=== PATIENT | female | born 1970 | race Caucasian/White ===

== ENCOUNTER 2017-10-13 17:55 | Emergency (ER) | payer OTHER, SELFPAY ==
--- NOTE | 2017-10-13 17:55 | DT_ITS ---
This patient was seen during an EMR downtime October 11, 2017 - October 18, 2017. This patient may have a combination of paper and electronic documentation or all paper documentation. All documentation is viewable within the e-chart portion of [facility] for each patient visit.
== END 2017-10-13 18:45 | disposition home or self-care (01) ==
PROVIDERS: Emergency Provider Emergency Medicine; Family Provider Internal Medicine; PCP Internal Medicine
DX: F41.1 Generalized anxiety disorder (principal); F31.9 Bipolar disorder, unspecified; E11.9 Type 2 diabetes mellitus without complications; E78.00 Pure hypercholesterolemia, unspecified; M79.7 Fibromyalgia; F17.210 Nicotine dependence, cigarettes, uncomplicated
CPT/HCPCS: 99283

== ENCOUNTER 2018-04-15 19:15 | Emergency (ER) | payer OTHER, SELFPAY ==
[2018-04-15 19:16] VITALS: BP 167/94; PULSE 87; RESP 16; TEMP 36.8; O2SAT 97; BMI 33.0
--- NOTE | 2018-04-15 19:33 | CT_ITS ---
STUDY: CT CERVICAL SPINE WITHOUT CONTRAST REASON FOR EXAM: Female, 47 years old. Trauma, neck pain RADIATION DOSAGE (If Supplied By Facility): CTDIvol = ( 25.29 ) mGy, DLP = ( 592.23 ) mGycm TECHNIQUE: High resolution transaxial imaging was performed without contrast material. Sagittal and coronal images were reconstructed. Individualized dose optimization techniques were used for this CT. COMPARISON: None FINDINGS: Normal craniovertebral junction. There are degenerative changes of the anterior atlantoaxial articulation. Normal odontoid process. There is straightening of the normal cervical lordosis. There is endplate spondylosis from C5 caudally to T3. C2-3: There are hypertrophic degenerative facet changes on the left. There is no foraminal narrowing or central canal stenosis. Disc spacing is preserved. C3-4: There are hypertrophic facet changes on the right. There is moderately severe right foraminal narrowing. Disc spacing is within normal limits. There is no central canal stenosis. C4-5: Disc spacing is within normal limits. There are bilateral hypertrophic degenerative facet changes. There is mild foraminal narrowing on the left. There is moderately severe central canal stenosis caused by posterior osteophyte complex. C5-6: The facets are within normal limits. Disc spacing is preserved. There is no central canal stenosis or foraminal narrowing. C6-7: There is mild disc space narrowing. The facets are within normal limits. There is no foraminal narrowing or central canal stenosis. C7-T1: There is moderately severe disc space narrowing. There are mild degenerative facet changes bilaterally. There is no central canal stenosis or foraminal narrowing. Normal visualized soft tissue structures. CT/Spine Cervical without Contras IMPRESSION: Multilevel degenerative changes, as described above. Electronically Signed: Nicolas Breaux MD at 20:30 EST , Service support ,
--- NOTE | 2018-04-15 19:33 | RAD_ITS ---
STUDY: X-RAY - THORACIC SPINE REASON FOR EXAM: Female, 47 years old. Trauma TECHNIQUE: 3 view(s) of the thoracic spine were obtained. COMPARISON: None. FINDINGS: Normal kyphosis of the thoracic spine. There is no substantial scoliosis. There is multilevel endplate spondylosis of the thoracic vertebrae. Normal disc space heights. The soft tissue structures are unremarkable. RAD/Thoracic Spine 3 Views IMPRESSION: Diffuse degenerative changes of the thoracic spine. There are large dense bridging osteophytes in the mid to lower thoracic region consistent with diffuse idiopathic skeletal hyperostosis. Electronically Signed: Nicolas Breaux MD at 20:50 EST , Service support ,
--- NOTE | 2018-04-15 19:40 | ED.DCSUM_ITS ---
- ER Visit Summary Date of Service: 04/15/18 Chief Complaint: Fall History of Present Illness: The patient is a 47 F presenting after fall. Patient states that at 1 AM this morning she was leaving work and and slipped on ice in the parking lot and fell. She did not hit her head or lose consciousness. She complains of diffuse back pain. She states she tried to work today but was unable due to continued back pain. She is currently in pain management for her back and takes ibuprofen and Flexeril. She is able to ambulate. Denies bowel or bladder incontinence. Denies other injuries. Physical Examination: Vitals are stable. Patient is afebrile. Alert no acute distress. HEENT exam is unremarkable. Neck is supple. Mild diffuse tenderness Lungs are clear and equal bilaterally. Heart is regular rate and rhythm. Abdomen is soft nontender nondistended. Back: left paraspinal lumbar muscle tenderness, no midline tenderness Extremities are unremarkable. Skin is warm and dry. No focal neurologic deficit. Normal strength and sensation Remainder of exam is unremarkable. Emergency Department Course and Treatment: Patient is given morphine, Zofran IM. Thoracic spine x-ray shows diffuse degenerative changes of the thoracic spine. There are large dense bridging osteophytes in the mid to lower thoracic region consistent with diffuse idiopathic skeletal hyperostosis. Lumbar spine x-ray shows degenerative changes of the spine. Findings are suggestive of diffuse idiopathic skeletal hyperostosis. CT C-spine shows multilevel degenerative changes. Patient is feeling improved on reevaluation. She is advised to follow-up with [facility]. Advised return to ED for worsening complaints. Disposition: Discharge home Impression: Status post mechanical fall, lumbar strain This note was generated with [employer] dictation software. It may contain incorrect words, spelling, and punctuation that were not noted in review of the chart prior to signing ED Disposition - Plan for ED Patient: Disposition: Home or Assisted Living Chief Complaint: Back Instructions: ED Sprain Strain Lumbar Referrals: [facility] [GROUP OF PHYSICIANS] - Savi Clements MD [Primary Care Provider] - Marcos Mckoy [NON-STAFF] -
[2018-04-15] MEDS: Ondansetron 4 MG/2 ML Vial IM (19:48)
[2018-04-15] MEDS: morphine 8 MG/ML Syringe IM (19:48)
--- NOTE | 2018-04-15 20:14 | RAD_ITS ---
STUDY: X-RAY - LUMBAR SPINE REASON FOR EXAM: Female, 47 years old. Trauma TECHNIQUE: 3 view(s) of the lumbar spine were obtained. COMPARISON: None FINDINGS: Normal lumbar lordosis. There is no substantial scoliosis. There is a normal alignment of the vertebrae. There are large dense bridging osteophytes of the lower thoracic/upper lumbar vertebrae. There is multi-level degenerative disc disease with multi-level disc space narrowing. There is no demonstrated fracture. Bilateral tubal ligation clips are seen. RAD/Lumbar Spine 2 or 3 Views IMPRESSION: Degenerative changes of the spine, as detailed above. Findings are suggestive of diffuse idiopathic skeletal hyperostosis. There is no evidence of fracture or spondylolisthesis. Electronically Signed: Nicolas Breaux MD at 20:48 EST , Service support ,
--- NOTE | 2018-04-15 22:09 | ED.RN ---
NO OLD EKGS IN MUSE
--- NOTE | 2018-04-15 22:18 | DCINST.ED_ITS ---
ED Disposition - Plan for ED Patient: Disposition: Home or Assisted Living Chief Complaint: Back Instructions: ED Sprain Strain Lumbar Referrals: Savi Clements MD [Primary Care Provider] - Marcos Mckoy [NON-STAFF] - [facility] [GROUP OF PHYSICIANS] -
[2018-04-15 22:29] VITALS: RESP 18
== END 2018-04-15 22:29 | disposition home or self-care (01) ==
PROVIDERS: Emergency Provider Emergency Medicine; Family Provider Internal Medicine; PCP Internal Medicine
DX: S39.012A Strain of muscle, fascia and tendon of lower back, initial encounter (principal); W00.0XXA Fall on same level due to ice and snow, initial encounter; Y93.9 Activity, unspecified; Y92.481 Parking lot as the place of occurrence of the external cause; J45.909 Unspecified asthma, uncomplicated; E11.9 Type 2 diabetes mellitus without complications; Z72.0 Tobacco use; Z79.899 Other long term (current) drug therapy; Z79.4 Long term (current) use of insulin
CPT/HCPCS: 72072; 72100; 72125; 96372; 99282; J2405

== ENCOUNTER 2018-05-22 20:16 | Emergency (ER) | payer MEDICAID, SELFPAY ==
[2018-04-20 13:36] VITALS: BMI 33.0
[2018-05-22 20:17] VITALS: BP 153/80; PULSE 123; RESP 16; TEMP 36.7; O2SAT 98; BMI 35.9
[2018-05-22 20:43] VITALS: PULSE 123; RESP 18; TEMP 36.6; O2SAT 98
[2018-05-22] MEDS: morphine 10 MG/ML Syringe 8 MG IM (21:00)
[2018-05-22] MEDS: Ondansetron 4 MG/2 ML Vial IM (21:00)
--- NOTE | 2018-05-22 21:07 | ED.DEP ---
ED Disposition - Plan for ED Patient: Chief Complaint: Abscess Instructions: ED Cyst Pilonidal Infected IandD Prescriptions: Clindamycin [Cleocin] 300 mg PO 4X/DAY #80 capsule Referrals: Savi Clements MD [Primary Care Provider] - Linda Whelan MD [STAFF PHYSICIAN] -
--- NOTE | 2018-05-22 21:12 | ED.VISSUMM ---
- ER Visit Summary Date of Service: 05/22/18 Chief Complaint: Buttock abscess History of Present Illness: The patient is a 47 F presenting with abscess on her buttock. She noticed this yesterday. States it continues to worsen. No history of similar symptoms in the past. She has history of diabetes, hypercholesterolemia, fibromyalgia, bipolar disorder. She has not noticed any drainage at home. She denies fever. Denies other complaints. Physical Examination: Vitals are stable. Patient is afebrile. Alert no acute distress. HEENT exam is unremarkable. Neck is supple. Lungs are clear and equal bilaterally. Heart is regular rate and rhythm. Abdomen is soft nontender nondistended. 2 cm abscess at gluteal cleft with fluctuance Extremities are unremarkable. Skin is warm and dry. Remainder of exam is unremarkable. Emergency Department Course and Treatment: Patient was given morphine, Zofran IM. I&D was performed. Anesthetized with lidocaine. Incised with 11 blade. Moderate amount of pus was drained. Probed to break up loculations. Irrigated with saline. Patient tolerated this well. She is given clindamycin and prescription for clindamycin. Advised return to ED for worsening complaints. Advised to follow with Dr. Whelan business continuity director for no doc surgery. Disposition: Discharge home Impression: Infected pilonidal cyst, I&D This note was generated with [email or web address] dictation software. It may contain incorrect words, spelling, and punctuation that were not noted in review of the chart prior to signing ED Disposition - Plan for ED Patient: Chief Complaint: Abscess Instructions: ED Cyst Pilonidal Infected IandD Prescriptions: Clindamycin [Cleocin] 300 mg PO 4X/DAY #80 capsule Referrals: Savi Clements MD [Primary Care Provider] - Linda Whelan MD [STAFF PHYSICIAN] -
--- NOTE | 2018-05-22 21:15 | ED.DCSUM_ITS ---
- ER Visit Summary Date of Service: 05/22/18 Chief Complaint: Buttock abscess History of Present Illness: The patient is a 47 F presenting with abscess on her buttock. She noticed this yesterday. States it continues to worsen. No history of similar symptoms in the past. She has history of diabetes, hype rcholesterolemia, fibromyalgia, bipolar disorder. She has not noticed any drainage at home. She denies fever. Denies other complaints. Physical Examination: Vitals are stable. Patient is afebrile. Alert no acute distress. HEENT exam is unremarkable. Neck is supple. Lungs are clear and equal bilaterally. Heart is regular rate and rhythm. Abdomen is soft nontender nondistended. 2 cm abscess at gluteal cleft with fluctuance Extremities are unremarkable. Skin is warm and dry. Remainder of exam is unremarkable. Emergency Department Course and Treatment: Patient was given morphine, Zofran IM. I&D was performed. Anesthetized with lidocaine. Incised with 11 blade. Moderate amount of pus was drained. Probed to break up loculations. Irrigated with saline. Patient tolerated this well. She is given clindamycin and prescription for clindamycin. Advised return to ED for worsening complaints. Advised to follow with Dr. Whelan cast iron drain pipe layer for no doc surgery. Disposition: Discharge home Impression: Infected pilonidal cyst, I&D This note was generated with [employer] dictation software. It may contain incorrect words, spelling, and punctuation that were not noted in review of the chart prior to signing ED Disposition - Plan for ED Patient: Chief Complaint: Abscess Instructions: ED Cyst Pilonidal Infected IandD Prescriptions: Clindamycin [Cleocin] 300 mg PO 4X/DAY #80 capsule Referrals: Savi Clements MD [Primary Care Provider] - Linda Whelan MD [STAFF PHYSICIAN] -
[2018-05-22] MEDS: Clindamycin HCl 150 MG Capsule 300 MG PO (21:20)
[2018-05-22 21:29] VITALS: BP 123/71; PULSE 89; RESP 16; O2SAT 99
== END 2018-05-22 21:34 | disposition home or self-care (01) ==
LOC: ED 21:32
PROVIDERS: Emergency Provider Emergency Medicine; Family Provider Internal Medicine; PCP Internal Medicine
DX: L05.01 Pilonidal cyst with abscess (principal); E11.9 Type 2 diabetes mellitus without complications; E78.00 Pure hypercholesterolemia, unspecified; M79.7 Fibromyalgia; F31.9 Bipolar disorder, unspecified; Z79.4 Long term (current) use of insulin; Z79.899 Other long term (current) drug therapy; Z72.0 Tobacco use
CPT/HCPCS: 10080; 96372; 99282; J2405

== ENCOUNTER 2018-08-14 21:41 | Emergency (ER) | payer MEDICAID, SELFPAY ==
[2018-05-25 12:51] VITALS: BMI 35.9
[2018-08-14 21:41] VITALS: BP 162/92; PULSE 92; RESP 18; TEMP 37.3; O2SAT 97; BMI 35.6
[2018-08-14 21:57] VITALS: BP 75/59; PULSE 128; RESP 28; O2SAT 96
--- NOTE | 2018-08-14 22:06 | RAD_ITS ---
STUDY: X-RAY CHEST REASON FOR EXAM: Female, 47 years old. Chest pain TECHNIQUE: Single frontal view of the chest. COMPARISON: None. FINDINGS: The lungs are clear and expanded. There is no demonstrated pleural abnormality. Normal size heart. Normal mediastinum and ines. Normal visualized pulmonary arteries. Normal visualized aortic arch and descending thoracic aorta. Normal visualized thoracic spine. Normal visualized ribs, clavicles, and shoulders. There is no demonstrated abnormality of the visualized soft tissue structures of the upper abdomen. RAD/Chest 1 View (Portable) IMPRESSION: Normal x-ray examination of the chest. Electronically Signed: Chip Dowell MD at 22:31 EDT Tel , Service support ,
--- NOTE | 2018-08-14 22:15 | ED.RN ---
DR. CONWAY AT BEDSIDE WITH PT. PT COMPLAINS OF SOB. PT PLACE ON NONREBREATHER MASK AT 15L/ SOB, GASPING. PT MOTTLED AROUND NECK. VERBAL ORDERS FOR RSI. PT HR IN 30. ATROPINE GIVEN 2217. PT CONTINUES TO YNES DOWN IN HRB
--- NOTE | 2018-08-14 23:21 | EKG12_ITS ---
Test Reason : CP Blood Pressure : / mmHG Vent. Rate : 087 BPM Atrial Rate : 087 BPM P-R Int : 158 ms QRS Dur : 078 ms QT Int : 338 ms P-R-T Axes : 058 010 056 degrees QTc Int : 406 ms Normal sinus rhythm Low voltage QRS Septal infarct , age undetermined , cannot be excluded Nonspecific T-Wave Abnormality Abnormal ECG Confirmed by ODALIS DALEY, ELISABETH ([id number]), field map editor NAYLA BURTON ([id number]) on 08/17/2018 1:11:04 PM Referred By: KASANDRA/CHEKO Confirmed By:ELISABETH JACOBO MD
[2018-08-14 23:46] VITALS: O2SAT 96
[2018-08-14] MEDS: Aspirin 81 MG TAB.CHEW 324 MG PO (23:48)
[2018-08-14] MEDS: morphine 8 MG/ML Syringe 6 MG IV (23:49)
[2018-08-14] MEDS: Ketorolac 30 MG/ML Syringe IV (23:49)
[2018-08-14] MEDS: Ondansetron 4 MG/2 ML Vial IV (23:49)
[2018-08-14 23:55] VITALS: BP 144/85; PULSE 82; RESP 16; O2SAT 96
[2018-08-14 23:56] LABS: Absolute Lymphocyte Count 3.05 X10^3/ul (0.83-4.51); Absolute Neutrophil Count 6.5 X10^3/uL (2.0-7.7); Basophil# 0.02 X10^3/uL; Basophil% 0.2 % (0-1); Eosinophil# 0.68 X10^3/uL; Eosinophils% 6.1 % (0-5); Hematocrit 39.8 % (37-47); Hemoglobin 13.8 g/dl (12.0-15.0); Lymphocyte # 3.05 X10^3/ul (4.0); Lymphocyte % 27.4 % (19-41); Mean Corp Hgb Conc 34.7 g/gl (32-36); Mean Corpuscular Hgb 29.4 pg (27.0-32.0); Mean Corpuscular Volume 84.9 fL (81-99); Mean Platelet Vol. 10.5 fl (6.2-12.0); Monocyte% 8.1 % (0-10); Neutrophil # 6.45 X10^3/uL (2.7-7.7); Neutrophil % 57.9 % (47-70); Platelet Count 237 K/mm3 (150-450); RBC Distribution Width CV 12.8 % (11.6-14.6); RBC Distribution Width SD 38.8 fl (35.1-43.9); Red Blood Count 4.69 M/mm3 (4.2-5.4); White Blood Count 11.1 K/mm3 (4.4-11.0)
[2018-08-15] VITALS: BP 135/89; PULSE 80; RESP 13; O2SAT 96
[2018-08-15] LABS: POSITIVE COUNT NO; POSITIVE DIFFERENTIAL NO; POSITIVE MORPHOLOGY NO
[2018-08-15 00:08] LABS: D-Dimer Quantitative (DVT/PE) 0.28 FEU/ug/m (0.27-0.49)
[2018-08-15 00:17] LABS: Anion Gap 6 (5-15); BUN 13 mg/dL (7-18); BUN/Creat Ratio 17.2 RATIO (10-20); Calcium,Total 9.1 mg/dL (8.5-10.1); Chloride 102 mmol/L (98-107); Creatinine, Serum 0.76 mg/dL (0.55-1.02); EST Glomerular Filtration Rate 87 mL/min (>60); Est Glom Filt Rate - Afr Amer 106 mL/min (>60); Estimated Creatinine Clearance 89.95 ml/min; Glucose 204 mg/dL (74-106); Potassium 3.8 mmol/L (3.5-5.1); Sodium Level 135 mmol/L (136-145)
[2018-08-15 01:14] VITALS: BP 131/72; PULSE 71; RESP 14; O2SAT 96
--- NOTE | 2018-08-15 01:40 | ED.VISSUMM ---
- ER Visit Summary Date of Service: 08/15/18 Chief Complaint: Left chest pain History of Present Illness: The patient is a 47 F mild left chest pain since . Is been constant. It is stabbing. Worse with movement. She had pleurisy before with similar not exactly the same. She denies any shortness of breath. No hemoptysis. No leg pain or swelling. No prior history of DVT or PE. No recent travel, surgery or immobilization. Patient does have a history of insulin-dependent diabetes and high cholesterol. His chronic neck pain and recently had neck injections earlier last week. Denies any fall or trauma. No fever or cough. Physical Examination: Well-appearing middle-age female. Initial blood pressure think that is erroneous when I am in the room is 144/85. Pulse ox 96% on room air no signs of hypoxia. HEENT exam normal. Neck nontender. Lungs there to auscultation bilaterally. Heart regular rhythm rate in the 80s. Abdomen is soft and nontender normal bowel sounds no peritoneal signs. She has reproducible left chest wall pain. No ecchymosis or bruising. No subcu air crepitance. This is the same pain she is having. Patient is moving all 4 extremities. Neurovascular intact. Back exam she also has reproducible muscular skeletal pain along the left scapula consistent with soft tissue tenderness. There is no ecchymosis or bruising. Neurologically she is awake and alert with no focal motor deficits. Equal symmetrical radial pulses. Test Results: CBC normal. Chemistries normal. Troponin d-dimer normal. Chest x-ray portable one view no acute abnormality read both of myself and the radiologist. EKG sinus rhythm rate of 87 with no acute signs of RI or ischemia. Emergency Department Course and Treatment: Clinically this and exam funez is consistent with musculoskeletal pain. She was treated with morphine, Toradol and Zofran. On repeat exam at she is doing well. Will be discharged home. Treatment Plan: Pain meds as needed. Motrin for pain. Ice to the chest wall and back. Heat. Disposition: Discharge Impression: Acute musculoskeletal chest and back pain This note was generated with [employer] dictation software. It may contain incorrect words, spelling, and punctuation that were not noted in review of the chart prior to signing ED Disposition - Plan for ED Patient: Referrals: Savi Clements MD [Primary Care Provider] -
--- NOTE | 2018-08-15 01:43 | ED.DCSUM_ITS ---
- ER Visit Summary Date of Service: 08/15/18 Chief Complaint: Left chest pain History of Present Illness: The patient is a 47 F mild left chest pain since . Is been constant. It is stabbing. Worse with movement. She had pleurisy before with similar not exactly the same. She denies any shortness of breath. No hemoptysis. No leg pain or swelling. No prior history of DVT or PE. No recent travel, surgery or immobilization. Patient does have a history of insulin-dependent diabetes and high cholesterol. His chronic neck pain and recently had neck injections earlier last week. Denies any fall or trauma. No fever or cough. Physical Examination: Well-appearing middle-age female. Initial blood pressure think that is erroneous when I am in the room is 144/85. Pulse ox 96% on room air no signs of hypoxia. HEENT exam normal. Neck nontender. Lungs there to auscultation bilaterally. Heart regular rhythm rate in the 80s. Abdomen is soft and nontender normal bowel sounds no peritoneal signs. She has reproducible left chest wall pain. No ecchymosis or bruising. No subcu air crepitance. This is the same pain she is having. Patient is moving all 4 extremities. Neurovascular intact. Back exam she also has reproducible muscular skeletal pain along the left scapula consistent with soft tissue tenderness. There is no ecchymosis or bruising. Neurologically she is awake and alert with no focal motor deficits. Equal symmetrical radial pulses. Test Results: CBC normal. Chemistries normal. Troponin d-dimer normal. Chest x-ray portable one view no acute abnormality read both of myself and the radiologist. EKG sinus rhythm rate of 87 with no acute signs of SC or ischemia. Emergency Department Course and Treatment: Clinically this and exam funez is consistent with musculoskeletal pain. She was treated with morphine, Toradol and Zofran. On repeat exam at she is doing well. Will be discharged home. Treatment Plan: Pain meds as needed. Motrin for pain. Ice to the chest wall and back. Heat. Disposition: Discharge Impression: Acute musculoskeletal chest and back pain This note was generated with [employer] dictation software. It may contain incorrect words, spelling, and punctuation that were not noted in review of the chart prior to signing ED Disposition - Plan for ED Patient: Referrals: Savi Clements MD [Primary Care Provider] -
--- NOTE | 2018-08-15 01:43 | ED.DEP ---
ED Disposition - Plan for ED Patient: Disposition: Home or Assisted Living Instructions: ED Strain Chest Wall Referrals: Savi Clements MD [Primary Care Provider] - 1 Week if not improving Additional Instructions: History chest wall. Motrin for pain. Follow-up with your pain management doctor.
[2018-08-15 01:53] VITALS: BP 131/72; PULSE 76; RESP 15; O2SAT 15
== END 2018-08-15 01:54 | disposition home or self-care (01) ==
PROVIDERS: Emergency Provider Emergency Medicine; Family Provider Internal Medicine; PCP Internal Medicine
DX: R07.89 Other chest pain (principal); M54.5 Low back pain; M54.2 Cervicalgia; G89.29 Other chronic pain; E11.9 Type 2 diabetes mellitus without complications; E78.00 Pure hypercholesterolemia, unspecified; Z79.4 Long term (current) use of insulin; Z79.84 Long term (current) use of oral hypoglycemic drugs; Z79.899 Other long term (current) drug therapy; Z72.0 Tobacco use
CPT/HCPCS: 71045; 80048; 84484; 85025; 85379; 93005; 96374; 96375; 99285; A4216; J2405

== ENCOUNTER 2018-09-28 18:20 | Emergency (ER) | payer MEDICAID, SELFPAY ==
[2018-09-28 18:21] VITALS: BP 165/90; PULSE 90; RESP 16; TEMP 37; O2SAT 97; BMI 33.2
[2018-09-28] MEDS: DiphenhydrAMINE 50 MG/ML Syringe 25 MG IV (20:17)
[2018-09-28] MEDS: 0.9% Normal Saline 1,000 ML 999 ML IV (20:17)
[2018-09-28] MEDS: Metoclopramide 10 MG/2 ML Vial 5 MG IV (20:18)
--- NOTE | 2018-09-28 20:51 | ED.VISSUMM ---
- ER Visit Summary Date of Service: 09/28/18 Chief Complaint: Headache History of Present Illness: The patient is a 47 F presenting with headache. This has been intermittent for the past couple days. She states it gradually worsened today. She has tried ibuprofen at home. No recent trauma. She has a history of previous headaches. She has light sensitivity. Denies nausea or vomiting. Denies fever. Denies other complaints. Physical Examination: Vitals are stable. Patient is afebrile. Alert no acute distress. HEENT exam is unremarkable. Neck is supple. No meningismus Lungs are clear and equal bilaterally. Heart is regular rate and rhythm. Extremities are unremarkable. Skin is warm and dry. No focal neurologic deficit. Remainder of exam is unremarkable. Emergency Department Course and Treatment: Patient was given Reglan, Benadryl IV with some improvement. She was then given Toradol with improvement of her headache. She is advised to follow-up with her primary care physician. Advised to return to ED if worsening complaints. Disposition: Discharge home Impression: Headache This note was generated with [employer] dictation software. It may contain incorrect words, spelling, and punctuation that were not noted in review of the chart prior to signing ED Disposition - Plan for ED Patient: Referrals: Savi Clements MD [Primary Care Provider] -
--- NOTE | 2018-09-28 21:39 | ED.RN ---
DR BROWN NOTIFIED PT REQUESTING MORE PAIN MEDICATION
[2018-09-28] MEDS: Ketorolac 30 MG/ML Syringe IV (21:44)
--- NOTE | 2018-09-28 21:45 | ED.RN ---
PT C/O NO IMPROVEMENT WITH HEADACHE. PT CURRENTLY WATCHING A MOVIE ON HER PHONE
--- NOTE | 2018-09-28 22:23 | ED.DEP ---
ED Disposition - Plan for ED Patient: Instructions: ED Cephalgia Unspecified Referrals: Savi Clements MD [Primary Care Provider] -
[2018-09-28 22:37] VITALS: BP 132/89; PULSE 90; RESP 14; O2SAT 98
== END 2018-09-28 22:38 | disposition home or self-care (01) ==
LOC: ED 19:28
PROVIDERS: Emergency Provider Emergency Medicine; Family Provider Internal Medicine; PCP Internal Medicine
DX: R51 Headache (principal); J45.909 Unspecified asthma, uncomplicated; E11.9 Type 2 diabetes mellitus without complications; F31.9 Bipolar disorder, unspecified; F41.9 Anxiety disorder, unspecified; Z79.4 Long term (current) use of insulin; Z79.84 Long term (current) use of oral hypoglycemic drugs; Z79.899 Other long term (current) drug therapy; Z72.0 Tobacco use
CPT/HCPCS: 96361; 96374; 96375; 99284; J7030; A4216

== ENCOUNTER 2019-01-08 11:10 | Emergency (ER) | payer MEDICAID, SELFPAY ==
[2019-01-08 11:11] VITALS: BP 120/71; PULSE 83; RESP 15; TEMP 36.2; O2SAT 98; BMI 34.7
[2019-01-08 11:18] VITALS: BP 113/77
--- NOTE | 2019-01-08 11:31 | EKG12_ITS ---
Test Reason : FATIGUE Blood Pressure : / mmHG Vent. Rate : 063 BPM Atrial Rate : 063 BPM P-R Int : 186 ms QRS Dur : 086 ms QT Int : 410 ms P-R-T Axes : 039 009 014 degrees QTc Int : 419 ms Normal sinus rhythm Low voltage QRS Borderline ECG Confirmed by ODALIS DALEY, ELISABETH ([id number]), desk editor EVELYN HALL ([id number]) on 01/10/2019 11:31:52 AM Referred By: SHABANA Confirmed By:ELISABETH JACOBO MD
--- NOTE | 2019-01-08 11:32 | ED.DCSUM_ITS ---
- ER Visit Summary Date of Service: 01/08/19 Chief Complaint: Exhausted History of Present Illness: The patient is a 48 F history of type II [id number] diabetes. He states the last 2 weeks she just felt exhausted. Says she drinks a lot of water. Up to 40 bottles of water a week. Says she still feels dehydrated in spite of that. She was seen in the urgent care over a week ago. Started on Keflex for a mild skin infection. Saw her nurse practitioner on Wednesday pressure at that time was 102/70. She states she is been checked multiple times for thyroid issues and they have always returned normal. She denies any vomiting or diarrhea. Any fever. No dysuria. No chest pain or shortness of breath. Physical Examination: No acute appearing no acute distress. Initial blood pressure is 113/77. While in the room repeat blood pressure was 122/75. HEENT exam unremarkable. Neck nontender. No adenopathy. Lungs clear to auscultation bilaterally. Heart regular rhythm no murmur. Abdomen is soft and nontender. Normal bowel sounds no peritoneal signs. Extremities moves all 4. Neurovascular intact. Calves are nontender without edema or cords. Neurologically she is awake alert with no focal motor deficits. Skin is unremarkable. Back is nontender. Test Results: CBC shows white count 5. Hemoglobin 13. Unremarkable. Chemistries unremarkable gap of 8. BUN is slightly elevated 24 creatinine 1.1 consistent with very mild dehydration. EKG shows sinus rhythm rate of 63 with no acute signs of either an [place] or any ischemia. Emergency Department Course and Treatment: Patient treated with a liter of normal saline. Screening labs and EKG will be obtained. Repeat exam at 1400 patient is doing well. Exam is unremarkable. She was treated with a liter of normal saline. Treatment Plan: Follow-up with primary care physician. Plenty of fluids and rest. Disposition: Discharge Impression: Acute fatigue Mild Dehydration History of diabetes This note was generated with [employer] dictation software. It may contain incorrect words, spelling, and punctuation that were not noted in review of the chart prior to signing ED Disposition - Plan for ED Patient: Referrals: Savi Clements MD [Primary Care Provider] -
[2019-01-08 11:33] VITALS: BP 122/78
[2019-01-08] MEDS: 0.9% Normal Saline 1,000 ML 999 ML IV (11:46)
[2019-01-08 12:05] LABS: Absolute Lymphocyte Count 2.36 X10^3/uL (0.83-4.51); Absolute Neutrophil Count 2.3 X10^3/uL (2.0-7.7); Basophil# 0.02 X10^3/uL; Basophil% 0.4 % (0-1); Eosinophil# 0.51 X10^3/uL; Hematocrit 41.5 % (37-47); Hemoglobin 13.2 g/dL (12.0-15.0); Lymphocyte # 2.36 X10^3/ul (4.0); Lymphocyte % 41.8 % (19-41); Mean Corp Hgb Conc 31.8 g/dL (32-36); Mean Corpuscular Hgb 28.1 pg (27.0-32.0); Mean Corpuscular Volume 88.3 fL (81-99); Mean Platelet Vol. 10.9 fl (6.2-12.0); Monocyte# 0.47 X10^3/uL; Monocyte% 8.3 % (0-10); NRBC Flagged by Analyzer 0 % (0-5); Neutrophil # 2.25 X10^3/uL (2.7-7.7); Platelet Count 203 K/mm3 (150-450); RBC Distribution Width SD 42.1 fl (35.1-43.9); White Blood Count 5.6 K/mm3 (4.4-11.0)
[2019-01-08 12:07] LABS: Anion Gap 8 (5-15); BUN 24 mg/dL (7-18); BUN/Creat Ratio 21.6 RATIO (10-20); Calcium,Total 8.5 mg/dL (8.5-10.1); Chloride 105 mmol/L (98-107); Creatinine, Serum 1.11 mg/dL (0.55-1.02); EST Glomerular Filtration Rate 56 mL/min (>60); Est Glom Filt Rate - Afr Amer 68 mL/min (>60); Estimated Creatinine Clearance 60.93 ml/min; Glucose 101 mg/dL (74-106); Potassium 4.2 mmol/L (3.5-5.1); Sodium Level 139 mmol/L (136-145)
[2019-01-08 12:35] VITALS: BP 106/76; PULSE 64
[2019-01-08 14:00] VITALS: BP 112/71
--- NOTE | 2019-01-08 14:02 | ED.DEP ---
ED Disposition - Plan for ED Patient: Disposition: Home or Assisted Living Instructions: WEAKNESS, Unk Cause Referrals: Savi Clements MD [Primary Care Provider] - As soon as possible Additional Instructions: Plenty of fluids and rest. Today you had mild dehydration. Otherwise your labs look good. Follow-up with your primary care physician
[2019-01-08 14:09] VITALS: BP 112/74; PULSE 64; RESP 16; O2SAT 97
== END 2019-01-08 14:10 | disposition home or self-care (01) ==
PROVIDERS: Emergency Provider Emergency Medicine; Family Provider Internal Medicine; PCP Internal Medicine
DX: R53.83 Other fatigue (principal); E86.0 Dehydration; E11.9 Type 2 diabetes mellitus without complications; K59.00 Constipation, unspecified; Z79.84 Long term (current) use of oral hypoglycemic drugs; Z79.899 Other long term (current) drug therapy; Z72.0 Tobacco use
CPT/HCPCS: 80048; 85025; 93005; 96360; 96361; 99284

== ENCOUNTER 2019-05-20 19:35 | Emergency (ER) | payer MEDICAID, SELFPAY ==
[2019-05-20 19:36] VITALS: BP 137/82; PULSE 82; RESP 15; TEMP 36.2; O2SAT 98; BMI 34.0
--- NOTE | 2019-05-20 19:51 | ED.DCSUM_ITS ---
- ER Visit Summary Date of Service: 05/20/19 Chief Complaint: Sore throat History of Present Illness: The patient is a 48 F who presents with sore throat. This is been ongoing since yesterday. She states it feels like her throat is swollen. It hurts to swallow. She states that she had a sinus infection and bronchitis a couple weeks ago. She was treated with prednisone, Mucinex but no antibiotics. She denies any fevers. She has had a tonsillectomy in the past. Physical Examination: Vital signs reviewed. HEENT exam reveals TMs that are clear. She has a mild posterior oropharyngeal erythema. There is no uvular swelling. Tonsils are surgically absent. There is no tongue swelling. Neck is supple without lymphadenopathy. Heart is regular rate and rhythm. Lungs are clear auscultation. Abdomen soft and nontender. Extremities with no edema. Neurologic exam normal. Test Results: Rapid strep is positive. Emergency Department Course and Treatment: Patient was given Decadron to help with her pain. I did do a rapid strep and it is positive. She elected to do intramuscular Bicillin. Patient will be sent home with supportive care as well. Treatment Plan: [] Disposition: Discharge Impression: Strep pharyngitis This note was generated with [employer] dictation software. It may contain incorrect words, spelling, and punctuation that were not noted in review of the chart prior to signing ED Disposition - Plan for ED Patient: Disposition: Home or Assisted Living Instructions: PHARYNGITIS, Strep (Presumed) Referrals: Savi Clements MD [Primary Care Provider] -
[2019-05-20] MEDS: dexAMETHasone 4 MG Tablet 8 MG PO (20:01)
[2019-05-20] MEDS: Penicillin G Benzathine 1.2 MU/2 ML Syringe IM (20:35)
[2019-05-20 20:57] VITALS: BP 132/81; PULSE 80; RESP 17; O2SAT 97
--- NOTE | 2019-05-20 20:58 | ED.RN ---
shot time was observed by this nurse for 15 minutes, no reaction was noted by this nurse.
== END 2019-05-20 20:59 | disposition home or self-care (01) ==
PROVIDERS: Emergency Provider Emergency Medicine; Family Provider Internal Medicine; PCP Internal Medicine
DX: J02.0 Streptococcal pharyngitis (principal); Z72.0 Tobacco use
CPT/HCPCS: 87880; 96372; 99282

== ENCOUNTER 2019-06-03 20:31 | Emergency (ER) | payer MEDICAID, SELFPAY ==
[2019-06-03 20:33] VITALS: BP 157/83; PULSE 86; RESP 18; TEMP 36.8; O2SAT 99; BMI 35.4
--- NOTE | 2019-06-03 21:05 | ED.VIS.GEN ---
History of Present Illness Chief Complaint: Sore Throat Informant: Patient Onset: Month(s) Maximum Severity: Mild Narrative: Patient presents complaining of chronic postnasal drainage and cough and some sore throat. She is had these symptoms chronically throughout her whole life the current exacerbation began in March she is was under the care of ENT she had scopes of her airway that showed this process it was recommended she have sinus surgery but she declined she has been seen by multiple outpatient providers for this since then most recently 1 week ago her outpatient provider started her on azithromycin and prednisone taper she was told to follow-up with ENT she has not done that. She indicates she presents the emergency room asking to be given a refill of the prednisone as that helps her symptoms she is able to swallow she is able to eat sugars no stridor no drooling she indicates she is constantly having postnasal drainage and coughing that causes a sore throat sensation her diabetes is well controlled blood sugars about 1 50-1 80 Past Medical History - Allergies and Home Meds Allergies/Adverse Reactions: Allergies Sulfa (Sulfonamide Antibiotics) Allergy (Verified 06/03/19 20:33) Anaphylaxis vancomycin Allergy (Verified 06/03/19 20:33) Hives metformin Adverse Reaction (Verified 06/03/19 20:33) Diarrhea stainless steal Allergy (Mild, Uncoded 06/03/19 20:33) rash Primary Care Physician: Savi Clements MD [Primary Care Provider] - Past Medical History: - - Rhinosinusitis diabetes Surgical History: tonsillectomy Smoking Status: Current every day smoker Review of Systems General: Denies: Chills, Fever, Sweats Eyes: Denies: Visual changes - bilaterally, Diplopia ENT: Reports: Rhinorrhea, Sore throat, - - Nasal drainage postnasal drip cough Cardiovascular: Denies: Chest pain, Palpitations Respiratory: Denies: Dyspnea, Cough, Dyspnea on exertion Gastrointestinal: Denies: Abdominal pain, Nausea, Vomiting, Diarrhea, Melena, Hematochezia Genitourinary: Denies: Dysuria, Hematuria, Frequency Musculoskeletal: Denies: Back pain, Extremity Pain Skin: Denies: Rash, Wounds Neurological: Denies: Headache, Weakness, Numbness Physical Exam Vital Signs/Narrative: Vital Signs Temp Pulse Resp BP Pulse Ox 06/03/19 20:33 98.2 F 86 18 157/83 H 99 General: Well nourished, Well developed, No Acute Distress Head: Normocephalic, Atraumatic Eyes: Perrl, EOMI ENT: Moist mucous membranes, Nasal congestion, - - He appears to have some nasal congestion she is complaining of postnasal drip I do not see anything active her airways intact she is speaking in full sentences she will just suddenly start to clear her throat and cough up thick mucus, her neck is supple I question whether she has some thyroid enlargement she declines that the rest of her exam is entirely unremarkable. Negative for: No rhinorrhea Neck: Supple, Nontender Cardiovascular: Regular rate, Regular rhythm, No murmurs Respiratory: No distress, CTA bilaterally, Chest nontender Abdomen: Soft, Nontender, Nondistended, Normal bowel sounds Back: Nontender, Normal Inspection Extremities: Nontender, No edema Skin: Normal color, No rash Neurological: Alert, Oriented x3, Cranial nerves II-XII grossly intact, Normal Strength, Normal Sensation Psychological: Normal affect, Normal Mood Diagnostic/Tx/Re-eval - Medical Decision Making Is had the symptoms since March and prior to that, I explained her all the above the differential we discussed testing imaging etc. she declined all that saying all that she wanted was prednisone is as helped in the past and she indicated she was on antibiotics most recently azithromycin I explained to her the need to follow-up with her ENT specialist as instructed by her outpatient providers, as the differential is rather extensive and could represent a condition that was quite serious or life-threatening, at emergency department could not manage his chronic condition and that chronic prednisone therapy itself had complications but given her insistence that prednisone helps persistent symptoms she will be given prednisone 20 tablets x 3 days and should follow-up with her outpatient providers and ENT Wednesday or Wednesday she is very comfortable with this plan and wants nothing else done Stable home Final impression acute and chronic nasal drainage and cough history of chronic sinusitis ED Disposition - Plan for ED Patient: Diagnosis: URI Instructions: Chronic Sinusitis Prescriptions: Prednisone [Deltasone] 20 mg PO DAILY #3 tab Prescription Printed Referrals: Savi Clements MD [Primary Care Provider] -
--- NOTE | 2019-06-03 21:20 | ED.RN ---
PT RUDE, ANGRY WITH DISCHARGE INSTRUCTIONS, STATES I THOUGHT HE WAS GOING TO GIVE ME SOMETHING ELSE, DECLINES FURTHER INTERVENTION, INTERRUPTS THIS RN AND STATES IT'S FINE, YOU WON'T LISTEN, I'M JUST GOING HOME.
== END 2019-06-03 21:22 | disposition home or self-care (01) ==
LOC: ED 21:17
PROVIDERS: Emergency Provider Emergency Medicine; PCP Internal Medicine
DX: J32.9 Chronic sinusitis, unspecified (principal); E11.9 Type 2 diabetes mellitus without complications; F17.200 Nicotine dependence, unspecified, uncomplicated; Z79.84 Long term (current) use of oral hypoglycemic drugs
CPT/HCPCS: 99282

== ENCOUNTER 2019-06-06 06:18 | Emergency (ER) | payer MEDICAID, SELFPAY ==
[2019-06-06 06:20] VITALS: BP 139/118; PULSE 84; RESP 16; TEMP 36.6; O2SAT 98; BMI 34.4
[2019-06-06 06:26] VITALS: BP 101/70
--- NOTE | 2019-06-06 06:35 | ED.VIS.GEN ---
History of Present Illness Chief Complaint: Back Informant: Patient Onset: Days - 2 days Context: Gradual Onset Current Severity: Mild Maximum Severity: Moderate Worsened by: movement Narrative: Patient presents with lower back pain for the past 2 days. She states she been very constipated and had been straining to try to have a bowel movement. She developed pain to her left lower back with pain and numbness radiating down her left leg. Pain is worse with movement. There is no direct injury to her back. She has had prior back injections but states she is never had pain quite like this before. No fever or chills. - Past Medical History (1) Bipolar disorder Status: Chronic (2) Hypertension Status: Chronic (3) High cholesterol Status: Chronic (4) Anxiety Status: Chronic (5) Asthma Status: Chronic (6) Depressive disorder Status: Chronic (7) Type II diabetes mellitus, uncontrolled Status: Chronic Past Medical History - Allergies and Home Meds Allergies/Adverse Reactions: Allergies Sulfa (Sulfonamide Antibiotics) Allergy (Verified 06/06/19 06:19) Anaphylaxis vancomycin Allergy (Verified 06/06/19 06:19) Hives metformin Adverse Reaction (Verified 06/06/19 06:19) Diarrhea stainless steal Allergy (Mild, Uncoded 06/06/19 06:19) rash Primary Care Physician: Savi Clements MD [Primary Care Provider] - Prior records reviewed: Yes Surgical History: tonsillectomy Smoking Status: Current every day smoker Review of Systems General: Denies: Chills, Fever Eyes: Denies: Visual changes - bilaterally ENT: Denies: Bilateral ear pain Cardiovascular: Denies: Chest pain Respiratory: Denies: Dyspnea, Cough Gastrointestinal: Denies: Abdominal pain, Nausea, Vomiting, Diarrhea Musculoskeletal: Reports: Back pain, Extremity Pain Neurological: Reports: Parasthesia Endocrine: Denies: Polyuria, Polydipsia Allergy: Denies: Uticaria Physical Exam Vital Signs/Narrative: Vital Signs Temp Pulse Resp BP Pulse Ox 06/06/19 06:26 101/70 06/06/19 06:20 98 F 84 16 139/118 H 98 Inital Vital Signs reviewed: Yes General: Well nourished, Well developed Head: Normocephalic ENT: Moist mucous membranes Neck: Supple Cardiovascular: Regular rate Respiratory: No distress, CTA bilaterally Abdomen: Soft, Nontender Back: - - Reproducible tenderness, worse in the left low lumbar paraspinal muscles and over the sciatic notch. Skin: Normal color Neurological: Alert, Oriented x3, Normal Strength, Normal Sensation Psychological: Normal affect Diagnostic/Tx/Re-eval - Medical Decision Making Patient was given oxycodone and prednisone here. On repeat evaluation she is feeling improvement. She is already on Zanaflex at home. She be given a short course of Percocet and prednisone for home. She is to follow-up with her primary care physician. ED Disposition - Plan for ED Patient: Disposition: Home or Assisted Living Diagnosis: Sciatica Instructions: BACK PAIN w/ SCIATICA Prescriptions: Prednisone [Deltasone] 60 mg PO DAILY #15 tab Transmission Status: Pending to [facility] Oxycodone HCl/Acetaminophen [Percocet 5/325] 1 tablet PO Q6H PRN PRN 3 Days #12 tablet PRN Reason: Pain Transmission Status: Received by [facility] Referrals: Savi Clements MD [Primary Care Provider] - 1 Week if not improving
[2019-06-06] MEDS: oxyCODONE 5 MG Tablet 10 MG PO (06:41)
[2019-06-06] MEDS: predniSONE 20 MG Tablet 40 MG PO (06:41)
== END 2019-06-06 07:29 | disposition home or self-care (01) ==
PROVIDERS: Emergency Provider Emergency Medicine; PCP Internal Medicine
DX: M54.42 Lumbago with sciatica, left side (principal); F17.200 Nicotine dependence, unspecified, uncomplicated; I10 Essential (primary) hypertension; E78.00 Pure hypercholesterolemia, unspecified; F31.9 Bipolar disorder, unspecified; F41.9 Anxiety disorder, unspecified; E11.9 Type 2 diabetes mellitus without complications; Z79.84 Long term (current) use of oral hypoglycemic drugs
CPT/HCPCS: 99283

== ENCOUNTER → 2019-06-08 08:06 | Outpatient (CLI) | payer MEDICAID, SELFPAY ==
[2019-06-03 20:33] VITALS: BMI 35.4
[2019-06-06 06:20] VITALS: BMI 34.4
--- NOTE | 2019-06-08 08:26 | RAD_ITS ---
STUDY: X-RAY - ESOPHAGUS (BARIUM SWALLOW) WITH FLUOROSCOPY REASON FOR EXAM: Female, 48 years old. THROAT FEELS LIKE IT IS SWELLING SHUT X 2 WEEKS. HX OF ACID REFLEX. DOES GET WORSE AT NIGHT. TECHNIQUE: 17 view(s) of the esophagus were obtained following swallowing of barium. FLUOROSCOPY TIME (if supplied): (0:20) minutes/seconds COMPARISON: None. FINDINGS: There is no demonstrated esophageal foreign body. There is no demonstrated stricture or mucosal abnormality. Normal gastroesophageal junction, without a demonstrated hiatal hernia. The patient ingested a 12 mm tablet of barium without Normal visualized aortic arch and descending thoracic aorta. Normal visualized pulmonary parenchyma. Normal visualized osseous structures of the thorax. RAD/Esophagus Only IMPRESSION: Normal plain film x-ray examination (barium swallow) of the esophagus. Electronically Signed: Prakash Morse, at 9:16 EST , Service support ,
== END ==
PROVIDERS: PCP Internal Medicine; Referring Provider Otolaryngology; Visit Provider Otolaryngology
DX: R13.10 Dysphagia, unspecified (principal)
CPT/HCPCS: 74220

== ENCOUNTER 2019-06-09 18:21 | Observation (INO) | payer MEDICAID, SELFPAY ==
[2019-06-09 18:22] VITALS: BP 150/90; PULSE 90; RESP 18; TEMP 36.8; O2SAT 97; BMI 33.5
[2019-06-09] MEDS: Ondansetron 4 MG/2 ML Vial IV (18:55)
[2019-06-09] MEDS: HYDROmorphone 1 MG/ML Syringe IV ×2 (18:55→21:16)
[2019-06-09 19:17] LABS: Absolute Lymphocyte Count 0.92 X10^3/uL (0.83-4.51); Absolute Neutrophil Count 9.3 X10^3/uL (2.0-7.7); Hematocrit 42.3 % (37-47); Hemoglobin 13.5 g/dL (12.0-15.0); Lymphocyte # 0.92 X10^3/ul (4.0); Lymphocyte % 8.7 % (19-41); Mean Corp Hgb Conc 31.9 g/dL (32-36); Mean Corpuscular Hgb 27.6 pg (27.0-32.0); Mean Corpuscular Volume 86.5 fL (81-99); Mean Platelet Vol. 10.8 fl (6.2-12.0); Monocyte# 0.28 X10^3/uL; Monocyte% 2.7 % (0-10); NRBC Flagged by Analyzer 0 % (0-5); Neutrophil # 9.28 X10^3/uL (2.7-7.7); Neutrophil % 87.9 % (47-70); Platelet Count 273 K/mm3 (150-450); RBC Distribution Width CV 13.6 % (11.6-14.6); RBC Distribution Width SD 42.6 fl (35.1-43.9); Red Blood Count 4.89 M/mm3 (4.2-5.4); White Blood Count 10.6 K/mm3 (4.4-11.0)
[2019-06-09 19:36] LABS: Anion Gap 7 (5-15); BUN 29 mg/dL (7-18); BUN/Creat Ratio 24.6 RATIO (10-20); Calcium,Total 8.7 mg/dL (8.5-10.1); Chloride 109 mmol/L (98-107); Creatinine, Serum 1.18 mg/dL (0.55-1.02); EST Glomerular Filtration Rate 52 mL/min (>60); Est Glom Filt Rate - Afr Amer 63 mL/min (>60); Estimated Creatinine Clearance 57.31 ml/min; Glucose 266 mg/dL (74-106); Potassium 4.6 mmol/L (3.5-5.1); Sodium Level 139 mmol/L (136-145)
--- NOTE | 2019-06-09 20:20 | ED.VISSUMM ---
- ER Visit Summary Date of Service: 06/09/19 Chief Complaint: Back and leg pain] History of Present Illness: The patient is a 48 F [presents the emergency department complaint of pain in her back x6 days. Patient states that there was no injury initially. She was seen in the emergency department 3 days ago and started on prednisone and oxycodone. She subsequently followed up with her primary care physician 2 days ago and had x-rays of her back that just showed some degenerative changes. Today she states that her left leg kind of gave out and she fell and she has had worse pain since that time that is in her buttock and radiating down her left leg. Patient denies any change in bowel bladder function. She denies weakness to the extremity. She does have numbness and tingling to the lateral aspect of her foot. He does have history of asthma, type 2 diabetes, and high cholesterol. Patient has history of anxiety and bipolar disorder. Patient is being seen by pain management for chronic low back and neck pain however she states this pain is very different than what she normally experiences.] Her pain management doctor ordered an outpatient MRI for her. Physical Examination: [HEENT-PERRLA, EOMI. Cranial nerves II through XII grossly intact. TMs clear. Mucous membranes moist. No adenopathy. Cardiovascular-regular rate and rhythm without murmur or ectopy Lungs-clear to auscultation, chest wall stable without crepitus or subcu emphysema Abdomen-normoactive bowel sounds, soft, nontender, no rebound or rigidity, no peritoneal signs. Back exam-patient has tenderness to the left lumbar paraspinal musculature. Patient has tenderness into the left buttock that seems to reproduce her pain. She has pain with straight leg raising at about 30 degrees while lying supine. Deep tendon reflexes are plus 3 out of 4 bilaterally at the patella and Achilles. Patient has normal 5 extension bilaterally. Patient has slightly decreased sensation to light touch to the left leg compared to the right leg. No saddle anesthesia. Extremities-intact ?4, normal range of motion, normal pulses, atraumatic Test Results: [CBC with differential was unremarkable. Chemistries unremarkable.] Emergency Department Course and Treatment: [Patient medicated with Dilaudid 1 mg IV. Patient continued complaint of pain and was given a second dose of Dilaudid 1 mg IV.] Treatment Plan: [Admit] Disposition: [Admit] Impression: [Intractable back pain/sciatica] This note was generated with [employer] dictation software. It may contain incorrect words, spelling, and punctuation that were not noted in review of the chart prior to signing ED Disposition - Plan for ED Patient: Referrals: Savi Clements MD [Primary Care Provider] -
--- NOTE | 2019-06-09 20:47 | PCM.HP.STD ---
Problem List (1) Intractable low back pain Status: Acute (2) Chronic back pain Status: Chronic (3) Hyperlipidemia Status: Chronic (4) Fibromyalgia Status: Chronic (5) Bipolar disorder Status: Chronic (6) Type II diabetes mellitus, uncontrolled Status: Chronic (7) Depressive disorder Status: Chronic (8) Asthma Status: Chronic (9) Anxiety Status: Chronic History of Present Illness Date of Admission: 06/09/19 Chief Complaint: Back pain. The patient is a 48 year old F patient with past medical history as mentioned above presented to the emergency room because of back pain. Her symptoms started 6 days ago with back pain, in the left buttock region, burning and sometimes sharp shooting pain, 10 out of 10 in severity, radiates down to the left lower extremity and to the lateral aspect of the left leg, aggravated by any type of movement, not relieved with rest and associated with numbness and tingling on the lateral aspect of the left leg. She denied fall or mechanical trauma. Patient came to the emergency department 3 days ago and she was discharged on prednisone and oxycodone for pain. Her symptoms did not improve. Yesterday, she took her dog to the dog [employer] and while she is walking, her pain got worse and her left leg gave out and she fell. She denied significant trauma. She denied urine or stool incontinence. She denied numbness or tingling in the perianal area. She does have chronic back pain for which she has been seeing pain management doctor but she mentioned that this pain is different from her chronic back pain. In the emergency department, her blood pressure was quite elevated, other vital signs are stable. Her routine blood work was remarkable for BUN of 29, creatinine is 1.81, otherwise normal. She is being admitted for intractable low back pain/radiculopathy/probable left sciatica for treatment and evaluation. Past Medical History Past Medical History (Chronic Problems): Chronic Problems (Last Updated 06/09/19 @ 22:44 by Yaritza Cox MD) Anxiety (Chronic) Asthma (Chronic) Depressive disorder (Chronic) Type II diabetes mellitus, uncontrolled (Chronic) Bipolar disorder (Chronic) Fibromyalgia (Chronic) Hyperlipidemia (Chronic) Chronic back pain (Chronic) Medical History: Medical History (Last Updated 06/09/19 @ 22:44 by Yaritza Cox MD) Arthritis M19.90 Asthma J45.909 Bipolar disorder F31.9 Diabetes E11.9 Hemorrhoids K64.9 history of uterine ablation Chronic neck and back pain M54.2, M54.9, G89.29 Allergies Sulfa (Sulfonamide Antibiotics) Allergy (Verified 06/09/19 18:25) Anaphylaxis vancomycin Allergy (Verified 06/09/19 18:25) Hives metformin Adverse Reaction (Verified 06/09/19 18:25) Diarrhea stainless steal Allergy (Mild, Uncoded 06/09/19 18:25) rash Home Medications: Ambulatory Orders Medication Instructions Recorded Paroxetine [Paxil] 20 mg PO DAILY 03/20/13 Atorvastatin Calcium [Lipitor] 40 mg PO QHS 03/21/13 metFORMIN (XR) [Glucophage Xr] 1,000 mg PO BID 03/21/13 Canagliflozin [Invokana] 300 mg PO DAILY 12/03/15 Lamotrigine [Lamictal] 150 mg PO DAILY 12/03/15 Quetiapine Fumarate 50 mg PO QHS 05/22/18 Tizanidine HCl [Zanaflex] 2 mg PO BID 09/28/18 Omeprazole 40 mg PO DAILY 01/08/19 Topiramate 50 - 75 mg PO QHS 05/20/19 Cholecalciferol (Vitamin D3) 2,000 unit PO DAILY 06/09/19 [Vitamin D3] Ketorolac [Toradol] 10 mg PO Q6H 06/09/19 Prednisone [Deltasone] 60 mg PO DAILY 06/09/19 Pregabalin 100 mg PO TID 06/09/19 Surgical History: Surgical History (Last Reviewed 05/25/18 @ 12:50 by Jeannie Sifuentes) History of carpal tunnel surgery Z98.890 History of elbow surgery Z98.890 History of tonsillectomy and adenoidectomy Z98.890 Surgical History: tonsillectomy, - - Tubal ligation. Psychiatric History: Anxiety, Bipolar, Depression [employer] History: No pertinent [employer] history Lives: Spouse/ Significant Other Smoking Status: Current every day smoker Tobacco Use: Cigarettes Alcohol: None Drugs: None - *Family History Maternal Family History: Family History (Last Reviewed 06/09/19 @ 20:50 by Yaritza Cox MD) Other Arthritis Depression Diabetes Fibromyalgia Heart disease Hypertension Paternal Family History: Family History (Last Reviewed 06/09/19 @ 20:50 by Yaritza Cox MD) Other Arthritis Depression Diabetes Fibromyalgia Heart disease Hypertension Review of Systems Constitutional: Reports: Anorexia. Denies: Chills, Fever, Weakness Eyes: Denies: Blurred vision, Double vision, Drainage, Redness HEENT: Denies: Difficulty Hearing, Ear Pain, Eye Pain, Nasal Congestion, Sore Throat Cardiovascular: Denies: Chest Pain, Chest Pressure, Chest Tightness, Heaviness, Light Headedness, Palpitations, Syncope Respiratory: Denies: Cough, Pleuritic Pain, Shortness of Breath, Sputum production, Wheezing Gastrointestinal: Reports: Constipation. Denies: Abdominal Pain, Diarrhea, Nausea, Vomiting Genitourinary: Denies: Dysuria, Frequency, Hematuria Musculoskeletal: Reports: Back Pain. Denies: Arm Pain, Foot Pain, Leg Pain Skin: Denies: Dryness, Rash Neurological: Reports: Numbness, Tingling. Denies: Balance problems, Double vision, Change in Speech, Slurred speech, Confusion, Focal weakness, Headaches Psychiatric: Reports: Anxiety, Depression Endocrine: Denies: Change in Body Habitus, Polydipsia, Polyuria VTE Information - Inpt Only VTE Present on Admission: No VTE Mechan Device Prophylaxis: None VTE Pharm Prophylaxis ordered?: No Patient Problems: Active and Suspected Problems (Last Updated 06/09/19 @ 22:44 by Yaritza Cox MD) Intractable low back pain (Acute) - Physical Exam Vitals/I&O's: Vital Signs Temp Pulse Resp BP Pulse Ox 98.2 F 90 18 150/90 H 97 06/09/19 18:22 06/09/19 18:22 06/09/19 18:22 06/09/19 18:22 06/09/19 18:22 Oxygen Delivery Method Room Air Weight: 214 lb Body Mass Index (BMI) 33.5 General: Alert, Oriented x3, Cooperative, - - She is in moderate pain. HEENT: Atraumatic, PERRLA, EOMI, Normocephalic Oral: Moist Mucosa, No Gingival or Mucosal Lesions/ Ulcerations Neck: Supple, No JVD, Trachea Midline, Thyroid Normal Size and Texture Lungs: Clear to auscultation, Normal air movement, No rhonchi, No wheeze, No rales Cardiovascular: Regular rate, Regular Rhythm, Normal S1, Normal S2, PMI Normal Abdomen: Bowel Sounds Present, Soft, Non Tender, Non-Distended, No Hepato-splenomegaly Extremities: No clubbing, No cyanosis, No edema Skin: No rashes, No breakdown Lymphatic: No Cervical, Supraclavicular, or Inguinal Adenopathy Neurological: Cranial nerves II-XII grossly intact, Motor Exam 5/5 strength throughout, - - Painful movement of the left lower extremity, no focal weakness. Psych/Mental Status: Normal Affect, Appropriate, Alert and oriented to time, place, person, mood and affect Laboratory Results 06/09/19 19:00: WBC 10.6, RBC 4.89, Hgb 13.5, Hct 42.3, MCV 86.5, MCH 27.6, MCHC 31.9 L, RDW Std Deviation 42.6, RDW Coeff of Charu 13.6, Plt Count 273, MPV 10.8, Immature Gran % (Auto) 0.700, Neut % (Auto) 87.9 H, Lymph % (Auto) 8.7 L, Hamblen % (Auto) 2.7, Eos % (Auto) 0.0, Baso % (Auto) 0.0, Absolute Neuts (auto) 9.3 H, Absolute Lymphs (auto) 0.92, Nucleated RBC % 0 06/09/19 19:00: Sodium 139, Potassium 4.6, Chloride 109 H, Carbon Dioxide 23.0, Anion Gap 7, BUN 29 H, Creatinine 1.18 H, Estim Creat Clear Calc 57.31, Est GFR (MDRD) Af Amer 63, Est GFR (MDRD) Non-Af 52 L, BUN/Creatinine Ratio 24.6 H, Glucose 266 H, Calcium 8.7 Assessment/Plan All Active Problems (Last Updated 06/09/19 @ 22:44 by Yaritza Cox MD) Intractable low back pain (Acute) This is a 48 years old female patient presented to the emergency room because of acute intractable low back pain/left buttock pain with radiation down to the left lower extremity and she is being admitted for treatment and evaluation. #1 acute intractable low back/left buttock pain/radiculopathy: Patient stated that this pain is different from her chronic back pain, started 6 days ago. Denied any mechanical fall or trauma. She has been seen by her PCP and her pain management doctor and plan for MRI as outpatient. At this time, patient is unable to ambulate, having significant intractable pain. Plan: Admit to [facility] floor for observation, IV fluids, IV Dilaudid for pain, OxyIR PRN for pain, Decadron twice daily, Flexeril PRN, IV Toradol scheduled, MRI lumbar spine, IV antiemetics as needed, PT OT evaluation and treatment. #2 mild dehydration: Due to poor oral intake. BUN is 29, creatinine is 1.18. Plan: Gentle IV fluids for hydration, input output chart, repeat BMP tomorrow morning. #3 type 2 diabetes mellitus: ADA diet, Accu-Cheks, insulin sliding scale, continue Invokana, hold metformin for now. #4 anxiety/depression: Stable, continue Paxil and quetiapine #5 fibromyalgia/chronic back pain: Patient mentioned that the pain that she is having now is different from her chronic back pain. Plan as above. #6 asthma: Clinically stable, pulse ox is maintained on room air. Plan for albuterol PRN. #7 bipolar disorder: Continue Lamictal and topiramate. #8 hyperlipidemia: Continue statins. #9 DVT prophylaxis: Low risk patient, no prophylaxis indicated. Ambulate. This note was generated with [employer] dictation software. It may contain incorrect words, spelling, and punctuation that were not noted in checking the note before signing. Code Visit OBSV E&M: 27568 Initial observation care L3
[2019-06-09 21:11] VITALS: BP 117/71; PULSE 63; RESP 18; O2SAT 94
[2019-06-09 21:38] VITALS: BMI 34.1
[2019-06-09 21:40] VITALS: BP 134/89; PULSE 63; RESP 18; TEMP 36.9; O2SAT 96
[2019-06-09 21:42] VITALS: O2SAT 96
[2019-06-09 21:49] VITALS: BMI 34.1
[2019-06-09 22:16] LABS: Bedside Glucose 125 mg/dL (70-110)
[2019-06-09] MEDS: Magnesium Hydroxide 30 ML UDC PO (22:45)
[2019-06-09] MEDS: cycloBENZAPRine HCl 10 MG Tablet PO (22:45)
[2019-06-09] MEDS: Pregabalin 50 MG Capsule 100 MG PO (22:45)
[2019-06-09] MEDS: 0.9% Normal Saline 1,000 ML 100 ML IV (22:45)
[2019-06-09] MEDS: 0.9% Saline Lock 10 ML Syringe IV (22:46)
[2019-06-09] MEDS: Topiramate 25 MG Tablet 75 MG PO (22:46)
[2019-06-09] MEDS: QUEtiapine 25 MG Tablet 50 MG PO (22:46)
[2019-06-09] MEDS: Atorvastatin Calcium 40 MG Tablet PO (22:47)
[2019-06-09] MEDS: Ketorolac 15 MG/ML Vial IV (22:47)
[2019-06-10] MEDS: HYDROmorphone 1 MG/ML Syringe IV ×4 (00:31→15:23)
[2019-06-10] MEDS: Acetaminophen 325 MG Tablet 650 MG PO ×2 (03:36→20:28)
[2019-06-10] MEDS: oxyCODONE 5 MG Tablet PO ×4 (03:36→22:31)
[2019-06-10 03:40] VITALS: BP 115/69; PULSE 63; RESP 18; TEMP 36.4; O2SAT 100
[2019-06-10] MEDS: Ketorolac 15 MG/ML Vial IV ×3 (05:22→22:12)
[2019-06-10] MEDS: Pregabalin 50 MG Capsule 100 MG PO ×3 (05:22→22:12)
[2019-06-10] MEDS: Insulin Lispro 100 UNIT/ML INSULN.PEN SC ×4 (06:37→22:13)
[2019-06-10 06:45] LABS: Bedside Glucose 175 mg/dL (70-110)
[2019-06-10 07:31] VITALS: O2SAT 96
[2019-06-10 07:57] LABS: Anion Gap 5 (5-15); BUN 24 mg/dL (7-18); BUN/Creat Ratio 26.1 RATIO (10-20); Calcium,Total 8.4 mg/dL (8.5-10.1); Chloride 107 mmol/L (98-107); Creatinine, Serum 0.92 mg/dL (0.55-1.02); EST Glomerular Filtration Rate 69 mL/min (>60); Est Glom Filt Rate - Afr Amer 84 mL/min (>60); Estimated Creatinine Clearance 73.51 ml/min; Glucose 171 mg/dL (74-106); Potassium 3.8 mmol/L (3.5-5.1); Sodium Level 138 mmol/L (136-145)
--- NOTE | 2019-06-10 08:00 | MRI_ITS ---
STUDY: MRI LUMBAR SPINE WITHOUT CONTRAST REASON FOR EXAM: Female, 48 years old. Back pain and left radiculopathy x one week. TECHNIQUE: Standardized fat and water weighted pulse sequences were obtained in the sagittal and axial planes. COMPARISON: None FINDINGS: T11-T12: (Sagittal only). The T11 endplate is barely included. Minimal anterior wedging of T12 superior endplate may be secondary to remote injury. Normal disc height, hydration and morphology. Normal central canal. The intervertebral neural foramina are largely cut off. T12-L1: (Sagittal only). Normal endplates. Normal disc height, hydration and morphology. Normal central canal and bilateral intervertebral neural foramina. Normal lumbar lordosis. There is no substantial scoliosis. Normal conus medullaris that terminates at the upper L1 vertebral body level. L1-2: Anterior marginal spurs. Normal endplates. Normal disc height, hydration and morphology. Normal bilateral facet joints. Normal central canal and bilateral lateral recesses. Normal bilateral intervertebral neural foramina. L2-3: Anterior marginal spurs. Normal endplates. Mild disc space narrowing. Small posterior annular bulging disc. Mild flattening central canal stenosis with an AP canal diameter 10 mm. Normal bilateral lateral recesses. Normal facet joints. Normal bilateral intervertebral neural foramina. L3-4: Normal endplates. Mild disc space height narrowing. Prominent posterior bulging disc. Moderate central canal stenosis with an AP canal diameter of 7.2 mm. Normal bilateral lateral recesses. Mild right degenerative facet arthropathy. Normal left facet joint. Normal bilateral intervertebral neural foramina. L4-5: Normal endplates. Moderate disc space height narrowing. Left-sided posterior caudal disc extrusion. Mild to moderate central canal stenosis measuring 7.4 mm. Normal bilateral lateral recesses. Normal facet joints. Normal bilateral intervertebral neural foramina. L5-S1: Normal endplates. Normal disc height, hydration and morphology. Normal bilateral facet joints. Normal central canal and bilateral lateral recesses. Normal bilateral intervertebral neural foramina. Normal visualized sacral ala. Normal visualized paraspinous soft tissue structures. MRI/Spine Lumbar (Routine) IMPRESSION: 1. Left L4-L5 posterior caudal disc extrusion with displacement of the left L5 nerve in sleeve, moderate disc space height narrowing and mild to moderate central canal stenosis. The AP canal diameter is 7.4 mm. 2. Mild to moderate central canal stenosis at L3-L4 disc level with an AP canal diameter of 7.2 mm and prominent posterior bulging disc. 3. Small L2-L3 posterior annular bulging disc and mild flattening central canal stenosis. The AP canal diameter is 10 mm. Electronically Signed: Jh Lemus MD at 16:42 EST , Service support ,
[2019-06-10] MEDS: dexAMETHasone 4 MG Tablet PO ×2 (08:18→16:38)
[2019-06-10] MEDS: Senna/Docusate Sodium 1 Tablet 2 TABLET PO (08:22)
[2019-06-10 08:55] VITALS: BP 98/54; PULSE 60; RESP 18; TEMP 36.7; O2SAT 98
[2019-06-10] MEDS: Pantoprazole Sodium 40 MG Tablet PO (09:36)
[2019-06-10] MEDS: lamoTRIgine 150 MG Tablet PO (09:36)
[2019-06-10] MEDS: Paroxetine 20 MG Tablet PO (09:38)
[2019-06-10] MEDS: Empagliflozin 25 MG Tablet PO (09:39)
[2019-06-10] MEDS: 0.9% Saline Lock 10 ML Syringe IV ×4 (11:02→22:13)
[2019-06-10 11:35] LABS: Bedside Glucose 179 mg/dL (70-110)
--- NOTE | 2019-06-10 14:58 | PN_ITS ---
<Mimi Masterson - Last Filed: 06/10/19 15:17> Patient Problems: Active and Suspected Problems (Last Updated 06/09/19 @ 22:44 by Yaritza Cox MD) Intractable low back pain (Acute) Subjective: Patient seen and examined. Reports continued lower back pain with pain radiating down right leg as well as legs giving out on her. Did state she ambulated and showered this morning. - Physical Exam Vitals/I&O's: Vital Signs Temp Pulse Resp BP Pulse Ox 98.1 F 60 18 98/54 L 98 06/10/19 08:55 06/10/19 08:55 06/10/19 08:55 06/10/19 08:55 06/10/19 08:55 Oxygen Delivery Method Room Air Weight: 217 lb 13.067 oz Body Mass Index (BMI) 34.1 Intake and Output for Last 24 Hours 06/08/19 06/09/19 06/10/19 23:59 23:59 23:59 Intake Total 3650 / 3650 Balance 3650 / 3650 General: Alert, Oriented x3, Cooperative HEENT: Atraumatic, PERRLA, EOMI, Normocephalic Neck: Supple, No JVD, Negative Carotid Bruits Lungs: Clear to auscultation, Normal air movement Cardiovascular: Regular rate, Regular Rhythm, Normal S1, Normal S2, No murmurs Abdomen: Bowel Sounds Present, Soft, Non Tender, Non-Distended Extremities: No clubbing, No cyanosis, No edema, Capillary Refill Less than 3 Seconds Skin: No rashes, No breakdown Musculoskeletal: No Tenderness to Palpation of Joints or Extremities Neurological: Cranial nerves II-XII grossly intact, Neuro grossly intact Psych/Mental Status: Normal Affect, Appropriate Laboratory Results 06/09/19 19:00: WBC 10.6, RBC 4.89, Hgb 13.5, Hct 42.3, MCV 86.5, MCH 27.6, MCHC 31.9 L, RDW Std Deviation 42.6, RDW Coeff of Charu 13.6, Plt Count 273, MPV 10.8, Immature Gran % (Auto) 0.700, Neut % (Auto) 87.9 H, Lymph % (Auto) 8.7 L, [place] % (Auto) 2.7, Eos % (Auto) 0.0, Baso % (Auto) 0.0, Absolute Neuts (auto) 9.3 H, Absolute Lymphs (auto) 0.92, Nucleated RBC % 0 06/09/19 19:00: Sodium 139, Potassium 4.6, Chloride 109 H, Carbon Dioxide 23.0, Anion Gap 7, BUN 29 H, Creatinine 1.18 H, Estim Creat Clear Calc 57.31, Est GFR (MDRD) Af Amer 63, Est GFR (MDRD) Non-Af 52 L, BUN/Creatinine Ratio 24.6 H, Glucose 266 H, Calcium 8.7 06/09/19 22:10: POC Glucose 125 H 06/10/19 06:35: Sodium 138, Potassium 3.8, Chloride 107, Carbon Dioxide 26.0, Anion Gap 5, BUN 24 H, Creatinine 0.92, Estim Creat Clear Calc 73.51, Est GFR (MDRD) Af Amer 84, Est GFR (MDRD) Non-Af 69, BUN/Creatinine Ratio 26.1 H, Glucose 171 H, Calcium 8.4 L 06/10/19 06:35: POC Glucose 175 H 06/10/19 11:01: POC Glucose 179 H Current Medications Acetaminophen (Tylenol) 650 mg PO Q6H PRN PRN PRN Reason: Pain Score 1-3/Temp > 100.7 F Last Admin: 06/10/19 03:36 Dose: 650 mg Documented by: Albuterol Sulfate (Ventolin Aerosols) 2.5 mg INHALATION Q4H PRN PRN PRN Reason: Shortness of breath, wheezing Atorvastatin Calcium (Lipitor) 40 mg PO QHS [facility] Last Admin: 06/09/19 22:47 Dose: 40 mg Documented by: Cyclobenzaprine HCl (Flexeril) 10 mg PO TID PRN PRN PRN Reason: Muscle spasm, pain Last Admin: 06/09/19 22:45 Dose: 10 mg Documented by: Dexamethasone (Decadron) 4 mg PO BIDCM [facility] Last Admin: 06/10/19 08:18 Dose: 4 mg Documented by: Empagliflozin (Jardiance) 25 mg PO DAILY [facility] Last Admin: 06/10/19 09:39 Dose: 25 mg Documented by: Glucagon () 1 mg IM .X1 PRN PRN Reason: Hypoglycemia Hydralazine HCl (Apresoline Iv) 10 mg IV Q8H PRN PRN PRN Reason: for SBP>160 Hydromorphone HCl (Dilaudid Inj) 1 mg IV Q4H PRN PRN PRN Reason: Pain Score 6-10/10 Last Admin: 06/10/19 11:02 Dose: 1 mg Documented by: Dextrose (Dextrose 10%-Water) 250 mls @ 999 mls/hr IV .Q16M PRN; Protocol PRN Reason: HYPOGLYCEMIA Insulin Human Lispro (Humalog Kwikpen (Bkc)) 0 unit SC [facility]; Protocol Last Admin: 06/10/19 11:05 Dose: 1 u Documented by: Ketorolac Tromethamine (Toradol) 15 mg IV Q8 [facility] Stop: 06/14/19 20:46 Last Admin: 06/10/19 13:57 Dose: 15 mg Documented by: Lamotrigine (Lamictal) 150 mg PO DAILY [facility] Last Admin: 06/10/19 09:36 Dose: 150 mg Documented by: Magnesium Hydroxide (Milk Of Magnesia) 30 ml PO DAILY [facility] Last Admin: 06/09/19 22:45 Dose: 30 ml Documented by: Ondansetron HCl (Zofran) 4 mg IV Q8H PRN PRN PRN Reason: NAUSEA/VOMITING Oxycodone HCl (Oxyir) 5 mg PO Q4H PRN PRN PRN Reason: Pain Score 4-5/10 Last Admin: 06/10/19 08:22 Dose: 5 mg Documented by: Pantoprazole Sodium (Protonix) 40 mg PO DAILY [facility] Last Admin: 06/10/19 09:36 Dose: 40 mg Documented by: Paroxetine HCl (Paxil) 20 mg PO DAILY [facility] Last Admin: 06/10/19 09:38 Dose: 20 mg Documented by: Pregabalin (Lyrica) 100 mg PO TID [facility] Last Admin: 06/10/19 13:57 Dose: 100 mg Documented by: Quetiapine Fumarate (Seroquel) 50 mg PO QHS [facility] Last Admin: 06/09/19 22:46 Dose: 50 mg Documented by: Senna/Docusate Sodium (Senokot-S, Elizabeth-Colace) 2 tablet PO BID PRN PRN PRN Reason: Constipation Last Admin: 06/10/19 08:22 Dose: 2 tablet Documented by: Sodium Chloride () 10 - 40 ml IV UD PRN PRN Reason: SALINE FLUSH Last Admin: 06/10/19 13:57 Dose: 10 ml Documented by: Topiramate (Topamax) 75 mg PO QHS [facility] Last Admin: 06/09/19 22:46 Dose: 75 mg Documented by: Zolpidem Tartrate (Ambien (Generic)) 5 mg PO QHS PRN PRN PRN Reason: INSOMNIA Medical Necessity - Tobacco Use Smoking Status: Current every day smoker Tobacco Use: Cigarettes Assessment/Plan All Active Problems (Last Updated 06/09/19 @ 22:44 by Yaritza Cox MD) Intractable low back pain (Acute) 1. Acute on chronic intractable low back pain/radiculopathy/fibromyalgia- follows with pain management as outpatient. MRI of lumbar spine pending. Continue PRN pain regimen. PT/OT. Continue Toradol, Decadron. 2. Type 2 diabetes mellitus-metformin on hold. Accu-Cheks with sliding scale insulin. 3. Anxiety/depression/bipolar disorder-continue Lamictal, Paxil, quetiapine regimen. 4. Hyperlipidemia-continue statin. 5. Chronic intermittent asthma-no exacerbation. DVT prophylaxis-low risk, not indicated This patient was seen by CALVIN Cuenca under the supervision of Dr. De León. <Deon De León - Last Filed: 06/10/19 16:53> - Physical Exam Vitals/I&O's: Vital Signs Temp Pulse Resp BP Pulse Ox 97.9 F 57 L 18 118/65 97 06/10/19 16:34 06/10/19 16:34 06/10/19 16:34 06/10/19 16:34 06/10/19 16:34 Oxygen Delivery Method Room Air Weight: 217 lb 13.067 oz Body Mass Index (BMI) 34.1 Intake and Output for Last 24 Hours 06/08/19 06/09/19 06/10/19 23:59 23:59 23:59 Intake Total 3649 / 3649 Balance 3649 Laboratory Results 06/09/19 19:00: WBC 10.6, RBC 4.89, Hgb 13.5, Hct 42.3, MCV 86.5, MCH 27.6, MCHC 31.9 L, RDW Std Deviation 42.6, RDW Coeff of Charu 13.6, Plt Count 273, MPV 10.8, Immature Gran % (Auto) 0.700, Neut % (Auto) 87.9 H, Lymph % (Auto) 8.7 L, [place] % (Auto) 2.7, Eos % (Auto) 0.0, Baso % (Auto) 0.0, Absolute Neuts (auto) 9.3 H, Absolute Lymphs (auto) 0.92, Nucleated RBC % 0 06/09/19 19:00: Sodium 139, Potassium 4.6, Chloride 109 H, Carbon Dioxide 23.0, Anion Gap 7, BUN 29 H, Creatinine 1.18 H, Estim Creat Clear Calc 57.31, Est GFR (MDRD) Af Amer 63, Est GFR (MDRD) Non-Af 52 L, BUN/Creatinine Ratio 24.6 H, Glucose 266 H, Calcium 8.7 06/09/19 22:10: POC Glucose 125 H 06/10/19 06:35: Sodium 138, Potassium 3.8, Chloride 107, Carbon Dioxide 26.0, Anion Gap 5, BUN 24 H, Creatinine 0.92, Estim Creat Clear Calc 73.51, Est GFR (MDRD) Af Amer 84, Est GFR (MDRD) Non-Af 69, BUN/Creatinine Ratio 26.1 H, Glucose 171 H, Calcium 8.4 L 06/10/19 06:35: POC Glucose 175 H 06/10/19 11:01: POC Glucose 179 H Current Medications Acetaminophen (Tylenol) 650 mg PO Q6H PRN PRN PRN Reason: Pain Score 1-3/Temp > 100.7 F Last Admin: 06/10/19 03:36 Dose: 650 mg Documented by: Albuterol Sulfate (Ventolin Aerosols) 2.5 mg INHALATION Q4H PRN PRN PRN Reason: Shortness of breath, wheezing Atorvastatin Calcium (Lipitor) 40 mg PO QHS [facility] Last Admin: 06/09/19 22:47 Dose: 40 mg Documented by: Cyclobenzaprine HCl (Flexeril) 10 mg PO TID PRN PRN PRN Reason: Muscle spasm, pain Last Admin: 06/09/19 22:45 Dose: 10 mg Documented by: [facility] Last Admin: 06/10/19 16:38 Dose: 4 mg Documented by: Empagliflozin (Jardiance) 25 mg PO DAILY [facility] Last Admin: 06/10/19 09:39 Dose: 25 mg Documented by: Glucagon () 1 mg IM .X1 PRN PRN Reason: Hypoglycemia Hydralazine HCl (Apresoline Iv) 10 mg IV Q8H PRN PRN PRN Reason: for SBP>160 Hydromorphone HCl (Dilaudid Inj) 1 mg IV Q4H PRN PRN PRN Reason: Pain Score 6-10/10 Last Admin: 06/10/19 15:23 Dose: 1 mg Documented by: Dextrose (Dextrose 10%-Water) 250 mls @ 999 mls/hr IV .Q16M PRN; Protocol PRN Reason: HYPOGLYCEMIA Insulin Human Lispro (Humalog Kwikpen (Bkc)) 0 unit SC A[facility]S [facility]; Protocol Last Admin: 06/10/19 16:38 Dose: 1 u Documented by: Ketorolac Tromethamine (Toradol) 15 mg IV Q8 [facility] Stop: 06/14/19 20:46 Last Admin: 06/10/19 13:57 Dose: 15 mg Documented by: Lamotrigine (Lamictal) 150 mg PO DAILY [facility] Last Admin: 06/10/19 09:36 Dose: 150 mg Documented by: Magnesium Hydroxide (Milk Of Magnesia) 30 ml PO DAILY [facility] Last Admin: 06/09/19 22:45 Dose: 30 ml Documented by: Ondansetron HCl (Zofran) 4 mg IV Q8H PRN PRN PRN Reason: NAUSEA/VOMITING Oxycodone HCl (Oxyir) 5 mg PO Q4H PRN PRN PRN Reason: Pain Score 4-5/10 Last Admin: 06/10/19 08:22 Dose: 5 mg Documented by: Pantoprazole Sodium (Protonix) 40 mg PO DAILY [facility] Last Admin: 06/10/19 09:36 Dose: 40 mg Documented by: Paroxetine HCl (Paxil) 20 mg PO DAILY [facility] Last Admin: 06/10/19 09:38 Dose: 20 mg Documented by: Pregabalin (Lyrica) 100 mg PO TID [facility] Last Admin: 06/10/19 13:57 Dose: 100 mg Documented by: Quetiapine Fumarate (Seroquel) 50 mg PO QHS [facility] Last Admin: 06/09/19 22:46 Dose: 50 mg Documented by: Senna/Docusate Sodium (Senokot-S, Elizabeth-Colace) 2 tablet PO BID PRN PRN PRN Reason: Constipation Last Admin: 06/10/19 08:22 Dose: 2 tablet Documented by: Sodium Chloride () 10 - 40 ml IV UD PRN PRN Reason: SALINE FLUSH Last Admin: 06/10/19 15:24 Dose: 10 ml Documented by: Topiramate (Topamax) 75 mg PO QHS [facility] Last Admin: 06/09/19 22:46 Dose: 75 mg Documented by: Zolpidem Tartrate (Ambien (Generic)) 5 mg PO QHS PRN PRN PRN Reason: INSOMNIA Code Visit Addendum: Dr. De León I personally examined the patient and reviewed the chart. I agree with the above. 48-year-old female presenting with right lower extremity pain and back pain. She says that the pain feels like a shooting down her right leg. She was scheduled to have an MRI as an outpatient however the pain was too severe so she presented to the hospital. She is having a heating pad currently as well as Decadron and Flexeril as well as Toradol. No narcotics will be given, MRI demonstrated left-sided disc protrusion and nothing on the right side. Plan will be for discharge tomorrow with NSAIDs and follow-up with her pain doctor. OBSV E&M: [id number] Subsequent observation care L2
[2019-06-10 16:34] VITALS: BP 118/65; PULSE 57; RESP 18; TEMP 36.6; O2SAT 97
[2019-06-10 17:00] LABS: Bedside Glucose 179 mg/dL (70-110)
[2019-06-10] MEDS: cycloBENZAPRine HCl 10 MG Tablet PO (20:28)
[2019-06-10 20:40] VITALS: BP 118/69; PULSE 63; RESP 18; TEMP 36.6; O2SAT 97
[2019-06-10] MEDS: Topiramate 25 MG Tablet 75 MG PO (22:12)
[2019-06-10] MEDS: QUEtiapine 25 MG Tablet 50 MG PO (22:12)
[2019-06-10] MEDS: Atorvastatin Calcium 40 MG Tablet PO (22:12)
[2019-06-10 22:25] LABS: Bedside Glucose 223 mg/dL (70-110)
[2019-06-11 02:30] VITALS: BP 120/77; PULSE 57; RESP 18; TEMP 36.8; O2SAT 94
[2019-06-11] MEDS: oxyCODONE 5 MG Tablet PO ×3 (02:32→12:45)
[2019-06-11] MEDS: cycloBENZAPRine HCl 10 MG Tablet PO (05:54)
[2019-06-11] MEDS: Pregabalin 50 MG Capsule 100 MG PO (05:54)
[2019-06-11] MEDS: Ketorolac 15 MG/ML Vial IV (05:54)
[2019-06-11] MEDS: Sodium Chloride 0.65% 1 SPRAY SPRAY.BTL NASAL (05:55)
[2019-06-11] MEDS: 0.9% Saline Lock 10 ML Syringe IV (05:55)
[2019-06-11] MEDS: Insulin Lispro 100 UNIT/ML INSULN.PEN SC ×2 (06:44→11:53)
[2019-06-11 06:51] LABS: Bedside Glucose 163 mg/dL (70-110)
[2019-06-11 07:38] VITALS: O2SAT 95
[2019-06-11] MEDS: dexAMETHasone 4 MG Tablet PO (07:38)
[2019-06-11 08:11] VITALS: BP 118/70; PULSE 60; RESP 18; TEMP 36.3; O2SAT 97
[2019-06-11] MEDS: Pantoprazole Sodium 40 MG Tablet PO (10:11)
[2019-06-11] MEDS: lamoTRIgine 150 MG Tablet PO (10:11)
[2019-06-11] MEDS: Paroxetine 20 MG Tablet PO (10:12)
[2019-06-11] MEDS: Empagliflozin 25 MG Tablet PO (10:12)
[2019-06-11] MEDS: Magnesium Hydroxide 30 ML UDC PO (10:14)
[2019-06-11 11:50] LABS: Bedside Glucose 298 mg/dL (70-110)
--- NOTE | 2019-06-11 12:32 | DCINST_ITS ---
You will use the following diet at home:: Calorie/Carbohydrate Controlled (specify 1200, 1400, etc) Discharge Activity: Return to Normal Activity Call your doctor if you observe: Shortness of breath, Dizziness, Fainting spells, Chest pain, Uncontrolled pain Allergies/Adverse Reactions: Allergies Sulfa (Sulfonamide Antibiotics) Allergy (Verified 06/09/19 18:25) Anaphylaxis vancomycin Allergy (Verified 06/09/19 18:25) Hives metformin Adverse Reaction (Verified 06/09/19 18:25) Diarrhea stainless steal Allergy (Mild, Uncoded 06/09/19 18:25) rash Medications to take at Discharge Paroxetine [Paxil] 20 mg PO DAILY 03/20/13 Atorvastatin Calcium [Lipitor] 40 mg PO QHS 03/21/13 metFORMIN (XR) [Glucophage Xr] 1,000 mg PO BID 03/21/13 Canagliflozin [Invokana] 300 mg PO DAILY 12/03/15 Lamotrigine [Lamictal] 150 mg PO DAILY 12/03/15 Quetiapine Fumarate 50 mg PO QHS 05/22/18 Tizanidine HCl [Zanaflex] 2 mg PO BID 09/28/18 Omeprazole 40 mg PO DAILY 01/08/19 Topiramate 50 - 75 mg PO QHS 05/20/19 Cholecalciferol (Vitamin D3) [Vitamin D3] 2,000 unit PO DAILY 06/09/19 Ketorolac [Toradol] 10 mg PO Q6H 06/09/19 Prednisone [Deltasone] 60 mg PO DAILY 06/09/19 Pregabalin 100 mg PO TID 06/09/19 Primary Care Physician: Savi Clements MD [Primary Care Provider] - Please follow up with your Primary Care Physician in: 1 Week Test Results: Test results from this visit will be discussed in further detail at your follow- up appointment, if applicable. Please Follow Up With: Pain management When: Call for appt Please Follow Up With: Spine surgeon When: Call for appt Proposed Discharge Date: 06/11/19
--- NOTE | 2019-06-11 12:33 | DS.PCM_ITS ---
<Mimi Masterson - Last Filed: 06/11/19 12:37> Discharge Date and Diagnosis Date of Admission: 06/09/19 Date of Discharge: 06/11/19 - Primary Discharge Diagnosis 1. Acute on chronic intractable low back pain/radiculopathy/fibromyalgia 2. Type 2 diabetes mellitus 3. Anxiety/depression/bipolar disorder 4. Hyperlipidemia 5. Chronic intermittent asthma - Secondary Discharge Diagnosis Chronic Problems (Last Updated 06/09/19 @ 22:44 by Yaritza Cox MD) Anxiety (Chronic) Asthma (Chronic) Depressive disorder (Chronic) Type II diabetes mellitus, uncontrolled (Chronic) Bipolar disorder (Chronic) Fibromyalgia (Chronic) Hyperlipidemia (Chronic) Chronic back pain (Chronic) Hospital Course and Treatment Imaging Results: Diagnostic Data Lumbar Spine MRI 06/10/19 08:00 IMPRESSION: 1. Left L4-L5 posterior caudal disc extrusion with displacement of the left L5 nerve in sleeve, moderate disc space height narrowing and mild to moderate central canal stenosis. The AP canal diameter is 7.4 mm. 2. Mild to moderate central canal stenosis at L3-L4 disc level with an AP canal diameter of 7.2 mm and prominent posterior bulging disc. 3. Small L2-L3 posterior annular bulging disc and mild flattening central canal stenosis. The AP canal diameter is 10 mm. Electronically Signed: Jh Lemus MD at 16:42 EST , Service support , Operations: None Procedures: None Summary of Care Provided: The patient is a 48 year old F admitted 06/09/2019 due to back pain. 1. Acute on chronic intractable low back pain/radiculopathy/fibromyalgia- follows with pain management as outpatient. MRI of lumbar spine demonstrated L4-L5 posterior disc extrusion with displacement of the left L5 nerve sleeve, moderate disc space height narrowing and mild to moderate central canal stenosis. Mild to moderate central canal stenosis at L3-L4 disc level, small L2-L3 posterior annular bulging disc and mild flattening central canal stenosis. Continue home PRN Toradol regimen. Continue follow-up with pain management. Patient established with [facility] spine surgery from prior cervical spine issues. Recommend calling for further follow-up regarding lumbar back pain and MRI findings. Follow-up with primary care physician in 1 week. Walker Rx given at discharge. 2. Type 2 diabetes mellitus-continue home metformin regimen 3. Anxiety/depression/bipolar disorder-continue Lamictal, Paxil, quetiapine regimen. 4. Hyperlipidemia-continue statin. 5. Chronic intermittent asthma-no exacerbation. General: Alert, Oriented x3, Cooperative HEENT: Atraumatic, PERRLA, EOMI, Normocephalic Neck: Supple, No JVD, Negative Carotid Bruits Lungs: Clear to auscultation, Normal air movement Cardiovascular: Regular rate, Regular Rhythm, Normal S1, Normal S2, No murmurs Abdomen: Bowel Sounds Present, Soft, Non Tender, Non-Distended Extremities: No clubbing, No cyanosis, No edema, Capillary Refill Less than 3 Seconds Skin: No rashes, No breakdown Musculoskeletal: No Tenderness to Palpation of Joints or Extremities Neurological: Cranial nerves II-XII grossly intact, Neuro grossly intact Psych/Mental Status: Normal Affect, Appropriate Patient seen and examined prior to discharge. Physical assessment as noted above. Patient is stable for discharge with follow up recommendations as noted above. This patient was seen by CALVIN Cuenca under the supervision of Dr. De León. - Physical Exam Vitals/I&O's: Vital Signs Temp Pulse Resp BP Pulse Ox 97.3 F L 60 18 118/70 97 06/11/19 08:11 06/11/19 08:11 06/11/19 08:11 06/11/19 08:11 06/11/19 08:11 Oxygen Delivery Method Room Air Weight: 217 lb 13.067 oz Body Mass Index (BMI) 34.1 Intake and Output for Last 24 Hours 06/09/19 06/10/19 06/11/19 23:59 23:59 23:59 Intake Total 4600 / 4600 1200 / 1200 Balance 4600 / 4600 1200 / 1200 Laboratory Results 06/10/19 16:37: POC Glucose 179 H 06/10/19 22:11: POC Glucose 223 H 06/11/19 06:42: POC Glucose 163 H 06/11/19 11:48: POC Glucose 298 H Current Medications Acetaminophen (Tylenol) 650 mg PO Q6H PRN PRN PRN Reason: Pain Score 1-3/Temp > 100.7 F Last Admin: 06/10/19 20:28 Dose: 650 mg Documented by: Albuterol Sulfate (Ventolin Aerosols) 2.5 mg INHALATION Q4H PRN PRN PRN Reason: Shortness of breath, wheezing Atorvastatin Calcium (Lipitor) 40 mg PO QHS [facility] Last Admin: 06/10/19 22:12 Dose: 40 mg Documented by: Cyclobenzaprine HCl (Flexeril) 10 mg PO TID PRN PRN PRN Reason: Muscle spasm, pain Last Admin: 06/11/19 05:54 Dose: 10 mg Documented by: Dexamethasone (Decadron) 4 mg PO BIDCM [facility] Last Admin: 06/11/19 07:38 Dose: 4 mg Documented by: Empagliflozin (Jardiance) 25 mg PO DAILY [facility] Last Admin: 06/11/19 10:12 Dose: 25 mg Documented by: Glucagon () 1 mg IM .X1 PRN PRN Reason: Hypoglycemia Hydralazine HCl (Apresoline Iv) 10 mg IV Q8H PRN PRN PRN Reason: for SBP>160 Dextrose (Dextrose 10%-Water) 250 mls @ 999 mls/hr IV .Q16M PRN; Protocol PRN Reason: HYPOGLYCEMIA Insulin Human Lispro (Humalog Kwikpen (Bkc)) 0 unit SC [facility]; Protocol Last Admin: 06/11/19 11:53 Dose: 4 u Documented by: Ketorolac Tromethamine (Toradol) 15 mg IV Q8 [facility] Stop: 06/14/19 20:46 Last Admin: 06/11/19 05:54 Dose: 15 mg Documented by: Lamotrigine (Lamictal) 150 mg PO DAILY [facility] Last Admin: 06/11/19 10:11 Dose: 150 mg Documented by: Magnesium Hydroxide (Milk Of Magnesia) 30 ml PO DAILY [facility] Last Admin: 06/11/19 10:14 Dose: 30 ml Documented by: Ondansetron HCl (Zofran) 4 mg IV Q8H PRN PRN PRN Reason: NAUSEA/VOMITING Oxycodone HCl (Oxyir) 5 mg PO Q4H PRN PRN PRN Reason: Pain Score 1-10/10 Last Admin: 06/11/19 06:43 Dose: 5 mg Documented by: Pantoprazole Sodium (Protonix) 40 mg PO DAILY [facility] Last Admin: 06/11/19 10:11 Dose: 40 mg Documented by: Paroxetine HCl (Paxil) 20 mg PO DAILY [facility] Last Admin: 06/11/19 10:12 Dose: 20 mg Documented by: Pregabalin (Lyrica) 100 mg PO TID [facility] Last Admin: 06/11/19 05:54 Dose: 100 mg Documented by: Quetiapine Fumarate (Seroquel) 50 mg PO QHS [facility] Last Admin: 06/10/19 22:12 Dose: 50 mg Documented by: Senna/Docusate Sodium (Senokot-S, Elizabeth-Colace) 2 tablet PO BID PRN PRN PRN Reason: Constipation Last Admin: 06/10/19 08:22 Dose: 2 tablet Documented by: Sodium Chloride () 10 - 40 ml IV UD PRN PRN Reason: SALINE FLUSH Last Admin: 06/11/19 05:55 Dose: 10 ml Documented by: Sodium Chloride ([place] Nasal [place]) 1 spray NASAL TID PRN PRN PRN Reason: NASAL DRYNESS Last Admin: 06/11/19 05:55 Dose: 1 sprays Documented by: Topiramate (Topamax) 75 mg PO QHS [facility] Last Admin: 06/10/19 22:12 Dose: 75 mg Documented by: Zolpidem Tartrate (Ambien (Generic)) 5 mg PO QHS PRN PRN PRN Reason: INSOMNIA Discharge Diet: 1800 Calorie Control Diet, Carb Control Diet Discharge Activity: Return to Normal Activity Call your doctor if you observe: Shortness of breath, Dizziness, Fainting spells, Chest pain, Uncontrolled pain Home Medications: Medications to take at Discharge Paroxetine [Paxil] 20 mg PO DAILY 03/20/13 Atorvastatin Calcium [Lipitor] 40 mg PO QHS 03/21/13 metFORMIN (XR) [Glucophage Xr] 1,000 mg PO BID 03/21/13 Canagliflozin [Invokana] 300 mg PO DAILY 12/03/15 Lamotrigine [Lamictal] 150 mg PO DAILY 12/03/15 Quetiapine Fumarate 50 mg PO QHS 05/22/18 Tizanidine HCl [Zanaflex] 2 mg PO BID 09/28/18 Omeprazole 40 mg PO DAILY 01/08/19 Topiramate 50 - 75 mg PO QHS 05/20/19 Cholecalciferol (Vitamin D3) [Vitamin D3] 2,000 unit PO DAILY 01/31/20 Ketorolac [Toradol] 10 mg PO Q6H 06/09/19 Prednisone [Deltasone] 60 mg PO DAILY 06/09/19 Pregabalin 100 mg PO TID 06/09/19 Primary Care Physician: Savi Clements MD [Primary Care Provider] - Please follow up with your Primary Care Physician in: 1 Week Please Follow Up With: Pain management When: Call for appt Please Follow Up With: Spine surgeon When: Call for appt Disposition: Home Minutes spent on discharge:: 35 Patient Condition:: Stable Medical Necessity - Tobacco Use Smoking Status: Current every day smoker Tobacco Use: Cigarettes Meaningful Use Info Meaningful Use Diagnoses (Choose all that apply): None applicable <Deon De León F - Last Filed: 06/11/19 16:53> Discharge Date and Diagnosis - Secondary Discharge Diagnosis Chronic Problems (Last Updated 06/09/19 @ 22:44 by Yaritza Cox MD) Anxiety (Chronic) Asthma (Chronic) Depressive disorder (Chronic) Type II diabetes mellitus, uncontrolled (Chronic) Bipolar disorder (Chronic) Fibromyalgia (Chronic) Hyperlipidemia (Chronic) Chronic back pain (Chronic) Hospital Course and Treatment Summary of Care Provided: The patient is a 48 year old F [] - Physical Exam Vitals/I&O's: Vital Signs Temp Pulse Resp BP Pulse Ox 98.9 F 74 18 130/66 H 98 06/11/19 12:50 06/11/19 12:50 06/11/19 12:50 06/11/19 12:50 06/11/19 12:50 Oxygen Delivery Method Room Air Weight: 217 lb 13.067 oz Body Mass Index (BMI) 34.1 Intake and Output for Last 24 Hours 06/09/19 06/10/19 06/11/19 23:59 23:59 23:59 Intake Total 4600 / 4600 1200 / 1200 Balance 4600 / 4600 1200 / 1200 Laboratory Results 06/10/19 16:37: POC Glucose 179 H 06/10/19 22:11: POC Glucose 223 H 06/11/19 06:42: POC Glucose 163 H 06/11/19 11:48: POC Glucose 298 H Code Visit Addendum: Dr. De León I personally examined the patient and reviewed the chart. I agree with the above. 48-year-old female with left lower extremity radiation of pain, presented because she was having increased pain in her PCP had ordered an MRI however she said that the pain was too bad she needed to come in. She was initially started on Dilaudid which was discontinued and placed on just NSAIDs. She had no red flag symptoms, i.e. no bowel or bladder dysfunction as well as no paresthesias. She had an MRI which demonstrated L5 nerve compression on the left as well as mild to moderate central canal stenosis at L3 and L4. I discussed with her that her pain doctor will need to see her in follow-up for management of this, at the moment she will likely need physical therapy and NSAIDs follow-up with surgeon for evaluation whether not she is a surgical candidate is also appropriate. She says that she will follow-up with her primary care doctor as well as her pain doctor to get this taken care of. OBSV E&M: 81936 Observation care discharge
[2019-06-11] MEDS: Senna/Docusate Sodium 1 Tablet 2 TABLET PO (12:45)
[2019-06-11 12:50] VITALS: BP 130/66; PULSE 74; RESP 18; TEMP 37.2; O2SAT 98
== END 2019-06-10 13:00 | disposition home or self-care (01) ==
LOC: ED 18:48 → MS3 20:58
PROVIDERS: Admitting Provider Hospitalist; Emergency Provider Emergency Medicine; PCP Internal Medicine; Visit Provider Family Medicine
DX: G89.29 Other chronic pain (principal); M54.5 Low back pain; M79.7 Fibromyalgia; F31.9 Bipolar disorder, unspecified; F41.9 Anxiety disorder, unspecified; J45.20 Mild intermittent asthma, uncomplicated; E78.5 Hyperlipidemia, unspecified; E11.65 Type 2 diabetes mellitus with hyperglycemia; M19.90 Unspecified osteoarthritis, unspecified site; F17.210 Nicotine dependence, cigarettes, uncomplicated; Z79.84 Long term (current) use of oral hypoglycemic drugs; Z79.899 Other long term (current) drug therapy; Z79.52 Long term (current) use of systemic steroids
CPT/HCPCS: 36415; 72148; 80048; 82962; 85025; 96361; 96374; 96375; 96376; 97162; 97166; 97535; 99218; 99284; 99406; J7030; A4216; G0378; J2405

== ENCOUNTER 2019-06-20 16:57 | Emergency (ER) | payer MEDICAID, SELFPAY ==
[2019-06-20 16:59] VITALS: BP 131/71; PULSE 105; RESP 16; TEMP 36.6; O2SAT 99; BMI 33.6
[2019-06-20] MEDS: Orphenadrine 60 MG/2 ML Ampul IM (18:01)
[2019-06-20] MEDS: HYDROmorphone 1 MG/ML Syringe SC ×2 (18:01→18:46)
--- NOTE | 2019-06-20 18:12 | ED.VIS.BACK ---
History of Present Illness Chief Complaint: Back Narrative: Patient presenting for evaluation secondary to back pain. Patient has a history of a L5 bulging disc with radicular symptoms. She sees pain management at [facility]. Patient actually was admitted to the hospital around a week and a half ago secondary to intractable pain had an MRI that redemonstrated this and was discharged with follow-up with spine surgery and pain management. Patient reports that she was using her TENS unit today, and had a sudden onset of severe pain in her left buttock radiating down her left leg. She denies weakness. She states that she has numbness at baseline that is unchanged. She denies any bowel or bladder incontinence or fevers. Patient reports that she has a pilonidal cyst that she has been undergoing treatment with antibiotics for recently, has continued pain in that area. Pain is moderate to severe. Patient is on ibuprofen at home reports that she did getting relief from that. Review of systems otherwise negative. Past Medical History - Allergies and Home Meds Allergies/Adverse Reactions: Allergies Sulfa (Sulfonamide Antibiotics) Allergy (Verified 06/20/19 16:58) Anaphylaxis vancomycin Allergy (Verified 06/20/19 16:58) Hives metformin Adverse Reaction (Verified 06/20/19 16:58) Diarrhea stainless steal Allergy (Mild, Uncoded 06/20/19 16:58) rash Primary Care Physician: Savi Clements MD [Primary Care Provider] - Past Medical History: - - Chronic back pain Surgical History: tonsillectomy, - - Tubal ligation. Smoking Status: Current every day smoker Review of Systems All systems negative except as indicated General: Denies: Chills, Fever, Sweats Eyes: Denies: Visual changes - bilaterally, Diplopia ENT: Denies: Rhinorrhea, Sore throat Cardiovascular: Denies: Chest pain, Palpitations Respiratory: Denies: Dyspnea, Cough, Dyspnea on exertion Gastrointestinal: Denies: Abdominal pain, Nausea, Vomiting, Diarrhea, Melena, Hematochezia Genitourinary: Denies: Dysuria, Hematuria, Frequency Musculoskeletal: Reports: Back pain Skin: Denies: Rash, Wounds Neurological: Denies: Headache, Weakness, Numbness Physical Exam Vital Signs/Narrative: Vital Signs Temp Pulse Resp BP Pulse Ox 06/20/19 16:59 98 F 105 H 16 131/71 H 99 Inital Vital Signs reviewed: Yes General: Well nourished, Well developed, - - Doubly uncomfortable secondary to pain Head: Normocephalic, Atraumatic Eyes: Perrl, EOMI ENT: Moist mucous membranes, No rhinorrhea Neck: Supple, Nontender Cardiovascular: Regular rate, Regular rhythm, No murmurs Respiratory: No distress, CTA bilaterally, Chest nontender Abdomen: Soft, Nontender, Nondistended, Normal bowel sounds, No masses. Negative for: Pulsatile mass Back: Normal Inspection, - - Patient has tenderness to palpation of the left SI joint, no midline tenderness. Extremeties: Nontender, No edema, - - Pain with straight leg raise of the left leg. Skin: Normal color, No rash Neuro: Alert, Oriented, Normal Strength, Normal Sensation, Normal DTR, Normal Gait, - - 5 out of 5 strength at the hip knee ankle and foot bilaterally with normal sensation over all dermatomes normal patellar and Achilles reflexes. Psychological: Normal affect Diagnostic/Tx/Re-eval - Medical Decision Making Patient presented secondary to back pain. Patient has no red flag signs or symptoms, had an MRI just couple of weeks ago, and no indication for repeat imaging. Patient was given a dose of subcutaneous hydromorphone and Norflex. Repeat evaluation of the patient in 1829 showed improvement. Patient did receive an additional dose of pain medication in the emergency department. At this point I believe she is safe and appropriate for discharge with outpatient follow-up with pain management and spine surgery. Patient was discharged in improved condition. ED Disposition - Plan for ED Patient: Disposition: Home or Assisted Living Diagnosis: Lumbar radiculopathy, acute Instructions: BACK SPASM, No Trauma Referrals: Oleg Wong MD [STAFF PHYSICIAN] - Rashard De Paz DO [NON-STAFF] - Netta Hannah MD [STAFF PHYSICIAN] -
[2019-06-20 18:47] VITALS: BP 133/87; PULSE 78; RESP 18; O2SAT 96
[2019-06-20 19:21] VITALS: BP 135/86; PULSE 71; RESP 18; O2SAT 99
--- NOTE | 2019-06-20 19:22 | ED.RN ---
THIS NURSE REVIEWED D/C INSTRUCTIONS WITH PT. PT VERBALIZED UNDERSTANDING OF INSTRUCTIONS. PT DENIES FURTHER NEEDS OR QUESTIONS AT THIS TIME
== END 2019-06-20 19:22 | disposition home or self-care (01) ==
PROVIDERS: Emergency Provider Emergency Medicine; PCP Internal Medicine
DX: M54.16 Radiculopathy, lumbar region (principal); G89.29 Other chronic pain; F17.200 Nicotine dependence, unspecified, uncomplicated
CPT/HCPCS: 96372; 99282

== ENCOUNTER 2019-06-25 03:27 | Emergency (ER) | payer MEDICAID, SELFPAY ==
[2019-06-25 03:28] VITALS: BP 139/99; PULSE 88; RESP 20; TEMP 36.6; O2SAT 97; BMI 33.6
[2019-06-25 03:32] VITALS: BP 139/99; PULSE 88; RESP 20; TEMP 36.6; O2SAT 97
--- NOTE | 2019-06-25 03:49 | ED.VISSUMM ---
- ER Visit Summary Date of Service: 06/25/19 Chief Complaint: Back pain History of Present Illness: The patient is a 48 F who presents with back pain that became worse since yesterday morning. Patient describes the pain as cramping. Patient states pain is over the sacral area and radiates into her left inguinal area. Patient states nothing makes it better and everything makes it worse. Patient states she is scheduled for epidural injections in 2 days. Patient had a recent MRI which showed bulging disks. Patient states she has chronic pain radiating down her left leg and paresthesias. Patient denies any bowel or bladder changes. Patient denies any saddle anesthesia. Patient denies any dysuria or hematuria. Physical Examination: Vital signs are stable. Patient is afebrile. Patient is in no acute distress. Musculoskeletal exam reveals tenderness over the left lower lumbosacral area and sacroiliac joint. There is no edema or ecchymosis. There is no bony crepitance or step-off. Range of motion was limited in all motions of the lumbar spine secondary to pain. Strength is 5/5 bilateral in the lower extremities. There are no sensory deficits noted. Deep tendon reflexes are 2+/4 bilaterally. Test Results: CT scan of the abdomen and pelvis was obtained. There is no acute abnormality noted. Urinalysis was obtained and was essentially within normal limits. Emergency Department Course and Treatment: Patient was given an injection of Dilaudid IM here. Patient was still having persistent pain. Patient was given an injection of Toradol and the CT scan of the abdomen and pelvis was ordered along with the urinalysis. Patient was given a repeat dose of Dilaudid. Patient was feeling better on reevaluation. Patient was instructed to follow-up with her primary care physician and pain management physician in 2 days as scheduled. Patient was instructed to continue her pain medications as previously prescribed. Patient understood and was agreeable with the plan. All questions were answered. Disposition: Discharge home Impression: Acute on chronic low back pain This note was generated with [employer] dictation software. It may contain incorrect words, spelling, and punctuation that were not noted in review of the chart prior to signing ED Disposition - Plan for ED Patient: Disposition: Home or Assisted Living Diagnosis: Acute exacerbation of chronic low back pain Instructions: BACK PAIN (Acute or Chronic) Referrals: Savi Clements MD [Primary Care Provider] - Keep Sarina appointment
[2019-06-25] MEDS: HYDROmorphone 0.5 MG/0.5 ML SYRINGE IM (04:05)
--- NOTE | 2019-06-25 04:38 | CT_ITS ---
STUDY: CT ABDOMEN AND PELVIS WITHOUT CONTRAST REASON FOR EXAM: Female, 48 years old. COCCYX PAIN THROUGH GROIN. Diabetes-uncontrolled and HLD RADIATION DOSAGE (If Supplied By Facility): CTDIvol = ( 17.95 ) mGy, DLP = ( 968.59 ) mGycm TECHNIQUE: Transaxial 2.5 mm images were obtained from the dome of the diaphragm to the symphysis pubis without oral contrast, and without intravenous contrast. Sagittal and coronal images were reconstructed. This examination is limited for the evaluation of gastrointestinal, solid organs and vascular structures due to the lack of intravenous and oral contrast. Individualized dose optimization techniques were used for this CT. COMPARISON: None. FINDINGS: 2 mm calcified nodule in the right lower lobe. The visualized portions of the heart are within normal limits. There is decreased attenuation of the mild enlarged liver consistent with steatosis. The gallbladder is contracted. Normal spleen. Normal pancreas. There is a 1.5 x 1 cm small, circumscribed, smooth, low attenuation right adrenal mass, consistent with an adrenal adenoma. Normal left adrenal gland. Normal right kidney. There are at least 3 right renal arteries. Normal left kidney. There is no obstructive uropathy, obstructive renal or ureteral calculi. Normal visualized stomach. Normal small intestine. There are occasional scattered colonic diverticula consistent with diverticulosis. Moderate amount of free teaching material. The appendix is visualized and appears normal. Minimal atherosclerosis of the abdominal aorta. Normal inferior vena cava. Normal retroperitoneum. Normal urinary bladder. The uterus is age appropriate. Bilateral tubal ligation clips. Obesity. There are diffuse degenerative changes of the visualized spine, bilateral hip joints, sacroiliac joints,. CT/Abdomen/Pelvis without Cont IMPRESSION: There is no appendicitis, colitis, diverticulitis, ascites, hydronephrosis, abscess, collection, perforation or obstruction. Mild hepatomegaly, hepatic steatosis in obese patient. Occasional scattered diverticula, no inflammation, small right adrenal adenoma, minimal atherosclerosis, diffuse degenerative changes, calcified small granuloma right lower lobe felt to be nonacute findings. Gallbladder is contracted. Electronically Signed: Claudia Tong, MD at 5:49 EST , Service support ,
[2019-06-25] MEDS: Ketorolac 30 MG/ML Syringe IV (05:02)
[2019-06-25] MEDS: 0.9% Normal Saline 1,000 ML 250 ML IV (05:03)
[2019-06-25 06:08] LABS: Bacteria 0 SEEN /hpf (None Seen); Mucous, Urine 0 SEEN /hpf (<or=2+); Red Blood Cells-Urine 0 SEEN /hpf (0-5); White Blood Cells 0 SEEN /hpf (0-5)
[2019-06-25 06:09] LABS: Color, Urine Yellow (Yellow); Glucose, Dipstick 1000 mg/dl (Normal); Ketone-Dipstick Negative (Negative); Leukocyte Esterase-Dipstick Negative /ul (Negative); Nitrite-Dipstick Negative (Negative); Occult Blood-Urine Negative /ul (Negative); Protein-Dipstick Negative (Negative); Urine Bilirubin Dipstick Negative (Negative); Urine Clarity Sl. Cloudy (Clear); Urine Urobilinogen Normal (Normal)
[2019-06-25 06:33] VITALS: BP 141/88; PULSE 80; RESP 15; O2SAT 99
[2019-06-25] MEDS: HYDROmorphone 0.5 MG/0.5 ML SYRINGE IV (06:39)
[2019-06-25 06:44] LABS: Amorphous Sediment 2+; Squamous Epithelial Cells - UA 10-25 SEEN /hpf (5-10)
[2019-06-25 07:05] VITALS: BP 138/88; PULSE 67; RESP 18; O2SAT 98
== END 2019-06-25 07:09 | disposition home or self-care (01) ==
PROVIDERS: Emergency Provider Emergency Medicine; PCP Internal Medicine
DX: M54.5 Low back pain (principal); G89.29 Other chronic pain; E11.9 Type 2 diabetes mellitus without complications; M79.7 Fibromyalgia; F31.9 Bipolar disorder, unspecified; Z79.84 Long term (current) use of oral hypoglycemic drugs; Z72.0 Tobacco use
CPT/HCPCS: 74176; 81001; 96361; 96372; 96374; 96375; 99283; A4216

== ENCOUNTER → 2019-07-24 17:16 | Outpatient (CLI) | payer MEDICAID, SELFPAY ==
[2019-06-25 03:28] VITALS: BMI 33.6
--- NOTE | 2019-07-24 17:25 | MRI_ITS ---
STUDY: MRI CERVICAL SPINE WITHOUT CONTRAST REASON FOR EXAM: Female, 48 years old. MYELOPATHY -- neck and bilat arm pain, numbness TECHNIQUE: Standardized fat and water weighted pulse sequences were obtained in the sagittal and axial planes. COMPARISON: CT of the cervical spine June 10, 2019 FINDINGS: Normal foramen magnum and brainstem-cervical cord junction. Normal craniovertebral junction. Normal anterior atlantoaxial articulation. Normal odontoid process. Normal cervical lordosis. Normal vertebral bodies and posterior osseous elements. C2-3: Normal endplates. Normal disc height, signal and morphology. Normal central canal and intervertebral neural foramina. C3-4: Normal endplates. Normal disc height, signal and morphology. Normal central canal and intervertebral neural foramina. C4-5: Normal endplates. Normal disc height, signal and mild bulging of the disc with moderate size left paracentral disc protrusion narrowing the spinal canal and compressing the cord. Moderate left neuroforaminal stenosis and mild narrowing on the right C5-6: Normal endplates. Normal disc height, signal and mild bulging disc with broad-based left posterolateral disc protrusion. Mild narrowing of the central canal greater on the left with encroachment upon the cord. Moderate bilateral neuroforaminal stenosis C6-7: Normal endplates. Normal disc height, signal and bulging of the disc with moderate size right paracentral disc protrusion narrowing the spinal canal and mildly compressing the cord... Moderate left neuroforaminal stenosis C7-T1: Normal endplates. Normal disc height, signal and morphology. Normal central canal and intervertebral neural foramina. Normal cervical cord. Normal visualized soft tissue structures. MRI/Spine Cervical (Routine) IMPRESSION: No evidence for acute fracture or other significant bony pathology. Mild spondylosis and multilevel spinal stenosis with cord compression due to disc disease at C4-5 through C6-7. MRI would be useful for further assessment if clinically warranted Findings as above Pending Final Proof Editing
== END ==
PROVIDERS: PCP Internal Medicine
DX: R27.0 Ataxia, unspecified (principal); M50.00 Cervical disc disorder with myelopathy, unspecified cervical region
CPT/HCPCS: 72141

== ENCOUNTER 2020-01-25 19:54 | Emergency (ER) | payer MEDICAID, SELFPAY ==
[2020-01-25 19:55] VITALS: BP 150/80; PULSE 92; RESP 18; TEMP 36.6; O2SAT 97; BMI 35.9
--- NOTE | 2020-01-25 20:18 | ED.VIS.BACK ---
History of Present Illness Chief Complaint: Back Informant: Patient Onset: Yesterday Context: Sudden Onset Injury: - - Having a bowel movement Timing: Continuous Quality: Dull, Aching Location: Lumbar, Buttock, Left Leg Current Severity: Severe Maximum Severity: Severe Worsened by: improves with: Movement, Ambulation, Bending Relieved by: Nothing Narrative: MRI/Spine Lumbar (Routine) IMPRESSION: 1. Left L4-L5 posterior caudal disc extrusion with displacement of the left L5 nerve in sleeve, moderate disc space height narrowing and mild to moderate central canal stenosis. The AP canal diameter is 7.4 mm. 2. Mild to moderate central canal stenosis at L3-L4 disc level with an AP canal diameter of 7.2 mm and prominent posterior bulging disc. 3. Small L2-L3 posterior annular bulging disc and mild flattening central canal stenosis. The AP canal diameter is 10 mm. Electronically Signed: Jh Lemus MD at 16:42 EST , Service support , Patient is a 49-year-old woman who presents with acute left lower back pain radiating to her toes on the lateral side. This started abruptly when she was attempting to have a bowel movement yesterday. She is able to go up and down stairs without buckling of her knees or foot drop. She denies bowel bladder dysfunction. She does report constipation. She denies saddle paresthesia or anesthesia. MRI earlier this year reveals spinal stenosis and multiple disc with displacement of the left L5 nerve root. Patient denies fever, chills night sweats. She denies urologic symptoms. She denies weight gain or weight loss. She is seen by pain management. She is unable to be seen until next week. Prior similar symptoms: Yes Recent Illness/Hospitalization: Yes - 3 level cervical disc fusion approximately 3 months ago. - Past Medical History (1) Anxiety Status: Chronic (2) Asthma Status: Chronic (3) Bipolar disorder Status: Chronic (4) Chronic back pain Status: Chronic (5) Fibromyalgia Status: Chronic (6) Hyperlipidemia Status: Chronic (7) Type II diabetes mellitus, uncontrolled Status: Chronic Past Medical History - Allergies and Home Meds Allergies/Adverse Reactions: Allergies Sulfa (Sulfonamide Antibiotics) Allergy (Verified 01/25/20 19:55) Anaphylaxis vancomycin Allergy (Verified 01/25/20 19:55) Hives metformin Adverse Reaction (Verified 01/25/20 19:55) Diarrhea stainless steal Allergy (Mild, Uncoded 01/25/20 19:55) rash Primary Care Physician: Savi Clements MD [Primary Care Provider] - Prior records reviewed: Yes Surgical History: tonsillectomy, - - Tubal ligation. Smoking Status: Current every day smoker Review of Systems General: Denies: Chills, Fever, Malaise Eyes: Denies: Visual changes - bilaterally, Blurred Vision - bilaterally ENT: Denies: Rhinorrhea, Sore throat Cardiovascular: Denies: Chest pain, Palpitations Respiratory: Denies: Dyspnea, Cough, Sputum Gastrointestinal: Denies: Abdominal pain, Nausea, Vomiting, Diarrhea Genitourinary: Denies: Dysuria, Hematuria, Frequency Musculoskeletal: Reports: Back pain, Extremity Pain. Denies: Myalgias, Arthralgias, Neck pain, Swelling, -, - Skin: Denies: Rash, Wounds Neurological: Reports: Numbness - Left lower extremity. Denies: Headache, Weakness, Parasthesia, -, - Endocrine: Denies: Polyuria, Polydipsia Hematologic: Denies: Easy bruising, Easy bleeding Allergy: Denies: Uticaria Physical Exam Vital Signs/Narrative: Vital Signs Temp Pulse Resp BP Pulse Ox 01/25/20 19:55 97.8 F 92 18 150/80 H 97 Inital Vital Signs reviewed: Yes General: Well nourished, Well developed, Obese Head: Normocephalic, Atraumatic Eyes: Perrl, EOMI. Negative for: Pale conjunctiva, Scleral icterus Neck: - - Healing anterior scar noted due to multilevel cervical fusion. Negative for: Supple Cardiovascular: Regular rate, Regular rhythm Respiratory: No distress Abdomen: Soft, Nontender, Nondistended, Normal bowel sounds Back: Normal Inspection, Nontender, Positive SLR - Right - Complained of left lower back pain with right leg straight leg at 45 degrees. There is no radiation posteriorly., Positive SLR - Left - She reported pain with radiation at 15 degrees. There was a positive bowstring sign. Extremeties: Nontender, No edema, Strong Pulses, Symmetric Skin: Normal color, No rash Neuro: Alert, Oriented, Normal Strength, Normal Sensation, Normal DTR, Normal Reflexes - Patella and ankle reflex 2+ and symmetric., - - HL is intact bilaterally. Good strength with plantar and dorsiflexion of the foot.. Negative for: Normal Gait Reflexes: Negative for: Right Clonus, Right Babinski, Left Clonus, Left Babinski Psychological: Depressed Diagnostic/Tx/Re-eval - Medical Decision Making Since patient does have pathology on MRI and equivocal crossover test will treat with IV morphine. Since she has uncontrolled diabetes has had proteinuria in the past reluctant to treat with NSAIDs. Patient was reassessed at 2129. She states she still has pain and it is getting worse. She did report improvement. Was given additional dose of morphine. Patient was reassessed at 2015. She does report improvement. Since she is in pain management she understand that she will not receive a prescription to go home with. She was encouraged to contact her pain management physician in the morning. ED Disposition - Plan for ED Patient: Disposition: Home or Assisted Living Diagnosis: Back pain with left-sided sciatica Instructions: ED LUMBAR RADICULOPATHY, ED Back Pain Acute or Chronic Referrals: Savi Clements MD [Primary Care Provider] - Additional Instructions: Contact your pain management physician in the morning.
[2020-01-25] MEDS: Ondansetron 4 MG/2 ML Vial IV (20:39)
[2020-01-25] MEDS: morphine 8 MG/ML Syringe IV (20:39)
[2020-01-25] MEDS: morphine 8 MG/ML Syringe 6 MG IV (21:39)
[2020-01-25 22:24] VITALS: BP 136/60; PULSE 90; RESP 16; O2SAT 95
== END 2020-01-25 22:25 | disposition home or self-care (01) ==
PROVIDERS: Emergency Provider Emergency Medicine; PCP Internal Medicine
DX: M54.42 Lumbago with sciatica, left side (principal); M51.26 Other intervertebral disc displacement, lumbar region; M48.061 Spinal stenosis, lumbar region without neurogenic claudication; G89.29 Other chronic pain; E78.5 Hyperlipidemia, unspecified; E11.9 Type 2 diabetes mellitus without complications; J45.909 Unspecified asthma, uncomplicated; M79.7 Fibromyalgia; F31.9 Bipolar disorder, unspecified; F41.9 Anxiety disorder, unspecified; F17.200 Nicotine dependence, unspecified, uncomplicated; E66.9 Obesity, unspecified; Z68.35 Body mass index [BMI] 35.0-35.9, adult; Z79.84 Long term (current) use of oral hypoglycemic drugs; Z79.899 Other long term (current) drug therapy
CPT/HCPCS: 96374; 96375; 96376; 99283; A4216; J2405

== ENCOUNTER 2020-01-27 23:14 | Emergency (ER) | payer MEDICAID, SELFPAY ==
[2020-01-27 23:15] VITALS: BP 134/73; PULSE 81; RESP 15; TEMP 36.6; O2SAT 97; BMI 35.9
--- NOTE | 2020-01-27 23:29 | ED.DCSUM_ITS ---
History of Present Illness Chief Complaint: Back Informant: Patient Narrative: Patient presents the emergency department with continued left low back pain with radiation to the leg. Patient states that she has a history of chronic back pain is in pain management through [facility]. She states that several days ago she was seen in the emergency room after she was having a bowel movement and had increase of pain on the left side. She states that after being seen in the emergency department she called pain management but that they do not prescribe narcotics for her. She had some Patterson left over from prior neck surgery so she took that without relief. She has been taking Norflex ibuprofen and Lyrica. She states that this morning her leg gave out on her way to the bathroom and she fell but did not cause further injury. No bowel or bladder dysfunction. No sensory changes. No red flag symptoms. No chronic steroid use. She is a diabetic. No fevers or malignancy is noted. She does receive back injections from pain management. No rashes fevers or swelling of the back noted. - Past Medical History (1) Anxiety Status: Chronic (2) Asthma Status: Chronic (3) Bipolar disorder Status: Chronic (4) Chronic back pain Status: Chronic (5) Depressive disorder Status: Chronic (6) Fibromyalgia Status: Chronic (7) Hyperlipidemia Status: Chronic (8) Type II diabetes mellitus, uncontrolled Status: Chronic Past Medical History - Allergies and Home Meds Allergies/Adverse Reactions: Allergies Sulfa (Sulfonamide Antibiotics) Allergy (Verified 01/27/20 23:14) Anaphylaxis vancomycin Allergy (Verified 01/27/20 23:14) Hives metformin Adverse Reaction (Verified 01/27/20 23:14) Diarrhea stainless steal Allergy (Mild, Uncoded 01/27/20 23:14) rash Primary Care Physician: Savi Clements MD [Primary Care Provider] - Surgical History: tonsillectomy, - - Tubal ligation. Smoking Status: Current every day smoker Review of Systems General: Denies: Chills, Fever, Sweats Eyes: Denies: Visual changes - bilaterally, Diplopia ENT: Denies: Rhinorrhea, Sore throat Cardiovascular: Denies: Chest pain, Palpitations Respiratory: Denies: Dyspnea, Cough, Dyspnea on exertion Gastrointestinal: Denies: Abdominal pain, Nausea, Vomiting, Diarrhea, Melena, Hematochezia Genitourinary: Denies: Dysuria, Hematuria, Frequency Musculoskeletal: Reports: Back pain. Denies: Extremity Pain Skin: Denies: Rash, Wounds Neurological: Reports: Parasthesia - Pain radiating to left leg posteriorly. Denies: Headache, Weakness, Numbness Physical Exam Vital Signs/Narrative: Vital Signs Temp Pulse Resp BP Pulse Ox 01/27/20 23:15 97.9 F 81 15 134/73 H 97 Inital Vital Signs reviewed: Yes General: Well nourished, Well developed, Obese, No Acute Distress Head: Normocephalic, Atraumatic Eyes: Perrl, EOMI ENT: Moist mucous membranes, No rhinorrhea Neck: Supple, Nontender Cardiovascular: Regular rate, Regular rhythm, No murmurs Respiratory: No distress, CTA bilaterally, Chest nontender Abdomen: Soft, Nontender, Nondistended, Normal bowel sounds Back: - - Patient complains of pain to palpation over the lumbar left paraspinal musculature down into the sciatic notch. Patient reports positive straight leg test. Extremities: Nontender, No edema Skin: Normal color, No rash Neurological: Alert, Oriented x3, Cranial nerves II-XII grossly intact, Normal Strength, Normal Sensation, Normal DTR - Patellar and Achilles. Negative for: Normal Gait - Antalgic gait utilizes cane Psychological: Normal affect, Normal Mood Diagnostic/Tx/Re-eval - Medical Decision Making I do not see any red flag items. There is no evidence of infection. Patient received a dose of Toradol, Dilaudid, and Valium. I have the patient hold her Norflex and I will write for Valium. I will write for a short course of Percocet. Follow-up with pain management and primary care. ED Disposition - Plan for ED Patient: Disposition: Home or Assisted Living Diagnosis: Acute exacerbation of chronic low back pain, Sciatica of left side Instructions: Understanding Sciatica Prescriptions: Oxycodone HCl/Acetaminophen [Percocet 5-325 mg Tablet] 1 ea PO Q6H PRN 3 Days #12 tab PRN Reason: pain Prescription Printed Diazepam [Valium] 5 mg PO Q8 PRN #15 tab PRN Reason: Muscle Spasm Prescription Printed Referrals: Savi Clements MD [Primary Care Provider] - 3-5 Days if not improving Additional Instructions: Do not take Norflex with the Valium.
[2020-01-27] MEDS: HYDROmorphone 1 MG/ML Syringe IM (23:36)
[2020-01-27] MEDS: Ketorolac 60 MG/2 ML Vial IM (23:36)
[2020-01-27] MEDS: diazePAM 5 MG Tablet PO (23:36)
[2020-01-28 00:01] VITALS: RESP 15
== END 2020-01-28 00:01 | disposition home or self-care (01) ==
PROVIDERS: Emergency Provider Emergency Medicine; PCP Internal Medicine
DX: M54.42 Lumbago with sciatica, left side (principal); G89.29 Other chronic pain; E11.9 Type 2 diabetes mellitus without complications; E78.5 Hyperlipidemia, unspecified; M79.7 Fibromyalgia; F31.9 Bipolar disorder, unspecified; F41.9 Anxiety disorder, unspecified; F17.200 Nicotine dependence, unspecified, uncomplicated; E66.9 Obesity, unspecified; Z68.35 Body mass index [BMI] 35.0-35.9, adult; Z79.84 Long term (current) use of oral hypoglycemic drugs; Z79.899 Other long term (current) drug therapy
CPT/HCPCS: 96372; 99282

== ENCOUNTER 2020-01-31 22:20 | Emergency (ER) | payer MEDICAID, SELFPAY ==
[2020-01-31 22:21] VITALS: BP 155/90; PULSE 101; RESP 20; TEMP 36.7; O2SAT 99; BMI 35.9
--- NOTE | 2020-01-31 23:01 | ED.DCSUM_ITS ---
History of Present Illness Chief Complaint: Back Informant: Patient Narrative: 49-year-old female presenting with back pain. She states this is been a chronic problem since June. She had an MRI in June which showed spinal stenosis. Patient states that she followed up with a spinal surgeon who said that she had to have her neck operated on first. She had her cervical spine surgery, but was told she had to be tobacco free for 60 days before they could do her lower back. She states she is currently waiting for the surgery to be scheduled. She also has a pain management physician who has a scheduled epidural on Wednesday. She states she is on Norflex, Lyrica, ibuprofen which is n ot helping her. She states she has been constipated, but has no loss of bladder control. She has no loss of sensation in her perineum. - Past Medical History (1) Anxiety Status: Chronic (2) Asthma Status: Chronic (3) Bipolar disorder Status: Chronic (4) Chronic back pain Status: Chronic (5) Depressive disorder Status: Chronic (6) Fibromyalgia Status: Chronic (7) Hyperlipidemia Status: Chronic Past Medical History - Allergies and Home Meds Allergies/Adverse Reactions: Allergies Sulfa (Sulfonamide Antibiotics) Allergy (Verified 01/31/20 22:20) Anaphylaxis vancomycin Allergy (Verified 01/31/20 22:20) Hives metformin Adverse Reaction (Verified 01/31/20 22:20) Diarrhea stainless steal Allergy (Mild, Uncoded 01/31/20 22:20) rash Primary Care Physician: Savi Clmeents MD [Primary Care Provider] - Prior records reviewed: Yes Past Medical History: - - Reviewed and problem list Surgical History: noncontributory, tonsillectomy, - - Tubal ligation. Lives: Spouse/ Significant Other Smoking Status: Current every day smoker Alcohol: None Drugs: None Review of Systems General: Denies: Chills, Fever, Sweats Eyes: Denies: Visual changes - bilaterally, Diplopia ENT: Denies: Rhinorrhea, Sore throat Cardiovascular: Denies: Chest pain, Palpitations Respiratory: Denies: Dyspnea, Cough, Dyspnea on exertion Gastrointestinal: Denies: Abdominal pain, Nausea, Vomiting, Diarrhea, Melena, Hematochezia Genitourinary: Denies: Dysuria, Hematuria, Frequency Musculoskeletal: Reports: Back pain Skin: Denies: Rash, Wounds Neurological: Denies: Headache, Weakness, Numbness Physical Exam Vital Signs/Narrative: Vital Signs Temp Pulse Resp BP Pulse Ox 01/31/20 22:21 98.1 F 101 H 20 H 155/90 H 99 Inital Vital Signs reviewed: Yes General: Obese, No Acute Distress Head: Normocephalic, Atraumatic ENT: Moist mucous membranes, No rhinorrhea Cardiovascular: Regular rate, Regular rhythm Respiratory: No distress, CTA bilaterally Abdomen: Soft, Nontender, Nondistended Rectal: - - Rectal tone is intact. Back: - - Tenderness to palpation lumbar paraspinal musculature with the left being more tender than the right. There is some tenderness in the left gluteal region. Extremities: Nontender, No edema Skin: Normal color, No rash Neurological: Alert, Oriented x3, - - Sensation in the perineal region is intact. Diagnostic/Tx/Re-eval - Medical Decision Making 49-year-old female presenting with back pain which is acute on chronic. Patient does have tenderness of the bilateral paraspinal musculature as well as left gluteal tenderness. She is on medication from pain management therefore cannot provide a prescription for narcotic pain medication. She was given a dose of Dilaudid IM here. She will be given a Percocet before she goes home. She is to follow-up with her pain management doctor for further care. She has no symptoms of cauda equina syndrome and she has strong rectal tone as well as perineal sensation intact. Patient is stable for discharge and she is given return precautions. Impression: 1. Acute exacerbation of chronic back pain ED Disposition - Plan for ED Patient: Disposition: Home or Assisted Living Instructions: ED Back Pain Acute or Chronic Referrals: Savi Clements MD [Primary Care Provider] -
[2020-01-31] MEDS: HYDROmorphone 0.5 MG/0.5 ML SYRINGE IM (23:09)
[2020-01-31] MEDS: predniSONE 20 MG Tablet 60 MG PO (23:10)
[2020-02-01] MEDS: oxyCODONE 5 MG Tablet PO (00:05)
[2020-02-01 00:10] VITALS: BP 142/80; PULSE 92; RESP 16; O2SAT 96
== END 2020-02-01 00:11 | disposition home or self-care (01) ==
PROVIDERS: Emergency Provider Emergency Medicine; PCP Internal Medicine
DX: M54.5 Low back pain (principal); G89.29 Other chronic pain; E78.5 Hyperlipidemia, unspecified; J45.909 Unspecified asthma, uncomplicated; M79.7 Fibromyalgia; F31.9 Bipolar disorder, unspecified; F41.9 Anxiety disorder, unspecified; F17.200 Nicotine dependence, unspecified, uncomplicated
CPT/HCPCS: 99284

== ENCOUNTER 2020-02-01 19:14 | Observation (INO) | payer MEDICAID, SELFPAY ==
[2020-01-31 22:21] VITALS: BMI 35.9
[2020-02-01 19:15] VITALS: BP 149/100; PULSE 121; RESP 16; TEMP 36.5; O2SAT 96; BMI 35.9
[2020-02-01] MEDS: HYDROmorphone 1 MG/ML Syringe IM ×2 (19:48→21:46)
--- NOTE | 2020-02-01 20:01 | ED.DCSUM_ITS ---
History of Present Illness Chief Complaint: Back Informant: Patient Narrative: Patient is a 49-year-old female who presents to [facility] department for left-sided back/leg pain. This is acute on chronic exacerbation for her. She is in pain management. She was seen in the emergency department yesterday for the same complaint. She is supposed to get an injection by her pain management doctor tomorrow but states that she cannot last till that long without more pain medication. She denies any recent falls. Last time she had imaging was in June when she had an MRI which showed ruptured disks. She does have spinal stenosis. She was supposed to have surgery but this was postponed due to the coronavirus pandemic. She did have surgery on her neck 3 months ago and they are waiting for that to heal before they do the lumbar surgery. Denies any urinary incontinence/retention. She does have constipation which is making her back pain worse. She is on MiraLAX and Colace for this. She denies any saddle anesthesia. She does have radiation of the pain down her left leg. Walking d oes make it worse. The majority the of the pain is over the left buttock. She denies any fevers or chills. No abdominal pain. No chest pain or shortness of breath. Past Medical History - Allergies and Home Meds Allergies/Adverse Reactions: Allergies Sulfa (Sulfonamide Antibiotics) Allergy (Verified 02/01/20 19:18) Anaphylaxis vancomycin Allergy (Verified 02/01/20 19:18) Hives metformin Adverse Reaction (Verified 02/01/20 19:18) Diarrhea stainless steal Allergy (Mild, Uncoded 02/01/20 19:18) rash Primary Care Physician: Savi Clements MD [Primary Care Provider] - 2 Days Prior records reviewed: Yes Surgical History: noncontributory, tonsillectomy, - - Tubal ligation. Smoking Status: Current every day smoker - Family History Maternal Family History: Family History (Last Reviewed 06/09/19 @ 20:[address] Yaritza Cox MD) Other Arthritis Depression Diabetes Fibromyalgia Heart disease Hypertension Review of Systems All systems negative except as indicated General: Denies: Chills, Fever, Sweats Eyes: Denies: Visual changes - bilaterally, Diplopia ENT: Denies: Rhinorrhea, Sore throat Cardiovascular: Denies: Chest pain, Palpitations Respiratory: Denies: Dyspnea, Cough, Dyspnea on exertion Gastrointestinal: Reports: Constipation. Denies: Abdominal pain, Nausea, Vomiting, Diarrhea Genitourinary: Denies: Dysuria, Hematuria, Frequency Musculoskeletal: Reports: Back pain, Extremity Pain Skin: Denies: Rash, Wounds Neurological: Denies: Headache, Weakness, Numbness Physical Exam Vital Signs/Narrative: Vital Signs Temp Pulse Resp BP Pulse Ox 02/01/20 19:15 97.7 F L 121 H 16 149/100 H 96 Inital Vital Signs reviewed: Yes General: Well nourished, Well developed, Acute Distress - Laying on her right side, crying, holding her left buttock Head: Normocephalic, Atraumatic Eyes: Perrl, EOMI ENT: Moist mucous membranes, No rhinorrhea Neck: Supple, Nontender Cardiovascular: Regular rate, Regular rhythm, No murmurs Respiratory: No distress, CTA bilaterally, Chest nontender Abdomen: Soft, Nontender, Nondistended, Normal bowel sounds Back: Normal Inspection, - - Significant tenderness around the left piriformis. She is neurovascularly intact. 5 out of 5 muscle strength in all extremities.. Negative for: Spinal tenderness Extremities: Nontender, No edema Skin: Normal color, No rash Neurological: Alert, Oriented x3, Cranial nerves II-XII grossly intact, Normal Strength, Normal Sensation Psychological: Normal affect, Normal Mood Diagnostic/Tx/Re-eval - Medical Decision Making Patient presents to the emerge department for acute on chronic low back pain. Requesting pain medications until she sees her doctor tomorrow for a spine injection. Patient's x-ray did not show any new acute findings. There was significant degenerative changes. Patient got 2 doses of hydromorphone and 1 dose of Valium. Was planning on discharging the patient to follow-up with her pain management doctor tomorrow. Patient got out to her car but states she was in such severe pain that she could not get to the vehicle. At that time a decision was made to bring into the hospital for further evaluation and management. Patient understands that she will miss her appointment tomorrow which would be more definitive treatment. She otherwise has been stable throughout ED stay. ED Disposition - Plan for ED Patient: Disposition: Home or Assisted Living Diagnosis: Intractable low back pain
--- NOTE | 2020-02-01 20:10 | RAD_ITS ---
STUDY: X-RAY - LUMBAR SPINE REASON FOR EXAM: Female, 49 years old. LEFT SIDED SCIATIC PAIN X1 WEEK. HX RUPTURED DISC. TECHNIQUE: 5 view(s) of the lumbar spine were obtained. COMPARISON: MRI lumbar spine 06/10/2019 and radiograph lumbar spine 04/15/2018 FINDINGS: Normal lumbar lordosis. There is no substantial scoliosis. There is a normal alignment of the vertebrae. There is multilevel endplate spondylosis of the lumbar vertebrae. There is multi-level degenerative disc disease with multi-level disc space narrowing. Oblique projections are negative for pars defects. The soft tissue structures are unremarkable. RAD/L/S Spine Min 4 Views IMPRESSION: Spondylosis and multilevel degenerative disc disease. Electronically Signed: Ho Rose MD at 21:21 EDT , Service support ,
[2020-02-01] MEDS: diazePAM 5 MG Tablet 2.5 MG PO (21:46)
[2020-02-01 21:50] VITALS: BP 146/105; PULSE 105; RESP 16; O2SAT 97
[2020-02-01 22:21] VITALS: BP 148/102; PULSE 101; RESP 16; O2SAT 97
--- NOTE | 2020-02-01 23:31 | PCM.HP.STD ---
History of Present Illness Date of Admission: 02/01/20 Chief Complaint: Back pain The patient is a 49 year old F with PMH as below who presents with left-sided back pain. This is chronic and she is scheduled to have surgery in April for it. Her surgery for was delayed because she initially had to have her cervical spine fixed. She is due to get a pain shot at her pain doctor tomorrow at 130, however she said that she is not able to even walk and was about to get into the car to go home today and can even get in the car. Unfortunately her pain management doctor is part of the [facility] and does not have privileges here. She says that her pain medication she takes at home is only 800 of ibuprofen 3 times daily. She does not have any red flag symptoms including constipation or urinary incontinence or fecal incontinence she states that 1 of these pain injections on average last a little over 3 months. Past Medical History Past Medical History (Chronic Problems): Chronic Problems (Last Updated 06/09/19 @ 22:[address] Yaritza Cox MD) Anxiety (Chronic) Asthma (Chronic) Depressive disorder (Chronic) Type II diabetes mellitus, uncontrolled (Chronic) Bipolar disorder (Chronic) Fibromyalgia (Chronic) Hyperlipidemia (Chronic) Chronic back pain (Chronic) Medical History: Medical History (Last Updated 06/09/19 @ 22:[address] Yaritza Cox MD) Arthritis M19.90 Asthma J45.909 Bipolar disorder F31.9 Diabetes E11.9 Hemorrhoids K64.9 history of uterine ablation Chronic neck and back pain M54.2, M54.9, G89.29 Allergies Sulfa (Sulfonamide Antibiotics) Allergy (Verified 02/01/20 19:18) Anaphylaxis vancomycin Allergy (Verified 02/01/20 19:18) Hives metformin Adverse Reaction (Verified 02/01/20 19:18) Diarrhea stainless steal Allergy (Mild, Uncoded 02/01/20 19:18) rash Home Medications: Ambulatory Orders Medication Instructions Recorded Paroxetine [Paxil] 20 mg PO DAILY 03/20/13 Atorvastatin Calcium [Lipitor] 40 mg PO QHS 03/21/13 metFORMIN (XR) [Glucophage Xr] 1,000 mg PO BID 03/21/13 Lamotrigine [Lamictal] 150 mg PO DAILY 12/03/15 Quetiapine Fumarate 200 mg PO QHS 05/22/18 Omeprazole 40 mg PO DAILY 01/08/19 Topiramate 25 - 75 mg PO QHS 05/20/19 Pregabalin 100 mg PO TID 06/09/19 Empagliflozin [Jardiance] 25 mg PO DAILY 01/25/20 Docusate Sodium [Col-Rite] 100 mg PO BID 02/01/20 Polyethylene Glycol 3350 [Miralax] 17 gm PO DAILY 02/01/20 Surgical History: Surgical History (Last Reviewed 05/25/18 @ 12:50 by Jeannie Sifuentes) History of carpal tunnel surgery Z98.890 History of elbow surgery Z98.890 History of tonsillectomy and adenoidectomy Z98.890 Surgical History: noncontributory, tonsillectomy, - - Tubal ligation. 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 Yaritza Cox MD) Other Arthritis Depression Diabetes Fibromyalgia Heart disease Hypertension Review of Systems Constitutional: Denies: Chills, Fever, Weight Change HEENT: Denies: Head Aches, Sinus Congestion, Sinus Drainage Cardiovascular: Denies: Chest Pain, Palpitations Respiratory: Denies: Cough, Shortness of breath at rest, Sputum production Gastrointestinal: Denies: Abdominal Pain, Nausea, Vomiting Genitourinary: Denies: Dysuria Musculoskeletal: Reports: Back Pain. Denies: Joint Pain, Joint Tenderness Skin: Denies: Rash, Wounds Neurological: Denies: Numbness, Tingling, Focal weakness Psychiatric: Denies: Anxiety, Depression, Homicidal Ideations, Suicidal Ideations Hematologic/ Lymphatic: Denies: Easy Bruising, Easy Bleeding VTE Information - Inpt Only VTE Present on Admission: No - Physical Exam Vitals/I&O's: Vital Signs Temp Pulse Resp BP Pulse Ox 97.7 F L 101 H 16 148/102 H 97 02/01/20 19:15 02/01/20 22:21 02/01/20 22:21 02/01/20 22:21 02/01/20 22:21 Oxygen Delivery Method Room Air Weight: 229 lb Body Mass Index (BMI) 35.9 General: Alert, Oriented x3, Cooperative, - - In pain HEENT: Atraumatic, PERRLA, EOMI, Normocephalic Oral: Moist Mucosa Neck: Supple, No JVD Lungs: Clear to auscultation, Normal air movement, No rhonchi, No wheeze, No rales Cardiovascular: Regular Rhythm, Normal S1, Normal S2, No murmurs, Tachycardic Abdomen: Soft, Non Tender, Non-Distended, No Hepato-splenomegaly Extremities: No edema, Capillary Refill Less than 3 Seconds Musculoskeletal: - - Left-sided back pain paraspinal and in her left glutes. Straight leg raise is positive Neurological: Neuro grossly intact, Sensory exam intact to light touch and pain Psych/Mental Status: Normal Affect, Appropriate Assessment/Plan All Active Problems (Last Updated 06/09/19 @ 22:[address] Yaritza Cox MD) Intractable low back pain (Acute) Low back pain (Acute) 1. Chronic low back pain on the left/bipolar disorder -Bar x-ray shows spondylosis and degenerative disc disease -We will resume her Advil and add morphine as needed -Plan will be for an early discharge tomorrow so she can make her pain management appointment for an injection -Continue with Lamictal, Paxil, Lyrica, Topamax, Seroquel 2. DM 2 -She says that her blood sugars are stable at home -Continue with Jardiance and metformin 3. Hyperlipidemia -Stable -Continue with Lipitor 4. GERD -Stable -Continue with PPI DVT: Ambulation OBSV E&M: 40485 Initial observation care L2
[2020-02-02 00:27] VITALS: BMI 35.9
[2020-02-02 00:30] VITALS: BP 155/101; PULSE 98; RESP 20; TEMP 36.8; O2SAT 98
[2020-02-02] MEDS: MELATONIN 3 MG TABLET PO (00:41)
[2020-02-02] MEDS: Morphine 4 MG/ML Syringe IV ×2 (00:41→03:48)
[2020-02-02] MEDS: Ibuprofen 400 MG Tablet PO ×2 (00:41→05:12)
[2020-02-02] MEDS: Ondansetron 4 MG/2 ML Vial IV (00:41)
[2020-02-02] MEDS: 0.9% Saline Lock 10 ML Syringe IV ×2 (00:42→03:48)
[2020-02-02 00:48] VITALS: BMI 35.9
[2020-02-02 01:11] LABS: Bedside Glucose 232 mg/dL (70-110)
[2020-02-02] MEDS: Pregabalin 50 MG Capsule 100 MG PO (05:13)
[2020-02-02 05:55] VITALS: BP 127/91; PULSE 83; RESP 16; TEMP 36.5; O2SAT 97
--- NOTE | 2020-02-02 07:21 | DCINST_ITS ---
- Discharge Diagnoses Current Active Problems: Current Active and Chronic Problems (Last Updated 06/09/19 @ 22:[address] Yaritza Cox MD) 1. Acute Intractable low back pain on chronic 2. Diabetes mellitus type II 3. Bipolar disorder/Anxiety and Depression 4. Asthma 5. GERD 6. HLD 7. Obesity You will use the following diet at home:: Calorie/Carbohydrate Controlled (specify 1200, 1400, etc) Your food should be the consistency of: Regular Your liquids should be the consistency of: Regular/Thin Discharge Activity: - - Advise immediate transition to [facility] for your planned epidural injection. Following, please continue activity parameters per their discretion. Call your doctor if you observe: Fever of 101 or Higher, Inability to urinate, Inability to have a bowel movement, Shortness of breath, Dizziness, Fainting spells, Chest pain, Uncontrolled pain Instructions: Relieving Back Pain, How Your Back Works Allergies/Adverse Reactions: Allergies Sulfa (Sulfonamide Antibiotics) Allergy (Verified 02/01/20 19:18) Anaphylaxis vancomycin Allergy (Verified 02/01/20 19:18) Hives metformin Adverse Reaction (Verified 02/01/20 19:18) Diarrhea stainless steal Allergy (Mild, Uncoded 02/01/20 19:18) rash Medications to take at Discharge Paroxetine [Paxil] 20 mg PO DAILY 03/20/13 Atorvastatin Calcium [Lipitor] 40 mg PO QHS 03/21/13 metFORMIN (XR) [Glucophage Xr] 1,000 mg PO BID 03/21/13 Lamotrigine [Lamictal] 150 mg PO DAILY 12/03/15 Quetiapine Fumarate 200 mg PO QHS 05/22/18 Omeprazole 40 mg PO DAILY 01/08/19 Topiramate 25 - 75 mg PO QHS 05/20/19 Pregabalin 100 mg PO TID 06/09/19 Empagliflozin [Jardiance] 25 mg PO DAILY 01/25/20 Docusate Sodium [Col-Rite] 100 mg PO BID 02/01/20 Polyethylene Glycol 3350 [Miralax] 17 gm PO DAILY 02/01/20 Primary Care Physician: Savi Clements MD [Primary Care Provider] - Please follow up with your Primary Care Physician in: Follow-up within 3-5 days. Test Results: Test results from this visit will be discussed in further detail at your follow- up appointment, if applicable. Please Follow Up With: [facility] Pain Management When: Continue with planned epidural injection 02/02/20 Proposed Discharge Date: 02/02/20
--- NOTE | 2020-02-02 07:26 | DS.PCM_ITS ---
Discharge Date and Diagnosis Date of Admission: 02/01/20 Date of Discharge: 02/02/20 - Primary Discharge Diagnosis Acute Problems: Active Problems (Last Updated 06/09/19 @ 22:[address] Yaritza Cox MD) 1. Acute Intractable low back pain on chronic 2. Diabetes mellitus type II 3. Bipolar disorder/Anxiety and Depression 4. Asthma 5. GERD 6. HLD 7. Obesity - Secondary Discharge Diagnosis Chronic Problems: Chronic Problems (Last Updated 06/09/19 @ 22:[address] Yaritza Cox MD) Anxiety (Chronic) Asthma (Chronic) Depressive disorder (Chronic) Type II diabetes mellitus, uncontrolled (Chronic) Bipolar disorder (Chronic) Fibromyalgia (Chronic) Hyperlipidemia (Chronic) Chronic back pain (Chronic) Hospital Course and Treatment Operations: None Procedures: None Summary of Care Provided: The patient is a 49 y/o F w/ PMHx: Chronic back pain, Diabetes mellitus type II, HTN, HLD, Obesity, Asthma, Bipolar/Anxiety and Depression who presents to the [facility] [place] ED on 02/01/20 with history of ongoing intractable lumbar back pain ongoing back pain with history of scheduled Jimmie surgery however it was delayed secondary to need for cervical spine intervention prior with ongoing evaluation per pain management at [facility] with epidural planned on 02/02/2020 however following ED evaluation the evening prior she was barely able to even walk and collapsed by her car prompting need for hospitalization for pain control prior to transition for epidural. Patient with no significant constipation, urinary incontinence or fecal incontinence. Patient was admitted to medical surgical floor, plain films demonstrated spondylosis and degenerative disc disease, anti-inflammatories as well as PRN oral and IV narcotics initiated, continue Lyrica regimen. Deferred steroid secondary to planned injection. Patient discharged early 02/02/2020 for planned epidural injection per [facility] physician. - Physical Exam Vitals/I&O's: Vital Signs Temp Pulse Resp BP Pulse Ox 97.7 F L 83 16 127/91 H 97 02/02/20 05:55 02/02/20 05:55 02/02/20 05:55 02/02/20 05:55 02/02/20 05:55 Oxygen Delivery Method Room Air Weight: 229 lb 4.492 oz Body Mass Index (BMI) 35.9 Intake and Output for Last 24 Hours 01/31/20 02/01/20 02/02/20 23:59 23:59 23:59 Intake Total 200 / 200 Balance 200 / 200 Laboratory Results 02/02/20 00:59: POC Glucose 232 H Current Medications Atorvastatin Calcium (Lipitor) 40 mg PO QHS [facility] Docusate Sodium (Colace) 100 mg PO BID [facility] Empagliflozin (Jardiance) 25 mg PO DAILY [facility] Fentanyl (Duragesic Patch) 25 mcg TRANSDERM. Q3D [facility] Ibuprofen (Motrin) 400 mg PO Q4H PRN PRN PRN Reason: Pain Score 1-10/Temp > 100.7 F Last Admin: 02/02/20 05:12 Dose: 400 mg Documented by: Lamotrigine (Lamictal) 150 mg PO DAILY [facility] Melatonin (Melatonin) 3 mg PO QHS PRN PRN PRN Reason: INSOMNIA Last Admin: 02/02/20 00:41 Dose: 3 mg Documented by: Metformin [facility] ([facility]) [facility] Morphine Sulfate () 4 mg IV Q3H PRN PRN PRN Reason: Pain Score 6-10/10 Last Admin: 02/02/20 03:48 Dose: 4 mg Documented by: Ondansetron HCl (Zofran) 4 mg IV Q8H PRN PRN PRN Reason: NAUSEA/VOMITING Last Admin: 02/02/20 00:41 Dose: 4 mg Documented by: Pantoprazole Sodium (Protonix) 40 mg PO DAILY [facility] Paroxetine HCl (Paxil) 20 mg PO DAILY [facility] Polyethylene Glycol (Miralax) 17 gm PO DAILY [facility] Pregabalin (Lyrica) 150 mg PO TID [facility] Quetiapine Fumarate (Seroquel) 200 mg PO QHS [facility] Sodium Chloride () 10 - 40 ml IV UD PRN PRN Reason: SALINE FLUSH Last Admin: 02/02/20 03:48 Dose: 10 ml Documented by: Discharge Activity: - - Advise immediate transition to [facility] for your planned epidural injection. Following, please continue activity parameters per their discretion. Call your doctor if you observe: Fever of 101 or Higher, Inability to urinate, Inability to have a bowel movement, Shortness of breath, Dizziness, Fainting spells, Chest pain, Uncontrolled pain Home Medications: Medications to take at Discharge Paroxetine [Paxil] 20 mg PO DAILY 03/20/13 Atorvastatin Calcium [Lipitor] 40 mg PO QHS 03/21/13 metFORMIN (XR) [Glucophage Xr] 1,000 mg PO BID 03/21/13 Lamotrigine [Lamictal] 150 mg PO DAILY 12/03/15 Quetiapine Fumarate 200 mg PO QHS 05/22/18 Omeprazole 40 mg PO DAILY 01/08/19 Topiramate 25 - 75 mg PO QHS 05/20/19 Pregabalin 100 mg PO TID 06/09/19 Empagliflozin [Jardiance] 25 mg PO DAILY 01/25/20 Docusate Sodium [Col-Rite] 100 mg PO BID 02/01/20 Polyethylene Glycol 3350 [Miralax] 17 gm PO DAILY 02/01/20 Primary Care Physician: Savi Clements MD [Primary Care Provider] - Please follow up with your Primary Care Physician in: Follow-up within 3-5 days. Please Follow Up With: [facility] Pain Management When: Continue with planned epidural injection 02/02/20 Patient Instructions: How Your Back Works, Relieving Back Pain Disposition: Home Minutes spent on discharge:: 25 Patient Condition:: Stable Medical Necessity - Tobacco Use Smoking Status: Former smoker Tobacco Use: Cigarettes Meaningful Use Info Meaningful Use Diagnoses (Choose all that apply): None applicable OBSV E&M: 56076 Observation care discharge
[2020-02-02] MEDS: metFORMIN (XR) 500 MG Tablet 1000 MG PO (07:53)
[2020-02-02] MEDS: Pregabalin 50 MG Capsule PO (07:53)
[2020-02-02] MEDS: tiZANidine HCl 2 MG Tablet PO (07:53)
[2020-02-02] MEDS: oxyCODONE 5 MG Tablet 10 MG PO (07:53)
[2020-02-02 08:01] LABS: Bedside Glucose 193 mg/dL (70-110)
[2020-02-02 08:09] VITALS: BP 143/91; PULSE 84; RESP 18; TEMP 36.3; O2SAT 98
== END 2020-02-02 08:24 | disposition home or self-care (01) ==
LOC: ED 21:53 → MS3 02-02 00:21
PROVIDERS: Admitting Provider Family Medicine; Emergency Provider Emergency Medicine; PCP Internal Medicine; Visit Provider Family Medicine
DX: G89.29 Other chronic pain (principal); M47.816 Spondylosis without myelopathy or radiculopathy, lumbar region; E11.9 Type 2 diabetes mellitus without complications; F41.9 Anxiety disorder, unspecified; F31.9 Bipolar disorder, unspecified; K21.9 Gastro-esophageal reflux disease without esophagitis; J45.909 Unspecified asthma, uncomplicated; E78.5 Hyperlipidemia, unspecified; E66.9 Obesity, unspecified; K59.00 Constipation, unspecified; M54.32 Sciatica, left side; F17.210 Nicotine dependence, cigarettes, uncomplicated; M79.7 Fibromyalgia; Z79.899 Other long term (current) drug therapy; Z79.84 Long term (current) use of oral hypoglycemic drugs; M19.90 Unspecified osteoarthritis, unspecified site
CPT/HCPCS: 72110; 82962; 96372; 96374; 96375; 96376; 99218; 99282; A4216; G0378; J2405

== ENCOUNTER 2020-03-06 21:00 | Emergency (ER) | payer MEDICAID, SELFPAY ==
[2020-03-06 21:01] VITALS: BP 151/100; PULSE 94; RESP 17; TEMP 36.1; O2SAT 100; BMI 36.3
--- NOTE | 2020-03-06 21:25 | ED.VIS.GEN ---
History of Present Illness Chief Complaint: GI Bleed Informant: Patient Onset: Yesterday Context: Sudden Onset Narrative: Patient is a 49-year-old female with history of IBS, chronic back pain, chronic constipation and fibromyalgia presenting with an episode of bright red blood per rectum last night. Patient states she had a very hard and large bowel movement and after that had significant pain of her rectum and blood in the toilet. She states she had bleeding throughout the night but her bleeding resolved this morning. She continued have pain in her rectum which is what brought her to the emergency room. She states the pain radiates to her abdomen. It is worse with direct palpation. She has not had a bowel movement since. She states her last colonoscopy was about 10 years ago for her IBS. She states it was grossly normal. Patient is not on any anticoagulation. She denies any history of any bleeding issues. She has any other complaints at this time. She does have a history of hemorrhoids. Past Medical History - Allergies and Home Meds Allergies/Adverse Reactions: Allergies clindamycin Allergy (Verified 03/06/20 21:04) Hives Sulfa (Sulfonamide Antibiotics) Allergy (Verified 02/01/20 19:18) Anaphylaxis vancomycin Allergy (Verified 02/01/20 19:18) Hives metformin Adverse Reaction (Verified 02/01/20 19:18) Diarrhea stainless steal Allergy (Mild, Uncoded 02/01/20 19:18) rash Primary Care Physician: Savi Clements MD [STAFF PHYSICIAN] - Past Medical History: - - Fibromyalgia, chronic pain, IBS, chronic constipation Surgical History: noncontributory, tonsillectomy, - - Tubal ligation. Smoking Status: Current every day smoker Review of Systems General: Denies: Chills, Fever, Sweats Eyes: Denies: Visual changes - bilaterally, Diplopia ENT: Denies: Rhinorrhea, Sore throat Cardiovascular: Denies: Chest pain, Palpitations Respiratory: Denies: Dyspnea, Cough, Dyspnea on exertion Gastrointestinal: Reports: Constipation, - - rectal pain, BRBPR. Denies: Abdominal pain, Nausea, Vomiting, Diarrhea, Melena, Hematochezia Genitourinary: Denies: Dysuria, Hematuria, Frequency Musculoskeletal: Reports: Back pain - chronic, unchanged . Denies: Extremity Pain Skin: Denies: Rash, Wounds Neurological: Denies: Headache, Weakness, Numbness Physical Exam Vital Signs/Narrative: Vital Signs Temp Pulse Resp BP Pulse Ox 03/06/20 21:01 97 F L 94 17 151/100 H 100 Inital Vital Signs reviewed: Yes General: Well nourished, Well developed, No Acute Distress Head: Normocephalic, Atraumatic Eyes: Perrl, EOMI ENT: Moist mucous membranes, No rhinorrhea Neck: Supple, Nontender Cardiovascular: Regular rate, Regular rhythm, No murmurs Respiratory: No distress, CTA bilaterally, Chest nontender Abdomen: Soft, Nontender, Nondistended, Normal bowel sounds Rectal: Guaiac negative, Tenderness, - - No fissure or hemorrhoid noted but patient has significant tenderness with even light palpation of the rectum. Did not tolerate internal rectal exam well. Back: Nontender, Normal Inspection Extremities: Nontender, No edema Skin: Normal color, No rash Neurological: Alert, Oriented x3, Cranial nerves II-XII grossly intact, Normal Strength, Normal Sensation Psychological: Normal affect, Normal Mood Diagnostic/Tx/Re-eval - Medical Decision Making Patient is evaluated for rectal pain and bright red blood per rectum after having a very large bowel movement. Patient states the pale movement was very painful. Her history is quite consistent with an anal fissure. On exam I do not visualize a fissure but she is quite tender. There is no active bleeding noted. No hemorrhoids are noted. She is fecal occult negative for blood. patient is also concerned because she is hypertensive and her BP usually runs low. Patient denies any associated lightheadedness, chest pain or SOB. She is treated symptomatically with rectal lidocaine with significant improvement of her symptoms. She is instructed to take stool softeners at home and prescribed 5% lidocaine for symptomatic control. While patient is the ER her blood pressure goes down significantly, but she is asymptomatic. I question if SBP of 88 was falsely low. Repeat is now SBP of 105. Orthostatic vital signs are obtained which are normal. Patient is asymptomatic. She is resting comfortably and watching TV on her phone. I do not think she is showing signs of acute blood loss with her vital signs and I think she still stable for outpatient follow-up. Patient is given signs symptoms require return the emergency room. She verbalizes agreement understand this plan. She is discharged home in stable condition. ED Disposition - Plan for ED Patient: Disposition: Home or Assisted Living Diagnosis: Rectal pain, Anal fissure Instructions: ED Hematochezia Stable Prescriptions: Lidocaine [Topicaine] 10 gm TP Q4H PRN PRN 2 Days #113 gel..gram. PRN Reason: Rectal Discomfort Prescription Printed Referrals: Savi Clements MD [STAFF PHYSICIAN] - Additional Instructions: Follow up with your primary care doctor for possible referral to GI for your chronic constipation or if you have further bleeding. Use stool softeners and MiraLAX regularly for the next few days to help you have soft stools and help with discomfort associated with your bowel movements. Return to the ER if you have worsening pain or bleeding.
[2020-03-06 22:03] VITALS: BP 88/54; PULSE 74; RESP 15; O2SAT 96
[2020-03-06] MEDS: Lidocaine Jelly 2% 20 ML Syringe (URO-JET) 20 APPLIC TOPICAL (22:08)
[2020-03-06 22:36] VITALS: BP 104/67; BP 104/79; BP 122/75; PULSE 77; PULSE 78; PULSE 82
== END 2020-03-06 23:24 | disposition home or self-care (01) ==
PROVIDERS: Emergency Provider Emergency Medicine; PCP Nurse Practitioner Family
DX: K60.2 Anal fissure, unspecified (principal); K58.9 Irritable bowel syndrome, unspecified; K59.09 Other constipation; M79.7 Fibromyalgia; F17.200 Nicotine dependence, unspecified, uncomplicated
CPT/HCPCS: 82274; 99281

== ENCOUNTER → 2020-04-29 22:17 | Outpatient (CLI) | payer MEDICAID, SELFPAY | PROVIDERS: PCP Nurse Practitioner Family; Referring Provider Nurse Practitioner Family; Visit Provider Nurse Practitioner Family | DX: G47.33 Obstructive sleep apnea (adult) (pediatric) (principal) | CPT/HCPCS: 95811 ==

== ENCOUNTER → 2020-05-23 09:00 | Outpatient (CLI) | payer MEDICAID, SELFPAY | PROVIDERS: PCP Nurse Practitioner Family; Visit Provider Nurse Practitioner Family | DX: R69 Illness, unspecified (principal) ==

== ENCOUNTER 2020-06-21 01:38 | Emergency (ER) | payer MEDICAID, SELFPAY ==
[2020-06-21 01:39] VITALS: BP 128/77; PULSE 73; RESP 18; TEMP 35.9; O2SAT 99; BMI 39.5
--- NOTE | 2020-06-21 01:50 | CT_ITS ---
STUDY: CT SOFT TISSUE NECK WITH CONTRAST REASON FOR EXAM: Female, 49 years old. PAIN, SWELLING, DYSPHONIA S/P EGD TODAY RADIATION DOSAGE (If Supplied By Facility): CTDIvol = ( 19.25 ) mGy, DLP = ( 615.61 ) mGycm TECHNIQUE: The patient was scanned in a multi-detector CT scanner. High resolution transaxial imaging was performed following intravenous administration of IV 75mL Isovue-370. Sagittal and coronal images were reconstructed. Individualized dose optimization techniques were used for this CT. COMPARISON: None. FINDINGS: Normal bilateral parotid glands. Normal bilateral cane pusher spaces. Normal bilateral parapharyngeal spaces. Normal bilateral carotid spaces. Normal bilateral sublingual and submandibular glands and spaces. Normal visualized nasopharynx. Normal retropharyngeal space. Normal perivertebral space. Normal visualized bilateral faucial tonsils. The visualized tongue, tongue base and oropharynx are normal. Borderline prominence of the lymph nodes in the submandibular region and along the anterior cervical chain clinical significance indeterminate and most likely represents nonspecific inflammatory response. There is no demonstrated solid or cystic mass lesion. There is no abnormal contrast enhancement. Normal epiglottis, bilateral vallecula and hypopharynx. The pre-epiglottic and paraglottic adipose spaces are normal. Normal visualized bilateral piriform sinuses, aryepiglottic folds, vocal cords, and arytenoid-cricoid articulations. Normal subglottic trachea. Normal bilateral lobes of the thyroid gland. Mild posterior atelectasis at the lung apices. Otherwise lung apices unremarkable. Normal visualized paranasal sinuses. Status post surgical changes from C4 to C7. Calcified atherosclerotic disease at the level of the bulb and proximal internal carotid arteries with no high-grade stenosis. CT/Soft Tissue Neck WITH Contrast IMPRESSION: No evidence of abscess or significant inflammatory process demonstrated. Borderline mild lymph node prominence in the mid upper neck region which may represent nonspecific inflammatory response. Patent airway. Electronically Signed: Sheyla Ruvalcaba MD at 3:11 EST , Service support ,
[2020-06-21] MEDS: Ondansetron 4 MG/2 ML Vial IV (02:04)
--- NOTE | 2020-06-21 02:04 | ED.DCSUM_ITS ---
History of Present Illness Chief Complaint: Edema Detail of Chief Complaint: Neck pain and swelling after EGD Onset: Today Context: Sudden Onset Timing: Continuous Quality: Pain anterior right and left neck near the angle and body of the mandible Location: Anterior neck as previously described Current Severity: Mild Maximum Severity: Severe Worsened by: Palpation, chewing and swallowing Relieved by: Nothing Associated Symptoms: Reported swelling Narrative: Patient is a 49-year-old woman history of type 2 diabetes on Metformin and history of hypertension. She denies renal involvement to her knowledge. She had an EGD performed by bariatric surgeon at [facility] on June 20. She states she was on her side and was given medicine to be put to sleep. She presents now because of pain that she localizes near the angle and body of the mandible on the right left side. She reports swallowing difficulty and hoarseness to her voice. She reports pain with chewing and palpation. She also reports swelling. The EGD was for preoperative assessment prior to bariatric surgery, placement of sleeve. Patient denies fever or chills. Patient denies chest pain. Patient denies shortness of breath. Patient denies nausea or vomiting. Prior similar symptoms: No Recent Illness/Hospitalization: No - Past Medical History (1) Anxiety Status: Chronic (2) Asthma Status: Chronic (3) Bipolar disorder Status: Chronic (4) Fibromyalgia Status: Chronic (5) Hyperlipidemia Status: Chronic (6) Type II diabetes mellitus, uncontrolled Status: Chronic Past Medical History - Allergies and Home Meds Allergies/Adverse Reactions: Allergies clindamycin Allergy (Verified 06/21/20 01:42) Hives Sulfa (Sulfonamide Antibiotics) Allergy (Verified 06/21/20 01:42) Anaphylaxis vancomycin Allergy (Verified 06/21/20 01:42) Hives metformin Adverse Reaction (Verified 06/21/20 01:42) Diarrhea stainless steal Allergy (Mild, Uncoded 02/01/20 19:18) rash Primary Care Physician: Tyra Yang NP, [employer] SUPERVISOR-C [Primary Care Provider] - Prior records reviewed: Yes Surgical History: noncontributory, tonsillectomy, - - Tubal ligation. Lives: With Family - Patient is Smoking Status: Current every day smoker Alcohol: None Drugs: None Review of Systems General: Denies: Chills, Fever, Malaise, Subjective Eyes: Denies: Visual changes - bilaterally, Blurred Vision - bilaterally ENT: Reports: Sore throat, - - Neck pain as previously documented. Denies: Bilateral ear pain, Rhinorrhea Cardiovascular: Denies: Chest pain, Palpitations Respiratory: Denies: Dyspnea, Cough, Sputum, Dyspnea on exertion Gastrointestinal: Denies: Nausea, Vomiting Musculoskeletal: Reports: Neck pain - Anteriorly as previously documented. Denies: Myalgias, Arthralgias, Back pain, Swelling, Extremity Pain Skin: Denies: Rash, Wounds Endocrine: Denies: Polyuria, Polydipsia Physical Exam Vital Signs/Narrative: Vital Signs Temp Pulse Resp BP Pulse Ox 06/21/20 01:39 96.6 F L 73 18 128/77 H 99 Inital Vital Signs reviewed: Yes General: Well nourished, Well developed, Obese, - - Patient appears slightly uncomfortable.. Negative for: No Acute Distress Head: Normocephalic, Atraumatic. Negative for: Trauma, Tenderness Eyes: Perrl, EOMI. Negative for: Pale conjunctiva, Scleral icterus ENT: No rhinorrhea, - - Trachea is midline. There is no inspiratory stridor. There is pain no patient over the right and left sternocleidomastoid muscles. There is pain palpation near the angle of the mandible on the right and left. There is no crepitus or subcutaneous air.. Negative for: Moist mucous membranes Neck: Supple, No lymphadenopathy, No JVD. Negative for: Nontender Cardiovascular: Regular rate, Regular rhythm, No murmurs, Normal S1, Normal S2 Respiratory: No distress, CTA bilaterally, Chest nontender Extremities: Nontender, No edema Skin: Normal color, No rash, No Trauma. Negative for: Cyanosis, Diaphoresis, Jaundice Neurological: Alert, Oriented x3, Cranial nerves II-XII grossly intact, Normal Strength, Normal Sensation Psychological: Depressed Diagnostic/Tx/Re-eval Impressions Soft Tissue Neck CT 06/21/20 01:50 IMPRESSION: No evidence of abscess or significant inflammatory process demonstrated. Borderline mild lymph node prominence in the mid upper neck region which may represent nonspecific inflammatory response. Patent airway. Electronically Signed: Sheyla Ruvalcaba MD at 3:11 EST , Service support , 06/21/20 01:50 CT Neck [Soft Tissue Neck WITH Contrast] [CT] Stat Laboratory Results 06/21/20 06/21/20 02:00 02:00 WBC 6.4 RBC 4.75 Hgb 13.4 Hct 42.3 MCV 89.1 MCH 28.2 MCHC 31.7 L RDW Std Deviation 42.4 RDW Coeff of Charu 12.7 Plt Count 216 MPV 10.8 Immature Gran % (Auto) 0.300 Neut % (Auto) 46.8 L Lymph % (Auto) 37.5 [place] % (Auto) 7.0 Eos % (Auto) 7.9 H Baso % (Auto) 0.5 Absolute Neuts (auto) 3.0 Absolute Lymphs (auto) 2.41 Nucleated RBC % 0 Sodium 139 Potassium 4.0 Chloride 110 H Carbon Dioxide 25.0 Anion Gap 4 L BUN 12 Creatinine 0.83 Estim Creat Clear Calc 77.60 Est GFR (MDRD) Af Amer 94 Est GFR (MDRD) Non-Af 78 BUN/Creatinine Ratio 14.5 Glucose 139 H Calcium 8.1 L The body the CT was read impression was transposed anterior document. Blood work is remarkable for elevated glucose of 139. Patient CT findings are suggestive of cervical adenitis. Will treat with macrolide, azithromycin. - Medical Decision Making With report of pain, swelling change in voice after endoscopy will obtain CT of the neck to assess for inflammatory process, traumatic injury. Basic metabolic panel was obtained to assess renal function prior to injection with IV contrast. CBC to evaluate white count and differential. She was medicated with parenteral opiate analgesia. ED Disposition - Plan for ED Patient: Disposition: Home or Assisted Living Diagnosis: Acute cervical adenitis Instructions: ED ADENITIS Cervical Abx Tx Prescriptions: Oxycodone HCl/Acetaminophen [Percocet 5/325] 1 tab PO Q6H PRN PRN 3 Days #12 tab PRN Reason: Pain Prescription Printed Azithromycin [Zithromax Z-Jac] 250 mg PO UD #1 box Prescription Printed Referrals: Tyra Yang [employer] Y[employer] SUPERVISOR, [employer] SUPERVISOR-[employer] [Primary Care Provider] - Additional Instructions: Follow-up with Dr. Shantanu Calhoun as scheduled
[2020-06-21] MEDS: Morphine 4 MG/ML Syringe IV ×2 (02:06→03:44)
[2020-06-21 02:13] LABS: Absolute Lymphocyte Count 2.41 X10^3/uL (0.83-4.51); Basophil# 0.03 X10^3/uL; Basophil% 0.5 % (0-1); Eosinophil# 0.51 X10^3/uL; Eosinophils% 7.9 % (0-5); Hematocrit 42.3 % (37-47); Hemoglobin 13.4 g/dL (12.0-15.0); Lymphocyte # 2.41 X10^3/ul (4.0); Lymphocyte % 37.5 % (19-41); Mean Corp Hgb Conc 31.7 g/dL (32-36); Mean Corpuscular Hgb 28.2 pg (27.0-32.0); Mean Corpuscular Volume 89.1 fL (81-99); Mean Platelet Vol. 10.8 fl (6.2-12.0); Monocyte# 0.45 X10^3/uL; NRBC Flagged by Analyzer 0 % (0-5); Neutrophil # 3.01 X10^3/uL (2.7-7.7); Neutrophil % 46.8 % (47-70); Platelet Count 216 K/mm3 (150-450); RBC Distribution Width CV 12.7 % (11.6-14.6); RBC Distribution Width SD 42.4 fl (35.1-43.9); Red Blood Count 4.75 M/mm3 (4.2-5.4); White Blood Count 6.4 K/mm3 (4.4-11.0)
[2020-06-21 02:31] LABS: Anion Gap 4 (5-15); BUN 12 mg/dL (7-18); BUN/Creat Ratio 14.5 RATIO (10-20); Calcium,Total 8.1 mg/dL (8.5-10.1); Chloride 110 mmol/L (98-107); Creatinine, Serum 0.83 mg/dL (0.55-1.02); EST Glomerular Filtration Rate 78 mL/min (>60); Est Glom Filt Rate - Afr Amer 94 mL/min (>60); Glucose 139 mg/dL (74-106); Sodium Level 139 mmol/L (136-145)
[2020-06-21] MEDS: Azithromycin 250 MG Tablet 500 MG PO (03:29)
[2020-06-21 03:45] VITALS: BP 98/58; PULSE 65; RESP 16; O2SAT 94
== END 2020-06-21 03:45 | disposition home or self-care (01) ==
PROVIDERS: Emergency Provider Emergency Medicine; PCP Nurse Practitioner Family
DX: L04.0 Acute lymphadenitis of face, head and neck (principal); I10 Essential (primary) hypertension; E11.65 Type 2 diabetes mellitus with hyperglycemia; E78.5 Hyperlipidemia, unspecified; M79.7 Fibromyalgia; F31.9 Bipolar disorder, unspecified; F41.9 Anxiety disorder, unspecified; F17.200 Nicotine dependence, unspecified, uncomplicated; Z79.84 Long term (current) use of oral hypoglycemic drugs; Z79.899 Other long term (current) drug therapy
CPT/HCPCS: 70491; 80048; 85025; 96361; 96374; 96375; 96376; 99284; J7040; Q9967; J2405

== ENCOUNTER → 2020-07-08 08:33 | Outpatient (CLI) | payer MEDICAID, SELFPAY ==
[2020-06-21 01:39] VITALS: BMI 39.5
--- NOTE | 2020-07-08 10:39 | NEURO ---
NCS and/or EMG Patient Report Ordering Doctor: Chip Wylie DATE OF SERVICE: 07/08/20 Indication: Bilateral hand pain and numbness (right greater than left). Arm weakness. Jerking movements of her extremities. History of bilateral carpal tunnel, left ulnar neuropathy and cervical polyradiculopathy- all surgerically addressed in the past. Findings: Nerve conduction studies were performed in the right and left upper extremities. The right median motor study recording the abductor pollicis brevis showed a normal amplitude, normal distal latency and normal conduction velocity. The right ulnar motor study recording the abductor digiti minimi showed a normal amplitude, normal distal latency and normal conduction velocity. No conduction block or focal slowing was present across the elbow. Right median-ulnar lumbrical / interosseous motor latencies showed a normal median latency compared to the ulnar. The right median sensory response recording digit two showed a normal amplitude, latency and conduction velocity. The right ulnar sensory response recording digit five showed a normal amplitude, latency and conduction velocity. The right radial sensory response recording over the extensor snuff box showed a normal amplitude, latency and conduction velocity. The left median motor study recording the abductor pollicis brevis showed a normal amplitude, normal distal latency and normal conduction velocity. The left ulnar motor study recording the abductor digiti minimi showed a normal amplitude, normal distal latency and normal conduction velocity. No conduction block or focal slowing was present across the elbow. Left median-ulnar lumbrical / interosseous motor latencies showed a normal median latency compared to the ulnar. The left median sensory response recording digit two showed a normal amplitude, latency and conduction velocity. The left ulnar sensory response recording digit five showed a normal amplitude, latency and conduction velocity. The left radial sensory response recording over the extensor snuff box showed a normal amplitude, latency and conduction velocity. Needle EMG of the right upper extremity and cervical paraspinal muscles was performed. No denervation was seen in any muscle. All motor unit morphology, activation and recruitment patterns were normal. Needle EMG of the left upper extremity was omitted given the low pretest probability (similar symptoms as the right upper extremity). Impression: This is a normal study. There is no electrophysiologic evidence of entrapment neuropathy in either upper extremity. In addition, there is no electrophysiologic evidence of cervical radiculopathy in the right upper extremity. Siddharth Spencer D.O.
== END ==
PROVIDERS: PCP Nurse Practitioner Family; Referring Provider Psychiatry & Neurology Sleep Medicine; Visit Provider Psychiatry & Neurology Sleep Medicine
DX: G62.9 Polyneuropathy, unspecified (principal); M48.02 Spinal stenosis, cervical region; Z98.890 Other specified postprocedural states
CPT/HCPCS: 95886; 95913

== ENCOUNTER 2020-08-18 19:46 | Emergency (ER) | payer MEDICAID, SELFPAY ==
[2020-08-18 19:47] VITALS: BP 155/79; PULSE 110; RESP 18; TEMP 38.1; O2SAT 95; BMI 36.0
--- NOTE | 2020-08-18 20:11 | EKG12_ITS ---
Test Reason : DYSRYTHMIA Blood Pressure : / mmHG Vent. Rate : 094 BPM Atrial Rate : 094 BPM P-R Int : 160 ms QRS Dur : 088 ms QT Int : 314 ms P-R-T Axes : 062 018 067 degrees QTc Int : 392 ms Normal sinus rhythm Low voltage QRS Borderline ECG Confirmed by RAS DALEY, EVELINE ([id number]), features editor EVELYN HALL ([id number]) on 08/19/2020 2:27:12 PM Referred By: ELSY Confirmed By:EVELINE MCGINNIS MD
--- NOTE | 2020-08-18 20:13 | ED.VIS.GEN ---
History of Present Illness Chief Complaint: Cough Narrative: This is a 49-year-old female who presents with fever headache and cough. Her symptoms all began this afternoon. She had a gradual onset headache that became severe. She also had a fever at home of greater than 102. She does have some congestion and rhinorrhea but initially just attributed this to seasonal allergies. She complains of nonproductive cough nausea without vomiting. No diarrhea. No abdominal pain. She does complain of myalgias and arthralgias which are also chronic but worse than baseline. Past Medical History - Allergies and Home Meds Allergies/Adverse Reactions: Allergies clindamycin Allergy (Verified 08/18/20 19:49) Hives Sulfa (Sulfonamide Antibiotics) Allergy (Verified 08/18/20 19:49) Anaphylaxis vancomycin Allergy (Verified 08/18/20 19:49) Hives metformin Adverse Reaction (Verified 08/18/20 19:49) Diarrhea stainless steal Allergy (Mild, Uncoded 08/18/20 19:49) rash Primary Care Physician: Tyra Yang [employer]IL[employer]IES SALES REPRESENTATIVE, [employer]IL[employer]IES SALES REPRESENTATIVE-C [Primary Care Provider] - Past Medical History: - - Diabetes, fibromyalgia, IBS, bipolar Surgical History: noncontributory, tonsillectomy, - - Tubal ligation. Smoking Status: Current every day smoker Review of Systems All systems negative except as indicated General: Reports: Fever Eyes: Denies: Visual changes - bilaterally ENT: Denies: Bilateral ear pain Cardiovascular: Denies: Chest pain Respiratory: Reports: Dyspnea, Cough. Denies: Sputum Gastrointestinal: Reports: Nausea. Denies: Vomiting, Diarrhea Musculoskeletal: Reports: Myalgias, Arthralgias, Neck pain Skin: Denies: Rash Neurological: Reports: Headache Hematologic: Denies: Easy bruising Allergy: Denies: Uticaria Physical Exam Vital Signs/Narrative: Vital Signs Temp Pulse Resp BP Pulse Ox 08/18/20 19:47 100.5 F H 110 H 18 155/79 H 95 Inital Vital Signs reviewed: Yes General: Well nourished Head: Normocephalic Eyes: EOMI Neck: Supple Cardiovascular: Regular rhythm, Tachycardia Respiratory: No distress, CTA bilaterally Abdomen: Soft, Nontender Extremities: Nontender Skin: Diaphoresis Neurological: Alert, - - No focal or lateralizing neurological cyst, normal strength, normal sensation Psychological: Normal affect Diagnostic/Tx/Re-eval Impressions Chest X-Ray 08/18/20 20:35 IMPRESSION: No acute pulmonary process Electronically Signed: Frank Franco MD at 20:56 EDT , Service support , 08/18/20 20:35 CXR [Chest 1 View (Portable)] [RAD] Stat 08/18/20 20:30 Mucosa - Nose SARS-CoV-2 Antigen (Rapid) - Final Laboratory Results 08/18/20 08/18/20 08/18/20 20:30 20:40 20:40 WBC 9.2 RBC 4.88 Hgb 13.7 Hct 43.4 MCV 88.9 MCH 28.1 MCHC 31.6 L RDW Std Deviation 42.5 RDW Coeff of Charu 13.1 Plt Count 243 MPV 11.3 Immature Gran % (Auto) 0.300 Neut % (Auto) 74.6 H Lymph % (Auto) 15.1 L [place] % (Auto) 6.3 Eos % (Auto) 3.4 Baso % (Auto) 0.3 Absolute Neuts (auto) 6.9 Absolute Lymphs (auto) 1.39 Nucleated RBC % 0 Sodium 136 Potassium 4.0 Chloride 105 Carbon Dioxide 23.0 Anion Gap 8 BUN 14 Creatinine 1.10 H Estim Creat Clear Calc 60.82 Est GFR (MDRD) Af Amer 68 Est GFR (MDRD) Non-Af 56 L BUN/Creatinine Ratio 12.7 Glucose 175 H Calcium 9.2 Urine Color Straw Urine Clarity Sl. Cloudy Urine pH 7.0 Ur Specific [place] 1.005 Urine Protein 15 H Urine Glucose (UA) 1000 H Urine Ketones Negative Urine Occult Blood Negative Urine Nitrite Negative Urine Bilirubin Negative Urine Urobilinogen Normal Ur Leukocyte Esterase 500 H Urine RBC 0 SEEN Urine WBC 25-50 SEEN Ur Squamous Epith Cells 5-10 SEEN Urine Bacteria RARE Urine Mucus 0 SEEN - Medical Decision Making Patient was treated with IV fluids, Toradol, Reglan. She feels much better on reevaluation. Repeat heart rate is normal. Patient does report improvement on reevaluation. Her labs are unremarkable but urinalysis is consistent with cystitis. She was given IV Rocephin here. We will discharge on Keflex. Patient was advised of specific signs and symptoms to monitor for. She understands to return for new or worsening symptoms. Patient is agreeable to this plan. Patient was discharged. ED Disposition - Plan for ED Patient: Disposition: Home or Assisted Living Diagnosis: UTI (urinary tract infection) Instructions: ED Bladder Infection, Female (Adult) Prescriptions: Cephalexin [Keflex] 500 mg PO Q12 #14 capsule Prescription Printed Referrals: Tyra Yang NP, PUBLIC [employer]IL[employer] SALES REPRESENTATIVE-C [Primary Care Provider] -
--- NOTE | 2020-08-18 20:35 | RAD_ITS ---
STUDY: X-RAY CHEST REASON FOR EXAM: Female, 49 years old. Cough TECHNIQUE: Single AP portable view of the chest. COMPARISON: None. FINDINGS: Surgical hardware in the lower C-spine and free of complication The lungs are clear and expanded. There is no demonstrated pleural abnormality. Normal size heart. Normal mediastinum and ines. Normal visualized pulmonary arteries. Normal visualized aortic arch and descending thoracic aorta. There are diffuse degenerative changes of the visualized thoracic spine. Normal visualized ribs, clavicles, and shoulders. There is no demonstrated abnormality of the visualized soft tissue structures of the upper abdomen. RAD/Chest 1 View (Portable) IMPRESSION: No acute pulmonary process Electronically Signed: Frank Franco MD at 20:56 EDT , Service support ,
[2020-08-18] MEDS: Metoclopramide 10 MG/2 ML Vial IV (20:37)
[2020-08-18] MEDS: Ketorolac 30 MG/ML Syringe IV (20:37)
[2020-08-18] MEDS: 0.9% Normal Saline 1,000 ML 1000 ML IV (20:37)
[2020-08-18 20:47] LABS: Mucous, Urine 0 SEEN /hpf (<or=2+)
[2020-08-18 20:48] LABS: Color, Urine Straw (Yellow); Glucose, Dipstick 1000 mg/dl (Normal); Ketone-Dipstick Negative (Negative); Leukocyte Esterase-Dipstick 500 /ul (Negative); Nitrite-Dipstick Negative (Negative); Occult Blood-Urine Negative /ul (Negative); Protein-Dipstick 15 mg/dl (Negative); Specific Gravity, Urine 1.005 (1.002-1.030); Urine Bilirubin Dipstick Negative (Negative); Urine Clarity Sl. Cloudy (Clear); Urine Urobilinogen Normal (Normal)
[2020-08-18 20:50] LABS: Absolute Lymphocyte Count 1.39 X10^3/uL (0.83-4.51); Absolute Neutrophil Count 6.9 X10^3/uL (2.0-7.7); Basophil# 0.03 X10^3/uL; Basophil% 0.3 % (0-1); Eosinophil# 0.31 X10^3/uL; Eosinophils% 3.4 % (0-5); Hematocrit 43.4 % (37-47); Hemoglobin 13.7 g/dL (12.0-15.0); Lymphocyte # 1.39 X10^3/ul (4.0); Lymphocyte % 15.1 % (19-41); Mean Corp Hgb Conc 31.6 g/dL (32-36); Mean Corpuscular Hgb 28.1 pg (27.0-32.0); Mean Corpuscular Volume 88.9 fL (81-99); Mean Platelet Vol. 11.3 fl (6.2-12.0); Monocyte# 0.58 X10^3/uL; Monocyte% 6.3 % (0-10); NRBC Flagged by Analyzer 0 % (0-5); Neutrophil # 6.87 X10^3/uL (2.7-7.7); Neutrophil % 74.6 % (47-70); Platelet Count 243 K/mm3 (150-450); RBC Distribution Width CV 13.1 % (11.6-14.6); RBC Distribution Width SD 42.5 fl (35.1-43.9); Red Blood Count 4.88 M/mm3 (4.2-5.4); White Blood Count 9.2 K/mm3 (4.4-11.0)
[2020-08-18 21:06] LABS: Anion Gap 8 (5-15); BUN 14 mg/dL (7-18); BUN/Creat Ratio 12.7 RATIO (10-20); Calcium,Total 9.2 mg/dL (8.5-10.1); Chloride 105 mmol/L (98-107); EST Glomerular Filtration Rate 56 mL/min (>60); Est Glom Filt Rate - Afr Amer 68 mL/min (>60); Estimated Creatinine Clearance 60.82 ml/min; Glucose 175 mg/dL (74-106); Sodium Level 136 mmol/L (136-145)
[2020-08-18 21:16] LABS: Bacteria RARE /hpf (None Seen); Red Blood Cells-Urine 0 SEEN /hpf (0-5); Squamous Epithelial Cells - UA 5-10 SEEN /hpf (5-10); White Blood Cells 25-50 SEEN /hpf (0-5)
[2020-08-18] MEDS: Ceftriaxone 1 GM/50 ML BAG IV (21:30)
[2020-08-18 21:58] VITALS: BP 109/59; PULSE 86; RESP 18; O2SAT 94
== END 2020-08-18 21:59 | disposition home or self-care (01) ==
PROVIDERS: Emergency Provider Emergency Medicine; PCP Nurse Practitioner Family
DX: N39.0 Urinary tract infection, site not specified (principal); R05 Cough; R09.81 Nasal congestion; J34.89 Other specified disorders of nose and nasal sinuses; R06.00 Dyspnea, unspecified; R51.9 Headache, unspecified; E11.9 Type 2 diabetes mellitus without complications; F31.9 Bipolar disorder, unspecified; K58.9 Irritable bowel syndrome, unspecified; M79.7 Fibromyalgia; Z79.84 Long term (current) use of oral hypoglycemic drugs; Z79.899 Other long term (current) drug therapy; F17.200 Nicotine dependence, unspecified, uncomplicated
CPT/HCPCS: 71045; 80048; 81001; 85025; 87426; 93005; 96361; 96365; 96375; 99284; J7030; A4216

== ENCOUNTER 2020-08-30 20:18 | Emergency (ER) | payer MEDICAID, SELFPAY ==
[2020-08-30 20:19] VITALS: BP 141/78; PULSE 97; RESP 16; TEMP 38.2; O2SAT 98; BMI 35.6
[2020-08-30] MEDS: Acetaminophen 500 MG Tablet 1000 MG PO (20:39)
[2020-08-30] MEDS: Ketorolac 60 MG/2 ML Vial IM (21:04)
[2020-08-30 21:39] LABS: Bacteria 0 SEEN /hpf (None Seen); Mucous, Urine 0 SEEN /hpf (<or=2+); Red Blood Cells-Urine 0 SEEN /hpf (0-5); Squamous Epithelial Cells - UA 0 SEEN /hpf (5-10); White Blood Cells 0 SEEN /hpf (0-5)
[2020-08-30 21:42] LABS: Color, Urine Yellow (Yellow); Glucose, Dipstick 1000 mg/dl (Normal); Ketone-Dipstick Negative (Negative); Leukocyte Esterase-Dipstick Negative /ul (Negative); Nitrite-Dipstick Negative (Negative); Occult Blood-Urine Negative /ul (Negative); Protein-Dipstick Negative (Negative); Specific Gravity, Urine 1.015 (1.002-1.030); Urine Bilirubin Dipstick Negative (Negative); Urine Clarity Clear (Clear); Urine Urobilinogen Normal (Normal)
--- NOTE | 2020-08-30 22:35 | ED.VIS.GEN ---
History of Present Illness Chief Complaint: Fever Informant: Patient Narrative: 49-year-old female presents post vaccine day 1 from her second motor and a shot. She states she is having increasing fibromyalgia symptoms increased urination and wonders if she still has a UTI. She states she was diagnosed with a severe urinary tract infection that did not require hospitalization a couple weeks ago. She states she was on Keflex for 14 days (Keflex was written for twice daily x7 doses) she states she has a fever today her back pain which is chronic and for which she is in pain management with is more severe. - Past Medical History (1) Anxiety Status: Chronic (2) Asthma Status: Chronic (3) Depressive disorder Status: Chronic (4) Type II diabetes mellitus, uncontrolled Status: Chronic (5) Bipolar disorder Status: Chronic (6) Fibromyalgia Status: Chronic (7) Hyperlipidemia Status: Chronic (8) Chronic back pain Status: Chronic Past Medical History - Allergies and Home Meds Allergies/Adverse Reactions: Allergies clindamycin Allergy (Verified 08/18/20 19:49) Hives Sulfa (Sulfonamide Antibiotics) Allergy (Verified 08/18/20 19:49) Anaphylaxis vancomycin Allergy (Verified 08/18/20 19:49) Hives metformin Adverse Reaction (Verified 08/18/20 19:49) Diarrhea stainless steal Allergy (Mild, Uncoded 08/18/20 19:49) rash Primary Care Physician: Tyra Yang NP, COMMUNITY SERVICE ORGANIZATION DIRECTOR-C [Primary Care Provider] - As Needed Surgical History: noncontributory, tonsillectomy, - - Tubal ligation. Smoking Status: Current every day smoker Drugs: None Review of Systems General: Reports: Chills, Fever, Malaise. Denies: Sweats Eyes: Denies: Visual changes - bilaterally, Diplopia ENT: Denies: Rhinorrhea, Sore throat Cardiovascular: Denies: Chest pain, Palpitations Respiratory: Denies: Dyspnea, Cough, Dyspnea on exertion Gastrointestinal: Denies: Abdominal pain, Nausea, Vomiting, Diarrhea, Melena, Hematochezia Genitourinary: Reports: Frequency. Denies: Dysuria, Hematuria Musculoskeletal: Reports: Myalgias, Back pain. Denies: Extremity Pain Skin: Denies: Rash, Wounds Neurological: Denies: Headache, Weakness, Numbness Physical Exam Vital Signs/Narrative: Vital Signs Temp Pulse Resp BP Pulse Ox 08/30/20 20:19 100.8 F H 97 16 141/78 H 98 Inital Vital Signs reviewed: Yes General: Well nourished, Well developed, Obese, No Acute Distress Head: Normocephalic, Atraumatic Eyes: Perrl, EOMI ENT: Moist mucous membranes, No rhinorrhea Cardiovascular: Regular rate, Regular rhythm, No murmurs Respiratory: No distress, CTA bilaterally, Chest nontender Abdomen: Soft, Nontender Skin: Normal color, No rash Neurological: Alert, Oriented x3, Cranial nerves II-XII grossly intact, Normal Strength, Normal Sensation Diagnostic/Tx/Re-eval Laboratory Last Values Urine Color Yellow (Yellow) 08/30/20 20:30 Urine Clarity Clear (Clear) 08/30/20 20:30 Urine pH 8.0 (5.0 - 8.0) 08/30/20 20:30 Ur Specific [place] 1.015 (1.002-1.030) 08/30/20 20:30 Urine Protein Negative mg/dl (Negative) 08/30/20 20:30 Urine Glucose (UA) 1000 mg/dl (Normal) H 08/30/20 20:30 Urine Ketones Negative mg/dl (Negative) 08/30/20 20:30 Urine Occult Blood Negative /ul (Negative) 08/30/20 20:30 Urine Nitrite Negative (Negative) 08/30/20 20:30 Urine Bilirubin Negative mg/dL (Negative) 08/30/20 20:30 Urine Urobilinogen Normal mg/dl (Normal) 08/30/20 20:30 Ur Leukocyte Esterase Negative /ul (Negative) 08/30/20 20:30 Urine RBC 0 SEEN /hpf (0-5) 08/30/20 20:30 Urine WBC 0 SEEN /hpf (0-5) 08/30/20 20:30 Ur Squamous Epith Cells 0 SEEN /hpf (5-10) 08/30/20 20:30 Urine Bacteria 0 SEEN /hpf (None Seen) 08/30/20 20:30 Urine Mucus 0 SEEN /hpf (<or=2+) 08/30/20 20:30 - Medical Decision Making Patient required to being wheeled down to the bathroom and back from triage. I discussed with her my opinion that her symptoms are most likely related to the immune response from her Covid vaccination superimposed upon her chronic pain. I offered Tylenol and we performed a urinalysis which was negative for infection. The patient wanted to speak with me stating that I did not believe that she was actually in pain. I informed her that for the majority of people they do not need narcotics after a second injection from the Covid 19 vaccine. I blatantly said that I would not be prescribing her narcotics. She states she does not understand why. I informed her that her own pain management doctors who know her quite well do not prescribe her pain medicine. After being informed that her urine was negative she was able to leave the emergency department on her own without any assistance and without her paperwork. ED Disposition - Plan for ED Patient: Disposition: Home or Assisted Living Diagnosis: Vaccine reaction, Urinary frequency, Chronic back pain, Fibromyalgia Instructions: ED Drug Reaction, Other Referrals: Tyra Yang NP, COMMUNITY SERVICE ORGANIZATION DIRECTOR-C [Primary Care Provider] - As Needed
== END 2020-08-30 22:44 | disposition home or self-care (01) ==
PROVIDERS: Emergency Provider Emergency Medicine; PCP Nurse Practitioner Family
DX: R50.83 Postvaccination fever (principal); T50.B95A Adverse effect of other viral vaccines, initial encounter; Y92.9 Unspecified place or not applicable; R35.0 Frequency of micturition; M54.9 Dorsalgia, unspecified; G89.29 Other chronic pain; M79.7 Fibromyalgia; E11.9 Type 2 diabetes mellitus without complications; E78.5 Hyperlipidemia, unspecified; F31.9 Bipolar disorder, unspecified; F41.9 Anxiety disorder, unspecified; E66.9 Obesity, unspecified; Z68.35 Body mass index [BMI] 35.0-35.9, adult; F17.200 Nicotine dependence, unspecified, uncomplicated; Z79.84 Long term (current) use of oral hypoglycemic drugs; Z79.899 Other long term (current) drug therapy
CPT/HCPCS: 81001; 96372; 99283

== ENCOUNTER 2021-03-22 13:21 | Emergency (ER) | payer MEDICAID, SELFPAY ==
[2021-03-22 13:22] VITALS: BP 150/102; PULSE 101; RESP 18; TEMP 36.3; O2SAT 96; BMI 34.4
--- NOTE | 2021-03-22 13:38 | CT_ITS ---
STUDY: CT ABDOMEN AND PELVIS WITH CONTRAST REASON FOR EXAM: Female, 50 years old. Diffuse abdominal pain RADIATION DOSAGE (If Supplied By Facility): CTDIvol = ( 20.25 ) mGy, DLP = ( 1357.16 ) mGycm TECHNIQUE: CT images were obtained from the dome of the diaphragm to the symphysis pubis without oral contrast. IV 100mL Isovue-370 was administered. Sagittal and coronal images were reconstructed. Individualized dose optimization techniques were used for this CT. COMPARISON: 25 June 2019 FINDINGS: The visualized lung bases are unremarkable. The visualized portions of the heart are within normal limits. Liver is enlarged and fatty infiltrated without focal lesions or biliary dilation. Normal gallbladder and extrahepatic biliary system. Normal spleen. Normal pancreas. There is a benign 1.5 cm right adrenal adenoma not requiring further diagnostic imaging. Left adrenal is normal. Normal right kidney. Normal left kidney. Normal visualized stomach. Normal small intestine. Normal colon. The appendix is visualized and appears normal. Normal abdominal aorta. Normal inferior vena cava. Normal retroperitoneum. Normal urinary bladder. There are tubal occlusion clips. Normal abdominal wall. Normal osseous structures. There is multilevel thoracic and lumbar spondylosis. There are multilevel disc herniations in the lumbar spine. There is probably thickening of ventral epidural space at L4 and L5 contribute into moderate to severe thecal sac stenosis. However, this is suboptimally evaluated on CT due to intrinsic limitations of technique at evaluating intraspinal abdomen. This appears worse since prior. CT/Abdomen/Pelvis W IV Cont ONLY IMPRESSION: 1. No acute abdominal disease. 2. Hepatic steatosis. 3. Questionable epidural abnormality in the lumbar spine, incompletely characterized. Possibility of epidural abscess is present. Recommend MR of the lumbar spine without and with IV contrast for definitive evaluation. Electronically Signed: Servando Borges MD at 15:45 EST Tel , Service support ,
--- NOTE | 2021-03-22 13:39 | EDS_ITS ---
HPI HPI - GI History of Present Illness Chief Complaint: Nausea/Vomiting Informant: patient Abdominal Pain/Flank Pain Onset: Days Context: Gradual Onset Timing: Continuous and Intermittent Quality: Aching Location: Diffuse Current Severity: Mild Maximum Severity: Mild Worsened by: Nothing Relieved by: Nothing Nausea/Vomiting/Emesis GI Symptom: Positive for Nausea and Vomiting Onset: Days Quality: Negative for Blood streaks and Coffee ground Severity: Mild Diarrhea/Melena/Hematochezia GI Symptom: Negative for Diarrhea, Melena and Hematochezia Associated Symptoms Associated Symptoms: Negative for Dysuria, Frequency and Hematuria Narrative Narrative: 50-year-old female past medical history of diabetes, asthma and bipolar. States she has had nausea and vomiting intermittently for 2 weeks. Is been off and on. Said since she has been to hold anything down when she tries to eat. She has had bowel movements. She denies any dysuria or cloudy urine. She denies any fever or drastic weight change. She denies any significant prior abdominal surgeries. She has had fever no chills. No back pain. She does not drink. She is never had pancreatitis. Prior similar symptoms: No Recent Illness/Hospitalization: No PFSH PFS Medical History Arthritis Asthma Bipolar disorder Chronic neck and back pain Diabetes Hemorrhoids history of uterine ablation Home Medications paroxetine HCl 40 mg PO DAILY 03/20/13 [History Last Taken 06/09/19] atorvastatin 40 mg PO QHS 03/21/13 [History Last Taken 06/08/19] metformin 1,000 mg PO BID 03/21/13 [History Last Taken 06/09/19] lamotrigine 300 mg PO DAILY 12/03/15 [History Last Taken 06/09/19] quetiapine 300 mg PO QHS 05/22/18 [History Last Taken 06/08/19] omeprazole 40 mg PO DAILY 01/08/19 [History Last Taken 06/09/19] topiramate 100 mg PO QHS 05/20/19 [History Last Taken 06/08/19] pregabalin 100 mg PO TID 06/09/19 [History Last Taken 06/09/19] empagliflozin 25 mg PO DAILY 01/25/20 [History Last Taken Unknown] docusate sodium 100 mg PO BID 02/01/20 [History Last Taken Unknown] polyethylene glycol 3350 17 gm PO DAILY 02/01/20 [History Last Taken Unknown] etodolac mg 03/22/21 [History Last Taken Unknown] ondansetron 4 mg PO Q6H PRN #10 tab 03/22/21 [Rx Last Taken Unknown] Allergy/AdvReac Type Severity Reaction Status Date / Time clindamycin Allergy Hives Verified 03/22/21 13:40 Sulfa (Sulfonamide Allergy Anaphylaxis Verified 03/22/21 13:40 Antibiotics) vancomycin Allergy Hives Verified 03/22/21 13:40 metformin AdvReac Diarrhea Verified 03/22/21 13:40 stainless steal Allergy Mild rash Uncoded 03/22/21 13:40 Family History Other Arthritis Depression Diabetes Fibromyalgia Heart disease Hypertension Surgical History History of carpal tunnel surgery History of elbow surgery History of tonsillectomy and adenoidectomy Social History Smoking Status: Current every day smoker tobacco type: cigarettes alcohol intake: current alcohol intake frequency: holidays/special occasions only ROS ROS ED ROS Narrative Nausea, vomiting and abdominal pain. Review of Systems ROS Unobtainable: Denies due to encephalopathy Constitutional Constitutional ED: Reports chills; Denies fever(s) ENT ENT ED: Denies ear pain Cardiovascular Cardiovascular: Denies chest pain or palpitations Respiratory/Chest Respiratory/Chest: Denies cough or dyspnea Gastrointestinal Gastrointestinal: Reports abdominal pain, nausea and vomiting; Denies constip ation, diarrhea or melena Genitourinary Genitourinary ED: Denies dysuria or hematuria Musculoskeletal Musculoskeletal: Denies myalgias Integumentary Denies rash Neurologic Neurologic: Denies headache(s) Psychiatric Psychiatric: Denies depression Endocrine Endocrinology: Denies polyuria Hematologic/Lymphatic Hematologic/Lymphatic: Denies easy bruising Allergic/Immunologic Allergic/Immunologic ED: Denies urticaria EXAM Physical Exam Narrative Exam Narrative: Middle-aged female no acute distress vital signs stable afebrile. She does not look septic or toxic. H EENT exam unremarkable. Mild dry mucous memories. Neck nontender no lymphadenopathy. Lungs clear to auscultation bilaterally. Heart regular rhythm rate about 95 no murmur. Abdomen soft. Diffusely tender. No peritoneal signs. No obvious signs of obstruction no hernia or mass. Positive bowel sounds. Moving all 4 extremities no edema. Back nontender. Neurologic exam unremarkable no focal motor deficits. Const Vital Signs: 03/22/21 13:22 03/22/21 14:54 Temperature 97.4 F L Temperature Source Temporal Pulse Rate 101 H 79 Respiratory Rate 18 Blood Pressure 150/102 H 113/63 Blood Pressure Mean 118 79 Pulse Ox 96 93 Oxygen Delivery Method Room Air Room Air Positive well nourished, well developed and obese; Negative for cachectic, contractures or unkempt General Appearance ED: well developed and NAD; Negative for unkempt, cachectic or contractures Nutritional Appearance: obese; Negative for cachectic HEENT Reports dry mucous membranes normocephalic and atraumatic; Negative for trauma or tenderness Mouth ED: Yes dry mucous membranes Mouth: dry mucous membranes Eyes PERRL and EOMs intact bilaterally General Eye ED: Negative for pale conjunctiva or scleral icterus Neck no lymphadenopathy, supple and no JVD General: Negative for tenderness Resp normal respiratory effort and clear to auscultation bilaterally Auscultation: Negative for rales, rhonchi or wheezes Cardio regular rate, regular rhythm, S1 normal heart sound, S2 normal heart sound and no murmurs GI non-distended and no masses; Negative for non-tender Inspection: Negative for abdominal distention Auscultation: normoactive bowel sounds; Negative for hyperactive bowel sounds or hypoactive bowel sounds Palpation: soft and tender; Negative for guarding, rigid or rebound tenderness present Back/Spine no CVA tenderness General Back: Negative for CVA tenderness Cervical Spine: Negative for cervical spine tenderness Extremity full ROM General Extremety ED: Negative for edema or tenderness General Extremity: Negative for edema Neuro moves all extremities Sensorium / Orientation: alert, oriented to person, oriented to place and oriented to time; Negative for confused or lethargic Motor Exam: strength 5/5 throughout Psych mental status grossly normal Appearance: Negative for unkempt Skin Lesions: no lesions Rashes: no rashes MDM MDM MDM Narrative Medical decision making narrative: Middle-aged female with nausea and vomiting intermittently for 2 weeks with diffuse abdominal pain. No significant prior abdominal surgeries. She is diffusely tender. She will be treated with IV fluids due to dehydration, Zofran for nausea morphine for pain CAT scan labs are pending. Her son was also recently Covid positive that will be checked also. Repeat exam patient is doing well at 2:50 PM. She and I went over her test results. We are still awaiting her CAT scan read by the radiologist and her urinalysis. Patient doing well at 4:18 PM abdomen benign. She will be discharged home. Lab Data Attestation: I reviewed the patient's lab results. Lab results narrative: CBC unremarkable white count of 7 hemoglobin 14. Electrolytes gap is 7 BUN of 14 creatinine 1.1 liver enzymes unremarkable glucose 237. Lipase normal at 80 negative. Urinalysis is normal. No signs of infection. Labs: Laboratory Results - last 24 hr 03/22/21 03/22/21 03/22/21 13:50 13:50 13:50 WBC 7.0 RBC 5.14 Hgb 14.6 Hct 44.1 MCV 85.8 MCH 28.4 MCHC 33.1 RDW Std Deviation 40.2 RDW Coeff of Charu 12.9 Plt Count 217 MPV 11.2 Immature Gran % (Auto) 0.300 Neut % (Auto) 59.0 Lymph % (Auto) 28.5 [place] % (Auto) 6.0 Eos % (Auto) 5.8 H Baso % (Auto) 0.4 Absolute Neuts (auto) 4.1 Absolute Lymphs (auto) 1.98 Nucleated RBC % 0 Sodium 136 Potassium 3.6 Chloride 104 Carbon Dioxide 25.0 Anion Gap 7 BUN 14 Creatinine 1.12 H Estim Creat Clear Calc 59.09 Est GFR (MDRD) Af Amer 66 Est GFR (MDRD) Non-Af 55 L BUN/Creatinine Ratio 12.5 Glucose 237 H Calcium 8.8 Total Bilirubin 0.70 AST 56 H ALT 69 H Alkaline Phosphatase 117 Total Protein 8.0 Albumin 3.8 Globulin 4.2 Albumin/Globulin Ratio 0.9 Lipase 80 Serum , Qual NEGATIVE Urine Color Urine Clarity Urine pH Ur Specific [place] Urine Protein Urine Glucose (UA) Urine Ketones Urine Occult Blood Urine Nitrite Urine Bilirubin Urine Urobilinogen Ur Leukocyte Esterase Urine RBC Urine WBC Ur Squamous Epith Cells Urine Bacteria Urine Mucus 03/22/21 14:50 WBC RBC Hgb Hct MCV MCH MCHC RDW Std Deviation RDW Coeff of [place]u Plt Count MPV Immature Gran % (Auto) Neut % (Auto) Lymph % (Auto) [place] % (Auto) Eos % (Auto) Baso % (Auto) Absolute Neuts (auto) Absolute Lymphs (auto) Nucleated RBC % Sodium Potassium Chloride Carbon Dioxide Anion Gap BUN Creatinine Estim Creat Clear Calc Est GFR (MDRD) Af Amer Est GFR (MDRD) Non-Af BUN/Creatinine Ratio Glucose Calcium Total Bilirubin AST ALT Alkaline Phosphatase Total Protein Albumin Globulin Albumin/Globulin Ratio Lipase Serum , Qual Urine Color Yellow Urine Clarity Clear Urine pH 6.0 Ur Specific [place] 1.010 Urine Protein Negative Urine Glucose (UA) Normal Urine Ketones Negative Urine Occult Blood Negative Urine Nitrite Negative Urine Bilirubin 3 H Urine Urobilinogen Normal Ur Leukocyte Esterase Negative Urine RBC 0 SEEN Urine WBC 0-5 SEEN Ur Squamous Epith Cells 0 SEEN Urine Bacteria 0 SEEN Urine Mucus 0 SEEN Radiography Diagnostic Testing: Clinical Impression(s) from Imaging Studies Abdomen/Pelvis CT 03/22/21 13:38 IMPRESSION: 1. No acute abdominal disease. 2. Hepatic steatosis. 3. Questionable epidural abnormality in the lumbar spine, incompletely characterized. Possibility of epidural abscess is present. Recommend MR of the lumbar spine without and with IV contrast for definitive evaluation. Electronically Signed: Servando Borges MD at 15:45 EST Tel , Service support , CAT scan of the radiologist showed no acute intra-abdominal pathology. There is a questionable epidural abnormality in the lumbar spine which does not correlate at all with her complaints today. I will discuss this with her patient she can follow-up with her primary care physician to see if they want to do any further imaging. Discharge Plan Triage Chief Complaint: Nausea/Vomiting ED Provider: Marcellus Andersen Dx/Rx/DC Orders Clinical Impression: Nausea & vomiting, Abdominal pain Instructions: Nausea Vomit Control, ED Abdominal Pain Unkn Cause Fem Prescriptions: New ondansetron 4 mg tablet,disintegrating 4 mg PO Q6H PRN (Reason: nausea and vomiting) Qty: 10 RF: 0 No Action paroxetine HCl 20 MG tablet 40 mg PO DAILY RF: 0 atorvastatin 40 MG tablet 40 mg PO QHS RF: 0 metformin 500 MG tablet 1,000 mg PO BID RF: 0 lamotrigine 150 MG tablet 300 mg PO DAILY RF: 0 quetiapine 50 MG tablet 300 mg PO QHS RF: 0 omeprazole 20 MG capsule,delayed release(DR/EC) 40 mg PO DAILY RF: 0 topiramate 25 MG tablet 100 mg PO QHS RF: 0 pregabalin 100 MG capsule 100 mg PO TID RF: 0 empagliflozin 25 MG tablet 25 mg PO DAILY RF: 0 polyethylene glycol 3350 17 GM packet 17 gm PO DAILY RF: 0 docusate sodium 100 MG capsule 100 mg PO BID RF: 0 etodolac 400 mg tablet RF: 0 Primary Care Provider: Tyra Yang NP Referrals: Tyra Yang NP, SALES EXECUTIVE-C [Primary Care Provider] - Activity Restrictions/Additional Instructions: Plenty of fluids and rest. Increase your diet slowly as tolerated. Zofran as needed for nausea. Follow-up with your doctor to make sure you are improving. There was a possible abnormality seen on your CAT scan that would involve your lumbar spine. This may need an MRI to rule out a potential epidural abscess. The CAT scan did not show any abnormalities in your abdomen. Zofran as needed for nausea. Return if feeling worse.
[2021-03-22] MEDS: 0.9% Normal Saline 1,000 ML 1000 ML IV (13:50)
[2021-03-22] MEDS: Ondansetron 4 MG/2 ML Vial IV ×2 (13:51→15:45)
[2021-03-22] MEDS: morphine 8 MG/ML Syringe IV ×2 (13:52→15:45)
[2021-03-22 14:00] LABS: Absolute Lymphocyte Count 1.98 X10^3/uL (0.83-4.51); Absolute Neutrophil Count 4.1 X10^3/uL (2.0-7.7); Basophil# 0.03 X10^3/uL; Basophil% 0.4 % (0-1); Eosinophils% 5.8 % (0-5); Hematocrit 44.1 % (37-47); Hemoglobin 14.6 g/dL (12.0-15.0); Lymphocyte # 1.98 X10^3/ul (0.83-4.51); Lymphocyte % 28.5 % (19-41); Mean Corp Hgb Conc 33.1 g/dL (32-36); Mean Corpuscular Hgb 28.4 pg (27.0-32.0); Mean Corpuscular Volume 85.8 fL (81-99); Mean Platelet Vol. 11.2 fl (6.2-12.0); Monocyte# 0.42 X10^3/uL; NRBC Flagged by Analyzer 0 % (0-5); Platelet Count 217 K/mm3 (150-450); RBC Distribution Width CV 12.9 % (11.6-14.6); RBC Distribution Width SD 40.2 fl (35.1-43.9); Red Blood Count 5.14 M/mm3 (4.2-5.4)
[2021-03-22 14:16] LABS: ALB/GLOB Ratio 0.9 RATIO (0.9-2.4); AST(SGOT) 56 U/L (15-37); Alanine Aminotransfer ALT/SGPT 69 U/L (13-56); Albumin, Serum 3.8 g/dL (3.2-5.0); Alkaline Phosphatase 117 U/L (45-117); Anion Gap 7 (5-15); BUN 14 mg/dL (7-18); BUN/Creat Ratio 12.5 RATIO (10-20); Calcium,Total 8.8 mg/dL (8.5-10.1); Chloride 104 mmol/L (98-107); Creatinine, Serum 1.12 mg/dL (0.55-1.02); EST Glomerular Filtration Rate 55 mL/min (>60); Est Glom Filt Rate - Afr Amer 66 mL/min (>60); Estimated Creatinine Clearance 59.09 ml/min; Globulin 4.2 g/dL (2.2-4.2); Glucose 237 mg/dL (74-106); Lipase 80 U/L (73-393); Potassium 3.6 mmol/L (3.5-5.1); Sodium Level 136 mmol/L (136-145)
[2021-03-22 14:18] LABS: Internal QC Validated? YES +Cl - CLEAR BKGD; Pregnancy, Serum, hCG Quali. NEGATIVE Negative
[2021-03-22 14:54] VITALS: BP 113/63; PULSE 79; O2SAT 93
[2021-03-22 14:58] LABS: Bacteria 0 SEEN /hpf (None Seen); Mucous, Urine 0 SEEN /hpf (<or=2+); Red Blood Cells-Urine 0 SEEN /hpf (0-5); Squamous Epithelial Cells - UA 0 SEEN /hpf (5-10)
[2021-03-22 15:02] LABS: Color, Urine Yellow (Yellow); Glucose, Dipstick Normal (Normal); Ketone-Dipstick Negative (Negative); Leukocyte Esterase-Dipstick Negative /ul (Negative); Nitrite-Dipstick Negative (Negative); Occult Blood-Urine Negative /ul (Negative); Protein-Dipstick Negative (Negative); Urine Clarity Clear (Clear); Urine Urobilinogen Normal (Normal)
[2021-03-22 15:05] LABS: Urine Bilirubin Dipstick 3 mg/dL (Negative)
[2021-03-22 15:10] LABS: White Blood Cells 0-5 SEEN /hpf (0-5)
[2021-03-22 16:37] VITALS: BP 98/64; PULSE 71; RESP 14; O2SAT 93
== END 2021-03-22 16:38 | disposition home or self-care (01) ==
LOC: ED 13:42
PROVIDERS: Emergency Provider Emergency Medicine; PCP Nurse Practitioner Family
DX: R11.2 Nausea with vomiting, unspecified (principal); R10.9 Unspecified abdominal pain; E86.0 Dehydration; E11.9 Type 2 diabetes mellitus without complications; M19.90 Unspecified osteoarthritis, unspecified site; F31.9 Bipolar disorder, unspecified; F17.210 Nicotine dependence, cigarettes, uncomplicated; Z20.822 Contact with and (suspected) exposure to COVID-19; Z79.84 Long term (current) use of oral hypoglycemic drugs; Z79.899 Other long term (current) drug therapy
CPT/HCPCS: 74177; 80053; 81001; 83690; 84703; 85025; 87426; 96361; 96374; 96375; 96376; 99283; J7030; A4216; J2405

== ENCOUNTER 2021-04-18 23:22 | Emergency (ER) | payer MEDICAID, SELFPAY ==
[2021-04-18 23:22] VITALS: BP 125/72; PULSE 84; RESP 16; TEMP 36.9; O2SAT 94; BMI 37.3
[2021-04-18 23:26] VITALS: O2SAT 95
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
[2021-04-18] MEDS: diazePAM 5 MG Tablet PO (23:52)
[2021-04-18] MEDS: Ketorolac 30 MG/ML Syringe IM (23:53)
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
== END 2021-04-19 01:42 | disposition home or self-care (01) ==
PROVIDERS: Emergency Provider Emergency Medicine; PCP Nurse Practitioner Family
DX: S16.1XXA Strain of muscle, fascia and tendon at neck level, initial encounter (principal); S39.012A Strain of muscle, fascia and tendon of lower back, initial encounter; V89.0XXA Person injured in unspecified motor-vehicle accident, nontraffic, initial encounter; Y93.89 Activity, other specified; Y92.9 Unspecified place or not applicable; Y99.9 Unspecified external cause status; E11.9 Type 2 diabetes mellitus without complications; M19.90 Unspecified osteoarthritis, unspecified site; F31.9 Bipolar disorder, unspecified; F17.210 Nicotine dependence, cigarettes, uncomplicated; Z79.84 Long term (current) use of oral hypoglycemic drugs; Z79.4 Long term (current) use of insulin; Z79.899 Other long term (current) drug therapy
CPT/HCPCS: 72125; 96372; 99282

== ENCOUNTER 2021-08-14 18:59 | Emergency (ER) | payer MEDICAID, SELFPAY ==
[2021-08-14 18:59] VITALS: BP 170/95; PULSE 87; RESP 15; TEMP 35.9; O2SAT 97; BMI 35.4
--- NOTE | 2021-08-14 19:11 | EDS_ITS ---
HPI History of Present Illness Chief Complaint: Upper Extremity Injury Detail of Chief Complaint: Left thumb pain Informant: patient Narrative Narrative: Patient presents to the emergency department complaint of left thumb pain that she states started 2 weeks ago. She denies any trauma. Patient states that she went to urgent care and had x-rays but did not show any fractures. Patient subsequently had meloxicam called in by her primary care physician which is not helping the pain. Patient has an appointment with her orthopedic surgeon to be seen in a week and a half. Patient is right-hand dominant. [facility] Medical History Arthritis Asthma Bipolar disorder Chronic neck and back pain Diabetes Hemorrhoids history of uterine ablation Home Medications paroxetine HCl 40 mg PO DAILY 03/20/13 [History Last Taken 06/09/19] atorvastatin 40 mg PO QHS 03/21/13 [History Last Taken 06/08/19] metformin 1,000 mg PO BID 03/21/13 [History Last Taken 06/09/19] lamotrigine 300 mg PO DAILY 12/03/15 [History Last Taken 06/09/19] quetiapine 300 mg PO QHS 05/22/18 [History Last Taken 06/08/19] omeprazole 40 mg PO DAILY 01/08/19 [History Last Taken 06/09/19] pregabalin 100 mg PO TID 06/09/19 [History Last Taken 06/09/19] empagliflozin 25 mg PO DAILY 01/25/20 [History Last Taken Unknown] docusate sodium 100 mg PO BID 02/01/20 [History Last Taken Unknown] etodolac 400 mg PO BID 03/22/21 [History Last Taken Unknown] ondansetron 4 mg PO Q6H PRN #10 tab 03/22/21 [Rx Last Taken Unknown] alprazolam 0.5 mg PO DAILY PRN 04/18/21 [History Last Taken Unknown] insulin glargine [Lantus Solostar U-100 Insulin] 10 unit SUBCUT QHS PRN 04/18/21 [History Last Taken Unknown] nabumetone 500 mg PO BID PRN 04/18/21 [History Last Taken Unknown] hydrocodone-acetaminophen 1 tab PO Q4H PRN PRN 2 Days #10 tablet 08/14/21 [Rx Last Taken Unknown] Allergy/AdvReac Type Severity Reaction Status Date / Time clindamycin Allergy Hives Verified 08/14/21 19:01 Sulfa (Sulfonamide Allergy Anaphylaxis Verified 08/14/21 19:01 Antibiotics) vancomycin Allergy Hives Verified 08/14/21 19:01 metformin AdvReac Diarrhea Verified 08/14/21 19:01 stainless steal Allergy Mild rash Uncoded 08/14/21 19:01 Family History Other Arthritis Depression Diabetes Fibromyalgia Heart disease Hypertension Surgical History History of carpal tunnel surgery History of elbow surgery History of tonsillectomy and adenoidectomy Hx of neck surgery Social History Smoking Status: Current every day smoker tobacco type: cigarettes alcohol intake: current alcohol intake frequency: holidays/special occasions only ROS ROS ED Constitutional Constitutional ED: Reports systems reviewed and no addt'l complaints, except as documented; Denies body ache(s), change in weight or chills Eyes Eyes: Denies acute decrease in peripheral vision, change in vision, double vision or loss of vision ENT ENT ED: Reports none; Denies ear pain, lip swelling, loss taste/smell, neck pain, otalgia or sore throat Cardiovascular Cardiovascular: Reports none; Denies abdominal pain, chest pain with activity, leg edema, lightheadedness, palpitations, rapid heart rate or syncope Respiratory/Chest Respiratory/Chest: Reports none; Denies change in mental status, dry cough, dyspnea, hemoptysis, shortness of breath at rest or shortness of breath with exertion Gastrointestinal Gastrointestinal: Reports none; Denies abdominal pain, change in stool character, diarrhea, hematemesis, hematochezia, melena, rectal bleeding or vomiting Genitourinary Genitourinary ED: Reports none; Denies abdominal discomfort, anuria, dysuria, genital pain or polyuria Musculoskeletal Musculoskeletal: Reports none and other Details: Left thumb pain ; Denies arthralgias, back pain, difficulty walking, extremity pain, muscle weakness or myalgias Integumentary Reports none; Denies abscess or rash Neurologic Neurologic: Reports none; Denies abnormal gait, confusion, focal weakness, frequent falls, headache(s), loss of vision, numbness, paresthesias, radicular pain, vertigo or weakness Psychiatric Psychiatric: Reports systems reviewed and no addt'l complaints, except as documented and none; Denies behavioral changes, confusion, difficulty concentrating, hallucinations, suicidal ideation, tactile hallucinations or visual hallucinations Endocrine Endocrinology: Denies none, cold intolerance, excessive sweating, fatigue or heat intolerance Hematologic/Lymphatic Hematologic/Lymphatic: Reports none; Denies anemia, easy bleeding or easy bruising Allergic/Immunologic Allergic/Immunologic ED: Denies as per HPI, none, lip swelling, mouth swelling, throat swelling, tongue swelling or hives EXAM Physical Exam Const Vital Signs: 08/14/21 18:59 Temperature 96.7 F L Temperature Source Temporal Pulse Rate 87 Respiratory Rate 15 Blood Pressure 170/95 H Blood Pressure Mean 120 Pulse Ox 97 Oxygen Delivery Method Room Air Positive well nourished and well developed General Appearance ED: well developed and NAD HEENT Reports TM's clear and moist mucous membranes normocephalic and atraumatic; Negative for trauma or tenderness Tympanic Membrane ED: Yes TM's clear Eyes PERRL and EOMs intact bilaterally General Eye ED: Negative for pale conjunctiva or scleral icterus Neck no lymphadenopathy, supple and no JVD General: Negative for tenderness Chest Wall inspection of chest normal and palpation of chest normal Chest: Negative for tenderness Resp normal respiratory effort and clear to auscultation bilaterally Effort and Inspection: Negative for respiratory distress or pain with movement Auscultation: Negative for rhonchi, wheezes or diminished lung sounds Cardio regular rate, regular rhythm, S1 normal heart sound, S2 normal heart sound and no murmurs Peripheral Pulses: pulses 2+ throughout GI normal to inspection, nondistended, normoactive bowel sounds, soft to palpation, non-tender, non-distended and no masses Back/Spine no CVA tenderness and no thoracic nor lumbar tenderness Extremity normal to inspection Extremity Narrative: Evaluation of the left thumb does reveal a positive Sandra test. Patient has no evidence of deformity. There is no soft tissue swelling or ecchymosis or bruising. There is no cellulitic changes. Neurovascularly intact. General Extremety ED: Negative for edema General Extremity: Negative for edema Neuro oriented x3, CN's II-XII intact bilaterally, no sensory deficits noted and gait normal Sensorium / Orientation: awake, alert, oriented to person, oriented to place and oriented to time Motor Exam: strength 5/5 throughout and strength abnormal Psych mental status grossly normal Skin no rashes or lesions noted and no wounds MDM MDM MDM Narrative Medical decision making narrative: Patient presents with left thumb pain that is atraumatic. She denies repetitive motions. She is already had x-rays I therefore do not feel further imaging is indicated. Patient was offered a thumb spica splint which she states she has at home but it rubs and she feels uncomfortable when she wears it. Patient does not want me to give her a thumb spica splint here. She is advised to follow-up with her orthopedic surgeon and I will write her a prescription for [address] for severe pain. I recommended she continue with her meloxicam. I suspect likely a de Quervain's tenosynovitis. Discharge Plan Triage Chief Complaint: Upper Extremity Injury ED Provider: Jenna Valera Dx/Rx/DC Orders Clinical Impression: De Quervain's disease (tenosynovitis) Instructions: De Quervain Tenosynovitis Prescriptions: New hydrocodone-acetaminophen [hydrocodone-acetaminophen] 1 TABLET tablet 1 tab PO Q4H PRN PRN (Reason: Pain) 2 Days Qty: 10 RF: 0 No Action paroxetine HCl 20 MG tablet 40 mg PO DAILY RF: 0 atorvastatin 40 MG tablet 40 mg PO QHS RF: 0 metformin 500 MG tablet 1,000 mg PO BID RF: 0 lamotrigine 150 MG tablet 300 mg PO DAILY RF: 0 quetiapine 50 MG tablet 300 mg PO QHS RF: 0 omeprazole 20 MG capsule,delayed release(DR/EC) 40 mg PO DAILY RF: 0 pregabalin 100 MG capsule 100 mg PO TID RF: 0 empagliflozin 25 MG tablet 25 mg PO DAILY RF: 0 docusate sodium 100 MG capsule 100 mg PO BID RF: 0 etodolac 400 mg tablet 400 mg PO BID RF: 0 ondansetron 4 mg tablet,disintegrating 4 mg PO Q6H PRN (Reason: nausea and vomiting) Qty: 10 RF: 0 alprazolam 0.5 mg tablet 0.5 mg PO DAILY PRN (Reason: Anxiety) RF: 0 nabumetone 500 mg tablet 500 mg PO BID PRN (Reason: Muscle Pain) RF: 0 Lantus Solostar U-100 Insulin 100 unit/mL (3 mL) insulin pen 10 unit SUBCUT QHS PRN (Reason: blood sugar) RF: 0 Primary Care Provider: Tyra Yang NP Referrals: Tyra Yang NP, [employer]ATOR[facility] [Primary Care Provider] - Activity Restrictions/Additional Instructions: Follow-up with your orthopedics surgeon as scheduled Disposition Disposition: Home, Self Care
[2021-08-14] MEDS: HYDROcodone Bitartrate/Apap 5/325 Tablet PO (19:22)
[2021-08-14 19:25] VITALS: BP 164/80; PULSE 85; RESP 16; O2SAT 97
== END 2021-08-14 19:27 | disposition home or self-care (01) ==
PROVIDERS: Emergency Provider Emergency Medicine; PCP Nurse Practitioner Family; Visit Provider Emergency Medicine
DX: E34.51 Complete androgen insensitivity syndrome (principal); F31.9 Bipolar disorder, unspecified; E11.9 Type 2 diabetes mellitus without complications; Z79.4 Long term (current) use of insulin; M19.90 Unspecified osteoarthritis, unspecified site; F17.210 Nicotine dependence, cigarettes, uncomplicated; Z79.84 Long term (current) use of oral hypoglycemic drugs; Z79.899 Other long term (current) drug therapy
CPT/HCPCS: 99283

== ENCOUNTER 2021-11-06 17:17 | Emergency (ER) | payer MEDICAID, SELFPAY ==
--- NOTE | 2021-11-06 15:25 | EKG12_ITS ---
Test Reason : CP Blood Pressure : / mmHG Vent. Rate : 080 BPM Atrial Rate : 080 BPM P-R Int : 164 ms QRS Dur : 078 ms QT Int : 356 ms P-R-T Axes : 047 017 033 degrees QTc Int : 410 ms Normal sinus rhythm Low voltage QRS Borderline ECG Confirmed by ODALIS DALEY, ELISABETH ([id number]), editor & co founder NAYLA BURTON ([id number]) on 11/11/2021 10:17:14 AM Referred By: ANTONIO Confirmed By:ELISABETH JACOBO MD
[2021-11-06 17:18] VITALS: BP 145/99; PULSE 83; RESP 14; TEMP 36.6; O2SAT 95; BMI 15.9
--- NOTE | 2021-11-06 17:42 | EKG12_ITS ---
Test Reason : REPEAT Blood Pressure : / mmHG Vent. Rate : 082 BPM Atrial Rate : 082 BPM P-R Int : 164 ms QRS Dur : 076 ms QT Int : 354 ms P-R-T Axes : 033 001 033 degrees QTc Int : 413 ms Normal sinus rhythm Low voltage QRS Borderline ECG Confirmed by ODALIS DALEY, ELISABETH ([id number]), supervising editor trailer NAYLA BURTON ([id number]) on 11/11/2021 10:17:27 AM Referred By: ANTONIO Confirmed By:ELISABETH JACOBO MD
--- NOTE | 2021-11-06 17:47 | ED.VIS.CHEST ---
HPI History of Present Illness Chief Complaint: Chest Pain Narrative Narrative: 50-year-old female presenting with chest pain which has been intermittent for couple of days. She states it feels somewhat sharp on the right and achy on the left. She states that the episodes last for about an hour up until today when it lasted for about 4 hours. She is currently pain-free. She states in the last episode it was radiating to the right side of her jaw. She denies fever, chills, cough. No history of DVT/PE and no known risk factors. Patient states she does not have any known cardiac disease. Her last stress test was in 2002 she believes. She does have diabetes, hypertension, hyperlipidemia. She has no associated symptoms with her chest pain such as shortness of breath, diaphoresis. She has chronic nausea which is unchanged. [facility] Medical History Arthritis Asthma Bipolar disorder Chronic neck and back pain Diabetes Hemorrhoids history of uterine ablation Home Medications paroxetine HCl 20 mg tablet 40 mg PO DAILY DEPRESSION 03/20/13 [History Last Taken 06/09/19] atorvastatin 40 mg tablet 40 mg PO QHS CHOLESTEROL 03/21/13 [History Last Taken 06/08/19] metformin 500 mg tablet,extended release 24 hr 1,000 mg PO BID DM 03/21/13 [History Last Taken 06/09/19] lamotrigine 150 mg tablet 300 mg PO DAILY DEPRESSION 12/03/15 [History Last Taken 06/09/19] quetiapine 50 mg tablet 300 mg PO QHS DEPRESSION 05/22/18 [History Last Taken 06/08/19] omeprazole 20 mg capsule,delayed release 40 mg PO DAILY GERD 01/08/19 [History Last Taken 06/09/19] pregabalin 100 mg capsule 100 mg PO TID PAIN 06/09/19 [History Last Taken 06/09/19] empagliflozin 25 mg tablet 25 mg PO DAILY 01/25/20 [History Last Taken Unknown] docusate sodium 100 mg capsule 100 mg PO BID 02/01/20 [History Last Taken Unknown] etodolac 400 mg tablet 400 mg PO BID 03/22/21 [History Last Taken Unknown] ondansetron 4 mg disintegrating tablet 4 mg PO Q6H PRN nausea and vomiting #10 tabs 03/22/21 [Rx Last Taken Unknown] alprazolam 0.5 mg tablet 0.5 mg PO DAILY PRN Anxiety 04/18/21 [History Last Taken Unknown] insulin glargine 100 unit/mL (3 mL) subcutaneous pen (Lantus Solostar U-100 Insulin) 10 unit subcut QHS PRN blood sugar 04/18/21 [History Last Taken Unknown] nabumetone 500 mg tablet 500 mg PO BID PRN Muscle Pain 04/18/21 [History Last Taken Unknown] hydrocodone-acetaminophen 5-325mg 5mg-325mg 1 tab PO Q4H PRN PRN Pain 2 days #10 TABLETS 08/14/21 [Rx Last Taken Unknown] Allergy/AdvReac Type Severity Reaction Status Date / Time clindamycin Allergy Hives Verified 11/06/21 17:21 Sulfa (Sulfonamide Allergy Anaphylaxis Verified 11/06/21 17:21 Antibiotics) vancomycin Allergy Hives Verified 11/06/21 17:21 metformin AdvReac Diarrhea Verified 11/06/21 17:21 stainless steal Allergy Mild rash Uncoded 11/06/21 17:21 Family History Other Arthritis Depression Diabetes Fibromyalgia Heart disease Hypertension Surgical History History of carpal tunnel surgery History of elbow surgery History of tonsillectomy and adenoidectomy Hx of neck surgery Social History Smoking Status: Former smoker alcohol intake: current alcohol intake frequency: holidays/special occasions only ROS ROS ED Constitutional Constitutional ED: Denies chills or fever(s) Eyes Eyes: Denies blurry vision or change in vision ENT ENT ED: Denies rhinorrhea or sore throat Cardiovascular Cardiovascular: Reports as per HPI Respiratory/Chest Respiratory/Chest: Denies cough or dyspnea Gastrointestinal Gastrointestinal: Reports nausea; Denies abdominal pain or constipation Genitourinary Genitourinary ED: Denies dysuria or hematuria Musculoskeletal Musculoskeletal: Denies arthralgias or back pain Integumentary Denies abscess Neurologic Neurologic: Denies headache(s) or paresthesias EXAM Physical Exam Const Vital Signs: 11/06/21 17:18 11/06/21 17:20 11/06/21 17:55 Temperature 98 F Temperature Source Temporal Pulse Rate 83 Respiratory Rate 14 Respiratory Effort Normal Non-Labored Blood Pressure 145/99 H Blood Pressure Mean 114 Pulse Ox 95 Oxygen Delivery Method Room Air Room Air 11/06/21 18:20 11/06/21 19:08 11/06/21 20:30 Temperature Temperature Source Pulse Rate 92 88 85 Respiratory Rate 18 18 15 Respiratory Effort Blood Pressure 126/88 H 133/83 H 127/94 H Blood Pressure Mean 100 99 Pulse Ox 92 97 93 Oxygen Delivery Method Room Air Room Air General Appearance ED: NAD; Negative for pallor HEENT Reports moist mucous membranes normocephalic Eyes PERRL and EOMs intact bilaterally Chest Wall inspection of chest normal Resp normal respiratory effort and clear to auscultation bilaterally Cardio regular rate and regular rhythm Peripheral Pulses: pulses 2+ throughout GI normal to inspection, nondistended, normoactive bowel sounds Extremity normal to inspection Neuro oriented x3, CN's II-XII intact bilaterally and no sensory deficits noted Sensorium / Orientation: awake and alert Psych mental status grossly normal Skin no rashes or lesions noted General Skin Exam: Negative for jaundice or pallor Heart Score History: Slightly/Non-Suspicious ECG: Normal Age: >45 - <65 years Risk Factors: >/= 3 Risk Factors or History of CAD Troponin: </= Normal Limit Score: 3 MDM MDM MDM Narrative Medical decision making narrative: Patient presenting with chest pain. I obtained an EKG on arrival and on my interpretation shows normal sinus rhythm with ventricular rate of 80 bpm without sign of ischemic change. Patient PERC negative. CBC and BMP unremarkable. She had 2 high-sensitivity troponins that are both less than 3. EKG is sinus rhythm with ventricular rate of 80 bpm without sign of ischemic change or dysrhythmia. Chest x-ray on my interpretation shows no acute cardiopulmonary process and the radiologist does agree. Heart score is 3 patient work-up ultimately negative. I feel she is safe for outpatient follow-up. Impression: 1. Chest pain Lab Data Attestation: I reviewed the patient's lab results. Labs: Laboratory Results - last 24 hr 11/06/21 11/06/21 11/06/21 17:21 17:21 19:54 WBC 8.1 RBC 4.99 Hgb 14.1 Hct 42.3 MCV 84.8 MCH 28.3 MCHC 33.3 RDW Std Deviation 39.2 RDW Coeff of Charu 12.8 Plt Count 234 MPV 11.0 Immature Gran % (Auto) 0.500 Neut % (Auto) 48.0 Lymph % (Auto) 38.0 [place] % (Auto) 6.0 Eos % (Auto) 7.1 H Baso % (Auto) 0.4 Absolute Neuts (auto) 3.9 Absolute Lymphs (auto) 3.09 Nucleated RBC % 0 Sodium 136 Potassium 4.0 Chloride 102 Carbon Dioxide 29.0 Anion Gap 5 BUN 11 Creatinine 0.88 Estim Creat Clear Calc 56.32 Est GFR (MDRD) Af Amer 87 Est GFR (MDRD) Non-Af 72 BUN/Creatinine Ratio 12.4 Glucose 115 H Calcium 9.1 Troponin I High Sens < 3 L < 3 L Radiography Diagnostic Testing: Clinical Impression(s) from Imaging Studies Chest X-Ray 11/06/21 17:54 IMPRESSION: Degenerative changes, as described above. No demonstrated acute cardiopulmonary process. Electronically Signed: Kev Ramos MD at 18:31 EDT Reading Location ID and State: [address] [place] [address] , Service support , Discharge Plan Triage Chief Complaint: Chest Pain ED Provider: Aram Huynh Dx/Rx/DC Orders Instructions: ED Chest Pain, Noncardiac Prescriptions: No Action paroxetine HCl 20 MG tablet 40 mg PO DAILY atorvastatin 40 MG tablet 40 mg PO QHS metformin 500 MG tablet 1,000 mg PO BID lamotrigine 150 MG tablet 300 mg PO DAILY quetiapine 50 MG tablet 300 mg PO QHS Label Comments: TAKE 1-2 TABLET AT BEDTIME NEEDED omeprazole 20 MG capsule,delayed release(DR/EC) 40 mg PO DAILY Label Comments: take 2 capsules by mouth every morning pregabalin 100 MG capsule 100 mg PO TID empagliflozin 25 MG tablet 25 mg PO DAILY docusate sodium 100 MG capsule 100 mg PO BID etodolac 400 mg tablet 400 mg PO BID Label Comments: take 1 tablet by mouth twice a day ondansetron 4 mg tablet,disintegrating 4 mg PO Q6H PRN (Reason: nausea and vomiting) Qty: 10 0RF alprazolam 0.5 mg tablet 0.5 mg PO DAILY PRN (Reason: Anxiety) Label Comments: take 1 tablet by mouth once daily if needed for anxiety nabumetone 500 mg tablet 500 mg PO BID PRN (Reason: Muscle Pain) Label Comments: take 1 tablet by mouth twice a day NEEDED FOR PAIN Lantus Solostar U-100 Insulin 100 unit/mL (3 mL) insulin pen 10 unit SUBCUT QHS PRN (Reason: blood sugar) Label Comments: inject 10 units at bedtime (FOR BLOOD SUGAR GREATER THAN 150) Rx Instructions: if BS >150 at bedtime hydrocodone-acetaminophen [hydrocodone-acetaminophen] 1 TABLET tablet 1 tab PO Q4H PRN PRN (Reason: Pain) 2 Days Qty: 10 0RF Primary Care Provider: Tyra Yang NP Referrals: Tyra Yang NP, [employer]ICE CORRESPONDENT-C [Primary Care Provider] - Disposition Disposition: Home, Self Care Discharge Date/Time: 11/06/21 20:31
[2021-11-06 17:51] LABS: Absolute Lymphocyte Count 3.09 X10^3/uL (0.83-4.51); Absolute Neutrophil Count 3.9 X10^3/uL (2.0-7.7); Basophil# 0.03 X10^3/uL; Basophil% 0.4 % (0-1); Eosinophil# 0.58 X10^3/uL; Eosinophils% 7.1 % (0-5); Hematocrit 42.3 % (37-47); Hemoglobin 14.1 g/dL (12.0-15.0); Lymphocyte # 3.09 X10^3/ul (0.83-4.51); Mean Corp Hgb Conc 33.3 g/dL (32-36); Mean Corpuscular Hgb 28.3 pg (27.0-32.0); Mean Corpuscular Volume 84.8 fL (81-99); Monocyte# 0.49 X10^3/uL; NRBC Flagged by Analyzer 0 % (0-5); Platelet Count 234 K/mm3 (150-450); RBC Distribution Width CV 12.8 % (11.6-14.6); RBC Distribution Width SD 39.2 fl (35.1-43.9); Red Blood Count 4.99 M/mm3 (4.2-5.4); White Blood Count 8.1 K/mm3 (4.4-11.0)
--- NOTE | 2021-11-06 17:54 | RAD_ITS ---
STUDY: X-RAY CHEST REASON FOR EXAM: Female, 50 years old. Chest pain TECHNIQUE: Single AP portable view of the chest. COMPARISON: None. FINDINGS: There are monitoring devices. The lungs are clear and expanded. There is no demonstrated pleural abnormality. Normal size heart. Normal mediastinum and ines. Normal visualized pulmonary arteries. Normal visualized aortic arch and descending thoracic aorta. There are diffuse degenerative changes of the visualized thoracic spine. There is postoperative change of the cervical spine. Normal visualized ribs, clavicles, and shoulders. There is no demonstrated abnormality of the visualized soft tissue structures of the upper abdomen. RAD/Chest 1 View (Portable) IMPRESSION: Degenerative changes, as described above. No demonstrated acute cardiopulmonary process. Electronically Signed: Kev Ramos MD at 18:31 EDT ,
[2021-11-06 18:08] LABS: Anion Gap 5 (5-15); BUN 11 mg/dL (7-18); BUN/Creat Ratio 12.4 RATIO (10-20); Calcium,Total 9.1 mg/dL (8.5-10.1); Chloride 102 mmol/L (98-107); Creatinine, Serum 0.88 mg/dL (0.55-1.02); EST Glomerular Filtration Rate 72 mL/min (>60); Est Glom Filt Rate - Afr Amer 87 mL/min (>60); Estimated Creatinine Clearance 56.32 ml/min; Glucose 115 mg/dL (74-106); Sodium Level 136 mmol/L (136-145); Troponin-I HS (w/2H Reflex) < 3 pg/mL (3.0-54.0)
[2021-11-06 18:20] VITALS: BP 126/88; PULSE 92; RESP 18; O2SAT 92
[2021-11-06] MEDS: Morphine 4 MG/ML Syringe IV (18:47)
[2021-11-06] MEDS: Ondansetron 4 MG/2 ML Vial IV (18:47)
[2021-11-06 19:08] VITALS: BP 133/83; PULSE 88; RESP 18; O2SAT 97
[2021-11-06 19:48] LABS: Reflex Troponin-HS? (from REC) Y
[2021-11-06 20:17] LABS: Troponin-I HS < 3 pg/mL (3.0-54.0)
[2021-11-06 20:30] VITALS: BP 127/94; PULSE 85; RESP 15; O2SAT 93
== END 2021-11-06 20:31 | disposition home or self-care (01) ==
PROVIDERS: Emergency Provider Student in an Organized Health Care Education/Training Program; PCP Nurse Practitioner Family; Visit Provider Student in an Organized Health Care Education/Training Program
DX: R07.9 Chest pain, unspecified (principal); F31.9 Bipolar disorder, unspecified; E11.9 Type 2 diabetes mellitus without complications; Z79.4 Long term (current) use of insulin; I10 Essential (primary) hypertension; E78.5 Hyperlipidemia, unspecified; M19.90 Unspecified osteoarthritis, unspecified site; Z79.84 Long term (current) use of oral hypoglycemic drugs; Z79.899 Other long term (current) drug therapy; Z87.891 Personal history of nicotine dependence
CPT/HCPCS: 71045; 80048; 84484; 85025; 93005; 96374; 96375; 99284; A4216; J2405

== ENCOUNTER 2021-11-11 19:30 | Emergency (ER) | payer MEDICAID, SELFPAY ==
[2021-11-11 19:31] VITALS: BP 87/61; PULSE 109; RESP 20; TEMP 36.4; O2SAT 96; BMI 34.7
[2021-11-11 19:42] VITALS: BP 85/60
[2021-11-11 20:17] VITALS: BP 93/65
--- NOTE | 2021-11-11 20:38 | EKG12_ITS ---
Test Reason : DYSRHYTHMIA Blood Pressure : / mmHG Vent. Rate : 106 BPM Atrial Rate : 106 BPM P-R Int : 154 ms QRS Dur : 084 ms QT Int : 344 ms P-R-T Axes : 055 013 060 degrees QTc Int : 456 ms Sinus tachycardia Low voltage QRS Poor R wave progression Confirmed by ODALIS DALEY, ELISABETH ([id number]), business editor NAYLA BURTON ([id number]) on 11/13/2021 9:07:57 AM Referred By: RAYNA Confirmed By:ELISABETH JACOBO MD
--- NOTE | 2021-11-11 20:38 | CT_ITS ---
STUDY: CT BRAIN WITHOUT CONTRAST REASON FOR EXAM: Female, 50 years old. blacked out while shopping, n/v, hx tremors New onset seizure TECHNIQUE: Transaxial CT imaging of the brain was performed without administration of intravenous contrast material. Individualized dose optimization techniques were used for this CT. COMPARISON: None FINDINGS: Normal calvarium. Normal soft tissues. Normal size ventricles and extra-axial spaces for the patient''s age. Normal white matter tracts of the cerebral hemispheres. Normal basal ganglia and thalami. Normal brainstem. Normal cerebellum. There is no intracranial hemorrhage. There are no findings of an acute ischemic infarction. Normal visualized paranasal sinuses. ASPECTS 10 CT/Brain/Head without Contrast IMPRESSION: There are no acute intracranial findings. Electronically Signed: Allen Staley MD at 21:11 EDT ,
[2021-11-11 20:50] LABS: Absolute Lymphocyte Count 1.89 X10^3/uL (0.83-4.51); Absolute Neutrophil Count 7.9 X10^3/uL (2.0-7.7); Basophil# 0.04 X10^3/uL; Basophil% 0.4 % (0-1); Eosinophil# 0.35 X10^3/uL; Eosinophils% 3.2 % (0-5); Hematocrit 44.1 % (37-47); Hemoglobin 14.6 g/dL (12.0-15.0); Lymphocyte # 1.89 X10^3/ul (0.83-4.51); Lymphocyte % 17.3 % (19-41); Mean Corp Hgb Conc 33.1 g/dL (32-36); Mean Corpuscular Hgb 28.3 pg (27.0-32.0); Mean Corpuscular Volume 85.6 fL (81-99); Mean Platelet Vol. 11.3 fl (6.2-12.0); Monocyte# 0.68 X10^3/uL; Monocyte% 6.2 % (0-10); NRBC Flagged by Analyzer 0 % (0-5); Neutrophil % 72.5 % (47-70); Platelet Count 278 K/mm3 (150-450); RBC Distribution Width CV 12.7 % (11.6-14.6); RBC Distribution Width SD 39.2 fl (35.1-43.9); Red Blood Count 5.15 M/mm3 (4.2-5.4); White Blood Count 10.9 K/mm3 (4.4-11.0)
[2021-11-11 21:03] VITALS: BP 112/73; PULSE 99; RESP 16; O2SAT 97
[2021-11-11 21:07] LABS: AST(SGOT) 27 U/L (15-37); Alanine Aminotransfer ALT/SGPT 58 U/L (13-56); Alkaline Phosphatase 94 U/L (45-117); Anion Gap 12 (5-15); BUN 17 mg/dL (7-18); BUN/Creat Ratio 8.9 RATIO (10-20); Calcium,Total 9.6 mg/dL (8.5-10.1); Chloride 100 mmol/L (98-107); EST Glomerular Filtration Rate 30 mL/min (>60); Est Glom Filt Rate - Afr Amer 36 mL/min (>60); Estimated Creatinine Clearance 34.83 ml/min; Globulin 3.9 g/dL (2.2-4.2); Glucose 223 mg/dL (74-106); Potassium 3.7 mmol/L (3.5-5.1); Protein, Total 7.9 g/dL (6.4-8.2); Sodium Level 137 mmol/L (136-145)
[2021-11-11 21:46] LABS: Alcohol, Blood (Medical)-Serum < 3.0 mg/dL
[2021-11-11 22:00] VITALS: BP 115/93; PULSE 94
--- NOTE | 2021-11-11 22:22 | EX.ED.DYSGE1 ---
HPI History of Present Illness Chief Complaint: Syncope Detail of Chief Complaint: Read HPI narrative Informant: patient and spouse/S.O. Onset/Context/Timing Onset: Today and Hours Context: Sudden Onset Timing: Intermittent Quality: Per HPI narrative Location: At grocery store and [facility] [place] Current Severity: Gone Maximum Severity: Severe Worsened by: Unknown Relieved by: Not applicable Associated Symptoms Associated Symptoms: Confusion for 10 to 15 minutes after second episode Narrative Narrative: Patient is a 50-year-old woman with history of tremor of unknown etiology. She does have history of diabetes. She is on insulin. She was placed on muscle relaxant for tremor. This was started 2 months ago by her psychiatrist. Patient states he was at a store. She uses a motorized cart. The cart battery was discharged and she has stuck in the middle of the store. She walked up to customer service. She remembers she was running towards the door and ran into the door. She fell to the ground. Patient recalls doing this. She was asked if she needed assistance. She got a new motorized vehicle and completed her shopping. On the way home [employer] vehicle with no longer working and stalled. While someone was helping her she apparently fell. states he found her sitting up. She does not recall how she fell. She did complain of headache. She apparently bit her tongue. And he states it took 10 to 15 minutes for her to be able to communicate intelligently. There is no incontinence of urine or stool. There is no family history of seizure disorder. There is no history of febrile seizures as a child. She is on medication that can lower seizure threshold Prior similar symptoms: No Recent Illness/Hospitalization: No [facility] Medical History Arthritis Asthma Bipolar disorder Chronic neck and back pain Diabetes Hemorrhoids history of uterine ablation Home Medications paroxetine HCl 20 mg tablet 40 mg PO DAILY DEPRESSION 03/20/13 [History Last Taken 06/09/19] atorvastatin 40 mg tablet 40 mg PO QHS CHOLESTEROL 03/21/13 [History Last Taken 06/08/19] metformin 500 mg tablet,extended release 24 hr 1,000 mg PO BID DM 03/21/13 [History Last Taken 06/09/19] lamotrigine 150 mg tablet 300 mg PO DAILY DEPRESSION 12/03/15 [History Last Taken 06/09/19] quetiapine 50 mg tablet 300 mg PO QHS DEPRESSION 05/22/18 [History Last Taken 06/08/19] omeprazole 20 mg capsule,delayed release 40 mg PO DAILY GERD 01/08/19 [History Last Taken 06/09/19] pregabalin 100 mg capsule 100 mg PO TID PAIN 06/09/19 [History Last Taken 06/09/19] empagliflozin 25 mg tablet 25 mg PO DAILY 01/25/20 [History Last Taken Unknown] docusate sodium 100 mg capsule 100 mg PO BID 02/01/20 [History Last Taken Unknown] etodolac 400 mg tablet 400 mg PO BID 03/22/21 [History Last Taken Unknown] ondansetron 4 mg disintegrating tablet 4 mg PO Q6H PRN nausea and vomiting #10 tabs 03/22/21 [Rx Last Taken Unknown] alprazolam 0.5 mg tablet 0.5 mg PO DAILY PRN Anxiety 04/18/21 [History Last Taken Unknown] insulin glargine 100 unit/mL (3 mL) subcutaneous pen (Lantus Solostar U-100 Insulin) 10 unit subcut QHS PRN blood sugar 04/18/21 [History Last Taken Unknown] nabumetone 500 mg tablet 500 mg PO BID PRN Muscle Pain 04/18/21 [History Last Taken Unknown] hydrocodone-acetaminophen 5-325mg 5mg-325mg 1 tab PO Q4H PRN PRN Pain 2 days #10 TABLETS 08/14/21 [Rx Last Taken Unknown] Allergy/AdvReac Type Severity Reaction Status Date / Time clindamycin Allergy Hives Verified 11/11/21 19:40 Sulfa (Sulfonamide Allergy Anaphylaxis Verified 11/11/21 19:40 Antibiotics) vancomycin Allergy Hives Verified 11/11/21 19:40 metformin AdvReac Diarrhea Verified 11/11/21 19:40 stainless steal Allergy Mild rash Uncoded 11/11/21 19:40 Family History Other Arthritis Depression Diabetes Fibromyalgia Heart disease Hypertension Surgical History History of carpal tunnel surgery History of elbow surgery History of tonsillectomy and adenoidectomy Hx of neck surgery Social History Smoking Status: Former smoker alcohol intake: current alcohol intake frequency: holidays/special occasions only ROS ROS ED Constitutional Constitutional ED: Denies chills, fever(s), subjective, sweats or weight loss Eyes Eyes: Denies blurry vision, change in vision or diplopia ENT ENT ED: Denies ear pain, rhinorrhea or sore throat Cardiovascular Cardiovascular: Denies chest pain, orthopnea, palpitations, paroxysmal nocturnal dyspnea or racing heartbeat Respiratory/Chest Respiratory/Chest: Denies cough, dyspnea, dyspnea on exertion, orthopnea or paroxysmal nocturnal dyspnea Gastrointestinal Gastrointestinal: Denies abdominal pain, diarrhea, melena, nausea or vomiting Genitourinary Genitourinary ED: Denies dysuria, hematuria or urinary frequency Musculoskeletal Musculoskeletal: Denies arthralgias, back pain, myalgias or neck pain Integumentary Denies abscess or rash Neurologic Neurologic: Reports headache(s) and other Details: Tremor of unknown etiology ; Denies paresthesias or weakness Psychiatric Psychiatric: Reports anxiety and depression; Denies suicidal ideation Endocrine Endocrinology: Denies cold intolerance, heat intolerance or polydipsia Hematologic/Lymphatic Hematologic/Lymphatic: Denies anemia, easy bleeding or easy bruising EXAM Physical Exam Const Vital Signs: 11/11/21 19:31 11/11/21 19:40 11/11/21 19:42 Temperature 97.6 F L Temperature Source Temporal Pulse Rate 109 H Respiratory Rate 20 H Respiratory Effort Normal Non-Labored Blood Pressure 87/61 L 85/60 L Blood Pressure Mean 69 68 Pulse Ox 96 Oxygen Delivery Method Room Air 11/11/21 20:17 11/11/21 21:03 11/11/21 22:00 Temperature Temperature Source Pulse Rate 99 94 Respiratory Rate 16 Respiratory Effort Blood Pressure 93/65 112/73 115/93 H Blood Pressure Mean 74 86 100 Pulse Ox 97 Oxygen Delivery Method Room Air Positive well nourished, well developed and obese; Negative for unkempt General Appearance ED: well developed and NAD; Negative for unkempt, cyanotic, diaphoretic or pallor Nutritional Appearance: obese HEENT Reports moist mucous membranes HEENT Narrative: Head is atraumatic normocephalic. Ears normal. No hemotympanum. No CSF otorrhea or rhinorrhea. No septal deviation hematoma. No dental trauma. No evidence of facial trauma. Eyes PERRL and EOMs intact bilaterally Neck no lymphadenopathy, supple and no JVD Chest Wall inspection of chest normal and palpation of chest normal Resp normal respiratory effort and clear to auscultation bilaterally Cardio regular rate, regular rhythm, S1 normal heart sound, S2 normal heart sound and no murmurs GI normal to inspection, nondistended, normoactive bowel sounds, non-tender, non-distended and hepatosplenomegaly Palpation: soft Back/Spine no CVA tenderness Cervical Spine: Negative for cervical spine tenderness Thoracic Spine / Upper Back: Negative for thoracic spinal tenderness Lumbar Spine / Lower Back: Negative for lumbar spinal tenderness Extremity normal to inspection General Extremety ED: Negative for edema or tenderness General Extremity: Negative for edema Neuro oriented x3, CN's II-XII intact bilaterally and no sensory deficits noted Neuro Narrative: There is no clonus Babinski. DTRs are 1-2+ symmetric upper and lower extremity Sensorium / Orientation: alert; Negative for orientation impaired Motor Exam: strength 5/5 throughout Psych mental status grossly normal Appearance: Negative for unkempt Skin no rashes or lesions noted, no wounds and skin turgor normal General Skin Exam: elasticity normal; Negative for jaundice or pallor MDM MDM MDM Narrative Medical decision making narrative: Uncertain what caused patient to put into a glass door. Concern with her being postictal found on the ground with headache that she had a seizure. CT was obtained and appropriate blood work. Talk screen was obtained to rule out toxicologic causes. It was obtained to rule out infectious or metabolic cause. Lab Data Attestation: I reviewed the patient's lab results. Labs: Laboratory Results - last 24 hr 11/11/21 11/11/21 11/11/21 20:40 20:40 20:40 WBC 10.9 RBC 5.15 Hgb 14.6 Hct 44.1 MCV 85.6 MCH 28.3 MCHC 33.1 RDW Std Deviation 39.2 RDW Coeff of Charu 12.7 Plt Count 278 MPV 11.3 Immature Gran % (Auto) 0.400 Neut % (Auto) 72.5 H Lymph % (Auto) 17.3 L Door % (Auto) 6.2 Eos % (Auto) 3.2 Baso % (Auto) 0.4 Absolute Neuts (auto) 7.9 H Absolute Lymphs (auto) 1.89 Nucleated RBC % 0 Sodium 137 Potassium 3.7 Chloride 100 Carbon Dioxide 25.0 Anion Gap 12 BUN 17 Creatinine 1.90 H Estim Creat Clear Calc 34.83 Est GFR (MDRD) Af Amer 36 L Est GFR (MDRD) Non-Af 30 L BUN/Creatinine Ratio 8.9 L Glucose 223 H Calcium 9.6 Total Bilirubin 0.80 AST 27 ALT 58 H Alkaline Phosphatase 94 Total Protein 7.9 Albumin 4.0 Globulin 3.9 Albumin/Globulin Ratio 1.0 Ur Drug Screen Comment Ethyl Alcohol < 3.0 11/11/21 21:20 WBC RBC Hgb Hct MCV MCH MCHC RDW Std Deviation RDW Coeff of Charu Plt Count MPV Immature Gran % (Auto) Neut % (Auto) Lymph % (Auto) Door % (Auto) Eos % (Auto) Baso % (Auto) Absolute Neuts (auto) Absolute Lymphs (auto) Nucleated RBC % Sodium Potassium Chloride Carbon Dioxide Anion Gap BUN Creatinine Estim Creat Clear Calc Est GFR (MDRD) Af Amer Est GFR (MDRD) Non-Af BUN/Creatinine Ratio Glucose Calcium Total Bilirubin AST ALT Alkaline Phosphatase Total Protein Albumin Globulin Albumin/Globulin Ratio Ur Drug Screen Comment Ethyl Alcohol Radiography Diagnostic Testing: Clinical Impression(s) from Imaging Studies Brain CT 11/11/21 20:38 IMPRESSION: There are no acute intracranial findings. Electronically Signed: Allen Staley MD at 21:11 EDT Reading Location ID and State: [facility] / [place] , Service support , Discharge Plan Triage Chief Complaint: Syncope ED Provider: Carlitos Cummings Dx/Rx/DC Orders Clinical Impression: New onset seizure Instructions: ED Seizure New Onset Unknown ... Prescriptions: No Action paroxetine HCl 20 MG tablet 40 mg PO DAILY atorvastatin 40 MG tablet 40 mg PO QHS metformin 500 MG tablet 1,000 mg PO BID lamotrigine 150 MG tablet 300 mg PO DAILY quetiapine 50 MG tablet 300 mg PO QHS Label Comments: TAKE 1-2 TABLET AT BEDTIME NEEDED omeprazole 20 MG capsule,delayed release(DR/EC) 40 mg PO DAILY Label Comments: take 2 capsules by mouth every morning pregabalin 100 MG capsule 100 mg PO TID empagliflozin 25 MG tablet 25 mg PO DAILY docusate sodium 100 MG capsule 100 mg PO BID etodolac 400 mg tablet 400 mg PO BID Label Comments: take 1 tablet by mouth twice a day ondansetron 4 mg tablet,disintegrating 4 mg PO Q6H PRN (Reason: nausea and vomiting) Qty: 10 0RF alprazolam 0.5 mg tablet 0.5 mg PO DAILY PRN (Reason: Anxiety) Label Comments: take 1 tablet by mouth once daily if needed for anxiety nabumetone 500 mg tablet 500 mg PO BID PRN (Reason: Muscle Pain) Label Comments: take 1 tablet by mouth twice a day NEEDED FOR PAIN Lantus Solostar U-100 Insulin 100 unit/mL (3 mL) insulin pen 10 unit SUBCUT QHS PRN (Reason: blood sugar) Label Comments: inject 10 units at bedtime (FOR BLOOD SUGAR GREATER THAN 150) Rx Instructions: if BS >150 at bedtime hydrocodone-acetaminophen [hydrocodone-acetaminophen] 1 TABLET tablet 1 tab PO Q4H PRN PRN (Reason: Pain) 2 Days Qty: 10 0RF Primary Care Provider: Tyra Yang NP Referrals: Tyra Yang [employer], [employer]CHANDISER-C [Primary Care Provider] - As soon as possible Activity Restrictions/Additional Instructions: 1. Contact Wanda Yang tomorrow for referral to neurologist for outpatient work-up of new onset seizure 2. No driving, swimming, bathing, riding bicycle or use of motorized equipment until cleared by neurologist. Disposition Disposition: Home, Self Care
[2021-11-11 23:29] VITALS: BP 110/72
[2021-11-11 23:54] LABS: Amphetamine Urine VISTA NEGATIVE (<1000 ng/mL); Barbiturate Urine VISTA NEGATIVE (< 200 ng/mL); Benzodiazepine Urine VISTA NEGATIVE (< 200 ng/mL); Cocaine Urine VISTA NEGATIVE (< 300 ng/mL); Ecstacy Urine VISTA NEGATIVE (< 500 ng/mL); Methadone Urine VISTA NEGATIVE (< 300 ng/mL); PCP Urine VISTA NEGATIVE (< 25 ng/mL); THC Urine VISTA NEGATIVE (< 50 ng/mL); Vista UDS pH Range 4
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
== END 2021-11-11 23:30 | disposition home or self-care (01) ==
PROVIDERS: Emergency Provider Emergency Medicine; PCP Nurse Practitioner Family; Visit Provider Emergency Medicine
DX: R56.9 Unspecified convulsions (principal); F31.9 Bipolar disorder, unspecified; E11.9 Type 2 diabetes mellitus without complications; Z79.4 Long term (current) use of insulin; M19.90 Unspecified osteoarthritis, unspecified site; E66.9 Obesity, unspecified; Z68.34 Body mass index [BMI] 34.0-34.9, adult; Z79.84 Long term (current) use of oral hypoglycemic drugs; Z79.899 Other long term (current) drug therapy; Z87.891 Personal history of nicotine dependence
CPT/HCPCS: 70450; 80053; 80307; 82077; 85025; 93005; 99285; A4216

== ENCOUNTER 2021-12-21 14:11 | Emergency (ER) | payer MEDICAID, SELFPAY ==
[2021-12-21 14:13] VITALS: BP 165/97; PULSE 126; RESP 14; TEMP 36.9; O2SAT 97; BMI 35.4
[2021-12-21 15:48] VITALS: RESP 14
--- NOTE | 2021-12-21 15:49 | EDS_ITS ---
HPI History of Present Illness Chief Complaint: Abd Pain Detail of Chief Complaint: Nausea and vomiting Informant: patient Onset/Context/Timing Onset: Days (5 days) Narrative Narrative: Patient presents with recurrent abdominal pain with nausea and vomiting. She is been having recurrent symptoms like this for about a year. Testing has been unremarkable. She is scheduled to undergo what sounds like a small bowel follow-through later this month. Patient states she had another flare of her symptoms this past Wednesday, 4 days ago. She called her primary care office to try to get a refill of her Zofran. The provider was out. She went to urgent care yesterday and they refused to fill it for her stating it was a pre-existing condition. Patient states she took her last dose of Zofran this morning. No fever or chills. No diarrhea. She is still urinating normally. [facility] Medical History Arthritis Asthma Bipolar disorder Chronic neck and back pain Diabetes Hemorrhoids history of uterine ablation Home Medications paroxetine HCl 20 mg tablet 40 mg PO DAILY DEPRESSION 03/20/13 [History Last Taken 06/09/19] atorvastatin 40 mg tablet 40 mg PO QHS CHOLESTEROL 03/21/13 [History Last Taken 06/08/19] metformin 500 mg tablet,extended release 24 hr 1,000 mg PO BID DM 03/21/13 [History Last Taken 06/09/19] lamotrigine 150 mg tablet 300 mg PO DAILY DEPRESSION 12/03/15 [History Last Taken 06/09/19] quetiapine 50 mg tablet 300 mg PO QHS DEPRESSION 05/22/18 [History Last Taken 06/08/19] omeprazole 20 mg capsule,delayed release 40 mg PO DAILY GERD 01/08/19 [History Last Taken 06/09/19] pregabalin 100 mg capsule 100 mg PO TID PAIN 06/09/19 [History Last Taken 06/09/19] empagliflozin 25 mg tablet 25 mg PO DAILY 01/25/20 [History Last Taken Unknown] docusate sodium 100 mg capsule 100 mg PO BID 02/01/20 [History Last Taken Unknown] etodolac 400 mg tablet 400 mg PO BID 03/22/21 [History Last Taken Unknown] ondansetron 4 mg disintegrating tablet 4 mg PO Q6H PRN nausea and vomiting #10 tabs 03/22/21 [Rx Last Taken Unknown] alprazolam 0.5 mg tablet 0.5 mg PO DAILY PRN Anxiety 04/18/21 [History Last Taken Unknown] insulin glargine 100 unit/mL (3 mL) subcutaneous pen (Lantus Solostar U-100 Insulin) 10 unit subcut QHS PRN blood sugar 04/18/21 [History Last Taken Unknown] nabumetone 500 mg tablet 500 mg PO BID PRN Muscle Pain 04/18/21 [History Last Taken Unknown] hydrocodone-acetaminophen 5-325mg 5mg-325mg 1 tab PO Q4H PRN PRN Pain 2 days #10 TABLETS 08/14/21 [Rx Last Taken Unknown] ondansetron 4 mg disintegrating tablet 4 mg PO Q8H PRN nausea and vomiting #20 tabs 12/21/21 [Rx Last Taken Unknown] Allergy/AdvReac Type Severity Reaction Status Date / Time clindamycin Allergy Hives Verified 12/21/21 14:13 Sulfa (Sulfonamide Allergy Anaphylaxis Verified 12/21/21 14:13 Antibiotics) vancomycin Allergy Hives Verified 12/21/21 14:13 metformin AdvReac Diarrhea Verified 12/21/21 14:13 stainless steal Allergy Mild rash Uncoded 12/21/21 14:13 Family History Other Arthritis Depression Diabetes Fibromyalgia Heart disease Hypertension Surgical History History of carpal tunnel surgery History of elbow surgery History of tonsillectomy and adenoidectomy Hx of neck surgery Social History household members: spouse Smoking Status: Former smoker alcohol intake: current alcohol intake frequency: holidays/special occasions only ROS ROS ED Constitutional Constitutional ED: Denies chills or fever(s) Eyes Eyes: Denies change in vision or discharge from eye(s) ENT ENT ED: Denies discharge from eye(s), rhinorrhea or sore throat Cardiovascular Cardiovascular: Denies chest pain or palpitations Respiratory/Chest Respiratory/Chest: Denies cough or dyspnea Gastrointestinal Gastrointestinal: Reports abdominal pain, nausea and vomiting; Denies diarrhea Genitourinary Genitourinary ED: Denies difficulty urinating or dysuria Musculoskeletal Musculoskeletal: Denies back pain or extremity pain Integumentary Denies Abrasions or rash Neurologic Neurologic: Denies headache(s) or weakness Psychiatric Psychiatric: Denies anxiety or depression Endocrine Endocrinology: Denies polydipsia or polyuria Allergic/Immunologic Allergic/Immunologic ED: Denies lip swelling or urticaria EXAM Physical Exam Const Vital Signs: 12/21/21 14:13 12/21/21 15:48 Temperature 98.4 F Temperature Source Temporal Pulse Rate 126 H Respiratory Rate 14 14 Blood Pressure 165/97 H Blood Pressure Mean 119 Pulse Ox 97 Oxygen Delivery Method Room Air Room Air Positive well nourished and well developed General Appearance ED: well developed HEENT Reports normocephalic and head/scalp atraumatic Eyes PERRL and EOMs intact bilaterally Neck supple Chest Wall inspection of chest normal and palpation of chest normal Resp normal respiratory effort and clear to auscultation bilaterally Cardio regular rate and regular rhythm GI non-tender Auscultation: hypoactive bowel sounds Palpation: soft Extremity normal to inspection Neuro oriented x3 and no sensory deficits noted Sensorium / Orientation: alert Motor Exam: strength 5/5 throughout Psych mental status grossly normal Skin no rashes or lesions noted MDM MDM MDM Narrative Medical decision making narrative: Patient did agree to allow me to check her labs to ensure her electrolytes were okay, but then stated that she needed to leave within an hour as her fianc? needed the car. She agreed to let me draw her lab work and treat her with Zofran. I will check her labs and if anything is grossly abnormal and she needs to return I will call her. Prescription for Zofran will be sent to the pharmacy for her. In light of the fact that this has been a recurrent ongoing issue with extensive work-up already I feel comfortable with this plan. Lab Data Labs: Laboratory Results - last 24 hr 12/21/21 16:05 Urine Color Yellow Urine Clarity Clear Urine pH 5.0 Ur Specific [place] 1.025 Urine Protein 30 H Urine Glucose (UA) 50 H Urine Ketones Negative Urine Occult Blood 10 H Urine Nitrite Negative Urine Bilirubin 6 H Urine Urobilinogen 1 H Ur Leukocyte Esterase 25 H Urine RBC 0 SEEN Urine WBC 0-5 SEEN Ur Squamous Epith Cells 25-50 SEEN Urine Bacteria 0 SEEN Urine Mucus 2+ Treatment and Re-Evaluation Narrative: Addendum: I was notified by nursing staff that by the time they made into the room to get the patient's labs she had already eloped from the emergency room. She did not receive Zofran here and did not have labs drawn. Prescription has been sent to the pharmacy for her. Discharge Plan Triage Chief Complaint: Abd Pain ED Provider: Clara Melvin Dx/Rx/DC Orders Clinical Impression: Vomiting, Abdominal pain Instructions: ED Vomiting (Adult) Prescriptions: New ondansetron 4 mg tablet,disintegrating 4 mg PO Q8H PRN (Reason: nausea and vomiting) Qty: 20 0RF No Action paroxetine HCl 20 MG tablet 40 mg PO DAILY atorvastatin 40 MG tablet 40 mg PO QHS metformin 500 MG tablet 1,000 mg PO BID lamotrigine 150 MG tablet 300 mg PO DAILY quetiapine 50 MG tablet 300 mg PO QHS Label Comments: TAKE 1-2 TABLET AT BEDTIME NEEDED omeprazole 20 MG capsule,delayed release(DR/EC) 40 mg PO DAILY Label Comments: take 2 capsules by mouth every morning pregabalin 100 MG capsule 100 mg PO TID empagliflozin 25 MG tablet 25 mg PO DAILY docusate sodium 100 MG capsule 100 mg PO BID etodolac 400 mg tablet 400 mg PO BID Label Comments: take 1 tablet by mouth twice a day ondansetron 4 mg tablet,disintegrating 4 mg PO Q6H PRN (Reason: nausea and vomiting) Qty: 10 0RF alprazolam 0.5 mg tablet 0.5 mg PO DAILY PRN (Reason: Anxiety) Label Comments: take 1 tablet by mouth once daily if needed for anxiety nabumetone 500 mg tablet 500 mg PO BID PRN (Reason: Muscle Pain) Label Comments: take 1 tablet by mouth twice a day NEEDED FOR PAIN Lantus Solostar U-100 Insulin 100 unit/mL (3 mL) insulin pen 10 unit SUBCUT QHS PRN (Reason: blood sugar) Label Comments: inject 10 units at bedtime (FOR BLOOD SUGAR GREATER THAN 150) Rx Instructions: if BS >150 at bedtime hydrocodone-acetaminophen [hydrocodone-acetaminophen] 1 TABLET tablet 1 tab PO Q4H PRN PRN (Reason: Pain) 2 Days Qty: 10 0RF Primary Care Provider: Tyra Yang NP Referrals: Trey,Tyra [employer]ANT SUPERVISOR, S[employer] SUPERVISOR-C [Primary Care Provider] - 5-7 Days Disposition Disposition: Home, Self Care Discharge Date/Time: 12/21/21 16:26
[2021-12-21 16:24] LABS: Bacteria 0 SEEN /hpf (None Seen); Red Blood Cells-Urine 0 SEEN /hpf (0-5)
[2021-12-21 16:30] LABS: Color, Urine Yellow (Yellow); Glucose, Dipstick 50 mg/dl (Normal); Ketone-Dipstick Negative (Negative); Leukocyte Esterase-Dipstick 25 /ul (Negative); Nitrite-Dipstick Negative (Negative); Occult Blood-Urine 10 /ul (Negative); Protein-Dipstick 30 mg/dl (Negative); Specific Gravity, Urine 1.025 (1.002-1.030); Urine Clarity Clear (Clear); Urine Urobilinogen 1 mg/dl (Normal)
[2021-12-21 16:35] LABS: Mucous, Urine 2+ /hpf (<or=2+); Squamous Epithelial Cells - UA 25-50 SEEN /hpf (5-10); Urine Bilirubin Dipstick 6 mg/dL (Negative); White Blood Cells 0-5 SEEN /hpf (0-5)
== END 2021-12-21 16:26 | disposition left against medical advice (07) ==
PROVIDERS: Emergency Provider Emergency Medicine; PCP Nurse Practitioner Family; Visit Provider Emergency Medicine
DX: R11.2 Nausea with vomiting, unspecified (principal); E11.9 Type 2 diabetes mellitus without complications; Z79.4 Long term (current) use of insulin; R10.9 Unspecified abdominal pain; Z53.29 Procedure and treatment not carried out because of patient's decision for other reasons; Z79.84 Long term (current) use of oral hypoglycemic drugs; Z87.891 Personal history of nicotine dependence
CPT/HCPCS: 81001; 99282

== ENCOUNTER 2021-12-24 01:05 | Emergency (ER) | payer MEDICAID, SELFPAY ==
--- NOTE | 2021-12-24 01:07 | CT_ITS ---
STUDY: CT BRAIN WITHOUT CONTRAST REASON FOR EXAM: Female, 51 years old. Stroke alert TECHNIQUE: Transaxial CT imaging of the brain was performed without administration of intravenous contrast material. Individualized dose optimization techniques were used for this CT. COMPARISON: No relevant priors. FINDINGS: Normal soft tissue structures. Normal calvarium. Normal size ventricles and extra-axial spaces for the patient''s age. Normal white matter tracts of the cerebral hemispheres. Normal basal ganglia and thalami. Normal brainstem. Normal cerebellum. There is no intracranial hemorrhage. There are no findings of an acute ischemic infarction. Normal visualized paranasal sinuses. CT/STROKE Brain/Head without Cont IMPRESSION: Normal unenhanced CT scan of the brain. N.B. : The above Results were Read Back by Ric Sheriff MD to Dr. Dylan MD, and understanding confirmed on 12/24/2021 01:51:12 (ET). Electronically Signed: Ric Sheriff MD at 1:47 EDT ,
--- NOTE | 2021-12-24 01:07 | RAD_ITS ---
STUDY: X-RAY CHEST REASON FOR EXAM: Female, 51 years old. STROKE TECHNIQUE: Single AP portable view of the chest. COMPARISON: None. FINDINGS: The lungs are clear and expanded. There is no demonstrated pleural abnormality. Normal size heart. Normal mediastinum and ines. Normal visualized pulmonary arteries. Normal visualized aortic arch and descending thoracic aorta. Normal visualized thoracic spine. Normal visualized ribs, clavicles, and shoulders. There is no demonstrated abnormality of the visualized soft tissue structures of the upper abdomen. RAD/Chest 1 View (Portable) IMPRESSION: Normal x-ray examination of the chest. Electronically Signed: Ric Sheriff MD at 1:46 EDT ,
--- NOTE | 2021-12-24 01:07 | EKG12_ITS ---
Test Reason : DYSRHYTHMIA Blood Pressure : / mmHG Vent. Rate : 093 BPM Atrial Rate : 093 BPM P-R Int : 168 ms QRS Dur : 084 ms QT Int : 360 ms P-R-T Axes : 043 009 040 degrees QTc Int : 447 ms Normal sinus rhythm Low voltage QRS Borderline ECG Confirmed by RAS DALEY, EVELINE ([id number]), editorial cartoonist NAYLA BURTON ([id number]) on 12/25/2021 10:09:37 AM Referred By: Confirmed By:EVELINE MCGINNIS MD
--- NOTE | 2021-12-24 01:14 | EX.ED.DYSGE1 ---
HPI History of Present Illness Chief Complaint: Neuro S/Sx Informant: patient and EMS Narrative Narrative: 51 old female presenting to the emergency department chief complaint of slurred speech. Reportedly per the patient, she has been experiencing intermittent blurred vision slurred speech for the past several months. She is scheduled to have an MRI later today. She states she has also been falling. Last night around 1800 hrs. she states her symptoms returned and she has fallen 4 times. She states that her friend in [place] convinced her to come to the hospital. EMS notes no arm leg or face symptoms. She states that she is very dehydrated because she has been vomiting for a year and no one can figure out why that is happening. Patient has a of diabetes, fibromyalgia, bipolar disorder, anxiety and asthma. Unfortunately the patient took a Xanax before calling the ambulance and is now very tired which could complicate the neurologic exam [facility] Medical History Arthritis Asthma Bipolar disorder Chronic neck and back pain Diabetes Hemorrhoids history of uterine ablation Home Medications paroxetine HCl 20 mg tablet 40 mg PO DAILY DEPRESSION 03/20/13 [History Last Taken 06/09/19] atorvastatin 40 mg tablet 40 mg PO QHS CHOLESTEROL 03/21/13 [History Last Taken 06/08/19] metformin 500 mg tablet,extended release 24 hr 1,000 mg PO BID DM 03/21/13 [History Last Taken 06/09/19] lamotrigine 150 mg tablet 300 mg PO DAILY DEPRESSION 12/03/15 [History Last Taken 06/09/19] quetiapine 50 mg tablet 300 mg PO QHS DEPRESSION 05/22/18 [History Last Taken 06/08/19] omeprazole 20 mg capsule,delayed release 40 mg PO DAILY GERD 01/08/19 [History Last Taken 06/09/19] pregabalin 100 mg capsule 100 mg PO TID PAIN 06/09/19 [History Last Taken 06/09/19] empagliflozin 25 mg tablet 25 mg PO DAILY 01/25/20 [History Last Taken Unknown] docusate sodium 100 mg capsule 100 mg PO BID 02/01/20 [History Last Taken Unknown] etodolac 400 mg tablet 400 mg PO BID 03/22/21 [History Last Taken Unknown] ondansetron 4 mg disintegrating tablet 4 mg PO Q6H PRN nausea and vomiting #10 tabs 03/22/21 [Rx Last Taken Unknown] alprazolam 0.5 mg tablet 0.5 mg PO DAILY PRN Anxiety 04/18/21 [History Last Taken Unknown] insulin glargine 100 unit/mL (3 mL) subcutaneous pen (Lantus Solostar U-100 Insulin) 10 unit subcut QHS PRN blood sugar 04/18/21 [History Last Taken Unknown] nabumetone 500 mg tablet 500 mg PO BID PRN Muscle Pain 04/18/21 [History Last Taken Unknown] hydrocodone-acetaminophen 5-325mg 5mg-325mg 1 tab PO Q4H PRN PRN Pain 2 days #10 TABLETS 08/14/21 [Rx Last Taken Unknown] ondansetron 4 mg disintegrating tablet 4 mg PO Q8H PRN nausea and vomiting #20 tabs 12/21/21 [Rx Last Taken Unknown] Allergy/AdvReac Type Severity Reaction Status Date / Time clindamycin Allergy Hives Verified 12/24/21 01:06 Sulfa (Sulfonamide Allergy Anaphylaxis Verified 12/24/21 01:06 Antibiotics) vancomycin Allergy Hives Verified 12/24/21 01:06 metformin AdvReac Diarrhea Verified 12/24/21 01:06 stainless steal Allergy Mild rash Uncoded 12/24/21 01:06 Family History Other Arthritis Depression Diabetes Fibromyalgia Heart disease Hypertension Surgical History History of carpal tunnel surgery History of elbow surgery History of tonsillectomy and adenoidectomy Hx of neck surgery Social History household members: spouse Smoking Status: Current every day smoker tobacco type: cigarettes alcohol intake: current alcohol intake frequency: holidays/special occasions only ROS ROS ED Constitutional Constitutional ED: Denies chills or weight loss Eyes Eyes: Reports blurry vision; Denies change in vision or diplopia ENT ENT ED: Denies ear pain, rhinorrhea or sore throat Cardiovascular Cardiovascular: Denies chest pain, orthopnea, palpitations or racing heartbeat Respiratory/Chest Respiratory/Chest: Denies cough, dyspnea or orthopnea Gastrointestinal Gastrointestinal: Reports nausea and vomiting; Denies abdominal pain or diarrhea Genitourinary Genitourinary ED: Denies dysuria, hematuria or urinary frequency Musculoskeletal Musculoskeletal: Denies arthralgias or myalgias Integumentary Denies abscess or rash Neurologic Neurologic: Reports other Details: Frequent falls ; Denies headache(s) or weakness Psychiatric Psychiatric: Denies anxiety, depression, suicidal ideation or suicidal thoughts Endocrine Endocrinology: Denies polydipsia, polyphagia or polyuria Allergic/Immunologic Allergic/Immunologic ED: Denies mouth swelling, tongue swelling or urticaria EXAM Physical Exam Narrative Exam Narrative: Listening to the patient speak hot die picker on slurred speech is much as it is more issues with word finding/saying the wrong word. Const Vital Signs: 12/24/21 01:18 12/24/21 02:03 Temperature 97.6 F L Temperature Source Temporal Pulse Rate 105 H Respiratory Rate 15 Blood Pressure 87/69 L 101/77 Blood Pressure Mean 75 85 Pulse Ox 95 Oxygen Delivery Method Room Air Positive well nourished, well developed and obese General Appearance ED: well developed Nutritional Appearance: obese HEENT Reports normocephalic, head/scalp atraumatic and moist mucous membranes Eyes PERRL and EOMs intact bilaterally Neck no lymphadenopathy, supple and no JVD Resp normal respiratory effort and clear to auscultation bilaterally Cardio regular rate, regular rhythm and no murmurs GI normal to inspection, nondistended, normoactive bowel sounds and non-tender Palpation: soft Back/Spine no CVA tenderness and normal ROM Extremity normal to inspection General Extremety ED: Negative for edema General Extremity: Negative for edema Neuro oriented x3 and CN's II-XII intact bilaterally Sensorium / Orientation: alert Motor Exam: strength 5/5 throughout Psych mental status grossly normal Mood & Affect: Negative for depressed or tearful Skin no rashes or lesions noted and no wounds MDM MDM MDM Narrative Medical decision making narrative: My interpretation of the chest x-ray is no acute process. CBC CMP with a glucose of 256. Coags normal. CT of the brain was obtained and was read by radiology reviewed by myself is normal. I went back to speak with the patient who has been sleeping since the CAT scan. She noted to be hypoxic and I asked her about sleep apnea she tells me that she supposed to be on CPAP but cannot find a facemask that will fit her. She is not having slurred speech. I do not feel that the patient had a stroke tonight. Symptoms have been intermittent for months. She is able to ambulate here in the emergency department. At this point I think the patient can be discharged home. She has the MRI in the morning. She needs to follow-up with her doctors. Am not sure that taking Xanax while she is having the symptoms is in the best interest of the patient. Lab Data Attestation: I reviewed the patient's lab results. Labs: Laboratory Results - last 24 hr 12/24/21 12/24/21 12/24/21 01:20 01:20 01:20 WBC 8.2 RBC 4.61 Hgb 13.3 Hct 39.5 MCV 85.7 MCH 28.9 MCHC 33.7 RDW Std Deviation 40.4 RDW Coeff of Charu 12.9 Plt Count 208 MPV 11.1 Immature Gran % (Auto) 0.200 Neut % (Auto) 55.4 Lymph % (Auto) 31.1 [place] % (Auto) 6.2 Eos % (Auto) 6.9 H Baso % (Auto) 0.2 Absolute Neuts (auto) 4.6 Absolute Lymphs (auto) 2.56 Nucleated RBC % 0 PT 12.8 INR 1.0 APTT 26.9 Sodium 135 L Potassium 3.6 Chloride 97 L Carbon Dioxide 27.0 Anion Gap 11 BUN 18 Creatinine 1.34 H Estim Creat Clear Calc 48.84 Est GFR (MDRD) Af Amer 54 L Est GFR (MDRD) Non-Af 45 L BUN/Creatinine Ratio 13.4 Glucose 256 H Calcium 9.2 Total Bilirubin 0.70 AST 23 ALT 53 Alkaline Phosphatase 85 Total Protein 7.1 Albumin 3.7 Globulin 3.4 Albumin/Globulin Ratio 1.1 EKG Initial EKG: Comments: Normal sinus rhythm with a ventricular rate of 93 bpm Discharge Plan Triage Chief Complaint: Neuro S/Sx ED Provider: Bladimir Richardson Dx/Rx/DC Orders Clinical Impression: Type II diabetes mellitus, uncontrolled, Anxiety, Blurred vision, Expressive aphasia Instructions: Aphasia: Improving Communication, ED Blurred Vision Prescriptions: No Action paroxetine HCl 20 MG tablet 40 mg PO DAILY atorvastatin 40 MG tablet 40 mg PO QHS metformin 500 MG tablet 1,000 mg PO BID lamotrigine 150 MG tablet 300 mg PO DAILY quetiapine 50 MG tablet 300 mg PO QHS Label Comments: TAKE 1-2 TABLET AT BEDTIME NEEDED omeprazole 20 MG capsule,delayed release(DR/EC) 40 mg PO DAILY Label Comments: take 2 capsules by mouth every morning pregabalin 100 MG capsule 100 mg PO TID empagliflozin 25 MG tablet 25 mg PO DAILY docusate sodium 100 MG capsule 100 mg PO BID etodolac 400 mg tablet 400 mg PO BID Label Comments: take 1 tablet by mouth twice a day ondansetron 4 mg tablet,disintegrating 4 mg PO Q6H PRN (Reason: nausea and vomiting) Qty: 10 0RF alprazolam 0.5 mg tablet 0.5 mg PO DAILY PRN (Reason: Anxiety) Label Comments: take 1 tablet by mouth once daily if needed for anxiety nabumetone 500 mg tablet 500 mg PO BID PRN (Reason: Muscle Pain) Label Comments: take 1 tablet by mouth twice a day NEEDED FOR PAIN Lantus Solostar U-100 Insulin 100 unit/mL (3 mL) insulin pen 10 unit SUBCUT QHS PRN (Reason: blood sugar) Label Comments: inject 10 units at bedtime (FOR BLOOD SUGAR GREATER THAN 150) Rx Instructions: if BS >150 at bedtime hydrocodone-acetaminophen [hydrocodone-acetaminophen] 1 TABLET tablet 1 tab PO Q4H PRN PRN (Reason: Pain) 2 Days Qty: 10 0RF ondansetron 4 mg tablet,disintegrating 4 mg PO Q8H PRN (Reason: nausea and vomiting) Qty: 20 0RF Primary Care Provider: Tyra Yang NP Referrals: Tyra Yang NP, [facility] [Primary Care Provider] - As soon as possible Disposition Disposition: Home, Self Care NIHSS NIHSS 1a. Level of Consciousness: Alert; keenly responsive 1b. LOC Questions: Answers BOTH questions correctly. 1c. LOC Commands: Performs both tasks correctly. 2. Best Gaze: Normal 3. Visual: No visual loss 4. Facial Palsy: Normal symmetrical movements 5a. Left Arm: No drift; arm holds 90 (or 45) degrees for full 10 seconds 5b. Right Arm: No drift; arm holds 90 (or 45) degrees for full 10 seconds 6a. Left Leg: No drift; leg holds 30-degree position for full 5 seconds 6b. Right Leg: No drift; leg holds 30-degree position for full 5 seconds 7. Limb Ataxia: Absent 8. Sensory: Normal; no sensory loss 9. Best Language: No aphasia; normal 10. Dysarthria: Normal 11. Extinction and Inattention: No abnormality Total: 0
[2021-12-24 01:18] VITALS: BP 87/69; PULSE 105; RESP 15; TEMP 36.4; O2SAT 95; BMI 34.0
[2021-12-24 01:20] VITALS: BMI 34.0
[2021-12-24] MEDS: 0.9% Normal Saline 1,000 ML 1000 ML IV (01:22)
--- NOTE | 2021-12-24 01:23 | ED.RN ---
PER DR. FORD NO NEED TO CALL [facility] AT THIS TIME.
[2021-12-24 01:26] LABS: Absolute Lymphocyte Count 2.56 X10^3/uL (0.83-4.51); Absolute Neutrophil Count 4.6 X10^3/uL (2.0-7.7); Basophil# 0.02 X10^3/uL; Basophil% 0.2 % (0-1); Eosinophil# 0.57 X10^3/uL; Eosinophils% 6.9 % (0-5); Hematocrit 39.5 % (37-47); Hemoglobin 13.3 g/dL (12.0-15.0); Lymphocyte # 2.56 X10^3/ul (0.83-4.51); Lymphocyte % 31.1 % (19-41); Mean Corp Hgb Conc 33.7 g/dL (32-36); Mean Corpuscular Hgb 28.9 pg (27.0-32.0); Mean Corpuscular Volume 85.7 fL (81-99); Mean Platelet Vol. 11.1 fl (6.2-12.0); Monocyte# 0.51 X10^3/uL; Monocyte% 6.2 % (0-10); NRBC Flagged by Analyzer 0 % (0-5); Neutrophil # 4.56 X10^3/uL (2.7-7.7); Neutrophil % 55.4 % (47-70); Platelet Count 208 K/mm3 (150-450); RBC Distribution Width CV 12.9 % (11.6-14.6); RBC Distribution Width SD 40.4 fl (35.1-43.9); Red Blood Count 4.61 M/mm3 (4.2-5.4); White Blood Count 8.2 K/mm3 (4.4-11.0)
[2021-12-24 01:34] LABS: Prothrombin Time (Protime)PT. 12.8 SECONDS (11.7-14.9)
[2021-12-24 01:35] LABS: Partial Thromboplast Time 26.9 Seconds (24.1-36.2)
[2021-12-24 01:43] LABS: ALB/GLOB Ratio 1.1 RATIO (0.9-2.4); AST(SGOT) 23 U/L (15-37); Alanine Aminotransfer ALT/SGPT 53 U/L (13-56); Albumin, Serum 3.7 g/dL (3.2-5.0); Alkaline Phosphatase 85 U/L (45-117); Anion Gap 11 (5-15); BUN 18 mg/dL (7-18); BUN/Creat Ratio 13.4 RATIO (10-20); Calcium,Total 9.2 mg/dL (8.5-10.1); Chloride 97 mmol/L (98-107); Creatinine, Serum 1.34 mg/dL (0.55-1.02); EST Glomerular Filtration Rate 45 mL/min (>60); Est Glom Filt Rate - Afr Amer 54 mL/min (>60); Estimated Creatinine Clearance 48.84 ml/min; Globulin 3.4 g/dL (2.2-4.2); Glucose 256 mg/dL (74-106); Potassium 3.6 mmol/L (3.5-5.1); Protein, Total 7.1 g/dL (6.4-8.2); Sodium Level 135 mmol/L (136-145)
[2021-12-24 02:03] VITALS: BP 101/77
[2021-12-24 03:01] VITALS: BP 115/72
== END 2021-12-24 03:02 | disposition home or self-care (01) ==
PROVIDERS: Emergency Provider Emergency Medicine; PCP Nurse Practitioner Family; Visit Provider Emergency Medicine
DX: R47.01 Aphasia (principal); F31.9 Bipolar disorder, unspecified; E11.65 Type 2 diabetes mellitus with hyperglycemia; Z79.4 Long term (current) use of insulin; F41.9 Anxiety disorder, unspecified; M79.7 Fibromyalgia; E66.9 Obesity, unspecified; F17.210 Nicotine dependence, cigarettes, uncomplicated; Z68.34 Body mass index [BMI] 34.0-34.9, adult; Z79.84 Long term (current) use of oral hypoglycemic drugs; Z79.899 Other long term (current) drug therapy
CPT/HCPCS: 70450; 71045; 80053; 85025; 85610; 85730; 93005; 96360; 99285; J7030; A4216

== ENCOUNTER 2022-03-24 23:34 | Emergency (ER) | payer OTHER, MEDICAID, SELFPAY ==
[2022-03-24 23:35] VITALS: BP 78/55; PULSE 85; RESP 22; TEMP 36.3; O2SAT 92; BMI 35.6
[2022-03-24 23:40] VITALS: BMI 35.5
--- NOTE | 2022-03-24 23:52 | EKG12_ITS ---
Test Reason : DYSRHYTHMIA Blood Pressure : / mmHG Vent. Rate : 079 BPM Atrial Rate : 079 BPM P-R Int : 162 ms QRS Dur : 082 ms QT Int : 380 ms P-R-T Axes : 033 010 040 degrees QTc Int : 435 ms Normal sinus rhythm Low voltage QRS Borderline ECG Confirmed by EVELINE MCGINNIS MD ([id number]), editorial cartoonist RAULITO AUGUSTIN ([id number]) on 03/25/2022 2:43:05 PM Referred By: AJIT Confirmed By:EVELINE MCGINNIS MD
[2022-03-25 00:26] LABS: Bedside Glucose 254 mg/dL (74-106)
[2022-03-25] MEDS: 0.9% Normal Saline 1,000 ML 999 ML IV (00:26)
[2022-03-25 00:35] LABS: Absolute Neutrophil Count 3.7 X10^3/uL (2.0-7.7); Basophil# 0.02 X10^3/uL; Basophil% 0.3 % (0-1); Eosinophil# 0.32 X10^3/uL; Eosinophils% 5.1 % (0-5); Hematocrit 42.6 % (37-47); Hemoglobin 13.8 g/dL (12.0-15.0); Lymphocyte % 33.3 % (19-41); Mean Corp Hgb Conc 32.4 g/dL (32-36); Mean Corpuscular Hgb 28.3 pg (27.0-32.0); Mean Corpuscular Volume 87.5 fL (81-99); Mean Platelet Vol. 10.9 fl (6.2-12.0); Monocyte# 0.19 X10^3/uL; NRBC Flagged by Analyzer 0 % (0-5); Neutrophil # 3.65 X10^3/uL (2.7-7.7); Platelet Count 210 K/mm3 (150-450); RBC Distribution Width CV 12.9 % (11.6-14.6); RBC Distribution Width SD 41.2 fl (35.1-43.9); Red Blood Count 4.87 M/mm3 (4.2-5.4); White Blood Count 6.3 K/mm3 (4.4-11.0)
[2022-03-25 00:54] LABS: Alcohol, Blood (Medical)-Serum < 3.0 mg/dL
[2022-03-25 00:55] LABS: Anion Gap 8 (5-15); BUN 12 mg/dL (7-18); BUN/Creat Ratio 9.1 RATIO (10-20); Calcium,Total 9.2 mg/dL (8.5-10.1); Chloride 102 mmol/L (98-107); Creatinine, Serum 1.32 mg/dL (0.55-1.02); EST Glomerular Filtration Rate 45 mL/min (>60); Est Glom Filt Rate - Afr Amer 55 mL/min (>60); Estimated Creatinine Clearance 49.58 ml/min; Glucose 246 mg/dL (74-106); Magnesium 2.5 mg/dL (1.6-2.6); Potassium 3.6 mmol/L (3.5-5.1); Sodium Level 138 mmol/L (136-145)
[2022-03-25 01:11] LABS: Lactic Acid 2.4 mmol/L (0.4-1.9)
[2022-03-25 01:34] VITALS: BP 106/66; PULSE 78; RESP 18; O2SAT 95
[2022-03-25 01:47] LABS: Mucous, Urine 0 SEEN /hpf (<or=2+)
[2022-03-25 01:50] LABS: Internal QC Validated? YES +Cl - CLEAR BKGD; Pregnancy, Urine Negative Negative
[2022-03-25 01:55] LABS: Color, Urine Yellow (Yellow); Glucose, Dipstick 1000 mg/dl (Normal); Ketone-Dipstick 5 mg/dl (Negative); Leukocyte Esterase-Dipstick 100 /ul (Negative); Nitrite-Dipstick Negative (Negative); Occult Blood-Urine Negative /ul (Negative); Protein-Dipstick 15 mg/dl (Negative); Specific Gravity, Urine 1.015 (1.002-1.030); Urine Bilirubin Dipstick Negative (Negative); Urine Clarity Clear (Clear); Urine Urobilinogen 1 mg/dl (Normal)
[2022-03-25 01:59] LABS: Amphetamine Urine VISTA NEGATIVE (<1000 ng/mL); Barbiturate Urine VISTA NEGATIVE (< 200 ng/mL); Benzodiazepine Urine VISTA NEGATIVE (< 200 ng/mL); Cocaine Urine VISTA NEGATIVE (< 300 ng/mL); Ecstacy Urine VISTA NEGATIVE (< 500 ng/mL); Methadone Urine VISTA NEGATIVE (< 300 ng/mL); PCP Urine VISTA NEGATIVE (< 25 ng/mL); THC Urine VISTA NEGATIVE (< 50 ng/mL); Vista UDS pH Range 6
[2022-03-25 02:31] LABS: Bacteria 3+ /hpf (None Seen); Red Blood Cells-Urine 0-5 SEEN /hpf (0-5); Squamous Epithelial Cells - UA 10-25 SEEN /hpf (5-10); White Blood Cells 5-10 SEEN /hpf (0-5)
[2022-03-25 03:34] VITALS: BP 106/61; PULSE 83; RESP 18; O2SAT 98
[2022-03-25 03:45] VITALS: BP 104/60; PULSE 82; RESP 15; O2SAT 96
--- NOTE | 2022-03-25 03:52 | EDS_ITS ---
HPI History of Present Illness Chief Complaint: Neuro S/Sx Narrative Narrative: Patient is a 51-year-old female with past medical history bipolar disorder anxiety/depression type 2 diabetes and fibromyalgia. She was at home alone this evening when she called complaining of headache and he noticed she was slurring her speech. He states he arrived home and found her awake but tired and noticed that she was having slurred speech and difficulty ambulating. Secondary to this she called EMS. states that patient has had this happen before in the past with no obvious reason. Patient states that she has been taking her medications as directed and there has been no new medication added. She also denies any recent trauma or illicit drug use or alcohol ingestion. [facility] Medical History Arthritis Asthma Bipolar disorder Chronic neck and back pain Diabetes Hemorrhoids history of uterine ablation Home Medications paroxetine HCl 20 mg tablet 40 mg PO DAILY DEPRESSION 03/20/13 [History Last Taken 06/09/19] atorvastatin 40 mg tablet 40 mg PO QHS CHOLESTEROL 03/21/13 [History Last Taken 06/08/19] metformin 500 mg tablet,extended release 24 hr 1,000 mg PO BID DM 03/21/13 [History Last Taken 06/09/19] lamotrigine 150 mg tablet 300 mg PO DAILY DEPRESSION 12/03/15 [History Last Joshua en 06/09/19] quetiapine 50 mg tablet 300 mg PO QHS DEPRESSION 05/22/18 [History Last Taken 06/08/19] omeprazole 20 mg capsule,delayed release 40 mg PO DAILY GERD 01/08/19 [History Last Taken 06/09/19] pregabalin 100 mg capsule 100 mg PO TID PAIN 06/09/19 [History Last Taken 06/09/19] empagliflozin 25 mg tablet 25 mg PO DAILY 01/25/20 [History Last Taken Unknown] docusate sodium 100 mg capsule 100 mg PO BID 02/01/20 [History Last Taken Unknown] etodolac 400 mg tablet 400 mg PO BID 03/22/21 [History Last Taken Unknown] ondansetron 4 mg disintegrating tablet 4 mg PO Q6H PRN nausea and vomiting #10 tabs 03/22/21 [Rx Last Taken Unknown] alprazolam 0.5 mg tablet 0.5 mg PO DAILY PRN Anxiety 04/18/21 [History Last Taken Unknown] insulin glargine 100 unit/mL (3 mL) subcutaneous pen (Lantus Solostar U-100 Insulin) 10 unit subcut QHS PRN blood sugar 04/18/21 [History Last Taken Unknown] nabumetone 500 mg tablet 500 mg PO BID PRN Muscle Pain 04/18/21 [History Last Taken Unknown] hydrocodone-acetaminophen 5-325mg 5mg-325mg 1 tab PO Q4H PRN PRN Pain 2 days #10 TABLETS 08/14/21 [Rx Last Taken Unknown] ondansetron 4 mg disintegrating tablet 4 mg PO Q8H PRN nausea and vomiting #20 tabs 12/21/21 [Rx Last Taken Unknown] Allergy/AdvReac Type Severity Reaction Status Date / Time clindamycin Allergy Hives Verified 03/24/22 23:39 Sulfa (Sulfonamide Allergy Anaphylaxis Verified 03/24/22 23:39 Antibiotics) vancomycin Allergy Hives Verified 03/24/22 23:39 metformin AdvReac Diarrhea Verified 03/24/22 23:39 stainless steal Allergy Mild rash Uncoded 03/24/22 23:39 Family History Other Arthritis Depression Diabetes Fibromyalgia Heart disease Hypertension Surgical History History of carpal tunnel surgery History of elbow surgery History of tonsillectomy and adenoidectomy Hx of neck surgery Social History household members: spouse Smoking Status: Current every day smoker tobacco type: cigarettes alcohol intake: current alcohol intake frequency: holidays/special occasions only ROS ROS ED Constitutional Constitutional ED: Denies chills or fever(s) Eyes Eyes: Denies change in vision ENT ENT ED: Denies sore throat Cardiovascular Cardiovascular: Denies chest pain Respiratory/Chest Respiratory/Chest: Denies cough or dyspnea Gastrointestinal Gastrointestinal: Reports nausea; Denies abdominal pain, diarrhea or vomiting Genitourinary Genitourinary ED: Denies dysuria Musculoskeletal Musculoskeletal: Denies myalgias Integumentary Denies rash Neurologic Neurologic: Reports headache(s) and weakness Psychiatric Psychiatric: Reports anxiety and depression Hematologic/Lymphatic Hematologic/Lymphatic: Denies easy bleeding or easy bruising EXAM Physical Exam Const Vital Signs: 03/24/22 23:35 03/25/22 01:34 03/25/22 03:34 Temperature 97.4 F L Temperature Source Temporal Pulse Rate 85 78 83 Respiratory Rate 22 H 18 18 Blood Pressure 78/55 L 106/66 106/61 Blood Pressure Mean 62 79 76 Pulse Ox 92 95 98 Oxygen Delivery Method Room Air Nasal Cannula Nasal Cannula Oxygen Flow Rate (L/min) 2 2 03/25/22 03:45 Temperature Temperature Source Pulse Rate 82 Respiratory Rate 15 Blood Pressure 104/60 Blood Pressure Mean 74 Pulse Ox 96 Oxygen Delivery Method Nasal Cannula Oxygen Flow Rate (L/min) 2 Positive well nourished, well developed and obese General Appearance ED: well developed Nutritional Appearance: obese HEENT Reports dry mucous membranes HEENT Narrative: No airway edema or compromise Mouth ED: Yes dry mucous membranes Mouth: dry mucous membranes Eyes PERRL and EOMs intact bilaterally Neck supple Neck Narrative: No meningeal signs Resp normal respiratory effort and clear to auscultation bilaterally Cardio regular rate and regular rhythm Rate: other Other Details: Radial pulses are +2-4 bilaterally are equal and symmetric GI normal to inspection, nondistended, normoactive bowel sounds, non-tender and non-distended GI Narrative: No voluntary guarding or rigidity no pulsatile mass Auscultation: normoactive bowel sounds Palpation: soft Extremity normal to inspection Neuro oriented x3 and CN's II-XII intact bilaterally Neuro Narrative: Patient has GCS of 14. She will open her eyes to voice. Cranial nerves II through XII are grossly intact. No pronator drift no dysmetria or truncal ataxia. Patient has occasional slurred speech noted which seems to fluctuate between sentences. Sensorium / Orientation: alert Psych Psych Narrative: Patient has a flat affect Skin no rashes or lesions noted MDM MDM MDM Narrative Medical decision making narrative: Patient presented to the ER with GCS of 14. Blood pressure was low but she is afebrile. She reported a headache associated with her symptoms. reported neurologic symptoms such as weakness and slurred speech. In the ER the weakness seems to have resolved and the speech changes with the sentence as sometimes it is perfectly clear and other times she slurs a word here and there. This is not consistent with acute stroke and therefore I felt no need to activate a stroke alert. Because of the symptoms and hypotension I did elect to perform basic labs and a noncontrast head CT. Labs revealed no clinically significant findings and head CT revealed no acute changes either. On reevaluation the patient has had complete resolution of symptoms. She reports her headache has resolved as well. She was able to ambulate with a steady gait and stroke scale score remains 0. Therefore at this time with resolution of her symptoms and negative work-up as well as the fact that reports that this is occurred in the past with no obvious cause I do not feel the need for inpatient evaluation but more so recommend outpatient follow-up secondary to its recurrence. Patient and are agreeable to this and therefore we discharged at this time Please note patient's urine has +3 bacteria but there is gross contamination with epithelial cells and she has no dysuria so I feel no need for antibiotic Lab Data Attestation: I reviewed the patient's lab results. Labs: Laboratory Results - last 24 hr 03/24/22 03/25/22 03/25/22 23:59 00:29 00:29 WBC 6.3 RBC 4.87 Hgb 13.8 Hct 42.6 MCV 87.5 MCH 28.3 MCHC 32.4 RDW Std Deviation 41.2 RDW Coeff of Charu 12.9 Plt Count 210 MPV 10.9 Immature Gran % (Auto) 0.300 Neut % (Auto) 58.0 Lymph % (Auto) 33.3 [place] % (Auto) 3.0 Eos % (Auto) 5.1 H Baso % (Auto) 0.3 Absolute Neuts (auto) 3.7 Absolute Lymphs (auto) 2.10 Nucleated RBC % 0 Sodium 138 Potassium 3.6 Chloride 102 Carbon Dioxide 28.0 Anion Gap 8 BUN 12 Creatinine 1.32 H Estim Creat Clear Calc 49.58 Est GFR (MDRD) Af Amer 55 L Est GFR (MDRD) Non-Af 45 L BUN/Creatinine Ratio 9.1 L Glucose 246 H Lactic Acid Calcium 9.2 Magnesium 2.5 Urine Color Urine Clarity Urine pH Ur Specific [place] Urine Protein Urine Glucose (UA) Urine Ketones Urine Occult Blood Urine Nitrite Urine Bilirubin Urine Urobilinogen Ur Leukocyte Esterase Urine RBC Urine WBC Ur Squamous Epith Cells Urine Bacteria Urine Mucus Urine Test Urine Opiates Screen Urine Methadone Screen Ur Barbiturates Screen Ur Phencyclidine Scrn Ur Amphetamines Screen MDMA (Ecstasy) Screen U Benzodiazepines Scrn Urine Cocaine Screen U Cannabinoids Screen Ur Drug Screen Comment Ethyl Alcohol POC Glucose 254 H 03/25/22 03/25/22 03/25/22 00:29 00:29 01:40 WBC RBC Hgb Hct MCV MCH MCHC RDW Std Deviation RDW Coeff of Charu Plt Count MPV Immature Gran % (Auto) Neut % (Auto) Lymph % (Auto) [place] % (Auto) Eos % (Auto) Baso % (Auto) Absolute Neuts (auto) Absolute Lymphs (auto) Nucleated RBC % Sodium Potassium Chloride Carbon Dioxide Anion Gap BUN Creatinine Estim Creat Clear Calc Est GFR (MDRD) Af Amer Est GFR (MDRD) Non-Af BUN/Creatinine Ratio Glucose Lactic Acid 2.4 H* Calcium Magnesium Urine Color Urine Clarity Urine pH Ur Specific [place] Urine Protein Urine Glucose (UA) Urine Ketones Urine Occult Blood Urine Nitrite Urine Bilirubin Urine Urobilinogen Ur Leukocyte Esterase Urine RBC Urine WBC Ur Squamous Epith Cells Urine Bacteria Urine Mucus Urine Test Urine Opiates Screen NEGATIVE Urine Methadone Screen NEGATIVE Ur Barbiturates Screen NEGATIVE Ur Phencyclidine Scrn NEGATIVE Ur Amphetamines Screen NEGATIVE MDMA (Ecstasy) Screen NEGATIVE U Benzodiazepines Scrn NEGATIVE Urine Cocaine Screen NEGATIVE U Cannabinoids Screen NEGATIVE Ur Drug Screen Comment Ethyl Alcohol < 3.0 POC Glucose 03/25/22 01:40 WBC RBC Hgb Hct MCV MCH MCHC RDW Std Deviation RDW Coeff of Charu Plt Count MPV Immature Gran % (Auto) Neut % (Auto) Lymph % (Auto) [place] % (Auto) Eos % (Auto) Baso % (Auto) Absolute Neuts (auto) Absolute Lymphs (auto) Nucleated RBC % Sodium Potassium Chloride Carbon Dioxide Anion Gap BUN Creatinine Estim Creat Clear Calc Est GFR (MDRD) Af Amer Est GFR (MDRD) Non-Af BUN/Creatinine Ratio Glucose Lactic Acid Calcium Magnesium Urine Color Yellow Urine Clarity Clear Urine pH 6.0 Ur Specific [place] 1.015 Urine Protein 15 H Urine Glucose (UA) 1000 H Urine Ketones 5 H Urine Occult Blood Negative Urine Nitrite Negative Urine Bilirubin Negative Urine Urobilinogen 1 H Ur Leukocyte Esterase 100 H Urine RBC 0-5 SEEN Urine WBC 5-10 SEEN Ur Squamous Epith Cells 10-25 SEEN Urine Bacteria 3+ Urine Mucus 0 SEEN Urine Test Negative Urine Opiates Screen Urine Methadone Screen Ur Barbiturates Screen Ur Phencyclidine Scrn Ur Amphetamines Screen MDMA (Ecstasy) Screen U Benzodiazepines Scrn Urine Cocaine Screen U Cannabinoids Screen Ur Drug Screen Comment Ethyl Alcohol POC Glucose Radiography Diagnostic Testing: Clinical Impression(s) from Imaging Studies Brain CT 03/25/22 23:52 IMPRESSION: Normal unenhanced CT scan of the brain. Electronically Signed: Aleida Narayanan MD at 1:32 EST , Discharge Plan Triage Chief Complaint: Neuro S/Sx ED Provider: Brendan Partida Dx/Rx/DC Orders Clinical Impression: Atypical migraine, Bipolar disorder, Dehydration Instructions: Migraine Tension Headaches Prescriptions: No Action paroxetine HCl 20 MG tablet 40 mg PO DAILY atorvastatin 40 MG tablet 40 mg PO QHS metformin 500 MG tablet 1,000 mg PO BID lamotrigine 150 MG tablet 300 mg PO DAILY quetiapine 50 MG tablet 300 mg PO QHS Label Comments: TAKE 1-2 TABLET AT BEDTIME NEEDED omeprazole 20 MG capsule,delayed release(DR/EC) 40 mg PO DAILY Label Comments: take 2 capsules by mouth every morning pregabalin 100 MG capsule 100 mg PO TID empagliflozin 25 MG tablet 25 mg PO DAILY docusate sodium 100 MG capsule 100 mg PO BID etodolac 400 mg tablet 400 mg PO BID Label Comments: take 1 tablet by mouth twice a day ondansetron 4 mg tablet,disintegrating 4 mg PO Q6H PRN (Reason: nausea and vomiting) Qty: 10 0RF alprazolam 0.5 mg tablet 0.5 mg PO DAILY PRN (Reason: Anxiety) Label Comments: take 1 tablet by mouth once daily if needed for anxiety nabumetone 500 mg tablet 500 mg PO BID PRN (Reason: Muscle Pain) Label Comments: take 1 tablet by mouth twice a day NEEDED FOR PAIN Lant Solostar U-100 Insulin 100 unit/mL (3 mL) insulin pen 10 unit SUBCUT QHS PRN (Reason: blood sugar) Label Comments: inject 10 units at bedtime (FOR BLOOD SUGAR GREATER THAN 150) Rx Instructions: if BS >150 at bedtime hydrocodone-acetaminophen [hydrocodone-acetaminophen] 1 TABLET tablet 1 tab PO Q4H PRN PRN (Reason: Pain) 2 Days Qty: 10 0RF ondansetron 4 mg tablet,disintegrating 4 mg PO Q8H PRN (Reason: nausea and vomiting) Qty: 20 0RF Primary Care Provider: Tyra Yang NP Referrals: Tyra Yang NP, [facility] [Primary Care Provider] - Activity Restrictions/Additional Instructions: Please continue your home medications as directed by your doctor and follow-up with them for referral to neurology based on your recurrent symptoms. However today's work-up is negative and I feel that your symptoms are most likely related to an atypical migraine. Please return to the ER should you have any further concerns Disposition Disposition: Home, Self Care Discharge Date/Time: 03/25/22 04:11
[2022-03-25 04:33] LABS: Reflex Lactate? Y
--- NOTE | 2022-03-25 23:52 | CT_ITS ---
STUDY: CT BRAIN WITHOUT CONTRAST REASON FOR EXAM: Female, 51 years old. Headache RADIATION DOSAGE (If Supplied By Facility): CTDIvol = ( 44.99 ) mGy, DLP = ( 812.98 ) mGycm TECHNIQUE: Transaxial CT imaging of the brain was performed without administration of intravenous contrast material. Individualized dose optimization techniques were used for this CT. COMPARISON: December 24, 2021 CT head FINDINGS: Normal soft tissue structures. Normal calvarium. Normal size ventricles and extra-axial spaces for the patient''s age. Normal white matter tracts of the cerebral hemispheres. Normal basal ganglia and thalami. Normal brainstem. Normal cerebellum. There is no intracranial hemorrhage. There are no findings of an acute ischemic infarction. Normal visualized paranasal sinuses. CT/Brain/Head without Contrast IMPRESSION: Normal unenhanced CT scan of the brain. Electronically Signed: Aleida Narayanan MD at 1:32 EST ,
== END 2022-03-25 04:11 | disposition home or self-care (01) ==
PROVIDERS: Emergency Provider Emergency Medicine; PCP Nurse Practitioner Family; Visit Provider Emergency Medicine
DX: G43.909 Migraine, unspecified, not intractable, without status migrainosus (principal); F31.9 Bipolar disorder, unspecified; E11.9 Type 2 diabetes mellitus without complications; E86.0 Dehydration; R47.81 Slurred speech; F17.210 Nicotine dependence, cigarettes, uncomplicated; F41.9 Anxiety disorder, unspecified; E66.9 Obesity, unspecified; M79.7 Fibromyalgia
CPT/HCPCS: 70450; 80048; 80307; 81001; 81025; 82077; 82962; 83605; 83735; 85025; 93005; 96360; 96361; 99284; J7030

== ENCOUNTER 2022-08-15 20:32 | Emergency (ER) | payer BC, MEDICAID, SELFPAY ==
[2022-08-15 20:34] VITALS: BP 96/70; PULSE 114; RESP 18; TEMP 35.5; O2SAT 96; BMI 33.6
--- NOTE | 2022-08-15 20:57 | ED.RN ---
pt states she is no longer going to wait for room. has over the counter meds to try.
--- NOTE | 2022-08-15 22:32 | ED.RN ---
pt returned to waiting room to be seen at 2230.
--- NOTE | 2022-08-16 01:40 | EDS_ITS ---
HPI HPI - GI History of Present Illness Chief Complaint: Constipation Informant: patient Narrative Narrative: Patient has history of IBS-C. She has been constipated for about 1.5 weeks. She has had no bowel movement in that period of time. She feels full/discomfort in her lower abdomen. No nausea or vomiting or fevers or chills or bright red blood per rectum. She tried an enema at home but was not able to keep the liquid and so came here. She also has been on Dulcolax and Linzess. [facility] Medical History Arthritis Asthma Bipolar disorder Chronic neck and back pain Diabetes Hemorrhoids history of uterine ablation Home Medications paroxetine HCl 20 mg tablet 40 mg PO DAILY DEPRESSION 03/20/13 [History Last Taken 06/09/19] atorvastatin 40 mg tablet 40 mg PO QHS CHOLESTEROL 03/21/13 [History Last Taken 06/08/19] metformin 500 mg tablet,extended release 24 hr 1,000 mg PO BID DM 03/21/13 [History Last Taken 06/09/19] lamotrigine 150 mg tablet 300 mg PO DAILY DEPRESSION 12/03/15 [History Last Taken 06/09/19] quetiapine 50 mg tablet 300 mg PO QHS DEPRESSION 05/22/18 [History Last Taken 06/08/19] omeprazole 20 mg capsule,delayed release 40 mg PO DAILY GERD 01/08/19 [History Last Taken 06/09/19] pregabalin 100 mg capsule 100 mg PO TID PAIN 06/09/19 [History Last Taken 06/09/19] empagliflozin 25 mg tablet 25 mg PO DAILY 01/25/20 [History Last Taken Unknown] docusate sodium 100 mg capsule 100 mg PO BID 02/01/20 [History Last Taken Unk nown] etodolac 400 mg tablet 400 mg PO BID 03/22/21 [History Last Taken Unknown] ondansetron 4 mg disintegrating tablet 4 mg PO Q6H PRN nausea and vomiting #10 tabs 03/22/21 [Rx Last Taken Unknown] alprazolam 0.5 mg tablet 0.5 mg PO DAILY PRN Anxiety 04/18/21 [History Last Taken Unknown] insulin glargine 100 unit/mL (3 mL) subcutaneous pen (Lantus Solostar U-100 Insulin) 10 unit subcut QHS PRN blood sugar 04/18/21 [History Last Taken Unknown] nabumetone 500 mg tablet 500 mg PO BID PRN Muscle Pain 04/18/21 [History Last Taken Unknown] hydrocodone-acetaminophen 5-325mg 5mg-325mg 1 tab PO Q4H PRN PRN Pain 2 days #10 TABLETS 08/14/21 [Rx Last Taken Unknown] ondansetron 4 mg disintegrating tablet 4 mg PO Q8H PRN nausea and vomiting #20 tabs 12/21/21 [Rx Last Taken Unknown] Allergy/AdvReac Type Severity Reaction Status Date / Time clindamycin Allergy Hives Verified 08/15/22 20:34 Sulfa (Sulfonamide Allergy Anaphylaxis Verified 08/15/22 20:34 Antibiotics) vancomycin Allergy Hives Verified 08/15/22 20:34 metformin AdvReac Diarrhea Verified 08/15/22 20:34 stainless steal Allergy Mild rash Uncoded 08/15/22 20:34 Family History Other Arthritis Depression Diabetes Fibromyalgia Heart disease Hypertension Surgical History History of carpal tunnel surgery History of elbow surgery History of tonsillectomy and adenoidectomy Hx of neck surgery Social History household members: spouse Smoking Status: Former smoker alcohol intake: current alcohol intake frequency: holidays/special occasions only ROS ROS ED Constitutional Constitutional ED: Denies chills or fever(s) Eyes Eyes: Denies change in vision or diplopia ENT ENT ED: Denies rhinorrhea or sore throat Cardiovascular Cardiovascular: Denies chest pain or palpitations Respiratory/Chest Respiratory/Chest: Denies cough or dyspnea Gastrointestinal Gastrointestinal: Reports abdominal pain and constipation; Denies diarrhea, melena, nausea or vomiting Genitourinary Genitourinary ED: Denies dysuria or hematuria Musculoskeletal Musculoskeletal: Denies back pain or neck pain Integumentary Denies abscess or rash Neurologic Neurologic: Denies headache(s), paresthesias or weakness Psychiatric Psychiatric: Denies anxiety or suicidal thoughts EXAM Physical Exam Const Vital Signs: 08/15/22 20:34 Temperature 96 F L Temperature Source Temporal Pulse Rate 114 H Respiratory Rate 18 Blood Pressure 96/70 Blood Pressure Mean 78 Pulse Ox 96 Oxygen Delivery Method Room Air Positive well nourished and well developed General Appearance ED: well developed and NAD HEENT Reports moist mucous membranes normocephalic and atraumatic Eyes PERRL and EOMs intact bilaterally Neck full ROM and supple Resp normal respiratory effort and clear to auscultation bilaterally Cardio regular rate, regular rhythm and no murmurs GI non-distended GI Narrative: Mild tenderness in the left lower quadrant, no guarding or rebound otherwise benign abdomen. On rectal exam, there is no palpable hard stool in the rectal vault. There is no gross blood or melena. Nontender, no hemorrhoids palpable or seen. Auscultation: normoactive bowel sounds Palpation: soft Back/Spine no CVA tenderness General Back: other FROM Extremity normal to inspection General Extremety ED: Negative for edema, pulses abnormal or tenderness General Extremity: Negative for edema or pulses abnormal Neuro oriented x3, CN's II-XII intact bilaterally and no sensory deficits noted Sensorium / Orientation: awake and alert Motor Exam: strength 5/5 throughout Skin no rashes or lesions noted and no wounds MDM MDM MDM Narrative Medical decision making narrative: Patient was given soapsuds enema and had excellent results and felt much better. On reexamination her abdomen is nontender. Reassured, discharged with appropriate instructions. Discharge Plan Triage Chief Complaint: Constipation ED Provider: Kev Dean Dx/Rx/DC Orders Clinical Impression: Constipation Instructions: ED Fecal Impaction, Treated Prescriptions: No Action paroxetine HCl 20 MG tablet 40 mg PO DAILY atorvastatin 40 MG tablet 40 mg PO QHS metformin 500 MG tablet 1,000 mg PO BID lamotrigine 150 MG tablet 300 mg PO DAILY quetiapine 50 MG tablet 300 mg PO QHS Label Comments: TAKE 1-2 TABLET AT BEDTIME NEEDED omeprazole 20 MG capsule,delayed release(DR/EC) 40 mg PO DAILY Label Comments: take 2 capsules by mouth every morning pregabalin 100 MG capsule 100 mg PO TID empagliflozin 25 MG tablet 25 mg PO DAILY docusate sodium 100 MG capsule 100 mg PO BID etodolac 400 mg tablet 400 mg PO BID Label Comments: take 1 tablet by mouth twice a day ondansetron 4 mg tablet,disintegrating 4 mg PO Q6H PRN (Reason: nausea and vomiting) Qty: 10 0RF alprazolam 0.5 mg tablet 0.5 mg PO DAILY PRN (Reason: Anxiety) Label Comments: take 1 tablet by mouth once daily if needed for anxiety nabumetone 500 mg tablet 500 mg PO BID PRN (Reason: Muscle Pain) Label Comments: take 1 tablet by mouth twice a day NEEDED FOR PAIN Lantus Solostar U-100 Insulin 100 unit/mL (3 mL) insulin pen 10 unit SUBCUT QHS PRN (Reason: blood sugar) Label Comments: inject 10 units at bedtime (FOR BLOOD SUGAR GREATER THAN 150) Rx Instructions: if BS >150 at bedtime hydrocodone-acetaminophen [hydrocodone-acetaminophen] 1 TABLET tablet 1 tab PO Q4H PRN PRN (Reason: Pain) 2 Days Qty: 10 0RF ondansetron 4 mg tablet,disintegrating 4 mg PO Q8H PRN (Reason: nausea and vomiting) Qty: 20 0RF Primary Care Provider: Tyra Yang NP Referrals: Tyra Yang NP, [employer] [Primary Care Provider] - As Needed Activity Restrictions/Additional Instructions: Consider daily MiraLAX 1 capful dissolved in at least 8 ounces of any fluid instead of daily Dulcolax Disposition Disposition: Home, Self Care
== END 2022-08-16 01:48 | disposition home or self-care (01) ==
PROVIDERS: Emergency Provider Emergency Medicine; PCP Nurse Practitioner Family; Visit Provider Emergency Medicine
DX: K59.00 Constipation, unspecified (principal); Z87.891 Personal history of nicotine dependence
CPT/HCPCS: 99284

== ENCOUNTER 2022-10-23 11:01 | Outpatient (RCR) | payer BC, SELFPAY ==
--- NOTE | 2022-10-23 12:21 | HP.OTEVAL_ITS ---
Patient's Visit Information NALLELY PARK is a 51 year old F, referred to Occupational Therapy by Dr. Kev Lamb MD, with a diagnosis of radial nerve palsy right. Date of Evaluation: 10/23/22 Occupational Therapist: Lana Hinojosa, JUDY/Shahram, CHT - Subjective This 51 year old female was seen for OT eval with dx of radial nerve palsy. pt states she fell asleep while her was in a procedure and when she woke up about 60 min later she could not move her wrist or fingers. pt states this happened about 3 weeks ago or more. pt states during the day she uses a wrist cock up brace. - Quick DASH-Disab of Arm,Shoulder& Hand Quick DASH Score: [phone] - Goals Goal:: Pt will demo ind. Donning/doffing of custom orthosis by end of 1st session. Pt will demonstrate understanding of orthosis use and precautions by end of 1st session and demonstrate knowledge of returning to clinic if orthosis needs adj. to increase comfort by end of 1st session. - Rehabilitation General Assessment: pt arrives with right wrist drop. pt arrives in need of custom orthosis to support and protect radial nerve and structures while healing. therapist jennifer. custom orthosis ed. in use and skin care/precautions pt demo understanding- pt to return if orthosis needs adj. pt demo understanding and agree to POC. Rehabilitation Potential: Good - Anticipated Interventions Orthoses, Home Program - Visit Plan TEXT: Thank you for the opportunity to evaluate your patient. For Medicare and Medicare HMO plans, please review the plan of care and approve it. It will need to be FAXED BACK to us at [phone] for Medicare purposes. Please let me know if there are questions or concerns regarding this plan of ca re. Physician Signature: Date:
--- NOTE | 2022-12-31 10:44 | HP.OT.NRP ---
Patient Information Patient Information: NALLELY PARK was seen in my office for initial evaluation on 10/23/22. The following Plan of Care was established for this patient: Anticipated Interventions Anticipated Interventions: Orthoses and Home Program Last Seen Last Seen: This patient was last seen in our office 10/23/22. Pertinent comments regarding their Occupational therapy will appear below: pt was seen for eval only. no further apts were attended. Due to time lapse in services pt is d/c at this time. At this point I will be discontinuing this patient from occupational therapy. I would be happy to see this patient again in the future if found appropriate by the physician. Thank you! Lana Hinojosa, OTR/L, CHT
== END 2022-10-23 19:00 | disposition home or self-care (01) ==
LOC: OT 11:01
PROVIDERS: Referring Provider Orthopaedic Surgery; Visit Provider Orthopaedic Surgery
DX: G56.31 Lesion of radial nerve, right upper limb (principal)
CPT/HCPCS: 97165; 97760

== ENCOUNTER 2022-12-23 15:37 | Emergency (ER) | payer BC, MEDICAID, SELFPAY ==
[2022-12-23 15:39] VITALS: BP 152/131; PULSE 100; RESP 22; TEMP 36.3; O2SAT 93
--- NOTE | 2022-12-23 16:10 | RAD_ITS ---
STUDY: X-RAY - ABDOMEN/PELVIS REASON FOR EXAM: Female, 52 years old patient with constipation. TECHNIQUE: AP supine and upright views of the abdomen and pelvis. COMPARISON: CT abdomen and pelvis dated March 22, 2021. FINDINGS: Normal visualized lung bases. There is an unremarkable bowel gas pattern. There is no demonstrated free abdominal air. There is no obvious organomegaly, mass, dilated bowel or pathologic calcifications. There are surgical clips visible in the pelvis probably secondary to tubal ligation. There are diffuse degenerative changes of the visualized spine. RAD/Abd Inc Decub and/or Erect IMPRESSION: 1. Minimal solid stool is visible. 2. No obvious acute intra-abdominal disease. Electronically Signed: Kristie De Paz MD at 16:46 EDT ,
--- NOTE | 2022-12-23 19:06 | EDS_ITS ---
HPI HPI - GI History of Present Illness Chief Complaint: Constipation Informant: patient Narrative Narrative: Concern for constipation and feels discomfort in the rectum. No lower abdominal pain. No fevers. Last bowel movement 4 days ago. This is not atypical for her. She does not take opiates. She takes Colace and Linzess as needed she has been using that. She tried a fleets enema she tried rectal disimpaction. Denies nausea or vomiting. Tubal ligation in the past. Prior similar symptoms: Yes PFSH PFSH Medical History Arthritis Asthma Bipolar disorder Chronic neck and back pain Diabetes Hemorrhoids history of uterine ablation Home Medications paroxetine HCl 20 mg tablet 40 mg PO DAILY DEPRESSION 03/20/13 [History Last Taken 06/09/19] atorvastatin 40 mg tablet 40 mg PO QHS CHOLESTEROL 03/21/13 [History Last Taken 06/08/19] metformin 500 mg tablet,extended release 24 hr 1,000 mg PO BID DM 03/21/13 [History Last Taken 06/09/19] lamotrigine 150 mg tablet 300 mg PO DAILY DEPRESSION 12/03/15 [History Last Taken 06/09/19] quetiapine 50 mg tablet 300 mg PO QHS DEPRESSION 05/22/18 [History Last Taken 06/08/19] omeprazole 20 mg capsule,delayed release 40 mg PO DAILY GERD 01/08/19 [History Last Taken 06/09/19] pregabalin 100 mg capsule 100 mg PO TID PAIN 06/09/19 [History Last Taken 06/09/19] empagliflozin 25 mg tablet 25 mg PO DAILY 01/25/20 [History Last Taken Unknown] docusate sodium 100 mg capsule 100 mg PO BID 02/01/20 [History Last Taken Unknown] etodolac 400 mg tablet 400 mg PO BID 03/22/21 [History Last Taken Unknown] ondansetron 4 mg disintegrating tablet 4 mg PO Q6H PRN nausea and vomiting #10 tabs 03/22/21 [Rx Last Taken Unknown] alprazolam 0.5 mg tablet 0.5 mg PO DAILY PRN Anxiety 04/18/21 [History Last Taken Unknown] insulin glargine 100 unit/mL (3 mL) subcutaneous pen (Lantus Solostar U-100 In sulin) 10 unit subcut QHS PRN blood sugar 12/10/21 [History Last Taken Unknown] nabumetone 500 mg tablet 500 mg PO BID PRN Muscle Pain 04/18/21 [History Last Taken Unknown] hydrocodone-acetaminophen 5-325mg 5mg-325mg 1 tab PO Q4H PRN PRN Pain 2 days #10 TABLETS 08/14/21 [Rx Last Taken Unknown] ondansetron 4 mg disintegrating tablet 4 mg PO Q8H PRN nausea and vomiting #20 tabs 12/21/21 [Rx Last Taken Unknown] Allergy/AdvReac Type Severity Reaction Status Date / Time clindamycin Allergy Hives Verified 12/23/22 15:39 Sulfa (Sulfonamide Allergy Anaphylaxis Verified 12/23/22 15:39 Antibiotics) vancomycin Allergy Hives Verified 12/23/22 15:39 metformin AdvReac Diarrhea Verified 12/23/22 15:39 stainless steal Allergy Mild rash Uncoded 08/15/22 20:34 Family History Other Arthritis Depression Diabetes Fibromyalgia Heart disease Hypertension Surgical History History of carpal tunnel surgery History of elbow surgery History of tonsillectomy and adenoidectomy Hx of neck surgery Social History household members: spouse Smoking Status: Former smoker alcohol intake: current alcohol intake frequency: holidays/special occasions only ROS ROS ED Constitutional Constitutional ED: Denies chills, fever(s) or sweats Eyes Eyes: Denies change in vision ENT ENT ED: Denies dysphagia or sore throat Cardiovascular Cardiovascular: Denies chest pain, leg edema, palpitations or racing heartbeat Respiratory/Chest Respiratory/Chest: Denies cough, dyspnea or dyspnea on exertion Gastrointestinal Gastrointestinal: Reports constipation; Denies abdominal pain, diarrhea, nausea or vomiting Genitourinary Genitourinary ED: Denies dysuria, hematuria or urinary frequency Musculoskeletal Musculoskeletal: Denies back pain, extremity pain or neck pain Integumentary Denies rash or wounds Neurologic Neurologic: Denies headache(s), paresthesias or weakness EXAM Physical Exam Const Vital Signs: 12/23/22 15:39 12/23/22 22:37 12/23/22 23:06 Temperature 97.4 F L Temperature Source Temporal Pulse Rate 100 82 79 Respiratory Rate 22 H 18 18 Blood Pressure 152/131 H 145/87 H 145/75 H Blood Pressure Mean 138 106 Pulse Ox 93 95 Oxygen Delivery Method Room Air Room Air Positive well nourished and well developed General Appearance ED: well developed and NAD HEENT Reports moist mucous membranes normocephalic and atraumatic Eyes PERRL, EOMs intact bilaterally and conjunctivae normal General Eye ED: Yes normal appearance of both eyes Neck no lymphadenopathy and supple General: Negative for tenderness Chest Wall Chest: Negative for tenderness Resp normal respiratory effort and normal air movement Effort and Inspection: symmetric chest movement; Negative for respiratory distress Cardio regular rate, regular rhythm and no murmurs Peripheral Pulses: pulses 2+ throughout GI normal to inspection, nondistended, normoactive bowel sounds and non-tender GI Narrative: Patient declined attempt for rectal disimpaction Palpation: Negative for guarding or rebound tenderness present Back/Spine no CVA tenderness and no thoracic nor lumbar tenderness Extremity normal to inspection General Extremety ED: Negative for edema or tenderness General Extremity: Negative for edema Neuro oriented x3 and no sensory deficits noted Sensorium / Orientation: awake and alert Skin no rashes or lesions noted and no wounds MDM MDM MDM Narrative Medical decision making narrative: Interventions / MDM: Differential diagnosis: Constipation. Diagnosis considered but do not suspect: No abdominal pain for concerns for diverticulitis. My EKG interpretation: N/A Imaging independently reviewed and interpreted by myself: KUB: There is seems to have stools in the descending colon and sigmoid region. External documents reviewed: N/A Test considered but not ordered:N/A ED course: Patient seen after x-rays performed noting stools. After discussion discussed additional disimpaction however she declines. She is willing to try soapsuds enema. This is ordered. Patient treated soapsuds x2 she is able to have a large bowel improving rectal symptoms. Re-evaluation: stable, rectal pain improved with bowel movement. However reported chronic back pain due to her symptoms this is aggravated. She is requesting Toradol. This was ordered IM x1. Discharge with outpatient follow- up. Disposition discussed with patient/family/significant other: Patient and significant other Case discussed with consulting clinician: N/A This note was generated with LaunchTrackation software. It may contain incorrect words, spelling, and punctuation that were not noted in checking the note before signing. Radiography Diagnostic Testing: Clinical Impression(s) from Imaging Studies Abdomen X-Ray 12/23/22 16:10 IMPRESSION: 1. Minimal solid stool is visible. 2. No obvious acute intra-abdominal disease. Electronically Signed: Kristie De Paz MD at 16:46 EDT Reading Location ID and State: [facility] / [place] , Service support , Discharge Plan Triage Chief Complaint: Constipation ED Provider: Robert Lake Dx/Rx/DC Orders Clinical Impression: Back pain, Constipation Instructions: Relieving Back Pain, ED Constipation (Adult) Prescriptions: No Action paroxetine HCl 20 MG tablet 40 mg PO DAILY atorvastatin 40 MG tablet 40 mg PO QHS metformin 500 MG tablet 1,000 mg PO BID lamotrigine 150 MG tablet 300 mg PO DAILY quetiapine 50 MG tablet 300 mg PO QHS Patient Comments: TAKE 1-2 TABLET AT BEDTIME NEEDED omeprazole 20 MG capsule,delayed release(DR/EC) 40 mg PO DAILY Patient Comments: take 2 capsules by mouth every morning pregabalin 100 MG capsule 100 mg PO TID empagliflozin 25 MG tablet 25 mg PO DAILY docusate sodium 100 MG capsule 100 mg PO BID etodolac 400 mg tablet 400 mg PO BID Patient Comments: take 1 tablet by mouth twice a day ondansetron 4 mg tablet,disintegrating 4 mg PO Q6H PRN (Reason: nausea and vomiting) Qty: 10 0RF alprazolam 0.5 mg tablet 0.5 mg PO DAILY PRN (Reason: Anxiety) Patient Comments: take 1 tablet by mouth once daily if needed for anxiety nabumetone 500 mg tablet 500 mg PO BID PRN (Reason: Muscle Pain) Patient Comments: take 1 tablet by mouth twice a day NEEDED FOR PAIN Lantus Solostar U-100 Insulin 100 unit/mL (3 mL) insulin pen 10 unit SUBCUT QHS PRN (Reason: blood sugar) Patient Comments: inject 10 units at bedtime (FOR BLOOD SUGAR GREATER THAN 150) Rx Instructions: if BS >150 at bedtime hydrocodone-acetaminophen [hydrocodone-acetaminophen] 1 TABLET tablet 1 tab PO Q4H PRN PRN (Reason: Pain) 2 Days Qty: 10 0RF ondansetron 4 mg tablet,disintegrating 4 mg PO Q8H PRN (Reason: nausea and vomiting) Qty: 20 0RF Primary Care Provider: Tyra Yang NP Referrals: Tyra Yang NP, [employer] [Primary Care Provider] - 3-5 Days Disposition Disposition: Home, Self Care Discharge Date/Time: 12/23/22 23:07
[2022-12-23] MEDS: Lidocaine Jelly 2% 20 ML Syringe (URO-JET) 1 APPLIC TOPICAL (20:55)
[2022-12-23 22:37] VITALS: BP 145/87; PULSE 82; RESP 18; O2SAT 95
[2022-12-23] MEDS: Ketorolac 30 MG/ML Syringe IM (22:58)
[2022-12-23 23:06] VITALS: BP 145/75; PULSE 79; RESP 18
== END 2022-12-23 23:07 | disposition home or self-care (01) ==
PROVIDERS: Emergency Provider Emergency Medicine; PCP Nurse Practitioner Family; Visit Provider Emergency Medicine
DX: K59.00 Constipation, unspecified (principal); E11.9 Type 2 diabetes mellitus without complications; M54.9 Dorsalgia, unspecified; G89.29 Other chronic pain; Z87.891 Personal history of nicotine dependence
CPT/HCPCS: 74019; 96372; 99285

== ENCOUNTER 2023-03-04 19:14 | Emergency (ER) | payer BC, MEDICAID, SELFPAY ==
[2023-03-04 19:16] VITALS: BP 170/93; PULSE 106; RESP 15; TEMP 36.4; O2SAT 97; BMI 33.6
--- NOTE | 2023-03-04 19:40 | EDS_ITS ---
HPI HPI - Psych History of Present Illness Chief Complaint: Mental Health Narrative Narrative: 52-year-old female, past medical history of depression and anxiety, bipolar disorder, diabetes, presents with her because she states that she feels that she is about to have a nervous breakdown. She has had increasing depression over the last year, stating that it is in relation to the of her mother last year in February. Additionally, her father only has 30 days left and is in hospice. She states she also lost her and tomorrow is like a second mother to her. She states she has been mean to people over the last year, and she talked to her and she wants to be admitted to a psychiatric facility for increasing depression. She denies suicidal ideation but states she tried to commit suicide by overdosing on morphine and Xanax approximately 11 years ago. She denies any homicidal ideation, no hallucinations, both auditory and visual. She states she would like to be admitted, but she cannot check herself in to a psychiatric facility by herself. She states she has been admitted at [facility] twice, and once at [facility] as well. [facility] Medical History Arthritis Asthma Bipolar disorder Chronic neck and back pain Diabetes Hemorrhoids history of uterine ablation Home Medications atorvastatin 40 mg tablet 40 mg PO QHS CHOLESTEROL 03/21/13 [History Last Taken 06/08/19] metformin 500 mg tablet,extended release 24 hr 1,000 mg PO BID DM 03/21/13 [History Last Taken 06/09/19] omeprazole 20 mg capsule,delayed release 40 mg PO DAILY GERD 01/08/19 [History Last Taken 06/09/19] ondansetron 4 mg disintegrating tablet 4 mg PO Q6H PRN nausea and vomiting #10 tabs 03/22/21 [Rx Last Taken Unknown] alprazolam 0.5 mg tablet 0.5 mg PO DAILY PRN Anxiety 04/18/21 [History Last Taken Unknown] insulin glargine 100 unit/mL (3 mL) subcutaneous pen (Lantus Solostar U-100 Insulin) 18 unit subcut QHS PRN blood sugar 04/18/21 [History Last Taken Unknown] cetirizine 10 mg tablet 10 mg PO DAILY 03/04/23 [History Last Taken Unknown] cyclobenzaprine 10 mg tablet 10 mg PO Q12H PRN muscle pain 03/04/23 [History Last Taken Unknown] fluticasone propionate 50 mcg/actuation nasal spray,suspension 2 spray intranasal DAILY 03/04/23 [History Last Taken Unknown] furosemide 80 mg tablet 80 mg PO DAILY 03/04/23 [History Last Taken Unknown] ibuprofen 800 mg tablet 800 mg PO Q8H PRN pain 03/04/23 [History Last Taken Unknown] lamotrigine 200 mg tablet 400 mg PO DAILY 03/04/23 [History Last Taken Unknown] linaclotide 72 mcg capsule (Linzess) 72 mcg PO DAILY 03/04/23 [History Last Taken Unknown] liraglutide 0.6 mg/0.1 mL (18 mg/3 mL) subcutaneous pen injector (Victoza 3-Jac) 1.8 mg subcut QHS 03/04/23 [History Last Taken Unknown] paroxetine HCl 40 mg tablet 40 mg PO DAILY 03/04/23 [History Last Taken Unknown] pregabalin 300 mg capsule 300 mg PO Q12H 03/04/23 [History Last Taken Unknown] quetiapine 400 mg tablet 400 mg PO QHS 03/04/23 [History Last Taken Unknown] Allergy/AdvReac Type Severity Reaction Status Date / Time contact metal agent Allergy Intermediate Rash Verified 03/04/23 19:18 clindamycin Allergy Hives Verified 03/04/23 19:18 Sulfa (Sulfonamide Allergy Anaphylaxis Verified 03/04/23 19:18 Antibiotics) vancomycin Allergy Hives Verified 03/04/23 19:18 metformin AdvReac Diarrhea Verified 03/04/23 19:18 Family History Other Arthritis Depression Diabetes Fibromyalgia Heart disease Hypertension Surgical History History of carpal tunnel surgery History of elbow surgery History of tonsillectomy and adenoidectomy Hx of neck surgery Social History household members: spouse Smoking Status: Current every day smoker tobacco type: cigarettes alcohol intake: current alcohol intake frequency: holidays/special occasions only ROS ROS ED ROS Narrative Constitutional: No fever, no chills. HEENT: No sore throat. No neck pain. No loss of vision. No rhinorrhea. Cardiovascular: No chest pain. No palpitations. No pedal edema. Respiratory: No cough, no shortness of breath. Abdominal: No abdominal pain. No nausea. No vomiting. Genitourinary: No dysuria. No hematuria. Musculoskeletal: No myalgias. No arthralgias. Neurologic: No headaches. No dizziness. No lightheadedness. Skin: No rash. No change in color. Psychiatric: No depression. No anxiety. EXAM Physical Exam Narrative Exam Narrative: Afebrile. Vital signs noted. HEENT: Normocephalic. Atraumatic. PERRL, EOMI. Neck soft and supple. No point tenderness or step off. Cardiovascular: Regular rate and rhythm. No murmurs, rubs, or gallops appreciated. Respiratory: No tachypnea. Lungs clear to auscultation bilaterally. Gastrointestinal: Abdomen soft, nontender, with normoactive bowel sounds. No rebound or guarding. Neurological: Awake. Alert. Nonfocal, nonlateralizing. Skin: No rash. Normal color. No pallor. Musculoskeletal: No pedal edema. Full range of motion extremities. Psychiatric: Depressed affect. Tearful on examination. No active suicidal ideation, states that she would like to be with her mother 1 day and have him so would not perform suicide. No active hallucinations. No internal stimulation. Const Vital Signs: 03/04/23 19:16 03/04/23 20:16 Temperature 97.5 F L Temperature Source Temporal Pulse Rate 106 H Respiratory Rate 15 16 Blood Pressure 170/93 H Blood Pressure Mean 118 Pulse Ox 97 Oxygen Delivery Method Room Air MDM MDM MDM Narrative Medical decision making narrative: Medical screening labs will be obtained. I do feel that she would be able to sign in voluntarily somewhere to get her help with her major depression and is grieving. For her mother has been just a little over a year. In review of her previous ED visits, she has had previous visits for anxiety as well. In discussion with her , he states that he asked her out right if she wanted to come to the emergency department and to be admitted to a psychiatric facility and she said yes. I reviewed her laboratory work and she has a normal white count of 7.2, hemoglobin slightly low at 11.8 which I think is nonspecific, platelet count normal at 224, sodium is normal at 136 with potassium 3.8, chloride 101, creatinine slightly elevated at 1.94 with a BUN of 35. This is a chronic kidney injury for her. LFTs reviewed and AST low at 5. Although her glucose is elevated at 372, she has a normal anion gap of 6. I have no concern for diabetic ketoacidosis or honk. Alcohol level is negative. Urine for drugs of abuse is also negative. At this point in time, I do feel she is medically cleared for mental health evaluation by crisis. Case management is currently unavailable at this time. Disposition is currently pending. Patient will be signed out to the oncoming physician to make final disposition which I think should be admitted, even voluntarily. History & Record Review Discussion w/independent historian: Patient and Family Additional record(s) reviewed:: Prior ED visit Lab Data Attestation: I reviewed the patient's lab results. Labs: Laboratory Results - last 24 hr 03/04/23 03/04/23 19:55 20:00 WBC 7.2 RBC 4.23 Hgb 11.8 L Hct 36.2 L MCV 85.6 MCH 27.9 MCHC 32.6 RDW Std Deviation 40.6 RDW Coeff of Charu 13.2 Plt Count 224 MPV 11.0 Immature Gran % (Auto) 0.600 Neut % (Auto) 46.6 L Lymph % (Auto) 37.1 Cook % (Auto) 7.1 Eos % (Auto) 8.2 H Baso % (Auto) 0.4 Absolute Neuts (auto) 3.3 Absolute Lymphs (auto) 2.66 Nucleated RBC % 0 Sodium 136 Potassium 3.8 Chloride 101 Carbon Dioxide 29.0 Anion Gap 6 BUN 35 H Creatinine 1.94 H Estim Creat Clear Calc 33.36 Est GFR (MDRD) Af Amer 35 L Est GFR (MDRD) Non-Af 29 L BUN/Creatinine Ratio 18.0 Glucose 372 H Calcium 8.6 Total Bilirubin 0.20 AST 5 L ALT 17 Alkaline Phosphatase 120 H Total Protein 7.3 Albumin 3.7 Globulin 3.6 Albumin/Globulin Ratio 1.0 Urine Opiates Screen NEGATIVE Urine Methadone Screen NEGATIVE Ur Barbiturates Screen NEGATIVE Ur Phencyclidine Scrn NEGATIVE Ur Amphetamines Screen NEGATIVE MDMA (Ecstasy) Screen NEGATIVE U Benzodiazepines Scrn NEGATIVE Urine Cocaine Screen NEGATIVE U Cannabinoids Screen NEGATIVE Ur Drug Screen Comment Ethyl Alcohol < 3.0 Discharge Plan Triage Chief Complaint: Mental Health ED Provider: Jh Reyna Dx/Rx/DC Orders Clinical Impression: Complicated grieving, Anxiety, Depressive disorder Prescriptions: No Action atorvastatin 40 MG tablet 40 mg PO QHS metformin 500 MG tablet 1,000 mg PO BID omeprazole 20 MG capsule,delayed release(DR/EC) 40 mg PO DAILY Patient Comments: take 2 capsules by mouth every morning ondansetron 4 mg tablet,disintegrating 4 mg PO Q6H PRN (Reason: nausea and vomiting) Qty: 10 0RF alprazolam 0.5 mg tablet 0.5 mg PO DAILY PRN (Reason: Anxiety) Patient Comments: take 1 tablet by mouth once daily if needed for anxiety insulin glargine [Lantus Solostar U-100 Insulin] 100 unit/mL (3 mL) insulin pen 18 unit SUBCUT QHS PRN (Reason: blood sugar) Patient Comments: inject 10 units at bedtime (FOR BLOOD SUGAR GREATER THAN 150) Rx Instructions: if BS >150 at bedtime lamotrigine 200 mg tablet 400 mg PO DAILY Patient Comments: take 2 tablets by mouth every morning paroxetine HCl 40 mg tablet 40 mg PO DAILY Patient Comments: take 1 tablet by mouth once daily pregabalin 300 mg capsule 300 mg PO Q12H Patient Comments: take 1 capsule by mouth twice a day quetiapine 400 mg tablet 400 mg PO QHS Patient Comments: take 1 tablet by mouth at bedtime cyclobenzaprine 10 mg tablet 10 mg PO Q12H PRN (Reason: muscle pain) Patient Comments: take 1 tablet by mouth twice a day if needed ibuprofen 800 mg tablet 800 mg PO Q8H PRN (Reason: pain) Patient Comments: take 1 tablet by mouth every 8 hours NEEDED FOR PAIN with food furosemide 80 mg tablet 80 mg PO DAILY Patient Comments: take 1 tablet by mouth once daily fluticasone propionate 50 mcg/actuation spray,suspension 2 spray INTRANASAL DAILY Patient Comments: instill 2 sprays into each nostril once daily Rinse mouth after use Victoza 3-Jac 0.6 mg/0.1 mL (18 mg/3 mL) pen injector 1.8 mg SUBCUT QHS Linzess 72 mcg capsule 72 mcg PO DAILY Patient Comments: take 1 capsule by mouth once daily *ADMINISTER ON AN EMPTY STOMAC... (REFER TO PRESCRIPTION NOTES). cetirizine 10 mg tablet 10 mg PO DAILY Patient Comments: take 1 tablet by mouth once daily Primary Care Provider: Tyra Yang NP Referrals: Tyra Yang NP, SENIOR SUPPLIER QUALITY ENGINEER-C [Primary Care Provider] - Disposition Disposition: Psychiatric Hospital or Unit
[2023-03-04 20:15] LABS: Absolute Lymphocyte Count 2.66 X10^3/uL (0.83-4.51); Absolute Neutrophil Count 3.3 X10^3/uL (2.0-7.7); Basophil# 0.03 X10^3/uL; Basophil% 0.4 % (0-1); Eosinophil# 0.59 X10^3/uL; Eosinophils% 8.2 % (0-5); Hematocrit 36.2 % (37-47); Hemoglobin 11.8 g/dL (12.0-15.0); Lymphocyte # 2.66 X10^3/ul (0.83-4.51); Lymphocyte % 37.1 % (19-41); Mean Corp Hgb Conc 32.6 g/dL (32-36); Mean Corpuscular Hgb 27.9 pg (27.0-32.0); Mean Corpuscular Volume 85.6 fL (81-99); Monocyte# 0.51 X10^3/uL; Monocyte% 7.1 % (0-10); NRBC Flagged by Analyzer 0 % (0-5); Neutrophil # 3.34 X10^3/uL (2.7-7.7); Neutrophil % 46.6 % (47-70); Platelet Count 224 K/mm3 (150-450); RBC Distribution Width CV 13.2 % (11.6-14.6); RBC Distribution Width SD 40.6 fl (35.1-43.9); Red Blood Count 4.23 M/mm3 (4.2-5.4); White Blood Count 7.2 K/mm3 (4.4-11.0)
[2023-03-04 20:16] VITALS: RESP 16
[2023-03-04 20:26] LABS: Alcohol, Blood (Medical)-Serum < 3.0 mg/dL
[2023-03-04 20:30] LABS: Amphetamine Urine VISTA NEGATIVE (<1000 ng/mL); Barbiturate Urine VISTA NEGATIVE (< 200 ng/mL); Benzodiazepine Urine VISTA NEGATIVE (< 200 ng/mL); Cocaine Urine VISTA NEGATIVE (< 300 ng/mL); Ecstacy Urine VISTA NEGATIVE (< 500 ng/mL); Methadone Urine VISTA NEGATIVE (< 300 ng/mL); PCP Urine VISTA NEGATIVE (< 25 ng/mL); THC Urine VISTA NEGATIVE (< 50 ng/mL); Vista UDS pH Range 5
[2023-03-04 20:30] LABS: AST(SGOT) 5 U/L (15-37); Alanine Aminotransfer ALT/SGPT 17 U/L (13-56); Albumin, Serum 3.7 g/dL (3.2-5.0); Alkaline Phosphatase 120 U/L (45-117); Anion Gap 6 (5-15); BUN 35 mg/dL (7-18); Calcium,Total 8.6 mg/dL (8.5-10.1); Chloride 101 mmol/L (98-107); Creatinine, Serum 1.94 mg/dL (0.55-1.02); EST Glomerular Filtration Rate 29 mL/min (>60); Est Glom Filt Rate - Afr Amer 35 mL/min (>60); Estimated Creatinine Clearance 33.36 ml/min; Globulin 3.6 g/dL (2.2-4.2); Glucose 372 mg/dL (74-106); Potassium 3.8 mmol/L (3.5-5.1); Protein, Total 7.3 g/dL (6.4-8.2); Sodium Level 136 mmol/L (136-145)
--- NOTE | 2023-03-04 20:50 | NURSING ---
CALLED CRISIS AT 2049
[2023-03-04] MEDS: ALPRAZolam 0.5 MG Tablet PO (23:57)
[2023-03-05 00:16] VITALS: BP 131/87; PULSE 81; RESP 16; O2SAT 99
[2023-03-05 04:00] VITALS: BP 137/84; PULSE 85; RESP 16; O2SAT 99
== END 2023-03-05 06:13 | disposition home or self-care (01) ==
PROVIDERS: Emergency Provider Emergency Medicine; PCP Nurse Practitioner Family; Visit Provider Emergency Medicine
DX: F43.21 Adjustment disorder with depressed mood (principal); F31.9 Bipolar disorder, unspecified; E11.65 Type 2 diabetes mellitus with hyperglycemia; F41.9 Anxiety disorder, unspecified; F17.210 Nicotine dependence, cigarettes, uncomplicated; Z63.4 Disappearance and death of family member; Z63.79 Other stressful life events affecting family and household; Z91.51 Personal history of suicidal behavior; J45.909 Unspecified asthma, uncomplicated
CPT/HCPCS: 80053; 80307; 82077; 85025; 87811; 93005; 99284

== ENCOUNTER 2023-03-05 21:59 | Emergency (ER) | payer BC, MEDICAID, SELFPAY ==
[2023-03-05 22:03] VITALS: BP 142/80; PULSE 104; RESP 18; TEMP 36.4; O2SAT 99; BMI 33.6
--- NOTE | 2023-03-05 22:35 | EX.ED.VIS.PS ---
HPI HPI - Psych History of Present Illness Chief Complaint: Depression Informant: patient and spouse/S.O. Narrative Narrative: Patient depressed and seeking inpatient treatment. She was seen here last night and evaluated by crisis after being medically cleared, sounds like she waited a long time and they eventually had an accepting facility but at that time she wanted to go home and be with her . She states she talked with crisis on the phone again today, she was at a family function and she was doing better but then someone simply mentioned her mother and she broke down again and is depressed and crying and does not seem like she can come out of it and changed her mind and wants to stay inpatient now. She is not suicidal. She denies any alcohol or drugs today. [facility] Medical History Arthritis Asthma Bipolar disorder Chronic neck and back pain Diabetes Hemorrhoids history of uterine ablation Home Medications atorvastatin 40 mg tablet 40 mg PO QHS CHOLESTEROL 03/21/13 [History Last Taken 06/08/19] metformin 500 mg tablet,extended release 24 hr 1,000 mg PO BID DM 03/21/13 [History Last Taken 06/09/19] omeprazole 20 mg capsule,delayed release 40 mg PO DAILY GERD 01/08/19 [History Last Taken 06/09/19] ondansetron 4 mg disintegrating tablet 4 mg PO Q6H PRN nausea and vomiting #10 tabs 03/22/21 [Rx Last Taken Unknown] alprazolam 0.5 mg tablet 0.5 mg PO DAILY PRN Anxiety 04/18/21 [History Last Taken Unknown] insulin glargine 100 unit/mL (3 mL) subcutaneous pen (Lantus Solostar U-100 Insulin) 18 unit subcut QHS PRN blood sugar 04/18/21 [History Last Taken Unknown] cetirizine 10 mg tablet 10 mg PO DAILY 03/04/23 [History Last Taken Unknown] cyclobenzaprine 10 mg tablet 10 mg PO Q12H PRN muscle pain 03/04/23 [History Last Taken Unknown] fluticasone propionate 50 mcg/actuation nasal spray,suspension 2 spray intranasal DAILY 03/04/23 [History Last Taken Unknown] furosemide 80 mg tablet 80 mg PO DAILY 03/04/23 [History Last Taken Unknown] ibuprofen 800 mg tablet 800 mg PO Q8H PRN pain 03/04/23 [History Last Taken Unknown] lamotrigine 200 mg tablet 400 mg PO DAILY 03/04/23 [History Last Taken Unknown] linaclotide 72 mcg capsule (Linzess) 72 mcg PO DAILY 03/04/23 [History Last Taken Unknown] liraglutide 0.6 mg/0.1 mL (18 mg/3 mL) subcutaneous pen injector (Victoza 3-Jac) 1.8 mg subcut QHS 03/04/23 [History Last Taken Unknown] paroxetine HCl 40 mg tablet 40 mg PO DAILY 03/04/23 [History Last Taken Unknown] pregabalin 300 mg capsule 300 mg PO Q12H 03/04/23 [History Last Taken Unknown] quetiapine 400 mg tablet 400 mg PO QHS 03/04/23 [History Last Taken Unknown] Allergy/AdvReac Type Severity Reaction Status Date / Time contact metal agent Allergy Intermediate Rash Verified 03/05/23 22:03 clindamycin Allergy Hives Verified 03/05/23 22:03 Sulfa (Sulfonamide Allergy Anaphylaxis Verified 03/05/23 22:03 Antibiotics) vancomycin Allergy Hives Verified 03/05/23 22:03 fentanyl AdvReac Other Verified 03/05/23 22:03 metformin AdvReac Diarrhea Verified 03/05/23 22:03 Family History Other Arthritis Depression Diabetes Fibromyalgia Heart disease Hypertension Surgical History History of carpal tunnel surgery History of elbow surgery History of tonsillectomy and adenoidectomy Hx of neck surgery Social History household members: spouse Smoking Status: Current every day smoker tobacco type: cigarettes alcohol intake: current alcohol intake frequency: holidays/special occasions only ROS ROS ED Constitutional Constitutional ED: Denies chills or fever(s) Eyes Eyes: Denies change in vision or diplopia ENT ENT ED: Denies rhinorrhea or sore throat Cardiovascular Cardiovascular: Denies chest pain or palpitations Respiratory/Chest Respiratory/Chest: Denies cough or dyspnea Gastrointestinal Gastrointestinal: Denies abdominal pain, diarrhea, nausea or vomiting Genitourinary Genitourinary ED: Denies dysuria or hematuria Musculoskeletal Musculoskeletal: Denies back pain or neck pain Integumentary Denies abscess or rash Neurologic Neurologic: Denies headache(s), paresthesias or weakness Psychiatric Psychiatric: Reports anxiety and depression; Denies homicidal ideation, suicidal ideation or suicidal thoughts EXAM Physical Exam Const Vital Signs: 03/05/23 22:03 03/06/23 00:00 03/06/23 02:00 Temperature 97.5 F L Temperature Source Temporal Pulse Rate 104 H Respiratory Rate 18 16 15 Blood Pressure 142/80 H Blood Pressure Mean 100 Pulse Ox 99 Oxygen Delivery Method 03/06/23 03:57 03/06/23 05:00 Temperature Temperature Source Pulse Rate 81 80 Respiratory Rate 16 16 Blood Pressure 133/86 H Blood Pressure Mean 101 Pulse Ox 97 97 Oxygen Delivery Method Room Air Room Air Positive well nourished, well developed and obese General Appearance ED: well developed and NAD Nutritional Appearance: obese HEENT Reports moist mucous membranes normocephalic and atraumatic Eyes PERRL and EOMs intact bilaterally General Eye ED: Negative for scleral icterus Neck no lymphadenopathy and supple Resp normal respiratory effort and clear to auscultation bilaterally Cardio no murmurs Rate: regular rate Rhythm: regular rhythm GI non-tender and non-distended Auscultation: normoactive bowel sounds Palpation: soft Back/Spine no CVA tenderness and normal ROM Extremity normal to inspection General Extremety ED: Negative for edema General Extremity: Negative for edema Neuro oriented x3, CN's II-XII intact bilaterally, no sensory deficits noted and gait normal Sensorium / Orientation: alert Motor Exam: strength 5/5 throughout Psych mental status grossly normal, thought process normal, cooperative, speech normal, activity/motor behavior normal, denies homicidal ideation and denies suicidal ideation Mood & Affect: depressed and tearful Thought Content: No suicidality and No homicidality Skin Lesions: no lesions Rashes: no rashes MDM MDM MDM Narrative Medical decision making narrative: Patient had labs yesterday, around 24 hours ago I reviewed them, her BUN and creatinine are little higher than usual, her COVID is negative, and she does not appear intoxicated or under the influence of any substances right now clinically. She is medically cleared contacted crisis for placement. They are in agreement and are awaiting acceptance at [facility], who excepted her 24 hours prior. History & Record Review Additional record(s) reviewed:: Prior outpatient record and Prior ED visit Lab Data Labs: Laboratory Results - last 24 hr 03/05/23 22:47 Ethyl Alcohol < 3.0 Discharge Plan Triage Chief Complaint: Depression ED Provider: Kev Dean Dx/Rx/DC Orders Clinical Impression: Depressed bipolar disorder Prescriptions: No Action atorvastatin 40 MG tablet 40 mg PO QHS metformin 500 MG tablet 1,000 mg PO BID omeprazole 20 MG capsule,delayed release(DR/EC) 40 mg PO DAILY Patient Comments: take 2 capsules by mouth every morning ondansetron 4 mg tablet,disintegrating 4 mg PO Q6H PRN (Reason: nausea and vomiting) Qty: 10 0RF alprazolam 0.5 mg tablet 0.5 mg PO DAILY PRN (Reason: Anxiety) Patient Comments: take 1 tablet by mouth once daily if needed for anxiety insulin glargine [Lantus Solostar U-100 Insulin] 100 unit/mL (3 mL) insulin pen 18 unit SUBCUT QHS PRN (Reason: blood sugar) Patient Comments: inject 10 units at bedtime (FOR BLOOD SUGAR GREATER THAN 150) Rx Instructions: if BS >150 at bedtime lamotrigine 200 mg tablet 400 mg PO DAILY Patient Comments: take 2 tablets by mouth every morning paroxetine HCl 40 mg tablet 40 mg PO DAILY Patient Comments: take 1 tablet by mouth once daily pregabalin 300 mg capsule 300 mg PO Q12H Patient Comments: take 1 capsule by mouth twice a day quetiapine 400 mg tablet 400 mg PO QHS Patient Comments: take 1 tablet by mouth at bedtime cyclobenzaprine 10 mg tablet 10 mg PO Q12H PRN (Reason: muscle pain) Patient Comments: take 1 tablet by mouth twice a day if needed ibuprofen 800 mg tablet 800 mg PO Q8H PRN (Reason: pain) Patient Comments: take 1 tablet by mouth every 8 hours NEEDED FOR PAIN with food furosemide 80 mg tablet 80 mg PO DAILY Patient Comments: take 1 tablet by mouth once daily fluticasone propionate 50 mcg/actuation spray,suspension 2 spray INTRANASAL DAILY Patient Comments: instill 2 sprays into each nostril once daily Rinse mouth after use Victoza 3-Jac 0.6 mg/0.1 mL (18 mg/3 mL) pen injector 1.8 mg SUBCUT QHS Linzess 72 mcg capsule 72 mcg PO DAILY Patient Comments: take 1 capsule by mouth once daily *ADMINISTER ON AN EMPTY STOMAC... (REFER TO PRESCRIPTION NOTES). cetirizine 10 mg tablet 10 mg PO DAILY Patient Comments: take 1 tablet by mouth once daily Primary Care Provider: Tyra Yang NP Referrals: Tyra Yang NP, HOSPITAL ADMISSIONS OFFICER-C [Primary Care Provider] - Disposition Disposition: Psychiatric Hospital or Unit
[2023-03-05] MEDS: Acetaminophen 500 MG Tablet 1000 MG PO (22:41)
[2023-03-05 23:13] LABS: Alcohol, Blood (Medical)-Serum < 3.0 mg/dL
[2023-03-06] VITALS: RESP 16
[2023-03-06 02:00] VITALS: RESP 15
[2023-03-06 03:57] VITALS: PULSE 81; RESP 16; O2SAT 97
[2023-03-06 05:00] VITALS: BP 133/86; PULSE 80; RESP 16; O2SAT 97
[2023-03-06 07:15] LABS: Bedside Glucose 288 mg/dL (74-106)
[2023-03-06] MEDS: metFORMIN (XR) 500 MG Tablet 1000 MG PO (08:30)
[2023-03-06 09:46] VITALS: RESP 18
[2023-03-06] MEDS: Paroxetine 20 MG Tablet 40 MG PO (09:49)
[2023-03-06] MEDS: Pantoprazole Sodium 40 MG Tablet PO (09:50)
[2023-03-06] MEDS: Pregabalin 75 MG Capsule 300 MG PO (09:51)
[2023-03-06] MEDS: lamoTRIgine 100 MG Tablet 400 MG PO (09:51)
[2023-03-06] MEDS: Furosemide 80 MG Tablet PO (09:51)
[2023-03-06 11:05] VITALS: RESP 16
[2023-03-06] MEDS: ALPRAZolam 0.5 MG Tablet PO (12:18)
--- NOTE | 2023-03-09 13:53 | CM.ED ---
Social Work SW confirmed with crisis that pt was admitted to [facility] for voluntary placement. Pt has initially declined prior to placement and came back the next dy 03/06 and received placement. Tomasa Knox COMMUNITY MUSIC THERAPIST, BUSINESS MANAGEMENT INTERN
== END 2023-03-06 14:03 ==
PROVIDERS: Emergency Provider Emergency Medicine; PCP Nurse Practitioner Family; Visit Provider Emergency Medicine
DX: F31.9 Bipolar disorder, unspecified (principal); E11.9 Type 2 diabetes mellitus without complications; F17.210 Nicotine dependence, cigarettes, uncomplicated; R51.9 Headache, unspecified; F41.9 Anxiety disorder, unspecified; E66.9 Obesity, unspecified
CPT/HCPCS: 82077; 82962; 99284; A4216

== ENCOUNTER 2023-03-16 22:13 | Observation (INO) | payer BC, MEDICAID, SELFPAY ==
[2023-03-16 22:14] VITALS: BP 66/41; PULSE 86; RESP 13; TEMP 36.6; O2SAT 91; BMI 36.3
--- NOTE | 2023-03-16 22:28 | EKG12_ITS ---
Test Reason : HYPOTENSION Blood Pressure : / mmHG Vent. Rate : 079 BPM Atrial Rate : 079 BPM P-R Int : 172 ms QRS Dur : 086 ms QT Int : 400 ms P-R-T Axes : 040 019 038 degrees QTc Int : 458 ms Normal sinus rhythm Low voltage QRS Cannot rule out Anterior infarct , age undetermined Abnormal ECG Confirmed by EVANGELISTA DALEY, DAVIDSON ([id number]), film editor RAULITO AUGUSTIN ([id number]) on 03/22/2023 8:42:26 AM Referred By: LAURA Confirmed By:FREDRICK NAIDU MD
--- NOTE | 2023-03-16 22:29 | EDS_ITS ---
HPI History of Present Illness Chief Complaint: Hypotension Informant: patient and spouse/S.O. Narrative Narrative: Brought in by EMS from home spouse currently present. Reported this evening felt really lightheaded, spouse had to help her in the bathroom taken off her contacts. Found her slumped over and weak. She has memory loss of unknown etiology, states father just of Alzheimer's with tomorrow. She states she is more confused. She denies cough denies recent vomiting diarrhea denies any urinary symptoms. Denies being on any blood pressure medicines. States blood pressure typically runs low. She has diabetes blood glucose was 313. History of fibromyalgia bipolar and depression. Denies any cardiac history no heart failure. Per spouse has not episodes of confusion 2 times in the past EMS was contacted by time she came to the emergency department she is more alert. They had no clear etiology for those events. EMS with a low blood pressure. She denies fevers or myalgias. Denies alcohol or any illicit drug history. Prior similar symptoms: Yes PFSH PFSH Medical History Arthritis Asthma Bipolar disorder Chronic neck and back pain Diabetes Hemorrhoids history of uterine ablation Home Medications atorvastatin 40 mg tablet 40 mg PO QHS CHOLESTEROL 03/21/13 [History Last Taken 06/08/19] metformin 500 mg tablet,extended release 24 hr 1,000 mg PO BID DM 03/21/13 [History Last Taken 06/09/19] alprazolam 0.5 mg tablet 0.5 mg PO DAILY PRN Anxiety 04/18/21 [History Last Taken Unknown] insulin glargine 100 unit/mL (3 mL) subcutaneous pen (Lantus Solostar U-100 Insulin) 18 unit subcut QHS PRN blood sugar 04/18/21 [History Last Taken Unknown] cyclobenzaprine 10 mg tablet 10 mg PO BID PRN muscle pain 03/04/23 [History Last Taken Unknown] fluticasone propionate 50 mcg/actuation nasal spray,suspension 2 spray intranasal DAILY allergies 03/04/23 [History Last Taken 03/16/23] furosemide 80 mg tablet 80 mg PO DAILY see pcp 03/04/23 [History Last Taken Unknown] ibuprofen 800 mg tablet 800 mg PO Q8H PRN pain 03/04/23 [History Last Taken Unknown] lamotrigine 200 mg tablet 400 mg PO DAILY see pcp 03/04/23 [History Last Taken Unknown] linaclotide 72 mcg capsule (Linzess) 72 mcg PO DAILY see pcp 03/04/23 [History Last Taken Unknown] liraglutide 0.6 mg/0.1 mL (18 mg/3 mL) subcutaneous pen injector (Victoza 3-Jac) 1.8 mg subcut QHS see pcp 03/04/23 [History Last Taken Unknown] paroxetine HCl 40 mg tablet 40 mg PO DAILY see pcp 03/04/23 [History Last Taken Unknown] pregabalin 300 mg capsule 300 mg PO BID see pcp 03/04/23 [History Last Taken Unknown] quetiapine 400 mg tablet 400 mg PO QHS see pcp 03/04/23 [History Last Taken Unknown] benztropine 2 mg tablet 2 mg see pcp 03/17/23 [History Last Taken Unknown] bisacodyl 5 mg tablet,delayed release 5 mg PO DAILY PRN constipation 03/17/23 [History Last Taken Unknown] furosemide 40 mg tablet 20 mg PO see pcp 03/17/23 [History Last Taken Unknown] nicotine 21 mg/24 hr daily transdermal patch smoking cessation 03/17/23 [History Last Taken Unknown] quetiapine 100 mg tablet 100 mg PO DAILY see pcp 03/17/23 [History Last Taken Unknown] Allergy/AdvReac Type Severity Reaction Status Date / Time contact metal agent Allergy Intermediate Rash Verified 03/16/23 22:24 clindamycin Allergy Hives Verified 03/16/23 22:24 Sulfa (Sulfonamide Allergy Anaphylaxis Verified 03/16/23 22:24 Antibiotics) vancomycin Allergy Hives Verified 03/16/23 22:24 fentanyl AdvReac Other Verified 03/16/23 22:24 metformin AdvReac Diarrhea Verified 03/16/23 22:24 Family History Other Arthritis Depression Diabetes Fibromyalgia Heart disease Hypertension Surgical History History of carpal tunnel surgery History of elbow surgery History of tonsillectomy and adenoidectomy Hx of neck surgery Social History household members: spouse Smoking Status: Current every day smoker tobacco type: cigarettes alcohol intake: current alcohol intake frequency: holidays/special occasions only ROS ROS ED Constitutional Constitutional ED: Denies chills, fever(s) or sweats Eyes Eyes: Denies change in vision ENT ENT ED: Denies dysphagia or sore throat Cardiovascular Cardiovascular: Denies chest pain, leg edema, palpitations or racing heartbeat Respiratory/Chest Respiratory/Chest: Denies cough, dyspnea or dyspnea on exertion Gastrointestinal Gastrointestinal: Denies abdominal pain, diarrhea, nausea or vomiting Genitourinary Genitourinary ED: Denies dysuria, hematuria or urinary frequency Musculoskeletal Musculoskeletal: Denies back pain, extremity pain or neck pain Integumentary Denies rash or wounds Neurologic Neurologic: Reports weakness; Denies headache(s) or paresthesias EXAM Physical Exam Const Vital Signs: 03/16/23 22:14 03/16/23 22:20 03/16/23 22:40 Temperature 98 F Temperature Source Oral Pulse Rate 86 86 Respiratory Rate 13 16 Respiratory Effort Normal Respiratory Pattern Normal Blood Pressure 66/41 L 85/54 L Blood Pressure Mean 49 64 Pulse Ox 91 96 Oxygen Delivery Method Room Air Room Air 03/16/23 22:40 03/16/23 23:45 03/17/23 00:00 Temperature Temperature Source Pulse Rate 76 80 Respiratory Rate 12 14 Respiratory Effort Respiratory Pattern Blood Pressure 92/52 L 119/67 Blood Pressure Mean 65 84 Pulse Ox 96 93 96 Oxygen Delivery Method Room Air Room Air Room Air 03/17/23 01:06 03/17/23 01:07 03/17/23 01:08 Temperature 98.3 F Temperature Source Temporal Pulse Rate 80 80 80 Respiratory Rate 14 14 14 Respiratory Effort Respiratory Pattern Blood Pressure 119/67 119/67 119/67 Blood Pressure Mean 84 84 84 Pulse Ox 96 96 96 Oxygen Delivery Method Room Air Room Air Positive well nourished and well developed General Appearance ED: well developed and NAD HEENT HEENT Narrative: Mild dry mucosal membranes normocephalic and atraumatic Eyes PERRL, EOMs intact bilaterally and conjunctivae normal General Eye ED: Yes normal appearance of both eyes Neck no lymphadenopathy and supple General: Negative for tenderness Chest Wall Chest: Negative for tenderness Resp normal respiratory effort and normal air movement Effort and Inspection: symmetric chest movement; Negative for respiratory distress Cardio regular rate, regular rhythm and no murmurs Peripheral Pulses: pulses 2+ throughout GI normal to inspection, nondistended, normoactive bowel sounds and non-tender Palpation: Negative for guarding or rebound tenderness present Back/Spine no CVA tenderness and no thoracic nor lumbar tenderness Extremity normal to inspection General Extremety ED: Negative for edema or tenderness General Extremity: Negative for edema Neuro oriented x3, CN's II-XII intact bilaterally and no sensory deficits noted Sensorium / Orientation: awake and alert Skin no rashes or lesions noted and no wounds MDM MDM MDM Narrative Medical decision making narrative: Interventions / MDM: Differential diagnosis: Infectious process, electrolyte abnormalities, sepsis Diagnosis considered but do not suspect: N/A My EKG interpretation: Sinus rhythm, rate 79, no ST or T wave changes Imaging independently reviewed and interpreted by myself: 1 view chest x-ray: No acute process. CT brain: No acute process. Is also read by radiology. External documents reviewed: N/A Test considered but not ordered:N/A ED course: Blood pressure 66/41 on arrival. Afebrile. Patient alert and oriented x3. Sepsis work-up initiated will give 30 cc/kg bolus. Unclear etiology at this time. She is moving all extremities. 2340: Systolic 113 in the room with fluids. Patient sleeping. Spouse is reporting concerns of slurred speech. Was sent over for CT scan of the brain. Lab work all lactic acid 2 pound 8.1 hemoglobin 10 sick she has CKD creatinine 2.2. Sodium 133. Glucose 325 with a normal anion gap. urine is pending results at this time. Urine positive for infection with nitrites. Urine culture sent. Rocephin started due to her hypotension. Blood pressure most reevaluations improved with fluids. CT brain results also negative with her initial hypotension and UTI discussed with hospitalist Dr. Bowden for admission to PCU. Re-evaluation: stable Disposition discussed with patient/family/significant other: Patient and significant other Case discussed with consulting clinician: Hospitalist This note was generated with [employer] dictation software. It may contain incorrect words, spelling, and punctuation that were not noted in checking the note before signing. Lab Data Attestation: I reviewed the patient's lab results. Labs: Laboratory Results - last 24 hr 03/16/23 03/16/23 22:21 23:30 WBC 8.1 RBC 3.82 L Hgb 10.6 L Hct 33.5 L MCV 87.7 MCH 27.7 MCHC 31.6 L RDW Std Deviation 42.3 RDW Coeff of Charu 13.3 Plt Count 250 MPV 11.3 Immature Gran % (Auto) 0.600 Neut % (Auto) 44.3 L Lymph % (Auto) 41.6 H [place] % (Auto) 4.8 Eos % (Auto) 8.2 H Baso % (Auto) 0.5 Absolute Neuts (auto) 3.6 Absolute Lymphs (auto) 3.38 Nucleated RBC % 0 PT 13.2 INR 1.0 APTT 27.8 Sodium 133 L Potassium 3.5 Chloride 96 L Carbon Dioxide 31.0 Anion Gap 6 BUN 28 H Creatinine 2.21 H Estim Creat Clear Calc 29.29 Est GFR (MDRD) Af Amer 30 L Est GFR (MDRD) Non-Af 25 L BUN/Creatinine Ratio 12.7 Glucose 325 H Lactic Acid 2.0 Calcium 8.7 Total Bilirubin 0.30 AST 9 L ALT 13 Alkaline Phosphatase 107 Total Protein 6.7 Albumin 3.4 Globulin 3.3 Albumin/Globulin Ratio 1.0 Urine Color Yellow Urine Clarity Clear Urine pH 5.0 Ur Specific [place] 1.015 Urine Protein 15 H Urine Glucose (UA) Normal Urine Ketones Negative Urine Occult Blood Negative Urine Nitrite Positive H Urine Bilirubin Negative Urine Urobilinogen Normal Ur Leukocyte Esterase 500 H Urine RBC 0-5 SEEN Urine WBC 0-5 SEEN Ur Squamous Epith Cells 0-5 SEEN Urine Bacteria 2+ Hyaline Casts 0-5 SEEN Urine Mucus 0 SEEN Urine Opiates Screen NEGATIVE Urine Methadone Screen NEGATIVE Ur Barbiturates Screen NEGATIVE Ur Phencyclidine Scrn NEGATIVE Ur Amphetamines Screen NEGATIVE MDMA (Ecstasy) Screen NEGATIVE U Benzodiazepines Scrn NEGATIVE Urine Cocaine Screen NEGATIVE U Cannabinoids Screen NEGATIVE Ur Drug Screen Comment Radiography Diagnostic Testing: Clinical Impression(s) from Imaging Studies Chest X-Ray 03/16/23 22:50 IMPRESSION: No acute cardiopulmonary disease Electronically Signed: Arjun Kidd MD at 23:15 EST , Brain CT 03/16/23 23:43 IMPRESSION: 1. No acute intracranial abnormality. 2. Mild bilateral periventricular and subcortical white matter chronic small vessel disease Electronically Signed: Arjun Kidd MD at 0:27 EST , Critical Care Time Critical Care Time: Yes Critical care time (excluding procedures): 30-74 minutes, Discussing w/Patient &/or Family/Elevator Operator, Discussing w/Consultants, Arranging Admission or Trans cheli, Performing Direct Patient Care at Bedside and - (40 minutes) Discharge Plan Dx/Rx/DC Orders Clinical Impression: UTI (urinary tract infection), Anemia, Hyperglycemia, CKD (chronic kidney disease), Near syncope, Hypotension Disposition Disposition: Acute Care Hospital [facility] Discharge Date/Time: 03/17/23 02:50
[2023-03-16 22:40] VITALS: BP 85/54; PULSE 86; RESP 16; O2SAT 96
[2023-03-16 22:48] LABS: Absolute Lymphocyte Count 3.38 X10^3/uL (0.83-4.51); Absolute Neutrophil Count 3.6 X10^3/uL (2.0-7.7); Basophil# 0.04 X10^3/uL; Basophil% 0.5 % (0-1); Eosinophil# 0.67 X10^3/uL; Eosinophils% 8.2 % (0-5); Hematocrit 33.5 % (37-47); Hemoglobin 10.6 g/dL (12.0-15.0); Lymphocyte # 3.38 X10^3/ul (0.83-4.51); Lymphocyte % 41.6 % (19-41); Mean Corp Hgb Conc 31.6 g/dL (32-36); Mean Corpuscular Hgb 27.7 pg (27.0-32.0); Mean Corpuscular Volume 87.7 fL (81-99); Mean Platelet Vol. 11.3 fl (6.2-12.0); Monocyte# 0.39 X10^3/uL; Monocyte% 4.8 % (0-10); NRBC Flagged by Analyzer 0 % (0-5); Neutrophil % 44.3 % (47-70); Platelet Count 250 K/mm3 (150-450); RBC Distribution Width CV 13.3 % (11.6-14.6); RBC Distribution Width SD 42.3 fl (35.1-43.9); Red Blood Count 3.82 M/mm3 (4.2-5.4); White Blood Count 8.1 K/mm3 (4.4-11.0)
--- NOTE | 2023-03-16 22:50 | RAD_ITS ---
EXAM: XR Chest 1 View INDICATION: Female, 52 years old. Hypotension TECHNIQUE: Single AP view COMPARISON: None FINDINGS: DEVICES: None LUNGS: No confluent air space opacity. No concerning pulmonary nodule. No pleural effusion or pneumothorax. MEDIASTINUM: Mild cardiomegaly. Mediastinal silhouette is within normal limits.. No central pulmonary vascular congestion. . SKELETAL STRUCTURES: No acute skeletal abnormality. Mild multilevel degenerative changes in the spine. Anterior cervical spinal fusion instrumentation noted. UPPER ABDOMEN: Unremarkable RAD/Chest 1 View (Portable) IMPRESSION: No acute cardiopulmonary disease Electronically Signed: Arjun Kidd MD at 23:15 EST ,
[2023-03-16] MEDS: 0.9% Normal Saline (1000mL) 1,000 ML 999 ML IV (23:02)
[2023-03-16 23:05] LABS: Partial Thromboplast Time 27.8 Seconds (24.1-36.2); Prothrombin Time (Protime)PT. 13.2 SECONDS (11.7-14.9)
[2023-03-16 23:07] LABS: AST(SGOT) 9 U/L (15-37); Alanine Aminotransfer ALT/SGPT 13 U/L (13-56); Albumin, Serum 3.4 g/dL (3.2-5.0); Alkaline Phosphatase 107 U/L (45-117); Anion Gap 6 (5-15); BUN 28 mg/dL (7-18); BUN/Creat Ratio 12.7 RATIO (10-20); Calcium,Total 8.7 mg/dL (8.5-10.1); Chloride 96 mmol/L (98-107); Creatinine, Serum 2.21 mg/dL (0.55-1.02); EST Glomerular Filtration Rate 25 mL/min (>60); Est Glom Filt Rate - Afr Amer 30 mL/min (>60); Estimated Creatinine Clearance 29.29 ml/min; Globulin 3.3 g/dL (2.2-4.2); Glucose 325 mg/dL (74-106); Potassium 3.5 mmol/L (3.5-5.1); Protein, Total 6.7 g/dL (6.4-8.2); Sodium Level 133 mmol/L (136-145)
[2023-03-16 23:42] LABS: Mucous, Urine 0 SEEN /hpf (<or=2+)
[2023-03-16 23:43] LABS: Color, Urine Yellow (Yellow); Glucose, Dipstick Normal (Normal); Ketone-Dipstick Negative (Negative); Leukocyte Esterase-Dipstick 500 /ul (Negative); Nitrite-Dipstick Positive (Negative); Occult Blood-Urine Negative /ul (Negative); Protein-Dipstick 15 mg/dl (Negative); Specific Gravity, Urine 1.015 (1.002-1.030); Urine Bilirubin Dipstick Negative (Negative); Urine Clarity Clear (Clear); Urine Urobilinogen Normal (Normal)
--- NOTE | 2023-03-16 23:43 | CT_ITS ---
STUDY: CT BRAIN WITHOUT CONTRAST REASON FOR EXAM: Female, 52 years old. Fusion RADIATION DOSAGE (If Supplied By Facility): CTDIvol = ( 44.99 ) mGy, DLP = ( 846.73 ) mGycm TECHNIQUE: Transaxial CT imaging of the brain was performed without administration of intravenous contrast material. Individualized dose optimization techniques were used for this CT. COMPARISON: 03/25/2022. FINDINGS: Normal soft tissue structures. Normal calvarium. Normal size ventricles and extra-axial spaces for the patient''s age. There is mild bilateral periventricular and subcortical white matter hypoattenuation which is symmetric in distribution. Normal basal ganglia and thalami. Normal brainstem. Normal cerebellum. There is no intracranial hemorrhage. There are no findings of an acute ischemic infarction. Normal visualized paranasal sinuses. CT/Brain/Head without Contrast IMPRESSION: 1. No acute intracranial abnormality. 2. Mild bilateral periventricular and subcortical white matter chronic small vessel disease Electronically Signed: Arjun Kidd MD at 0:27 EST ,
[2023-03-16 23:45] VITALS: BP 92/52; PULSE 76; RESP 12; O2SAT 93
[2023-03-16 23:55] LABS: Bacteria 2+ /hpf (None Seen); Hyaline Cast 0-5 SEEN /lpf (0-5); Red Blood Cells-Urine 0-5 SEEN /hpf (0-5); Squamous Epithelial Cells - UA 0-5 SEEN /hpf (5-10); White Blood Cells 0-5 SEEN /hpf (0-5)
[2023-03-17] VITALS (13 sets, daily range): BP systolic 117–156; BP diastolic 67–83; PULSE 80–88; RESP 10–18; TEMP 35.6–36.8; O2SAT 88–98; BMI 34.4
[2023-03-17] MEDS: Ceftriaxone 1 GM/50 ML BAG IV ×2 (00:36→21:22)
[2023-03-17 00:47] LABS: Amphetamine Urine VISTA NEGATIVE (<1000 ng/mL); Barbiturate Urine VISTA NEGATIVE (< 200 ng/mL); Benzodiazepine Urine VISTA NEGATIVE (< 200 ng/mL); Cocaine Urine VISTA NEGATIVE (< 300 ng/mL); Ecstacy Urine VISTA NEGATIVE (< 500 ng/mL); Methadone Urine VISTA NEGATIVE (< 300 ng/mL); PCP Urine VISTA NEGATIVE (< 25 ng/mL); THC Urine VISTA NEGATIVE (< 50 ng/mL); Vista UDS pH Range 5
--- NOTE | 2023-03-17 01:22 | PCM.HP.STD ---
[facility] - General General Date of Admission: 03/17/23 Date of Service: 03/17/23 Chief Complaint: Dysuria, confusion and malaise. HPI Narrative NALLELY TATE, is a 52 F with a past medical history of essential hypertension, hyperlipidemia, diabetes mellitus type 2 of unknown control, chronic kidney disease; with baseline creatinine of approximately 2 mg/dL, history of tobacco abuse, mild intermittent asthma, bipolar disorder, fibromyalgia, osteoarthritis; with chronic neck and back pain, history of uterine ablation, and history of hemorrhoids who presents to [facility] ER complaining of dysuria, confusion and malaise. Ms. Tate reports her symptoms began a few hours prior to admission with a rapid onset of lightheadedness and near syncope with her finding her slumped over in the bathroom when she was taking out her contacts. She admits to increased life stress because of the recent of her beloved father due to complications from Alzheimer's disease with tomorrow. EMS was activated and noted that patient was confused with a blood pressure in the 66/41 mm Hg systolic range with a blood glucose of 313 mg/dL with marked improvement after 1 L of IV fluid in the ER with blood pressure increasing to 119/67 mm Hg. The patient's states her blood pressure normally runs low and the patient has become severely forgetful and irritable with suspicion for possible early dementia but he denies fevers, chills or myalgias. In the ER she was diagnosed with severe acute cystitis complicated by symptomatic hypotension with acute kidney injury in the setting of chronic kidney disease stage III with creatinine of 2.21 mg/dL present on admission likely related to dehydration causing metabolic encephalopathy and malaise and she was then admitted to the general medical floor for ongoing care for a stay that is expected to be greater than 48 hours. [facility] Medical History Arthritis Asthma Bipolar disorder Chronic neck and back pain Diabetes Hemorrhoids history of uterine ablation Home Medications atorvastatin 40 mg tablet 40 mg PO QHS CHOLESTEROL 03/21/13 [History Last Taken 06/08/19] metformin 500 mg tablet,extended release 24 hr 1,000 mg PO BID DM 03/21/13 [History Last Taken 06/09/19] alprazolam 0.5 mg tablet 0.5 mg PO TID PRN PRN Anxiety 04/18/21 [History Last Taken Unknown] insulin glargine 100 unit/mL (3 mL) subcutaneous pen (Lantus Solostar U-100 Insulin) 18 unit subcut QHS PRN blood sugar 04/18/21 [History Last Taken Unknown] cyclobenzaprine 10 mg tablet 10 mg PO BID PRN muscle pain 03/04/23 [History Last Taken Unknown] fluticasone propionate 50 mcg/actuation nasal spray,suspension 2 spray intranasal DAILY allergies 03/04/23 [History Last Taken 03/16/23] furosemide 80 mg tablet 80 mg PO DAILY see pcp 03/04/23 [History Last Taken Unknown] ibuprofen 800 mg tablet 800 mg PO Q8H PRN pain 03/04/23 [History Last Taken Unknown] lamotrigine 200 mg tablet 400 mg PO DAILY see pcp 03/04/23 [History Last Taken Unknown] linaclotide 72 mcg capsule (Linzess) 72 mcg PO DAILY see pcp 03/04/23 [History Last Taken Unknown] liraglutide 0.6 mg/0.1 mL (18 mg/3 mL) subcutaneous pen injector (Victoza 3-Jac) 1.8 mg subcut QHS see pcp 03/04/23 [History Last Taken Unknown] paroxetine HCl 40 mg tablet 40 mg PO DAILY see pcp 03/04/23 [History Last Taken Unknown] pregabalin 300 mg capsule 300 mg PO BID see pcp 03/04/23 [History Last Taken Unknown] quetiapine 400 mg tablet 400 mg PO QHS see pcp 03/04/23 [History Last Taken Unknown] benztropine 2 mg tablet 2 mg see pcp 03/17/23 [History Last Taken Unknown] bisacodyl 5 mg tablet,delayed release 5 mg PO DAILY PRN constipation 03/17/23 [History Last Taken Unknown] furosemide 40 mg tablet 20 mg PO see pcp 03/17/23 [History Last Taken Unknown] nicotine 21 mg/24 hr daily transdermal patch smoking cessation 03/17/23 [History Last Taken Unknown] quetiapine 100 mg tablet 100 mg PO DAILY see pcp 03/17/23 [History Last Taken Unknown] Allergy/AdvReac Type Severity Reaction Status Date / Time contact metal agent Allergy Intermediate Rash Verified 03/16/23 22:24 clindamycin Allergy Hives Verified 03/16/23 22:24 Sulfa (Sulfonamide Allergy Anaphylaxis Verified 03/16/23 22:24 Antibiotics) vancomycin Allergy Hives Verified 03/16/23 22:24 fentanyl AdvReac Other Verified 03/16/23 22:24 metformin AdvReac Diarrhea Verified 03/16/23 22:24 Family History Other Arthritis Depression Diabetes Fibromyalgia Heart disease Hypertension Surgical History History of carpal tunnel surgery History of elbow surgery History of tonsillectomy and adenoidectomy Hx of neck surgery Social History household members: spouse Smoking Status: Current every day smoker tobacco type: cigarettes alcohol intake: current alcohol intake frequency: holidays/special occasions only ROS ROS Narrative Review of systems: Constitutional: Denies fevers chills or sweats and patient is lethargic but arousable. Eyes: Denies visual changes ENT: Denies dysphagia or sore throat Cardiovascular: Denies chest pain lower extremity edema palpitations or heart racing Respiratory: Denies cough shortness of breath or dyspnea on exertion GI: Denies abdominal pain diarrhea nausea or vomiting Genitourinary: She admits to dysuria and urinary frequency but denies hematuria. Musculoskeletal: Patient denies back pain Skin: No rash or wounds Neurologic: Transient mild confusion the patient denies focal neurologic weakness headaches or paresthesias. Vital Signs Vital Signs Vital Signs: 03/16/23 22:14 03/16/23 22:20 03/16/23 22:40 Temperature 98 F Temperature Source Oral Pulse Rate 86 86 Respiratory Rate 13 16 Respiratory Effort Normal Respiratory Pattern Normal Blood Pressure 66/41 L 85/54 L Blood Pressure Mean 49 64 Pulse Ox 91 96 Oxygen Delivery Method Room Air Room Air 03/16/23 22:40 03/16/23 23:45 03/17/23 00:00 Temperature Temperature Source Pulse Rate 76 80 Respiratory Rate 12 14 Respiratory Effort Respiratory Pattern Blood Pressure 92/52 L 119/67 Blood Pressure Mean 65 84 Pulse Ox 96 93 96 Oxygen Delivery Method Room Air Room Air Room Air 03/17/23 01:06 03/17/23 01:07 03/17/23 01:08 Temperature 98.3 F Temperature Source Temporal Pulse Rate 80 80 80 Respiratory Rate 14 14 14 Respiratory Effort Respiratory Pattern Blood Pressure 119/67 119/67 119/67 Blood Pressure Mean 84 84 84 Pulse Ox 96 96 96 Oxygen Delivery Method Room Air Room Air Weight Weight: 231 lb 14.821 oz Body Mass Index (BMI) 36.3 Physical Exam Const no apparent distress Constitutional Narrative: Patient morbidly obese and lethargic but arousable. Orientation / Consciousness: lethargic HEENT normocephalic, head/scalp atraumatic and hearing grossly normal bilaterally HEENT Narrative: Oropharynx dry. Eyes PERRL, EOMs intact bilaterally and conjunctivae normal Neck no lymphadenopathy, supple and no JVD Resp normal respiratory effort, no retractions, no use of accessory muscles and clear to auscultation bilaterally Cardio regular rate and regular rhythm GI normal to inspection, nondistended, normoactive bowel sounds, soft to palpation, non-tender and non-distended Extremity normal to inspection Neuro moves all extremities and no focal motor deficits Neuro Narrative: Patient is lethargic but arousable. Results Medical Records Data Attestation: I reviewed the patient's medical records Lab / Micro Data Attestation: I reviewed the patient's lab results. 03/17/23 04:01 03/17/23 04:01 Labs: Laboratory Results - last 24 hr 03/16/23 22:21: WBC 8.1, RBC 3.82 L, Hgb 10.6 L, Hct 33.5 L, MCV 87.7, MCH 27.7, MCHC 31.6 L, RDW Std Deviation 42.3, RDW Coeff of Charu 13.3, Plt Count 250, MPV 11.3, Immature Gran % (Auto) 0.600, Neut % (Auto) 44.3 L, Lymph % (Auto) 41.6 H, [place] % (Auto) 4.8, Eos % (Auto) 8.2 H, Baso % (Auto) 0.5, Absolute Neuts (auto) 3.6, Absolute Lymphs (auto) 3.38, Nucleated RBC % 0, PT 13.2, INR 1.0, APTT 27.8, Sodium 133 L, Potassium 3.5, Chloride 96 L, Carbon Dioxide 31.0, Anion Gap 6, BUN 28 H, Creatinine 2.21 H, Estim Creat Clear Calc 29.29, Est GFR (MDRD) Af Amer 30 L, Est GFR (MDRD) Non-Af 25 L, BUN/Creatinine Ratio 12.7, Glucose 325 H, Lactic Acid 2.0, Calcium 8.7, Total Bilirubin 0.30, AST 9 L, ALT 13, Alkaline Phosphatase 107, Total Protein 6.7, Albumin 3.4, Globulin 3.3, Albumin/Globulin Ratio 1.0 03/16/23 23:30: Urine Color Yellow, Urine Clarity Clear, Urine pH 5.0, Ur Specific [place] 1.015, Urine Protein 15 H, Urine Glucose (UA) Normal, Urine Ketones Negative, Urine Occult Blood Negative, Urine Nitrite Positive H, Urine Bilirubin Negative, Urine Urobilinogen Normal, Ur Leukocyte Esterase 500 H, Urine RBC 0-5 SEEN, Urine WBC 0-5 SEEN, Ur Squamous Epith Cells 0-5 SEEN, Urine Bacteria 2+, Hyaline Casts 0-5 SEEN, Urine Mucus 0 SEEN, Urine Opiates Screen NEGATIVE, Urine Methadone Screen NEGATIVE, Ur Barbiturates Screen NEGATIVE, Ur Phencyclidine Scrn NEGATIVE, Ur Amphetamines Screen NEGATIVE, MDMA (Ecstasy) Screen NEGATIVE, U Benzodiazepines Scrn NEGATIVE, Urine Cocaine Screen NEGATIVE, U Cannabinoids Screen NEGATIVE, Ur Drug Screen Comment Radiology Impression Chest X-Ray 03/16/23 22:50 IMPRESSION: No acute cardiopulmonary disease Electronically Signed: Arjun Kidd MD at 23:15 EST , Brain CT 03/16/23 23:43 IMPRESSION: 1. No acute intracranial abnormality. 2. Mild bilateral periventricular and subcortical white matter chronic small vessel disease Electronically Signed: Arjun Kidd MD at 0:27 EST , Assessment & Plan Assessment/Plan (1) UTI (urinary tract infection): PLAN: Plan 1. Acute cystitis; without hematuria - Admit to general medical floor. Continue broad-spectrum antibiotics and await culture and sensitivity data. Give Tylenol as needed for fever or pain. Finally, the patient was not expected to have sepsis present on admission due to her normal white blood cell count and rapid improvement in her blood pressure with 1 L of IV fluid. 2. Acute kidney injury in the setting of stage III chronic kidney disease likely due to dehydration complicating #1 - Volume resuscitate and recheck BMP in the a.m. to ensure improvement. 3. Acute metabolic encephalopathy in the setting of a likely evolving chronic dementia arising from #1 and #2 - Continue supportive care and monitor for improvement. 4. Diabetes mellitus type 2 uncontrolled with hyperglycemia at 325 mg/dL present on admission compounding #1 - #3 - ADA diet 1800 marcio/day. Fingerstick blood sugars before every meal and at bedtime plus sliding scale insulin. Check hemoglobin A1c 5. Acutely increased life stress due to the recent of her beloved father adding to the pathology of #1 - #4 -continue supportive care. The patient's warns that she will become very irritable if she is told she cannot go to her father's the patient may require sedation. 6. Essential hypertension - Hold scheduled antihypertensives until volume status is corrected. 7. Bipolar disorder with fibromyalgia - Continue home medications as previous. 8. History of mild intermittent asthma - Stable with no evidence of flare at this time. Continue as needed nebulizers. 9. Osteoarthritis with chronic neck and back pain - Stable. 10. DVT prophylaxis - Lovenox 30 mg subcu daily given patient's diminished kidney function. Total time: Approximately 75 minutes Charges/Coding Visit Charges Inpatient E&M: 36955 Init Hosp L3
[2023-03-17 02:42] LABS: Reflex Lactate? Y
[2023-03-17 04:09] LABS: Absolute Lymphocyte Count 3.06 X10^3/uL (0.83-4.51); Absolute Neutrophil Count 2.7 X10^3/uL (2.0-7.7); Basophil# 0.02 X10^3/uL; Basophil% 0.3 % (0-1); Eosinophils% 8.8 % (0-5); Hematocrit 32.6 % (37-47); Hemoglobin 10.6 g/dL (12.0-15.0); Lymphocyte # 3.06 X10^3/ul (0.83-4.51); Lymphocyte % 44.9 % (19-41); Mean Corp Hgb Conc 32.5 g/dL (32-36); Mean Corpuscular Hgb 28.3 pg (27.0-32.0); Mean Corpuscular Volume 87.2 fL (81-99); Mean Platelet Vol. 10.9 fl (6.2-12.0); Monocyte# 0.39 X10^3/uL; Monocyte% 5.7 % (0-10); NRBC Flagged by Analyzer 0 % (0-5); Neutrophil # 2.69 X10^3/uL (2.7-7.7); Neutrophil % 39.6 % (47-70); Platelet Count 218 K/mm3 (150-450); RBC Distribution Width CV 13.3 % (11.6-14.6); RBC Distribution Width SD 42.2 fl (35.1-43.9); Red Blood Count 3.74 M/mm3 (4.2-5.4); White Blood Count 6.8 K/mm3 (4.4-11.0)
[2023-03-17 04:43] LABS: Lactic Acid 1.7 mmol/L (0.4-1.9)
[2023-03-17 04:49] LABS: ALB/GLOB Ratio 0.9 RATIO (0.9-2.4); AST(SGOT) 8 U/L (15-37); Alanine Aminotransfer ALT/SGPT 14 U/L (13-56); Albumin, Serum 2.9 g/dL (3.2-5.0); Alkaline Phosphatase 100 U/L (45-117); Anion Gap 6 (5-15); BUN 27 mg/dL (7-18); BUN/Creat Ratio 13.3 RATIO (10-20); Calcium,Total 7.8 mg/dL (8.5-10.1); Chloride 106 mmol/L (98-107); Creatinine, Serum 2.03 mg/dL (0.55-1.02); EST Glomerular Filtration Rate 27 mL/min (>60); Est Glom Filt Rate - Afr Amer 33 mL/min (>60); Estimated Creatinine Clearance 31.88 ml/min; Globulin 3.3 g/dL (2.2-4.2); Glucose 276 mg/dL (74-106); Potassium 3.7 mmol/L (3.5-5.1); Protein, Total 6.2 g/dL (6.4-8.2); Sodium Level 138 mmol/L (136-145); Thyroid Stim Hormone (TSH) 2.95 uIU/mL (0.358-3.74)
[2023-03-17] MEDS: 0.9% Normal Saline (1000mL) 1,000 ML 100 ML IV ×2 (04:59→15:13)
[2023-03-17 08:22] LABS: Hemoglobin A1c 9.5 % (3.8-5.6)
[2023-03-17] MEDS: Enoxaparin 30 MG/0.3 ML Syringe SC (10:50)
[2023-03-17] MEDS: Loratadine 10 MG Tablet PO (10:51)
[2023-03-17] MEDS: LINACLOTIDE 72 MCG CAPSULE PO (10:52)
[2023-03-17] MEDS: Paroxetine 20 MG Tablet 40 MG PO (10:53)
[2023-03-17] MEDS: lamoTRIgine 100 MG Tablet 200 MG PO ×2 (10:54→20:59)
[2023-03-17] MEDS: Pregabalin 75 MG Capsule 300 MG PO ×2 (10:59→20:58)
[2023-03-17] MEDS: Pantoprazole Sodium 40 MG Tablet PO (11:12)
[2023-03-17 11:49] LABS: Bedside Glucose 360 mg/dL (74-106)
--- NOTE | 2023-03-17 13:30 | CASEMGMT ---
RN?CM?CREAM BUYER?CM?to room to meet with patient for initial transition planning/care coordination?assessment.?RN?CM?introduced self and role at [facility].? Pt voices understanding and consents to?assessment?at this time.?Pt is A/O at this time and answers all questions appropriately.?? Care providers, pharmacy, and demographics verified/updated at this time. Pt resting in bed in no distress at this time.? @ bedside. Pt did become tearful during assessment, as her father just recently and his was today. Pt states she was able to face time w/someone so she could watch part of it, so that helped her to feel a part of it. PCP: CAMILA Yang Specialists:Dr Wylie-neuro, Dr Lamb-ortho surgeon, Dr Kim- cervical surgeon @ [facility], psychiatrist, counselor Preferred Pharmacy: [facility] Retail Insurance: [employer], [employer] Prescription Benefit:?Yes Living Will/HPOA:? Pt does not currently have LW/HCPOA and would like to complete. Will notify SW. Pt made aware, if SW unable to complete w/her while at [facility] that she can make appt as an OP w/SW for AD completion. LNOK: , Ry. 2 adult children Living Arrangements: Lives w/ in 2-story apartment. Main living quarters are on the 2nd floor w/railing on one side of the stairs. Pt states she does have some difficulty w/going up the stairs d/t legs hurting her and left knee is no good. She voices difficulty w/finances and states they are on the verge of getting evicted. She states they have difficulty w/having enough $ for food and other bills. She states she has looked into getting assistance, but states, As soon as they find out how much my makes, I get denied, but they don't take into consideration he has to pay $1,400/mo in child support. Pt states would like any resources from that may be available. She also states she is in the process of applying for disability. TURF FARMER Arianne CARBAJAL, notified of above and states will notify SW. Transportation: DME: States has the following DME:?shower chair, BP cuff, cane, rollator, CPAP (states she hasn't been able to wear it d/t mask isn't sealing. RN CM recommended [place] [facility] [place] nebulizer, glucometer. Pt states as far as I know it's working okay. I haven't used it for a couple of months. She states she has all supplies needed for it. She states would like grab bars for in the shower/bathroom. Made aware [employer] does not cover this item, but [employer] may. She states she has a CM through [employer]. ALBA CM advised her to contact her CM re: this item. She voices understanding. Pt states no need for further DME at this time.? HHC/SNF: No hx of either. Pt wishes to return home and states has no further concerns with going home at time of discharge.? CM?to follow for any further discharge planning/needs.? Pt voices no further concerns/needs at this time.? Advised pt to ask for?CM?if any further questions/concerns/needs arise.? Voices understanding. PLAN:??Home. CM to follow. Orlando STEELEN?RN?CM
--- NOTE | 2023-03-17 15:47 | PCM.HOSP.N ---
Hospitalist Note BP and overall clinical status improving today, urine culture with growth, awaiting speciation, continue to hold Klonopin. Patient tearful as her father's was today, supportive care provided. Continue Iris
[2023-03-17] MEDS: Insulin Lispro 100 UNIT/ML INSULN.PEN SC ×2 (16:39→21:07)
[2023-03-17 17:06] LABS: Bedside Glucose 323 mg/dL (74-106)
[2023-03-17] MEDS: QUEtiapine 100 MG Tablet 400 MG PO (20:59)
[2023-03-17] MEDS: Atorvastatin Calcium 40 MG Tablet PO (21:00)
[2023-03-17] MEDS: Insulin Glargine-YFGN 100 UNIT/ML Pen 18 UNIT SC (21:04)
[2023-03-17] MEDS: 0.9% Saline Lock 10 ML Syringe IV (21:25)
[2023-03-17 22:17] LABS: Bedside Glucose 428 mg/dL (74-106)
--- NOTE | 2023-03-18 00:25 | EKG12_ITS ---
Test Reason : CP Blood Pressure : / mmHG Vent. Rate : 071 BPM Atrial Rate : 071 BPM P-R Int : 180 ms QRS Dur : 084 ms QT Int : 382 ms P-R-T Axes : 053 018 029 degrees QTc Int : 415 ms Normal sinus rhythm Low voltage QRS Borderline ECG When compared with ECG of 16-MAR-2023 22:42, MANUAL COMPARISON REQUIRED, DATA IS UNCONFIRMED Confirmed by EVANGELISTA DALEY, DAVIDSON ([id number]), map editor NAYLA BURTON ([id number]) on 03/22/2023 10:59:06 AM Referred By: Confirmed By:FREDRICK NAIDU MD
--- NOTE | 2023-03-18 01:04 | RAD_ITS ---
EXAM: XR CHEST, 1 VIEW CLINICAL INDICATION: chest pain TECHNIQUE: Frontal view of the chest. COMPARISON: FINDINGS: LUNGS AND PLEURAL SPACES: Unremarkable. No consolidation or edema. No pneumothorax. No effusion. HEART: Unremarkable. Cardiac silhouette not enlarged. MEDIASTINUM: Central airways and mediastinal contour are unremarkable. BONES/JOINTS: Degenerative changes of the spine. Cervicothoracic fusion hardware, incompletely imaged. SOFT TISSUES: Unremarkable. RAD/Chest 1 View (Portable) IMPRESSION: No acute findings in the chest. Electronically Signed: Brendan Bah MD at 3:15 EST ,
[2023-03-18 02:01] LABS: Troponin-I HS 7 pg/mL (3.0-54.0)
[2023-03-18 03:36] LABS: Absolute Lymphocyte Count 2.82 X10^3/uL (0.83-4.51); Absolute Neutrophil Count 2.3 X10^3/uL (2.0-7.7); Basophil# 0.02 X10^3/uL; Basophil% 0.3 % (0-1); Eosinophil# 0.56 X10^3/uL; Eosinophils% 9.2 % (0-5); Hematocrit 31.7 % (37-47); Hemoglobin 10.2 g/dL (12.0-15.0); Lymphocyte # 2.82 X10^3/ul (0.83-4.51); Lymphocyte % 46.1 % (19-41); Mean Corp Hgb Conc 32.2 g/dL (32-36); Mean Corpuscular Volume 87.1 fL (81-99); Mean Platelet Vol. 11.4 fl (6.2-12.0); Monocyte# 0.44 X10^3/uL; Monocyte% 7.2 % (0-10); NRBC Flagged by Analyzer 0 % (0-5); Neutrophil # 2.26 X10^3/uL (2.7-7.7); Neutrophil % 36.9 % (47-70); Platelet Count 226 K/mm3 (150-450); RBC Distribution Width CV 12.8 % (11.6-14.6); RBC Distribution Width SD 40.7 fl (35.1-43.9); Red Blood Count 3.64 M/mm3 (4.2-5.4); White Blood Count 6.1 K/mm3 (4.4-11.0)
[2023-03-18 03:51] LABS: Anion Gap 6 (5-15); BUN 19 mg/dL (7-18); BUN/Creat Ratio 12.3 RATIO (10-20); Calcium,Total 8.2 mg/dL (8.5-10.1); Chloride 105 mmol/L (98-107); Creatinine, Serum 1.54 mg/dL (0.55-1.02); EST Glomerular Filtration Rate 38 mL/min (>60); Est Glom Filt Rate - Afr Amer 46 mL/min (>60); Estimated Creatinine Clearance 42.03 ml/min; Glucose 341 mg/dL (74-106); Potassium 3.9 mmol/L (3.5-5.1); Sodium Level 135 mmol/L (136-145)
[2023-03-18 03:56] LABS: Vitamin B12 328 pg/mL (211-911); Vitamin D,25 Hydroxy 38.2 ng/mL
[2023-03-18 05:43] VITALS: BMI 34.5
[2023-03-18] MEDS: Insulin Lispro 100 UNIT/ML INSULN.PEN SC ×2 (06:11→11:12)
[2023-03-18 06:14] VITALS: BP 141/91; PULSE 70; RESP 16; TEMP 36.4; O2SAT 92
[2023-03-18 07:04] LABS: Bedside Glucose 246 mg/dL (74-106)
[2023-03-18 08:17] VITALS: BP 133/79; PULSE 83; RESP 14; TEMP 36.6; O2SAT 94
[2023-03-18] MEDS: Enoxaparin 30 MG/0.3 ML Syringe SC (08:27)
[2023-03-18] MEDS: lamoTRIgine 100 MG Tablet 200 MG PO (08:28)
[2023-03-18] MEDS: Pantoprazole Sodium 40 MG Tablet PO (08:28)
[2023-03-18] MEDS: Loratadine 10 MG Tablet PO (08:28)
[2023-03-18] MEDS: Paroxetine 20 MG Tablet 40 MG PO (08:29)
[2023-03-18] MEDS: Pregabalin 75 MG Capsule 300 MG PO (08:36)
[2023-03-18 10:17] VITALS: BP 127/89; PULSE 91
[2023-03-18 11:35] LABS: Bedside Glucose 315 mg/dL (74-106)
--- NOTE | 2023-03-18 11:47 | PCM.DC.SUM ---
Providers Date of Admission: 03/17/23 Date of Discharge: 03/18/23 Primary Care Physician: CALVIN Johnson Reason For Visit: ACUTE CYSTITIS AND KIDNEY INJ WITH CKD Diagnosis Discharge Diagnosis (1) UTI (urinary tract infection): Status: Acute Code(s): N39.0 - Urinary tract infection, site not specified Plan #Klebsiella UTI #BRIAN on CKD stage III unclear subtype #Hypotension 2/2 dehydration and medication interactions #Bereavement #History of anxiety and mood disorder #Type 2 diabetes mellitus #Hypertension #History of mild intermittent asthma #History of OA Medications at Discharge Home Medications atorvastatin 40 mg tablet 40 mg PO QHS CHOLESTEROL 03/21/13 metformin 500 mg tablet,extended release 24 hr 1,000 mg PO BID DM 03/21/13 cyclobenzaprine 10 mg tablet 10 mg PO BID PRN muscle pain 03/04/23 fluticasone propionate 50 mcg/actuation nasal spray,suspension 2 spray intranasal DAILY allergies 03/04/23 lamotrigine 200 mg tablet 200 mg PO BID seizures 03/04/23 linaclotide 72 mcg capsule (Linzess) 72 mcg PO DAILY constipation 03/04/23 liraglutide 0.6 mg/0.1 mL (18 mg/3 mL) subcutaneous pen injector (Victoza 3-Jac) 1.8 mg subcut QHS diabetes 03/04/23 paroxetine HCl 40 mg tablet 40 mg PO DAILY mental health 03/04/23 pregabalin 300 mg capsule 300 mg PO BID pain 03/04/23 quetiapine 400 mg tablet 400 mg PO QHS mental health 03/04/23 bisacodyl 5 mg tablet,delayed release 5 mg PO DAILY PRN constipation 03/17/23 clonazepam 0.5 mg tablet 0.5 mg PO TID PRN anxiety 03/17/23 nicotine 21 mg/24 hr daily transdermal patch smoking cessation 03/17/23 quetiapine 100 mg tablet 100 mg PO DAILY see pcp 03/17/23 amoxicillin 875 mg-potassium clavulanate 125 mg tablet 1 tab PO BID 7 days #15 tabs 03/18/23 furosemide 80 mg tablet 40 mg (1/2 x 80 mg) PO DAILY see pcp 30 days #15 tabs 03/18/23 insulin glargine 100 unit/mL (3 mL) subcutaneous pen (Lantus Solostar U-100 Insulin) 22 unit (0.22 mL) subcut QHS PRN blood sugar #15 mL 03/18/23 Hospital Course Summary of Care Provided Minutes Spent on Discharge: 35 Hospital Course: NALLELY PARK, is a 52 F with a past medical history of essential hypertension, hyperlipidemia, diabetes mellitus type 2 of unknown control, chronic kidney disease; with baseline creatinine of approximately 2 mg/dL, history of tobacco abuse, mild intermittent asthma, bipolar disorder, fibromyalgia, osteoarthritis; with chronic neck and back pain, history of uterine ablation, and history of hemorrhoids who presents to [facility] ER complaining of dysuria, confusion and malaise. She has been under a lot of stress recently and was psychiatrically hospitalized last week and started on Klonopin and had daytime Seroquel added to her medication regimen. The day of admission she was at home and went to take her contacts out and then became very weak and slumped over the sink, did not pass out entirely or lose consciousness but has been found her and called EMS and she was found to be hypotensive with BP of 66/41 and confused. Symptoms improved markedly with fluids and holding daytime Seroquel and Klonopin. Additionally she was found to have a UTI that speciated to Klebsiella. Suspect patient's blood pressure was a combination of dehydration in addition to underlying infection as well as addition of Seroquel as well as Klonopin and that all of these contributed to her hypotension as it resolved with fluids and medication adjustment and antibiotics. Patient improved very quickly. She was discharged on antibiotics, has anaphylaxis to sulfa and was not given quinolones due to being on Seroquel and risk of QTc prolongation so she was discharged on Augmentin. Discussed her medications at length and patient verbalized understanding. Discharge instructions as followed: -Would recommend you take 40 mg of Lasix for the next 4 days and then increase to 60 mg thereafter however recommend checking your blood pressure every morning and logging this as well as your weight and if there are concerns for low blood pressure or that you are retaining fluid please contact your physician for further instructions -Would recommend taking Klonopin sparingly and can consider cutting 0.5 mg tablets in half -Recommend behavior Lantus dosing is changed to 22 units subcutaneous at bedtime if glucose greater than 150 -Please follow-up with your psychiatric provider on discharge -You will be discharged on Augmentin 875 mg twice daily, you will take first dose tonight followed by twice daily for 7 more days. Please take this with food -Please call your primary care provider's office upon discharge to schedule a hospital follow up within 1 week. -For any concerning signs or symptoms please call 911 or proceed to the nearest emergency department Physical Exam Narrative General: Alert, oriented, no apparent distress HEENT: Atraumatic, normocephalic Eyes: Anicteric, normal conjunctiva, extraocular movements grossly intact Neck: Supple Respiratory: Clear to auscultation bilaterally, normal respiratory effort Cardiovascular: Regular rate and rhythm GI: Soft, nontender, nondistended Extremities: No edema Musculoskeletal: Moving all extremities Neuro: No overt focal neurological deficits Skin: No rashes appreciated Psych: Cooperative Weight / BMI Weight Weight: 100 kg Body Mass Index (BMI) 34.5 ABG / Lab / Microbiology Data 03/18/23 01:26 03/18/23 01:26 Laboratory: Laboratory Results - last 24 hr 03/17/23 11:08: POC Glucose 360 H 03/17/23 16:35: POC Glucose 323 H 03/17/23 21:02: POC Glucose 428 H 03/18/23 01:26: WBC 6.1, RBC 3.64 L, Hgb 10.2 L, Hct 31.7 L, MCV 87.1, MCH 28.0, MCHC 32.2, RDW Std Deviation 40.7, RDW Coeff of Charu 12.8, Plt Count 226, MPV 11.4, Immature Gran % (Auto) 0.300, Neut % (Auto) 36.9 L, Lymph % (Auto) 46.1 H, [place] % (Auto) 7.2, Eos % (Auto) 9.2 H, Baso % (Auto) 0.3, Absolute Neuts (auto) 2.3, Absolute Lymphs (auto) 2.82, Nucleated RBC % 0, Sodium 135 L, Potassium 3.9, Chloride 105, Carbon Dioxide 24.0, Anion Gap 6, BUN 19 H, Creatinine 1.54 H, Estim Creat Clear Calc 42.03, Est GFR (MDRD) Af Amer 46 L, Est GFR (MDRD) Non-Af 38 L, BUN/Creatinine Ratio 12.3, Glucose 341 H, Calcium 8.2 L, Troponin I High Sens 7, Vitamin B12 328, Vitamin D 25-Hydroxy 38.2 03/18/23 06:09: POC Glucose 246 H 03/18/23 11:10: POC Glucose 315 H Microbiology: Microbiology 03/16/23 23:30 Urine, Clean Catch Urine Culture - Final Klebsiella oxytoca Radiography Diagnostic Testing: Radiology Impression Chest X-Ray 03/18/23 01:04 IMPRESSION: No acute findings in the chest. Electronically Signed: Brendan Bah MD at 3:15 EST , D/C Instructions Discharge Diet: - (DASH diet) Meaningful Use Info Meaningful Use Diagnoses (Choose all that apply): None applicable Discharge Plan Admission Admit Date/Time: 03/17/23 01:45 Primary Reason for Your Visit: Low blood pressure Attending Provider: Nicky Lamb Primary Care Provider: Tyra Yang NP Consulting Providers: Franco Ricardo Instructions Patient Instructions: Dealing With the Stress of ..., Anxiety Disorders Tx, ED Anxiety Reaction, ED Fall Prevention Additional Instructions / Restrictions: DISCHARGE INSTRUCTIONS PLEASE READ *Please take this with you to your next doctors appointment* -Would recommend you take 40 mg of Lasix for the next 4 days and then increase to 60 mg thereafter however recommend checking your blood pressure every morning and logging this as well as your weight and if there are concerns for low blood pressure or that you are retaining fluid please contact your physician for further instructions -Would recommend taking Klonopin sparingly and can consider cutting 0.5 mg tablets in half -Recommend behavior Lantus dosing is changed to 22 units subcutaneous at bedtime if glucose greater than 150 -Please follow-up with your psychiatric provider on discharge -You will be discharged on Augmentin 875 mg twice daily, you will take first dose tonight followed by twice daily for 7 more days. Please take this with food -Please call your primary care provider's office upon discharge to schedule a hospital follow up within 1 week. -For any concerning signs or symptoms please call 911 or proceed to the nearest emergency department Discharge Orders/Prescriptions Prescriptions: New amoxicillin-pot clavulanate 875-125 mg tablet 1 tab PO BID 7 Days Qty: 15 0RF Continued atorvastatin 40 MG tablet 40 mg PO QHS metformin 500 MG tablet 1,000 mg PO BID lamotrigine 200 mg tablet 200 mg PO BID Patient Comments: take 2 tablets by mouth every morning paroxetine HCl 40 mg tablet 40 mg PO DAILY Patient Comments: take 1 tablet by mouth once daily pregabalin 300 mg capsule 300 mg PO BID Patient Comments: take 1 capsule by mouth twice a day quetiapine 400 mg tablet 400 mg PO QHS Patient Comments: take 1 tablet by mouth at bedtime cyclobenzaprine 10 mg tablet 10 mg PO BID PRN (Reason: muscle pain) Patient Comments: take 1 tablet by mouth twice a day if needed fluticasone propionate 50 mcg/actuation spray,suspension 2 spray INTRANASAL DAILY Patient Comments: instill 2 sprays into each nostril once daily Rinse mouth after use Victoza 3-Jac 0.6 mg/0.1 mL (18 mg/3 mL) pen injector 1.8 mg SUBCUT QHS Linzess 72 mcg capsule 72 mcg PO DAILY Patient Comments: take 1 capsule by mouth once daily *ADMINISTER ON AN EMPTY STOMAC... (REFER TO PRESCRIPTION NOTES). bisacodyl 5 mg tablet,delayed release (DR/EC) 5 mg PO DAILY PRN Patient Comments: take 1 tablet by mouth once daily if needed for constipation nicotine 21 mg/24 hr patch 24 hour Patient Comments: apply 1 patch to CLEAN, DRY, AND INTACT SKIN REMOVE AND REPLACE once daily if needed clonazepam 0.5 mg tablet 0.5 mg PO TID PRN (Reason: anxiety ) Changed furosemide 80 mg tablet 40 mg PO DAILY 30 Days Qty: 15 0RF Patient Comments: take 1 tablet by mouth once daily Rx Instructions: Take 40 mg for the next 4 days followed by 60 mg insulin glargine [Lantus Solostar U-100 Insulin] 100 unit/mL (3 mL) insulin pen 22 unit SUBCUT QHS PRN (Reason: blood sugar) Qty: 15 0RF Rx Instructions: if BS >150 at bedtime Held quetiapine 100 mg tablet 100 mg PO DAILY Hold Instructions: Resume on 03/31/23. Would hold until discussing with your psychiatrist Patient Comments: take 1 tablet by mouth daily with DINNER Rx Instructions: at dinner Discontinued alprazolam 0.5 mg tablet 0.5 mg PO TID PRN PRN (Reason: Anxiety) Patient Comments: pt states the order was three times a day prn ibuprofen 800 mg tablet 800 mg PO Q8H PRN (Reason: pain) Patient Comments: take 1 tablet by mouth every 8 hours NEEDED FOR PAIN with food furosemide 40 mg tablet 20 mg PO Patient Comments: take 1/2 tablet by mouth once daily if needed for LEG SWELLING OR WEIGHT GAIN OVER 3 POUNDS benztropine 2 mg tablet 2 mg Referrals / Follow Up: Tyra Yang WHARFINGER CHIEF, WHARFINGER CHIEF-C [Primary Care Provider] - Within 1 Week Disposition Disposition (needs filled in before D/C Order can be placed): Home, Self Care Charges/Coding Visit Charges Inpatient E&M: 33803 Disch Hosp >30min
--- NOTE | 2023-03-18 13:20 | CASEMGMT ---
Social Work SW received referral from RNCM that pt would like to complete advance directives. SW met with pt and introduced self and role of SW. SW assisted pt in completing living will and health care POA naming her spouse Ry Tate. Copy placed on pt chart and original given to pt. NICOLAS Pastrana
--- NOTE | 2023-03-18 13:22 | CASEMGMT ---
Social Work SW recieved referral for community resources. TARA met with pt and introduced self and role of SW. Pt expressing concerns with rent payments and food insecurity. TARA provided pt with resources from [employer] including the [employer] card with food pantry information, [employer], [employer], [employer] [facility] and the [employer] program. Pt states she has called many of these organizations a few months ago and funding was not available. SW encouraged pt to reach out again and to try additional organizations provided. NICOLAS Otero
--- NOTE | 2023-03-18 13:26 | PHA.DC_ITS ---
Pharmacy [facility] has performed discharge medication reconciliation and counseling for this patient. The patient was counseled on the following discharge medications and changes in medications for homegoing were reviewed. 1. AUGMENTIN The Reason for Use, instructions for use, and potential side effects were reviewed for all new medications. The patient's questions regarding all of their medications were answered. The patient was able to verbally demonstrate an understanding of their discharge medications. The patient's discharge medication list was reviewed for discrepancies and discrepancies were resolved. Medications at Discharge Home Medications atorvastatin 40 mg tablet 40 mg PO QHS CHOLESTEROL 03/21/13 metformin 500 mg tablet,extended release 24 hr 1,000 mg PO BID DM 03/21/13 cyclobenzaprine 10 mg tablet 10 mg PO BID PRN muscle pain 03/04/23 fluticasone propionate 50 mcg/actuation nasal spray,suspension 2 spray intranasal DAILY allergies 03/04/23 lamotrigine 200 mg tablet 200 mg PO BID seizures 03/04/23 linaclotide 72 mcg capsule (Linzess) 72 mcg PO DAILY constipation 03/04/23 liraglutide 0.6 mg/0.1 mL (18 mg/3 mL) subcutaneous pen injector (Victoza 3-Jac) 1.8 mg subcut QHS diabetes 03/04/23 paroxetine HCl 40 mg tablet 40 mg PO DAILY mental health 03/04/23 pregabalin 300 mg capsule 300 mg PO BID pain 03/04/23 quetiapine 400 mg tablet 400 mg PO QHS mental health 03/04/23 bisacodyl 5 mg tablet,delayed release 5 mg PO DAILY PRN constipation 03/17/23 clonazepam 0.5 mg tablet 0.5 mg PO TID PRN anxiety 03/17/23 nicotine 21 mg/24 hr daily transdermal patch smoking cessation 03/17/23 quetiapine 100 mg tablet 100 mg PO DAILY see pcp 03/17/23 amoxicillin 875 mg-potassium clavulanate 125 mg tablet 1 tab PO BID 7 days #15 tabs 03/18/23 furosemide 80 mg tablet 40 mg (1/2 x 80 mg) PO DAILY see pcp 30 days #15 tabs 03/18/23 insulin glargine 100 unit/mL (3 mL) subcutaneous pen (Lantus Solostar U-100 Insulin) 22 unit (0.22 mL) subcut QHS PRN blood sugar #15 mL 03/18/23
--- NOTE | 2023-03-18 14:14 | NURSING ---
home medicATIONS RETURNED FROM LOCKED MED ROOM AND MED DRAWER TO PATIENT
== END 2023-03-18 14:11 | disposition home or self-care (01) ==
LOC: ED 03-17 00:50 → PCU 03-17 07:01
PROVIDERS: Admitting Provider Internal Medicine; Emergency Provider Emergency Medicine; PCP Nurse Practitioner Family; Visit Provider Internal Medicine
DX: N30.00 Acute cystitis without hematuria (principal); N17.9 Acute kidney failure, unspecified; F31.9 Bipolar disorder, unspecified; E11.22 Type 2 diabetes mellitus with diabetic chronic kidney disease; E11.65 Type 2 diabetes mellitus with hyperglycemia; Z79.4 Long term (current) use of insulin; N18.30 Chronic kidney disease, stage 3 unspecified; D64.9 Anemia, unspecified; I95.9 Hypotension, unspecified; I12.9 Hypertensive chronic kidney disease with stage 1 through stage 4 chronic kidney disease, or unspecified chronic kidney disease; F17.210 Nicotine dependence, cigarettes, uncomplicated; M79.7 Fibromyalgia; Z79.84 Long term (current) use of oral hypoglycemic drugs; E78.5 Hyperlipidemia, unspecified; B96.1 Klebsiella pneumoniae [K. pneumoniae] as the cause of diseases classified elsewhere; Z79.899 Other long term (current) drug therapy; Z63.4 Disappearance and death of family member; E86.0 Dehydration; J45.20 Mild intermittent asthma, uncomplicated
CPT/HCPCS: 36415; 70450; 71045; 80048; 80053; 80307; 81001; 82306; 82607; 82962; 83036; 83605; 84443; 84484; 85025; 85610; 85730; 87040; 87077; 87086; 87088; 87186; 93005; 96361; 96365; 96366; 96372; 97802; 99221; 99285; J7030; A4216; G0378

== ENCOUNTER 2023-06-07 22:59 | Emergency (ER) | payer BC, MEDICAID, SELFPAY ==
[2023-06-07 23:01] VITALS: BP 144/91; PULSE 114; RESP 16; TEMP 36.6; O2SAT 99; BMI 35.1
--- NOTE | 2023-06-07 23:57 | ED.RN ---
Pt upset other pts went before her, explained process of triage and SOLO levels, reminded that this was explained during check in. Pt not pleased with explanation and ambulates out of department.
== END 2023-06-07 23:47 | disposition left against medical advice (07) ==
LOC: ED 06-08 00:02
PROVIDERS: PCP Nurse Practitioner Family
DX: Z53.21 Procedure and treatment not carried out due to patient leaving prior to being seen by health care provider (principal)

== ENCOUNTER 2023-06-27 11:02 | Observation (INO) | payer BC, MEDICAID, SELFPAY ==
[2023-06-27] VITALS (13 sets, daily range): BP systolic 100–191; BP diastolic 58–100; PULSE 77–122; RESP 16–18; TEMP 36–37.1; O2SAT 93–98; BMI 33.5
--- NOTE | 2023-06-27 | APP_PTH ---
PATHOLOGY RESULTS PATIENT: NALLELY PARK LOC: MS3 U#:[id number] AGE/SX: 52/F ROOM: [facility] RE06/27/[address]: Dr. Linda Whelan MD : 1970 BED: 1 DIS: 06/28/2023 SPEC #: [id number] RECD: 06/28/23 05:42 STATUS: TIMOTHY REFrancisca #: [id number] BEE: 06/27/23 00:[address]: Linda Whelan DEPT: SURGICAL PATHOLOGY RECD BY: Arjun Durant ENTERED: 06/28/23 08:10 SP TYPE: APPENDIX OTHR DR: Tyra Yang, SENIOR ANALYST DEVELOPER-Nicole Tissues: Appendix, NOS Procedures: Surgery Specimen Level III HEADER OPERATION: Laparoscopic appendectomy PRE-OP DIAGNOSIS: Acute appendicitis, diabetes TISSUE SUBMITTED: Appendix MICROSCOPIC DIAGNOSIS Appendix, appendectomy: Eosiniphilic appendicitis. Fibrofatty obliteration of distal appendiceal lumen. AM:albert 06/30/2023 MICROSCOPIC DESCRIPTION Slides are reviewed. GROSS DESCRIPTION Received in fixative is one container labeled with the patient's name and designated appendix. The specimen consists of an appendix measuring 6.0 cm in length and up to 1.2 cm in diameter. The serosa is congested. No obvious perforation is identified. The lumen does not contain any fecalith. Mattress Renovator sections are submitted in one cassette. / SJ:albert 06/28/2023 The rest of the specimen appendix is submitted in three more cassettes, 2-4. / SJ:albert 06/29/2023 TC:2 CPT: 23779
--- NOTE | 2023-06-27 11:15 | CT_ITS ---
STUDY: CT ABDOMEN AND PELVIS WITH CONTRAST REASON FOR EXAM: Female, 52 years old. Abdominal pain. RADIATION DOSAGE (If Supplied By Facility): CTDIvol = ( 20.04 ) mGy, DLP = ( 1297.63 ) mGycm TECHNIQUE: Transaxial images were obtained through the abdomen and pelvis without oral contrast. 100 ml of Isovue-370 contrast was administered. Sagittal and coronal images were reconstructed. Individualized dose optimization techniques were used for this CT. COMPARISON: No relevant prior comparison study available FINDINGS: LOWER THORAX: The visualized lung bases are clear. The visualized portions of the heart and pericardium are within normal limits. GALLBLADDER / BILE DUCTS: There are no calcified gallstones present. There is no intrahepatic biliary duct dilatation. The common bile duct is normal in caliber. There are no calcified ductal stones. LIVER: The liver is within normal limits. There are no suspicious hepatic lesions. SPLEEN: The spleen is normal in size. PANCREAS: The pancreas is within normal limits. ADRENAL GLANDS: There is an 11 mm indeterminate right adrenal nodule. The left adrenal gland is within normal limits. KIDNEYS / BLADDER: There are no renal or ureteral stones. There is no hydronephrosis. There are no focal renal lesions. The urinary bladder is partially distended and appears grossly unremarkable. STOMACH / BOWEL: Normal visualized stomach. There is no bowel obstruction or inflammation. The appendix is thickened, measuring up to 8 mm and there is adjacent stranding noted. This is consistent with acute appendicitis. PERITONEUM/RETROPERITONEUM: There is no abdominal or pelvic free air, free fluid or fluid collection. There is no abnormal soft tissue mass identified. There is no abdominal or pelvic lymphadenopathy. There are bilateral tubal ligation clips. VESSELS: The aorta is normal in caliber. The IVC is unremarkable. BONES: There are degenerative changes noted in the spine. There are no destructive osseous lesions. SOFT TISSUES: The visualized soft tissues are within normal limits. CT/Abdomen/Pelvis W IV Cont ONLY IMPRESSION: Acute appendicitis. No free air, free fluid or fluid collection. N.B. : The above Results were Read Back by Brandon Acosta MD to Jenna Valera DO, and understanding confirmed on 06/27/2023 13:37:23 (ET). Electronically Signed: Brandon Acosta MD at 13:38 EST ,
--- NOTE | 2023-06-27 11:16 | ED.VIS.GI ---
HPI HPI - GI History of Present Illness Chief Complaint: Abd Pain Detail of Chief Complaint: Abdominal pain Informant: patient Narrative Narrative: Patient presents with abdominal pain that started about 5 days ago. She complains of nausea which is chronic. This morning she was dry heaving. Food seems to make the pain worse. She describes the pain as diffuse. She does have history of IBS. Patient also mentions her urine's been dark and has a foul odor. She denies any diarrhea. PFSH [facility] Medical History (Updated 06/27/23 @ 13:[address] Jenna Valera, ) Anemia Anxiety Arrhythmia Arthritis Asthma Atherosclerotic heart disease of [place] coronary artery without angina pectoris Bipolar disorder Chronic diastolic heart failure Chronic neck and back pain CKD (chronic kidney disease) Depressive disorder Diabetes Fibromyalgia history of uterine ablation Hydronephrosis Hyperglycemia Hyperlipidemia IBS (irritable bowel syndrome) DORITA (obstructive sleep apnea) Overdose of drug Syncope Type II diabetes mellitus, uncontrolled UTI (urinary tract infection) Home Medications atorvastatin 40 mg tablet 40 mg PO QHS CHOLESTEROL 03/21/13 [History Last Taken 06/08/19] metformin 500 mg tablet,extended release 24 hr 1,000 mg PO BID DM 03/21/13 [History Last Taken 06/09/19] cyclobenzaprine 10 mg tablet 10 mg PO BID PRN muscle pain 03/04/23 [History Last Taken Unknown] fluticasone propionate 50 mcg/actuation nasal spray,suspension 2 spray intranasal DAILY allergies 03/04/23 [History Last Taken 03/16/23] lamotrigine 200 mg tablet 200 mg PO BID seizures 03/04/23 [History Last Taken Unknown] linaclotide 72 mcg capsule (Linzess) 72 mcg PO DAILY constipation 03/04/23 [History Last Taken Unknown] liraglutide 0.6 mg/0.1 mL (18 mg/3 mL) subcutaneous pen injector (Victoza 3-Jac) 1.8 mg subcut QHS diabetes 03/04/23 [History Last Taken Unknown] paroxetine HCl 40 mg tablet 40 mg PO DAILY mental health 03/04/23 [History Last Taken Unknown] pregabalin 300 mg capsule 300 mg PO BID pain 03/04/23 [History Last Taken Unknown] quetiapine 400 mg tablet 400 mg PO QHS mental health 03/04/23 [History Last Taken Unknown] bisacodyl 5 mg tablet,delayed release 5 mg PO DAILY PRN constipation 03/17/23 [History Last Taken Unknown] clonazepam 0.5 mg tablet 0.5 mg PO TID PRN anxiety 03/17/23 [History Last Taken Unknown] nicotine 21 mg/24 hr daily transdermal patch 1 patch transdermal DAILY PRN smoking cessation 03/17/23 [History Last Taken Unknown] albuterol sulfate 2.5 mg/3 mL (0.083 %) solution for nebulization 2.5 mg inhalation Q6H PRN shortness of breath or wheezing 06/07/23 [History Last Taken Unknown] albuterol sulfate 90 mcg/actuation aerosol inhaler 2 puff inhalation Q4H PRN shortness of breath or wheezing 06/07/23 [History Last Taken Unknown] cetirizine 10 mg tablet 10 mg PO DAILY PRN 06/07/23 [History Last Taken Unknown] furosemide 80 mg tablet 80 mg PO DAILY see pcp 06/07/23 [History Last Taken Unknown] insulin glargine 100 unit/mL (3 mL) subcutaneous pen (Lantus Solostar U-100 Insulin) 18 unit subcut QHS PRN blood sugar 06/07/23 [History Last Taken Unknown] atorvastatin 80 mg tablet 80 mg PO QHS CHOLEST 06/27/23 [History Last Taken Unknown] baclofen 5 mg tablet 5 - 10 mg PO TID PRN muscle spasm 06/27/23 [History Last Taken Unknown] Allergy/AdvReac Type Severity Reaction Status Date / Time contact metal agent Allergy Intermediate Rash Verified 06/07/23 23:01 clindamycin Allergy Hives Verified 06/07/23 23:01 Sulfa (Sulfonamide Allergy Anaphylaxis Verified 06/07/23 23:01 Antibiotics) vancomycin Allergy Hives Verified 06/07/23 23:01 acetaminophen [From [place]] AdvReac Severe Itching Verified 06/07/23 23:01 hydrocodone [From [place]] AdvReac Severe Itching Verified 06/07/23 23:01 fentanyl AdvReac Other Verified 06/07/23 23:01 metformin AdvReac Diarrhea Verified 06/07/23 23:01 Family History Other Arthritis Depression Diabetes Fibromyalgia Heart disease Hypertension Surgical History History of carpal tunnel surgery History of elbow surgery History of tonsillectomy and adenoidectomy Hx of neck surgery Social History (Updated 06/07/23 @ 10:26 by Maria Silver RN) household members: spouse Smoking Status: Current every day smoker tobacco type: cigarettes Tobacco: How many years used: 30 alcohol intake: current alcohol intake frequency: holidays/special occasions only ROS ROS ED Review of Systems ROS Unobtainable: other Constitutional Constitutional ED: Reports lethargy; Denies chills, fever(s), sweats or weight loss Eyes Eyes: Denies blurry vision, change in vision or diplopia ENT ENT ED: Denies rhinorrhea or sore throat Cardiovascular Cardiovascular: Denies chest pain, orthopnea or racing heartbeat Respiratory/Chest Respiratory/Chest: Denies cough, dyspnea, dyspnea on exertion, orthopnea or sputum Gastrointestinal Gastrointestinal: Reports abdominal pain, nausea and vomiting; Denies diarrhea Genitourinary Genitourinary ED: Reports other Details: Dark urine ; Denies dysuria, hematuria or urinary frequency Musculoskeletal Musculoskeletal: Denies arthralgias, back pain, myalgias or neck pain Integumentary Denies abscess, Abrasions or rash Neurologic Neurologic: Denies headache(s) or weakness Psychiatric Psychiatric: Denies anxiety, depression or suicidal thoughts Endocrine Endocrinology: Denies polydipsia, polyphagia or polyuria Hematologic/Lymphatic Hematologic/Lymphatic: Denies easy bleeding, easy bruising or lymphadenopathy Allergic/Immunologic Allergic/Immunologic ED: Denies mouth swelling, tongue swelling or urticaria EXAM Physical Exam Const Vital Signs: 06/27/23 11:02 Temperature 96.8 F L Temperature Source Temporal Pulse Rate 122 H Respiratory Rate 18 Blood Pressure 191/95 H Blood Pressure Mean 127 Pulse Ox 98 Oxygen Delivery Method Room Air Positive well nourished and well developed General Appearance ED: well developed and NAD HEENT Reports TM's clear and moist mucous membranes normocephalic and atraumatic; Negative for trauma or tenderness Tympanic Membrane ED: Yes TM's clear Eyes PERRL and EOMs intact bilaterally General Eye ED: Negative for pale conjunctiva or scleral icterus Neck no lymphadenopathy, supple and no JVD General: Negative for tenderness Chest Wall inspection of chest normal and palpation of chest normal Chest: Negative for tenderness Resp normal respiratory effort and clear to auscultation bilaterally Effort and Inspection: Negative for respiratory distress or pain with movement Auscultation: Negative for rhonchi, wheezes or diminished lung sounds Cardio regular rate, regular rhythm, S1 normal heart sound, S2 normal heart sound and no murmurs Peripheral Pulses: pulses 2+ throughout GI normal to inspection, nondistended, normoactive bowel sounds, soft to palpation, non-distended and no masses GI Narrative: Diffuse tenderness palpation over the right upper quadrant with guarding. There is tenderness over the epigastric region as well as the right lower quadrant. No rebound or rigidity noted. Back/Spine no CVA tenderness and no thoracic nor lumbar tenderness Extremity normal to inspection General Extremety ED: Negative for edema General Extremity: Negative for edema Neuro oriented x3, CN's II-XII intact bilaterally, no sensory deficits noted and gait normal Sensorium / Orientation: awake, alert, oriented to person, oriented to place and oriented to time Motor Exam: strength 5/5 throughout and strength abnormal Psych mental status grossly normal Skin no rashes or lesions noted and no wounds MDM MDM MDM Narrative Medical decision making narrative: Patient with diffuse abdominal pain. IV line established. CBC with differential count 5.9 with hemoglobin 14 and platelet count of 219. Chemistries unremarkable. BUN 21 and creatinine 1.44. Lactate was slightly elevated 2.4. Lipase was normal at 20 and LFTs unremarkable. Urinalysis unremarkable. CT scan of the abdomen pelvis ordered and was read by radiology as acute appendicitis. I discussed case with general surgeon on-call Dr. Amanda ordoñez who will present to evaluate patient for surgical intervention. I was asked to give patient Zosyn IV. Patient was medicated with morphine and Zofran and required a second dose of morphine. Lab Data Attestation: I reviewed the patient's lab results. Labs: Laboratory Results - last 24 hr 06/27/23 06/27/23 11:40 13:20 WBC 5.9 RBC 5.05 Hgb 14.1 Hct 42.1 MCV 83.4 MCH 27.9 MCHC 33.5 RDW Std Deviation 39.8 RDW Coeff of Charu 13.2 Plt Count 219 MPV 11.5 Immature Gran % (Auto) 0.300 Neut % (Auto) 54.7 Lymph % (Auto) 32.0 [place] % (Auto) 6.2 Eos % (Auto) 6.5 H Baso % (Auto) 0.3 Absolute Neuts (auto) 3.2 Absolute Lymphs (auto) 1.87 Nucleated RBC % 0 Sodium 134 L Potassium 4.1 Chloride 104 Carbon Dioxide 23.0 Anion Gap 7 BUN 21 H Creatinine 1.44 H Estim Creat Clear Calc 55.36 Est GFR (MDRD) Af Amer 49 L Est GFR (MDRD) Non-Af 41 L BUN/Creatinine Ratio 14.6 Glucose 307 H Lactic Acid 2.4 H* Calcium 9.7 Total Bilirubin 0.50 AST 10 L ALT 20 Alkaline Phosphatase 126 H Total Protein 7.6 Albumin 3.7 Globulin 3.9 Albumin/Globulin Ratio 0.9 Lipase 20 Urine Color Yellow Urine Clarity Sl. Cloudy Urine pH 5.0 Ur Specific [place] 1.025 Urine Protein 30 H Urine Glucose (UA) 1000 H Urine Ketones Negative Urine Occult Blood 10 H Urine Nitrite Negative Urine Bilirubin Negative Urine Urobilinogen Normal Ur Leukocyte Esterase 100 H Radiography Diagnostic Testing: Clinical Impression(s) from Imaging Studies Abdomen/Pelvis CT 06/27/23 11:15 IMPRESSION: Acute appendicitis. No free air, free fluid or fluid collection. N.B. : The above Results were Read Back by Brandon Acosta MD to Jenna Valera DO, and understanding confirmed on 06/27/2023 13:37:23 (ET). Electronically Signed: Brandon Acosta MD at 13:38 EST , ADDENDUM: 06/27/23 1345 IMPRESSION: Acute appendicitis. No free air, free fluid or fluid collection. N.B. : The above Results were Read Back by Brandon Acosta MD to Jenna Valera DO, and understanding confirmed on 06/27/2023 13:37:23 (ET). Electronically Signed: Brandon Acosta MD at 13:38 EST , Discharge Plan Triage Chief Complaint: Abd Pain ED Provider: Jenna Valera Dx/Rx/DC Orders Clinical Impression: Abdominal pain, Acute appendicitis Prescriptions: No Action cetirizine 10 mg tablet 10 mg PO DAILY PRN furosemide 80 mg tablet 80 mg PO DAILY insulin glargine [Lantus Solostar U-100 Insulin] 100 unit/mL (3 mL) insulin pen 18 unit SUBCUT QHS PRN (Reason: blood sugar) Rx Instructions: if BS >150 at bedtime albuterol sulfate 2.5 mg /3 mL (0.083 %) solution for nebulization 2.5 mg inhalation Q6H PRN (Reason: shortness of breath or wheezing) albuterol sulfate 90 mcg/actuation HFA aerosol inhaler 2 puff inhalation Q4H PRN (Reason: shortness of breath or wheezing) atorvastatin 40 MG tablet 40 mg PO QHS metformin 500 MG tablet 1,000 mg PO BID lamotrigine 200 mg tablet 200 mg PO BID Patient Comments: take 2 tablets by mouth every morning paroxetine HCl 40 mg tablet 40 mg PO DAILY pregabalin 300 mg capsule 300 mg PO BID quetiapine 400 mg tablet 400 mg PO QHS cyclobenzaprine 10 mg tablet 10 mg PO BID PRN (Reason: muscle pain) fluticasone propionate 50 mcg/actuation spray,suspension 2 spray INTRANASAL DAILY Patient Comments: Rinse mouth after use Victoza 3-Jac 0.6 mg/0.1 mL (18 mg/3 mL) pen injector 1.8 mg SUBCUT QHS Linzess 72 mcg capsule 72 mcg PO DAILY Patient Comments: *ADMINISTER ON AN EMPTY STOMACH bisacodyl 5 mg tablet,delayed release (DR/EC) 5 mg PO DAILY PRN nicotine 21 mg/24 hr patch 24 hour 1 patch transdermal DAILY PRN (Reason: smoking cessation) clonazepam 0.5 mg tablet 0.5 mg PO TID PRN (Reason: anxiety ) atorvastatin 80 mg tablet 80 mg PO QHS baclofen 5 mg tablet 5 - 10 mg PO TID PRN (Reason: muscle spasm) Primary Care Provider: Tyra Yang NP Referrals: Tyra Yang NP, PHYSICS DEPARTMENT CHAIR-C [Primary Care Provider] - Disposition Disposition: [facility]
[2023-06-27] MEDS: Ondansetron 4 MG/2 ML Vial IV ×2 (11:34→17:36)
[2023-06-27] MEDS: 0.9% Normal Saline (1000mL) 1,000 ML 125 ML IV ×3 (11:35→17:30)
[2023-06-27] MEDS: Morphine 4 MG/ML Syringe IV ×2 (11:35→14:41)
[2023-06-27 11:59] LABS: Absolute Lymphocyte Count 1.87 X10^3/uL (0.83-4.51); Absolute Neutrophil Count 3.2 X10^3/uL (2.0-7.7); Basophil# 0.02 X10^3/uL; Basophil% 0.3 % (0-1); Eosinophil# 0.38 X10^3/uL; Eosinophils% 6.5 % (0-5); Hematocrit 42.1 % (37-47); Hemoglobin 14.1 g/dL (12.0-15.0); Lymphocyte # 1.87 X10^3/ul (0.83-4.51); Mean Corp Hgb Conc 33.5 g/dL (32-36); Mean Corpuscular Hgb 27.9 pg (27.0-32.0); Mean Corpuscular Volume 83.4 fL (81-99); Mean Platelet Vol. 11.5 fl (6.2-12.0); Monocyte# 0.36 X10^3/uL; Monocyte% 6.2 % (0-10); NRBC Flagged by Analyzer 0 % (0-5); Neutrophil % 54.7 % (47-70); Platelet Count 219 K/mm3 (150-450); RBC Distribution Width CV 13.2 % (11.6-14.6); RBC Distribution Width SD 39.8 fl (35.1-43.9); Red Blood Count 5.05 M/mm3 (4.2-5.4); White Blood Count 5.9 K/mm3 (4.4-11.0)
[2023-06-27 12:17] LABS: ALB/GLOB Ratio 0.9 RATIO (0.9-2.4); AST(SGOT) 10 U/L (15-37); Alanine Aminotransfer ALT/SGPT 20 U/L (13-56); Albumin, Serum 3.7 g/dL (3.2-5.0); Alkaline Phosphatase 126 U/L (45-117); Anion Gap 7 (5-15); BUN 21 mg/dL (7-18); BUN/Creat Ratio 14.6 RATIO (10-20); Calcium,Total 9.7 mg/dL (8.5-10.1); Chloride 104 mmol/L (98-107); Creatinine, Serum 1.44 mg/dL (0.55-1.02); EST Glomerular Filtration Rate 41 mL/min (>60); Est Glom Filt Rate - Afr Amer 49 mL/min (>60); Estimated Creatinine Clearance 55.36 ml/min; Globulin 3.9 g/dL (2.2-4.2); Glucose 307 mg/dL (74-106); Lipase 20 U/L (13-75); Potassium 4.1 mmol/L (3.5-5.1); Protein, Total 7.6 g/dL (6.4-8.2); Sodium Level 134 mmol/L (136-145)
[2023-06-27 12:24] LABS: Lactic Acid 2.4 mmol/L (0.4-1.9)
[2023-06-27 13:29] LABS: Mucous, Urine 0 SEEN /hpf (<or=2+); Red Blood Cells-Urine 0 SEEN /hpf (0-5)
[2023-06-27 13:31] LABS: Color, Urine Yellow (Yellow); Glucose, Dipstick 1000 mg/dl (Normal); Ketone-Dipstick Negative (Negative); Leukocyte Esterase-Dipstick 100 /ul (Negative); Nitrite-Dipstick Negative (Negative); Occult Blood-Urine 10 /ul (Negative); Protein-Dipstick 30 mg/dl (Negative); Specific Gravity, Urine 1.025 (1.002-1.030); Urine Bilirubin Dipstick Negative (Negative); Urine Clarity Sl. Cloudy (Clear); Urine Urobilinogen Normal (Normal)
--- NOTE | 2023-06-27 13:42 | PCM.HP.STD ---
HPI - General General Date of Admission: 06/27/23 HPI Narrative NALLELY PARK, is a 52 F who presents to the ER due to right-sided abdominal pain. Patient states it did get worse last night after eating peaches about 5:30 PM. Patient states he is also had nausea and vomiting and generalized pain since Wednesday off-and-on. Patient is a diabetic currently her A1c is 12.5 was 7.5 a year ago per patient. Patient has a lot of stresses in her life over the last year and has not had her blood sugars controlled as well. CT abdomen pelvis showed acute appendicitis patient did have nausea and vomiting. Patient's white blood count is 5.9. Patient did receive Zosyn in the ER for acute appendicitis. [facility] Medical History (Updated 06/27/23 @ 13:[address] Jenna Valera, ) Anemia Anxiety Arrhythmia Arthritis Asthma Atherosclerotic heart disease of [place] coronary artery without angina pectoris Bipolar disorder Chronic diastolic heart failure Chronic neck and back pain CKD (chronic kidney disease) Depressive disorder Diabetes Fibromyalgia history of uterine ablation Hydronephrosis Hyperglycemia Hyperlipidemia IBS (irritable bowel syndrome) DORITA (obstructive sleep apnea) Overdose of drug Syncope Type II diabetes mellitus, uncontrolled UTI (urinary tract infection) Home Medications metformin 500 mg tablet,extended release 24 hr 1,000 mg PO BID DM 03/21/13 [History Last Taken 06/09/19] fluticasone propionate 50 mcg/actuation nasal spray,suspension 2 spray intranasal DAILY allergies 03/04/23 [History Last Taken 03/16/23] lamotrigine 200 mg tablet 200 mg PO DAILY seizures 03/04/23 [History Last Taken Unknown] linaclotide 72 mcg capsule (Linzess) 72 mcg PO DAILY constipation 03/04/23 [History Last Taken Unknown] paroxetine HCl 40 mg tablet 40 mg PO DAILY mental health 03/04/23 [History Last Taken Unknown] pregabalin 300 mg capsule 300 mg PO BID pain 03/04/23 [History Last Taken Unknown] quetiapine 400 mg tablet 400 mg PO QHS mental health 03/04/23 [History Last Taken Unknown] bisacodyl 5 mg tablet,delayed release 5 mg PO DAILY PRN constipation 03/17/23 [History Last Taken Unknown] nicotine 21 mg/24 hr daily transdermal patch 1 patch transdermal DAILY PRN smoking cessation 03/17/23 [History Last Taken Unknown] albuterol sulfate 2.5 mg/3 mL (0.083 %) solution for nebulization 2.5 mg inhalation Q6H PRN shortness of breath or wheezing 06/07/23 [History Last Taken Unknown] albuterol sulfate 90 mcg/actuation aerosol inhaler 2 puff inhalation Q4H PRN shortness of breath or wheezing 06/07/23 [History Last Taken Unknown] cetirizine 10 mg tablet 10 mg PO DAILY PRN allergy symptoms 06/07/23 [History Last Taken Unknown] furosemide 80 mg tablet 80 mg PO DAILY see pcp 06/07/23 [History Last Taken Unknown] insulin glargine 100 unit/mL (3 mL) subcutaneous pen (Lantus Solostar U-100 Insulin) 22 unit subcut QHS PRN blood sugar 06/07/23 [History Last Taken Unknown] atorvastatin 80 mg tablet 80 mg PO QHS CHOLEST 06/27/23 [History Last Taken Unknown] baclofen 5 mg tablet 5 - 10 mg PO TID PRN muscle spasm 06/27/23 [History Last Taken Unknown] semaglutide 0.25 mg or 0.5 mg (2 mg/3 mL) subcutaneous pen injector (Ozempic) 0.5 mg subcut .weekly 06/27/23 [History Last Taken Unknown] Allergy/AdvReac Type Severity Reaction Status Date / Time contact metal agent Allergy Intermediate Rash Verified 06/27/23 13:47 clindamycin Allergy Hives Verified 06/27/23 13:47 Sulfa (Sulfonamide Allergy Anaphylaxis Verified 06/27/23 13:47 Antibiotics) vancomycin Allergy Hives Verified 06/27/23 13:47 acetaminophen [From [place]] AdvReac Severe Itching Verified 06/07/23 23:01 hydrocodone [From [place]] AdvReac Severe Itching Verified 06/27/23 13:47 fentanyl AdvReac Other Verified 06/27/23 13:47 metformin AdvReac Diarrhea Verified 06/27/23 13:47 Family History Other Arthritis Depression Diabetes Fibromyalgia Heart disease Hypertension Surgical History History of carpal tunnel surgery History of elbow surgery History of tonsillectomy and adenoidectomy Hx of neck surgery Social History (Updated 06/07/23 @ 10:26 by Maria Silver RN) household members: spouse Smoking Status: Current every day smoker tobacco type: cigarettes Tobacco: How many years used: 30 alcohol intake: current alcohol intake frequency: holidays/special occasions only Vital Signs Vital Signs Vital Signs: 06/27/23 11:02 Temperature 96.8 F L Temperature Source Temporal Pulse Rate 122 H Respiratory Rate 18 Blood Pressure 191/95 H Blood Pressure Mean 127 Pulse Ox 98 Oxygen Delivery Method Room Air Weight Weight: 214 lb 8 oz Body Mass Index (BMI) 33.5 Physical Exam Const alert, oriented x3 and no apparent distress HEENT normocephalic and head/scalp atraumatic Resp normal respiratory effort Cardio regular rate GI soft to palpation; Negative for non-distended Palpation: tender RLQ; Negative for guarding Extremity no clubbing, cyanosis or edema Neuro CN's II-XII intact bilaterally Psych mental status grossly normal Results Lab / Micro Data 06/27/23 11:40 06/27/23 11:40 Labs: Laboratory Results - last 24 hr 06/27/23 11:40: WBC 5.9, RBC 5.05, Hgb 14.1, Hct 42.1, MCV 83.4, MCH 27.9, MCHC 33.5, RDW Std Deviation 39.8, RDW Coeff of Charu 13.2, Plt Count 219, MPV 11.5, Immature Gran % (Auto) 0.300, Neut % (Auto) 54.7, Lymph % (Auto) 32.0, [place] % (Auto) 6.2, Eos % (Auto) 6.5 H, Baso % (Auto) 0.3, Absolute Neuts (auto) 3.2, Absolute Lymphs (auto) 1.87, Nucleated RBC % 0, Sodium 134 L, Potassium 4.1, Chloride 104, Carbon Dioxide 23.0, Anion Gap 7, BUN 21 H, Creatinine 1.44 H, Estim Creat Clear Calc 55.36, Est GFR (MDRD) Af Amer 49 L, Est GFR (MDRD) Non-Af 41 L, BUN/Creatinine Ratio 14.6, Glucose 307 H, Lactic Acid 2.4 H*, Calcium 9.7, Total Bilirubin 0.50, AST 10 L, ALT 20, Alkaline Phosphatase 126 H, Total Protein 7.6, Albumin 3.7, Globulin 3.9, Albumin/Globulin Ratio 0.9, Lipase 20 06/27/23 13:20: Urine Color Yellow, Urine Clarity Sl. Cloudy, Urine pH 5.0, Ur Specific [place] 1.025, Urine Protein 30 H, Urine Glucose (UA) 1000 H, Urine Ketones Negative, Urine Occult Blood 10 H, Urine Nitrite Negative, Urine Bilirubin Negative, Urine Urobilinogen Normal, Ur Leukocyte Esterase 100 H Imaging Radiology Impression Abdomen/Pelvis CT 06/27/23 11:15 IMPRESSION: Acute appendicitis. No free air, free fluid or fluid collection. N.B. : The above Results were Read Back by Brandon Acosta MD to Jenna Valera DO, and understanding confirmed on 06/27/2023 13:37:23 (ET). Electronically Signed: Brandon Acosta MD at 13:38 EST Reading Location ID and State: [facility] / [place] Tel , Service support , Assessment & Plan Assessment/Plan (1) Acute appendicitis: (2) Type II diabetes mellitus, uncontrolled: PLAN: Plan 1. Discussed procedure laparoscopic appendectomy, possible open along with the risk but not limited to bleeding, infection/abscess, injury to another organ (small bowel, colon, etc.), adhesion, hernia at incision sites, and anesthesia. Patient no further question this time. Discussed with patient that postoperatively she is able to tolerate diet, pain control, ambulating, vital signs stable she would be able to be DC'd home. Linda Whelan M.D. Pager: [phone] [facility] [address] [place] [address], [address] [place] [address] Office: [phone]
[2023-06-27 13:48] LABS: Bacteria 1+ /hpf (None Seen); Squamous Epithelial Cells - UA 25-50 SEEN /hpf (5-10); White Blood Cells 10-25 SEEN /hpf (0-5)
--- NOTE | 2023-06-27 13:50 | NURSING ---
MED SURG ROBOTHAM ABD PAIN, APPENDICITIS
--- NOTE | 2023-06-27 14:26 | NURSING ---
DR VELARDE IN ROOM
[2023-06-27] MEDS: Piperacil/Tazobactam 4.5 GM in 0.9% Normal Saline (100mL MB+) 100 ML IV (14:40)
--- NOTE | 2023-06-27 14:52 | EKG12_ITS ---
Test Reason : PRE OP Blood Pressure : / mmHG Vent. Rate : 089 BPM Atrial Rate : 089 BPM P-R Int : 146 ms QRS Dur : 076 ms QT Int : 350 ms P-R-T Axes : 044 003 019 degrees QTc Int : 425 ms Normal sinus rhythm Low voltage QRS Borderline ECG Confirmed by RAS DALEY, EVELINE ([id number]), photograph editor NAYLA BURTON ([id number]) on 06/28/2023 10:19:47 AM Referred By: ELVIA Confirmed By:EVELINE MCGINNIS MD
[2023-06-27 15:14] LABS: Bedside Glucose 205 mg/dL (74-106)
[2023-06-27 15:55] LABS: Reflex Lactate? Y
[2023-06-27] MEDS: Bupivacaine Mpf 0.5% 30 ML VIAL (16:07)
--- NOTE | 2023-06-27 16:22 | OP.PCM_ITS ---
Report of Operation Date of Procedure: 06/27/23 Pre-Operative Diagnosis: acute appendicitis Post-Operative Diagnosis: same Surgery/Procedure Performed:: laparoscopic appendectomy Surgeon: Linda Whelan Type of Anesthesia: General/Supplemental Anesthesiologist: Jerome Kingsley Special Medications: zosyn IV in ER for acute appendicitis Specimen's removed: appendix Estimated Blood Loss (mL): 10 cc Description of Procedure: Indications: 52-year-old female presented to the ER with new right lower qu adrant pain last night. On workup she was found to have acute appendicitis on CT and a leukocytosis of 5.9. Patient was started on antibiotics in the ER for acute appendicitis-Zosyn IV in the ER for acute appendicitis Description of the procedure: The patient was placed on operating table in supine position. General anesthesia was induced. A timeout was completed verifying correct patient, procedure, position and special equipment prior to beginning procedure. Abdomen was prepped and draped in usual sterile fashion. Incision was made in the natural skin line above the umbilicus with a 15 blade scalpel. The fascia was elevated and incised. Entry into the peritoneum was confirmed visually and no bowel was noted in the vicinity of the incision. The Larios trocar was placed under direct vision. Abdomen insufflated with a pressure of 12-15 mmHg. Patient tolerated insertion well. The scope was inserted and the abdomen inspected. No injuries from initial trocar placement were noted. Minimal amount of fluid was seen in the right lower quadrant. An direct visualization 2 -5 mm trocars were placed one above the symphysis pubis and below the hairline and one in the left lower quadrant lateral to the rectus muscle. Care is taken to avoid injury to the bladder and inferior epigastric vessels. The table was placed in Trendelenburg position with the right side elevated. The appendix was grasped with atraumatic grasper and elevated. It was noted to be mildly inflamed. A window was developed in the mesoappendix at the point between the base of the appendix and the cecum. An endoscopic 45 mm linear cutting stapler blue load was then used to divide and staple the base of the appendix. Enseal was used to divide the mesoappendix. The appendix was withdrawn into the Larios trocar after being placed endoscopically retrieval bag. Appendix was sent to pathology. The appendiceal stump was then irrigated and hemostasis was assured. Fluid was suctioned no other pathology was identified. Secondary trochars were removed under direct visualization. No bleeding was noted trocar sites. The laparoscope withdrawn and the umbilical trocar removed. The abdomen was allowed to collapse. Local anesthesia of 20 mL of 0.5% Marcaine was used at the incision sites. The umbilical trocar site was closed with the [id number] 0 Vicryl suture. The skin was closed using sutures of 4-0 Monocryl and Steri-Strips. The patient was extubated. The patient tolerated the procedure well and was taken to the postanesthesia care unit in satisfactory condition. Complications none
--- NOTE | 2023-06-27 16:28 | DCINST_ITS ---
Discharge Instructions Diet Discharge Diet: Light diet - advance as tolerated Activity Discharge Activity: May Not Drive (while taking narcotic pain medications.) May shower in (days): 1 Lifting Restrictions: no lifting >20 lbs x 2 wks, no strenuous exercise for 4 wks Dressing / Incision Call your doctor if your incision/area has: Continuous Slow Oozing, Sudden Increased Bleeding, Increased Pain/ Swelling, Increased Redness, Foul Smelling Discharge and Swelling at the incision site Call your doctor if you observe: Fever of 101 or Higher Remove Dressing in: 2 days Cleanse incision/area with: Soap & Water Additional Dressing/Incision Instructions:: Steri-Strips will fall off in 7 to 10 days, if they do not fall off okay to remove after 10 days. Follow Up Care Please Follow Up With: Linda Whelan MD When: Call the office for a follow-up appointment 2 weeks; after 5 PM and on the weekends call [phone] with any concerns. Test Results: Test results from this visit will be discussed in further detail at your follow- up appointment, if applicable. Discharge Plan Admission Admit Date/Time: 06/27/23 14:52 Attending Provider: Linda Whelan Primary Care Provider: Tyra Yang NP Discharge Orders/Prescriptions Prescriptions: New oxycodone-acetaminophen 5-325 mg tablet 1 - 2 tab PO Q6H PRN (Reason: pain) 3 Days Qty: 14 0RF Continued cetirizine 10 mg tablet 10 mg PO DAILY PRN (Reason: allergy symptoms) furosemide 80 mg tablet 80 mg PO DAILY insulin glargine [Lantus Solostar U-100 Insulin] 100 unit/mL (3 mL) insulin pen 22 unit SUBCUT QHS PRN (Reason: blood sugar) Rx Instructions: if BS >150 at bedtime albuterol sulfate 2.5 mg /3 mL (0.083 %) solution for nebulization 2.5 mg inhalation Q6H PRN (Reason: shortness of breath or wheezing) albuterol sulfate 90 mcg/actuation HFA aerosol inhaler 2 puff inhalation Q4H PRN (Reason: shortness of breath or wheezing) metformin 500 MG tablet 1,000 mg PO BID lamotrigine 200 mg tablet 200 mg PO DAILY Patient Comments: take 2 tablets by mouth every morning paroxetine HCl 40 mg tablet 40 mg PO DAILY pregabalin 300 mg capsule 300 mg PO BID quetiapine 400 mg tablet 400 mg PO QHS fluticasone propionate 50 mcg/actuation spray,suspension 2 spray INTRANASAL DAILY Patient Comments: Rinse mouth after use Linzess 72 mcg capsule 72 mcg PO DAILY Patient Comments: *ADMINISTER ON AN EMPTY STOMACH bisacodyl 5 mg tablet,delayed release (DR/EC) 5 mg PO DAILY PRN nicotine 21 mg/24 hr patch 24 hour 1 patch transdermal DAILY PRN (Reason: smoking cessation) atorvastatin 80 mg tablet 80 mg PO QHS baclofen 5 mg tablet 5 - 10 mg PO TID PRN (Reason: muscle spasm) Ozempic 0.25 mg or 0.5 mg (2 mg/3 mL) pen injector 0.5 mg SUBCUT .weekly Patient Comments: INJECT 0.5MG SUBCUTANEOUSLY EVERY WEEK Referrals / Follow Up: Tyra Yang NP, [facility] [Primary Care Provider] -
[2023-06-27] MEDS: oxyCODONE 5 MG Tablet PO ×2 (17:28→21:37)
[2023-06-27] MEDS: Insulin Lispro 100 UNIT/ML INSULN.PEN SC ×2 (17:33→22:57)
[2023-06-27 17:50] LABS: Bedside Glucose 228 mg/dL (74-106)
[2023-06-27 17:58] LABS: Lactic Acid 0.8 mmol/L (0.4-1.9)
[2023-06-27] MEDS: Pantoprazole Sodium 40 MG in 0.9% Normal Saline (100mL MB+) 100 ML 330 MG IV (18:00)
[2023-06-27] MEDS: QUEtiapine 100 MG Tablet 400 MG PO (21:38)
[2023-06-27] MEDS: Pregabalin 75 MG Capsule 300 MG PO (21:38)
[2023-06-27] MEDS: DiphenhydrAMINE 25 MG Capsule PO (21:38)
[2023-06-27] MEDS: Insulin Glargine-YFGN 100 UNIT/ML Pen 7 UNIT SC (21:43)
[2023-06-27 22:54] LABS: Bedside Glucose 283 mg/dL (74-106)
[2023-06-28] MEDS: 0.9% Normal Saline (1000mL) 1,000 ML 125 ML IV (01:00)
[2023-06-28 01:11] VITALS: BP 98/57; PULSE 73; RESP 16; TEMP 37.1; O2SAT 96
[2023-06-28 05:45] VITALS: BP 134/83; PULSE 82; RESP 16; TEMP 36.8; O2SAT 100
[2023-06-28] MEDS: oxyCODONE 5 MG Tablet PO (05:47)
[2023-06-28] MEDS: Insulin Lispro 100 UNIT/ML INSULN.PEN SC (05:52)
[2023-06-28 06:41] LABS: Bedside Glucose 172 mg/dL (74-106)
--- NOTE | 2023-06-28 07:35 | PCM.PN.SRG ---
Subjective Subjective Patient evaluated resting comfortably in bed. She notes incisional pain. She denies any nausea, vomiting, fever. She is tolerating a regular diet and voices readiness to go home. Objective Data Objective Data Vital Signs: Vital Signs Temp Pulse Resp BP Pulse Ox O2 Del Method O2 Flow Rate 98.3 F 82 16 134/83 H 100 Room Air 2 06/28/23 05:45 06/28/23 05:45 06/28/23 05:45 06/28/23 05:45 06/28/23 05:45 06/28/23 05:45 06/27/23 17:02 Oxygen Flow Rate (L/min) 2 Oxygen Delivery Method Room Air Weight: 214 lb 8 oz Body Mass Index (BMI) 33.5 Intake & Output: Intake and Output for Last 24 Hours 06/26/23 06/27/23 06/28/23 23:59 23:59 23:59 Intake Total 918.33 / 918.33 937.5 / 937.5 Output Total 200 / 200 Balance 718.33 / 718.33 937.5 / 937.5 Lab / Micro Data 06/27/23 11:40 06/27/23 11:40 Labs: Laboratory Results - last 24 hr 06/27/23 11:40: WBC 5.9, RBC 5.05, Hgb 14.1, Hct 42.1, MCV 83.4, MCH 27.9, MCHC 33.5, RDW Std Deviation 39.8, RDW Coeff of Charu 13.2, Plt Count 219, MPV 11.5, Immature Gran % (Auto) 0.300, Neut % (Auto) 54.7, Lymph % (Auto) 32.0, [place] % (Auto) 6.2, Eos % (Auto) 6.5 H, Baso % (Auto) 0.3, Absolute Neuts (auto) 3.2, Absolute Lymphs (auto) 1.87, Nucleated RBC % 0, Sodium 134 L, Potassium 4.1, Chloride 104, Carbon Dioxide 23.0, Anion Gap 7, BUN 21 H, Creatinine 1.44 H, Estim Creat Clear Calc 55.36, Est GFR (MDRD) Af Amer 49 L, Est GFR (MDRD) Non-Af 41 L, BUN/Creatinine Ratio 14.6, Glucose 307 H, Lactic Acid 2.4 H*, Calcium 9.7, Total Bilirubin 0.50, AST 10 L, ALT 20, Alkaline Phosphatase 126 H, Total Protein 7.6, Albumin 3.7, Globulin 3.9, Albumin/Globulin Ratio 0.9, Lipase 20 06/27/23 13:20: Urine Color Yellow, Urine Clarity Sl. Cloudy, Urine pH 5.0, Ur Specific [place] 1.025, Urine Protein 30 H, Urine Glucose (UA) 1000 H, Urine Ketones Negative, Urine Occult Blood 10 H, Urine Nitrite Negative, Urine Bilirubin Negative, Urine Urobilinogen Normal, Ur Leukocyte Esterase 100 H, Urine RBC 0 SEEN, Urine WBC 10-25 SEEN, Ur Squamous Epith Cells 25-50 SEEN, Urine Bacteria 1+, Urine Mucus 0 SEEN 06/27/23 14:56: POC Glucose 205 H 06/27/23 17:25: Lactic Acid 0.8 06/27/23 17:28: POC Glucose 228 H 06/27/23 21:41: POC Glucose 283 H 06/28/23 05:51: POC Glucose 172 H Radiography Diagnostic Testing: Radiology Impression Abdomen/Pelvis CT 06/27/23 11:15 IMPRESSION: Acute appendicitis. No free air, free fluid or fluid collection. N.B. : The above Results were Read Back by Brandon Acosta MD to Jenna Valera DO, and understanding confirmed on 06/27/2023 13:37:23 (ET). Electronically Signed: Brandon Acosta MD at 13:38 EST , ADDENDUM: 06/27/23 1345 IMPRESSION: Acute appendicitis. No free air, free fluid or fluid collection. N.B. : The above Results were Read Back by Brandon Acosta MD to Jenna Valera DO, and understanding confirmed on 06/27/2023 13:37:23 (ET). Electronically Signed: Brandon Acosta MD at 13:38 EST , Physical Exam GI GI Narrative: Abdomen- soft, slight tenderness over the incisions. Incisions c/d/i. No erythema or infection noted. Assessment & Plan Assessment/Plan (1) Acute appendicitis: PLAN: Ready for discharge today Charges/Coding Visit Charges Inpatient E&M: 66798 Subs Hosp L1 (no charge; post-op)
[2023-06-28] MEDS: lamoTRIgine 100 MG Tablet 200 MG PO (08:19)
[2023-06-28] MEDS: Paroxetine 20 MG Tablet 40 MG PO (08:19)
[2023-06-28] MEDS: Pregabalin 75 MG Capsule 300 MG PO (08:21)
[2023-06-28 08:32] VITALS: BP 116/75; PULSE 85; RESP 16; TEMP 36.9; O2SAT 96
== END 2023-06-28 08:46 | disposition home or self-care (01) ==
LOC: ED 13:47 → MS3 14:05
PROVIDERS: Admitting Provider Surgery; Emergency Provider Emergency Medicine; PCP Nurse Practitioner Family; Visit Provider Surgery
PROC: 0DTJ4ZZ Resection of Appendix, Percutaneous Endoscopic Approach (ICD-10-PCS; CPT 44970; principal; 2023-06-27 14:45)
DX: K35.890 Other acute appendicitis without perforation or gangrene (principal); I50.32 Chronic diastolic (congestive) heart failure; F31.9 Bipolar disorder, unspecified; E11.22 Type 2 diabetes mellitus with diabetic chronic kidney disease; E11.65 Type 2 diabetes mellitus with hyperglycemia; Z79.4 Long term (current) use of insulin; M79.7 Fibromyalgia; F17.210 Nicotine dependence, cigarettes, uncomplicated; N18.9 Chronic kidney disease, unspecified; I25.10 Atherosclerotic heart disease of native coronary artery without angina pectoris; Z79.84 Long term (current) use of oral hypoglycemic drugs; E78.5 Hyperlipidemia, unspecified; Z79.899 Other long term (current) drug therapy; Z79.51 Long term (current) use of inhaled steroids; Z79.85 Long-term (current) use of injectable non-insulin antidiabetic drugs
CPT/HCPCS: 44970; 00840; 36415; 74177; 80053; 81001; 82962; 83605; 83690; 85025; 88304; 93005; 96361; 96365; 96375; 96376; 99221; 99284; J7030; Q9967; A4216; C1760; G0378; J0330; J2405

== ENCOUNTER 2023-07-08 12:41 | Emergency (ER) | payer BC, MEDICAID, SELFPAY ==
[2023-07-08 12:42] VITALS: BP 158/99; PULSE 107; RESP 18; TEMP 36.3; O2SAT 97; BMI 32.9
--- NOTE | 2023-07-08 12:56 | CT_ITS ---
STUDY: CT ABDOMEN AND PELVIS WITHOUT CONTRAST REASON FOR EXAM: Female, 52 years old. Abdominal pain. Recent appendectomy. RADIATION DOSAGE (If Supplied By Facility): CTDIvol = ( 17.29 ) mGy, DLP = ( 1002.78 ) mGycm TECHNIQUE: Transaxial images were obtained from the dome of the diaphragm to the symphysis pubis without oral contrast, and without intravenous contrast. Sagittal and coronal images were reconstructed. Individualized dose optimization techniques were used for this CT. COMPARISON: Comparison is made with prior study dated June 27, 2023. FINDINGS: Minimal increased linear markings at the left lung base suggestive of linear atelectasis and/or linear scarring. Coronary artery calcification. Minimal anterior pericardial thickening. Normal liver. Normal gallbladder and extrahepatic biliary system. Normal spleen. There is diffuse atrophy of the pancreas. Normal bilateral adrenal glands. Normal right kidney. Normal left kidney. Normal visualized stomach. Normal small intestine. Normal colon. There is non-visualization of the appendix. There is scattered atherosclerotic calcification of the abdominal aorta, without a demonstrated aneurysm. Normal inferior vena cava. Normal retroperitoneum. Normal urinary bladder. Bilateral tubal ligation clips are seen. Postoperative changes are seen in the umbilical region. There are diffuse degenerative changes of the visualized lumbar spine. Straightening of the normal lumbar lordosis. CT/Abdomen/Pelvis without Cont IMPRESSION: Status post appendectomy. No acute abnormality is seen. Electronically Signed: Prakash Morse MD at 13:46 EST ,
--- NOTE | 2023-07-08 13:00 | ED.VIS.GI ---
HPI <SULEIMAN Bowden - Last Filed: 07/08/23 20:37> HPI - GI History of Present Illness Chief Complaint: Abd Pain Narrative Narrative: Patient presenting today due to upper abdominal pain that she has had since last Wednesday. She reports that she was recently started on Ozempic and has had 3 injections, each time she has had an injection she has noticed abdominal pain afterwards. She did recently have an appendectomy on 06/27/2023 and reports that the procedure went well. Her abdominal pain seemed to worsen on Wednesday, recent Ozempic injection on Wednesday. She has had intermittent nausea and 1 episode of vomiting today. She was a history of IBS and constipation, she has not had a bowel movement since last Wednesday which is not unusual for her, she is passing gas. She reports that she was given a prescription for Percocet but only took it the day after her surgery and has not taken it since. She denies any fevers chills, hematemesis, blood in the stool, and urinary symptoms. [facility] <SULEIMAN Bowden - Last Filed: 07/08/23 20:37> [facility] Medical History Anemia Anxiety Arrhythmia Arthritis Asthma Atherosclerotic heart disease of samish coronary artery without angina pectoris Bipolar disorder Chronic diastolic heart failure Chronic neck and back pain CKD (chronic kidney disease) Depressive disorder Diabetes Fibromyalgia history of uterine ablation Hydronephrosis Hyperglycemia Hyperlipidemia IBS (irritable bowel syndrome) DORITA (obstructive sleep apnea) Overdose of drug Syncope Type II diabetes mellitus, uncontrolled UTI (urinary tract infection) Home Medications metformin 500 mg tablet,extended release 24 hr 1,000 mg PO BID DM 03/21/13 [History Last Taken 06/09/19] fluticasone propionate 50 mcg/actuation nasal spray,suspension 2 spray intranasal DAILY allergies 03/04/23 [History Last Taken 03/16/23] lamotrigine 200 mg tablet 200 mg PO DAILY seizures 03/04/23 [History Last Taken Unknown] linaclotide 72 mcg capsule (Linzess) 72 mcg PO DAILY constipation 03/04/23 [History Last Taken Unknown] paroxetine HCl 40 mg tablet 40 mg PO DAILY mental health 03/04/23 [History Last Taken Unknown] pregabalin 300 mg capsule 300 mg PO BID pain 03/04/23 [History Last Taken Unknown] quetiapine 400 mg tablet 400 mg PO QHS mental health 03/04/23 [History Last Taken Unknown] bisacodyl 5 mg tablet,delayed release 5 mg PO DAILY PRN constipation 03/17/23 [History Last Taken Unknown] nicotine 21 mg/24 hr daily transdermal patch 1 patch transdermal DAILY PRN smoking cessation 03/17/23 [History Last Taken Unknown] albuterol sulfate 2.5 mg/3 mL (0.083 %) solution for nebulization 2.5 mg inhalation Q6H PRN shortness of breath or wheezing 06/07/23 [History Last Taken Unknown] albuterol sulfate 90 mcg/actuation aerosol inhaler 2 puff inhalation Q4H PRN shortness of breath or wheezing 06/07/23 [History Last Taken Unknown] cetirizine 10 mg tablet 10 mg PO DAILY PRN allergy symptoms 06/07/23 [History Last Taken Unknown] furosemide 80 mg tablet 80 mg PO DAILY see pcp 06/07/23 [History Last Taken Unknown] insulin glargine 100 unit/mL (3 mL) subcutaneous pen (Lantus Solostar U-100 Insulin) 22 unit subcut QHS PRN blood sugar 06/07/23 [History Last Taken Unknown] atorvastatin 80 mg tablet 80 mg PO QHS CHOLEST 06/27/23 [History Last Taken Unknown] baclofen 5 mg tablet 5 - 10 mg PO TID PRN muscle spasm 06/27/23 [History Last Taken Unknown] oxycodone-acetaminophen 5 mg-325 mg tablet 1 - 2 tab PO Q6H PRN pain 3 days #14 tabs 06/27/23 [Rx Last Taken Unknown] semaglutide 0.25 mg or 0.5 mg (2 mg/3 mL) subcutaneous pen injector (Ozempic) 0.5 mg subcut .weekly 06/27/23 [History Last Taken Unknown] ondansetron 4 mg disintegrating tablet 4 mg PO Q8H PRN PRN Nausea #10 tabs 07/08/23 [Rx Last Taken Unknown] Allergy/AdvReac Type Severity Reaction Status Date / Time contact metal agent Allergy Intermediate Rash Verified 07/08/23 12:42 clindamycin Allergy Hives Verified 07/08/23 12:42 Sulfa (Sulfonamide Allergy Anaphylaxis Verified 07/08/23 12:42 Antibiotics) vancomycin Allergy Hives Verified 07/08/23 12:42 acetaminophen [From [place]] AdvReac Severe Itching Verified 07/08/23 12:42 hydrocodone [From [place]] AdvReac Severe Itching Verified 07/08/23 12:42 fentanyl AdvReac Other Verified 07/08/23 12:42 metformin AdvReac Diarrhea Verified 07/08/23 12:42 Family History Other Arthritis Depression Diabetes Fibromyalgia Heart disease Hypertension Surgical History History of carpal tunnel surgery History of elbow surgery History of tonsillectomy and adenoidectomy Hx of neck surgery Social History household members: spouse Smoking Status: Current every day smoker tobacco type: cigarettes Tobacco: How many years used: 30 alcohol intake: current alcohol intake frequency: holidays/special occasions only ROS <SULEIMAN Bowden - Last Filed: 07/08/23 20:37> ROS ED Constitutional Constitutional ED: Denies chills or fever(s) Cardiovascular Cardiovascular: Denies chest pain Respiratory/Chest Respiratory/Chest: Denies cough or dyspnea Gastrointestinal Gastrointestinal: Reports abdominal pain, constipation, nausea and vomiting; Denies diarrhea Genitourinary Genitourinary ED: Denies dysuria, hematuria or urinary urgency Musculoskeletal Musculoskeletal: Denies arthralgias or myalgias Integumentary Denies rash Neurologic Neurologic: Denies weakness EXAM <SULEIMAN Bowden - Last Filed: 07/08/23 20:37> Physical Exam Const Vital Signs: 07/08/23 12:42 07/08/23 14:25 07/08/23 15:38 Temperature 97.3 F L 97.3 F L Temperature Source Temporal Temporal Pulse Rate 107 H 89 84 Respiratory Rate 18 18 616 H Blood Pressure 158/99 H 124/80 H 110/64 Blood Pressure Mean 118 94 79 Pulse Ox 97 94 99 Oxygen Delivery Method Room Air Room Air Room Air Positive well nourished, well developed and no apparent distress General Appearance ED: well developed HEENT Reports normocephalic and head/scalp atraumatic Mouth ED: Yes moist mucous membranes normal Eyes PERRL and EOMs intact bilaterally Neck full ROM and supple Chest Wall inspection of chest normal Resp normal respiratory effort and clear to auscultation bilaterally Cardio regular rate and regular rhythm GI soft to palpation, non-distended and no masses GI Narrative: Diffuse upper abdominal tenderness to palpation. Back/Spine normal ROM and normal to inspection Extremity normal to inspection and full ROM Neuro oriented x3, CN's II-XII intact bilaterally, moves all extremities, no focal motor deficits and no sensory deficits noted Sensorium / Orientation: awake and alert Psych mental status grossly normal and thought process normal Skin no rashes or lesions noted and no wounds <Dr. Jenna Valera DO - Last Filed: 07/08/23 22:15> Physical Exam Const Vital Signs: 07/08/23 12:42 07/08/23 14:25 07/08/23 15:38 Temperature 97.3 F L 97.3 F L Temperature Source Temporal Temporal Pulse Rate 107 H 89 84 Respiratory Rate 18 18 616 H Blood Pressure 158/99 H 124/80 H 110/64 Blood Pressure Mean 118 94 79 Pulse Ox 97 94 99 Oxygen Delivery Method Room Air Room Air Room Air [facility] <SULEIMAN Bowden - Last Filed: 07/08/23 20:37> [facility] Narrative Medical decision making narrative: Patient presenting due to diffuse upper abdominal pain that she has had for over a week. She thinks that it is due to her Ozempic as she notices the pain is brought on the day after she receives her injection. She does have a history of constipation, last bowel movement was about a week ago. She does have tenderness to her upper abdomen. CT will be obtained as well as abdominal labs. She will be given IV morphine and Zofran. CT is negative for any acute findings, labs overall are unremarkable aside from slight hyponatremia 134, creatinine 1.56, alkaline phosphatase of 141. I did speak with Dr. Duncan, she recommends having patient follow-up as an outpatient. I did recommend she discuss switching medications for her diabetes with her PCP if she does not tolerate Ozempic well. I did offer pain medication for home but patient reports that she does not want any analgesia, she would be fine with a prescription for Zofran. She has been given return instructions and will be discharged home in stable condition. She is comfortable with plan. I have personally performed a face to face assessment of the patient and have reviewed the ELENA Note. I performed a substantive portion of the visit including all aspects of the following. My tidwell findings include: History is patient presents to the emergency department complaint of abdominal pain. Patient states that she had her appendix removed about a week and a half ago. She has been getting Ozempic for her diabetes every Wednesday. She has had 3 injections now and she states that she is been getting sick every time after the injection. She developed abdominal pain and nausea. She did vomit once today. Patient called her primary care physician because she thought she was getting dehydrated and she was advised to come to the ER to get evaluated. She describes her pain as an 8 out of 10. Food seems to make the pain worse. She still has her gallbladder. Patient also has not had a bowel movement in about a week which is not unusual for her because she states she has history of IBS. Currently not taking any narcotics and states she only had 3 tablets after her surgery and did fine. Patient denies urinary symptoms. [ ] Exam is [HEENT-PERRLA, EOMI. Cranial nerves II through XII grossly intact. TMs clear. Mucous membranes moist. No adenopathy. Cardiovascular-regular rate and rhythm without murmur or ectopy Lungs-clear to auscultation, chest wall stable without crepitus or subcu emphysema Abdomen-patient with diffuse tenderness palpation over right upper quadrant with some guarding. She has tenderness over the epigastric region. There is no rebound, rigidity, peritoneal signs. Extremities-intact ?4, normal range of motion, normal pulses, atraumatic] Medical Decison Making [patient's lab workup was unremarkable. She had a CT scan of the abdomen pelvis that shows showed postsurgical changes no other acute process. Patient was given fluids and morphine and Zofran. Case was discussed with general surgeon Dr. Whelan who will follow patient up in the office.] Other additions or changes: [None] Lab Data Attestation: I reviewed the patient's lab results. Lab results narrative: Sodium 134, creatinine 1.56, alkaline phosphatase 141 Labs: Laboratory Results - last 24 hr 07/08/23 07/08/23 13:00 14:22 WBC 9.0 RBC 5.25 Hgb 14.7 Hct 43.8 MCV 83.4 MCH 28.0 MCHC 33.6 RDW Std Deviation 39.7 RDW Coeff of Charu 13.1 Plt Count 239 MPV 10.9 Immature Gran % (Auto) 0.400 Neut % (Auto) 62.5 Lymph % (Auto) 25.6 [place] % (Auto) 5.5 Eos % (Auto) 5.8 H Baso % (Auto) 0.2 Absolute Neuts (auto) 5.6 Absolute Lymphs (auto) 2.30 Nucleated RBC % 0 Sodium 134 L Potassium 3.7 Chloride 101 Carbon Dioxide 26.0 Anion Gap 7 BUN 16 Creatinine 1.56 H Estim Creat Clear Calc 50.57 Est GFR (MDRD) Af Amer 45 L Est GFR (MDRD) Non-Af 37 L BUN/Creatinine Ratio 10.3 Glucose 229 H Calcium 9.4 Total Bilirubin 0.60 AST 18 ALT 23 Alkaline Phosphatase 141 H Total Protein 8.4 H Albumin 3.9 Globulin 4.5 H Albumin/Globulin Ratio 0.9 Lipase 17 Urine Color Yellow Urine Clarity Sl. Cloudy Urine pH 6.0 Ur Specific [place] 1.010 Urine Protein 15 H Urine Glucose (UA) Normal Urine Ketones Negative Urine Occult Blood Negative Urine Nitrite Negative Urine Bilirubin Negative Urine Urobilinogen Normal Ur Leukocyte Esterase 25 H Urine RBC 0 SEEN Urine WBC 0 SEEN Ur Squamous Epith Cells 5-10 SEEN Urine Bacteria 1+ Urine Mucus 0 SEEN Radiography Diagnostic Testing: Clinical Impression(s) from Imaging Studies Abdomen/Pelvis CT 07/08/23 12:56 IMPRESSION: Status post appendectomy. No acute abnormality is seen. Electronically Signed: Prakash Morse MD at 13:46 EST , <Dr. Jenna Valera, DO - Last Filed: 07/08/23 22:15> [facility] Narrative Medical decision making narrative: Patient presenting due to diffuse upper abdominal pain that she has had for over a week. She thinks that it is due to her Ozempic as she notices the pain is brought on the day after she receives her injection. She does have a history of constipation, last bowel movement was about a week ago. She does have tenderness to her upper abdomen. CT will be obtained as well as abdominal labs. She will be given IV morphine and Zofran. I have personally performed a face to face assessment of the patient and have reviewed the ELENA Note. I performed a substantive portion of the visit including all aspects of the following. My tidwell findings include: History is patient presents to the emergency department complaint of abdominal pain. Patient states that she had her appendix removed about a week and a half ago. She has been getting Ozempic for her diabetes every Wednesday. She has had 3 injections now and she states that she is been getting sick every time after the injection. She developed abdominal pain and nausea. She did vomit once today. Patient called her primary care physician because she thought she was getting dehydrated and she was advised to come to the ER to get evaluated. She describes her pain as an 8 out of 10. Food seems to make the pain worse. She still has her gallbladder. Patient also has not had a bowel movement in about a week which is not unusual for her because she states she has history of IBS. Currently not taking any narcotics and states she only had 3 tablets after her surgery and did fine. Patient denies urinary symptoms. [ ] Exam is [HEENT-PERRLA, EOMI. Cranial nerves II through XII grossly intact. TMs clear. Mucous membranes moist. No adenopathy. Cardiovascular-regular rate and rhythm without murmur or ectopy Lungs-clear to auscultation, chest wall stable without crepitus or subcu emphysema Abdomen-patient with diffuse tenderness palpation over right upper quadrant with some guarding. She has tenderness over the epigastric region. There is no rebound, rigidity, peritoneal signs. Extremities-intact ?4, normal range of motion, normal pulses, atraumatic] Medical Decison Making [patient's lab workup was unremarkable. She had a CT scan of the abdomen pelvis that shows showed postsurgical changes no other acute process. Patient was given fluids and morphine and Zofran. Case was discussed with general surgeon Dr. Whelan who will follow patient up in the office.] Other additions or changes: [None] Lab Data Labs: Laboratory Results - last 24 hr 07/08/23 07/08/23 13:00 14:22 WBC 9.0 RBC 5.25 Hgb 14.7 Hct 43.8 MCV 83.4 MCH 28.0 MCHC 33.6 RDW Std Deviation 39.7 RDW Coeff of Charu 13.1 Plt Count 239 MPV 10.9 Immature Gran % (Auto) 0.400 Neut % (Auto) 62.5 Lymph % (Auto) 25.6 [place] % (Auto) 5.5 Eos % (Auto) 5.8 H Baso % (Auto) 0.2 Absolute Neuts (auto) 5.6 Absolute Lymphs (auto) 2.30 Nucleated RBC % 0 Sodium 134 L Potassium 3.7 Chloride 101 Carbon Dioxide 26.0 Anion Gap 7 BUN 16 Creatinine 1.56 H Estim Creat Clear Calc 50.57 Est GFR (MDRD) Af Amer 45 L Est GFR (MDRD) Non-Af 37 L BUN/Creatinine Ratio 10.3 Glucose 229 H Calcium 9.4 Total Bilirubin 0.60 AST 18 ALT 23 Alkaline Phosphatase 141 H Total Protein 8.4 H Albumin 3.9 Globulin 4.5 H Albumin/Globulin Ratio 0.9 Lipase 17 Urine Color Yellow Urine Clarity Sl. Cloudy Urine pH 6.0 Ur Specific [place] 1.010 Urine Protein 15 H Urine Glucose (UA) Normal Urine Ketones Negative Urine Occult Blood Negative Urine Nitrite Negative Urine Bilirubin Negative Urine Urobilinogen Normal Ur Leukocyte Esterase 25 H Urine RBC 0 SEEN Urine WBC 0 SEEN Ur Squamous Epith Cells 5-10 SEEN Urine Bacteria 1+ Urine Mucus 0 SEEN Radiography Diagnostic Testing: Clinical Impression(s) from Imaging Studies Abdomen/Pelvis CT 07/08/23 12:56 IMPRESSION: Status post appendectomy. No acute abnormality is seen. Electronically Signed: Prakash Morse MD at 13:46 EST Reading Location ID and State: [facility] / [place] , Service support , Discharge Plan Triage Chief Complaint: Abd Pain ED Midlevel Provider: Ailin Bowling ED Provider: Jenna Valera Dx/Rx/DC Orders Clinical Impression: Drug side effects, Abdominal pain Instructions: ED Abdominal Pain Unkn Cause Fem Prescriptions: New ondansetron 4 mg tablet,disintegrating 4 mg PO Q8H PRN PRN (Reason: Nausea) Qty: 10 0RF No Action cetirizine 10 mg tablet 10 mg PO DAILY PRN (Reason: allergy symptoms) furosemide 80 mg tablet 80 mg PO DAILY insulin glargine [Lantus Solostar U-100 Insulin] 100 unit/mL (3 mL) insulin pen 22 unit SUBCUT QHS PRN (Reason: blood sugar) Rx Instructions: if BS >150 at bedtime albuterol sulfate 2.5 mg /3 mL (0.083 %) solution for nebulization 2.5 mg inhalation Q6H PRN (Reason: shortness of breath or wheezing) albuterol sulfate 90 mcg/actuation HFA aerosol inhaler 2 puff inhalation Q4H PRN (Reason: shortness of breath or wheezing) metformin 500 MG tablet 1,000 mg PO BID lamotrigine 200 mg tablet 200 mg PO DAILY Patient Comments: take 2 tablets by mouth every morning paroxetine HCl 40 mg tablet 40 mg PO DAILY pregabalin 300 mg capsule 300 mg PO BID quetiapine 400 mg tablet 400 mg PO QHS fluticasone propionate 50 mcg/actuation spray,suspension 2 spray INTRANASAL DAILY Patient Comments: Rinse mouth after use Linzess 72 mcg capsule 72 mcg PO DAILY Patient Comments: *ADMINISTER ON AN EMPTY STOMACH bisacodyl 5 mg tablet,delayed release (DR/EC) 5 mg PO DAILY PRN nicotine 21 mg/24 hr patch 24 hour 1 patch transdermal DAILY PRN (Reason: smoking cessation) atorvastatin 80 mg tablet 80 mg PO QHS baclofen 5 mg tablet 5 - 10 mg PO TID PRN (Reason: muscle spasm) Ozempic 0.25 mg or 0.5 mg (2 mg/3 mL) pen injector 0.5 mg SUBCUT .weekly Patient Comments: INJECT 0.5MG SUBCUTANEOUSLY EVERY WEEK oxycodone-acetaminophen 5-325 mg tablet 1 - 2 tab PO Q6H PRN (Reason: pain) 3 Days Qty: 14 0RF Primary Care Provider: Tyra Yang NP Referrals: Tyra Yang NP, [facility] [Primary Care Provider] - Activity Restrictions/Additional Instructions: Follow-up with your PCP in the next 5 to 7 days and return for any worsening of your symptoms. Disposition Disposition: Home, Self Care Discharge Date/Time: 07/08/23 15:40
[2023-07-08] MEDS: Morphine 4 MG/ML Syringe IV ×2 (13:10→15:02)
[2023-07-08] MEDS: 0.9% Normal Saline (1000mL) 1,000 ML 1000 ML IV (13:10)
[2023-07-08] MEDS: Ondansetron 4 MG/2 ML Vial IV (13:10)
[2023-07-08 13:13] LABS: Absolute Neutrophil Count 5.6 X10^3/uL (2.0-7.7); Basophil# 0.02 X10^3/uL; Basophil% 0.2 % (0-1); Eosinophil# 0.52 X10^3/uL; Eosinophils% 5.8 % (0-5); Hematocrit 43.8 % (37-47); Hemoglobin 14.7 g/dL (12.0-15.0); Lymphocyte % 25.6 % (19-41); Mean Corp Hgb Conc 33.6 g/dL (32-36); Mean Corpuscular Volume 83.4 fL (81-99); Mean Platelet Vol. 10.9 fl (6.2-12.0); Monocyte# 0.49 X10^3/uL; Monocyte% 5.5 % (0-10); NRBC Flagged by Analyzer 0 % (0-5); Neutrophil % 62.5 % (47-70); Platelet Count 239 K/mm3 (150-450); RBC Distribution Width CV 13.1 % (11.6-14.6); RBC Distribution Width SD 39.7 fl (35.1-43.9); Red Blood Count 5.25 M/mm3 (4.2-5.4)
[2023-07-08 13:27] LABS: ALB/GLOB Ratio 0.9 RATIO (0.9-2.4); AST(SGOT) 18 U/L (15-37); Alanine Aminotransfer ALT/SGPT 23 U/L (13-56); Albumin, Serum 3.9 g/dL (3.2-5.0); Alkaline Phosphatase 141 U/L (45-117); Anion Gap 7 (5-15); BUN 16 mg/dL (7-18); BUN/Creat Ratio 10.3 RATIO (10-20); Calcium,Total 9.4 mg/dL (8.5-10.1); Chloride 101 mmol/L (98-107); Creatinine, Serum 1.56 mg/dL (0.55-1.02); EST Glomerular Filtration Rate 37 mL/min (>60); Est Glom Filt Rate - Afr Amer 45 mL/min (>60); Estimated Creatinine Clearance 50.57 ml/min; Globulin 4.5 g/dL (2.2-4.2); Glucose 229 mg/dL (74-106); Lipase 17 U/L (13-75); Potassium 3.7 mmol/L (3.5-5.1); Protein, Total 8.4 g/dL (6.4-8.2); Sodium Level 134 mmol/L (136-145)
[2023-07-08 14:25] VITALS: BP 124/80; PULSE 89; RESP 18; O2SAT 94
[2023-07-08 14:26] LABS: Mucous, Urine 0 SEEN /hpf (<or=2+); Red Blood Cells-Urine 0 SEEN /hpf (0-5); White Blood Cells 0 SEEN /hpf (0-5)
[2023-07-08 14:28] LABS: Color, Urine Yellow (Yellow); Glucose, Dipstick Normal (Normal); Ketone-Dipstick Negative (Negative); Leukocyte Esterase-Dipstick 25 /ul (Negative); Nitrite-Dipstick Negative (Negative); Occult Blood-Urine Negative /ul (Negative); Protein-Dipstick 15 mg/dl (Negative); Urine Bilirubin Dipstick Negative (Negative); Urine Clarity Sl. Cloudy (Clear); Urine Urobilinogen Normal (Normal)
[2023-07-08 14:43] LABS: Bacteria 1+ /hpf (None Seen); Squamous Epithelial Cells - UA 5-10 SEEN /hpf (5-10)
[2023-07-08 15:38] VITALS: BP 110/64; PULSE 84; RESP 616; TEMP 36.3; O2SAT 99
== END 2023-07-08 15:40 | disposition home or self-care (01) ==
PROVIDERS: Physician Assistant; Emergency Provider Emergency Medicine; PCP Nurse Practitioner Family; Visit Provider Emergency Medicine
DX: R11.2 Nausea with vomiting, unspecified (principal); I50.32 Chronic diastolic (congestive) heart failure; E11.22 Type 2 diabetes mellitus with diabetic chronic kidney disease; R10.816 Epigastric abdominal tenderness; F17.210 Nicotine dependence, cigarettes, uncomplicated; Z79.85 Long-term (current) use of injectable non-insulin antidiabetic drugs; Z90.49 Acquired absence of other specified parts of digestive tract; I25.10 Atherosclerotic heart disease of native coronary artery without angina pectoris; N18.9 Chronic kidney disease, unspecified; E78.5 Hyperlipidemia, unspecified; Z79.899 Other long term (current) drug therapy; T38.3X5A Adverse effect of insulin and oral hypoglycemic [antidiabetic] drugs, initial encounter
CPT/HCPCS: 74176; 80053; 81001; 83690; 85025; 96361; 96374; 96375; 96376; 99282; J7030; A4216; J2405

== ENCOUNTER 2023-11-09 09:54 | Outpatient (CLI) | payer BC, MEDICAID, SELFPAY ==
[2023-11-09 10:41] LABS: Absolute Lymphocyte Count 2.14 X10^3/uL (0.83-4.51); Absolute Neutrophil Count 3.8 X10^3/uL (2.0-7.7); Basophil# 0.04 X10^3/uL; Basophil% 0.6 % (0-1); Eosinophil# 0.52 X10^3/uL; Eosinophils% 7.6 % (0-5); Hematocrit 40.1 % (37-47); Hemoglobin 12.4 g/dL (12.0-15.0); Lymphocyte # 2.14 X10^3/ul (0.83-4.51); Lymphocyte % 31.2 % (19-41); Mean Corp Hgb Conc 30.9 g/dL (32-36); Mean Corpuscular Hgb 26.2 pg (27.0-32.0); Mean Corpuscular Volume 84.6 fL (81-99); Mean Platelet Vol. 11.2 fl (6.2-12.0); Monocyte# 0.35 X10^3/uL; Monocyte% 5.1 % (0-10); NRBC Flagged by Analyzer 0 % (0-5); Neutrophil # 3.77 X10^3/uL (2.7-7.7); Neutrophil % 55.1 % (47-70); Platelet Count 202 K/mm3 (150-450); RBC Distribution Width CV 15.1 % (11.6-14.6); RBC Distribution Width SD 45.8 fl (35.1-43.9); Red Blood Count 4.74 M/mm3 (4.2-5.4); White Blood Count 6.9 K/mm3 (4.4-11.0)
[2023-11-09 10:44] LABS: Anion Gap 5 (5-15); BUN 22 mg/dL (7-18); BUN/Creat Ratio 18.6 RATIO (10-20); Calcium,Total 9.4 mg/dL (8.5-10.1); Chloride 108 mmol/L (98-107); Creatinine, Serum 1.18 mg/dL (0.55-1.02); EST Glomerular Filtration Rate 51 mL/min (>60); Est Glom Filt Rate - Afr Amer 62 mL/min (>60); Glucose 205 mg/dL (74-106); Potassium 4.4 mmol/L (3.5-5.1); Sodium Level 138 mmol/L (136-145)
--- NOTE | 2023-11-09 18:20 | TILTTABLE_ITS ---
Staff Staff: Becka Mason and Crystal Herman Summary Pre Test Resting HR: 77 Pre Test Resting BP: 108/98 Minimum Test HR: 76 Maximum Test HR: 88 Minimum Test BP: 88/55 Maximum Test BP: 133/69 Reason for Test Termination: Reached Maximum Test Time Physician Tilt Table Report Patient's Physicians Primary Care Physician: Tyra Yang NP Indications/Diagnosis: Dizziness and syncope Procedure Comments: Patient was brought to the noninvasive lab in the postabsorptive nonsedated state. Informed consent was obtained. Initial EKG was obtained demonstrating sinus rhythm with a rate of 75 bpm blood pressure 141/96 mmHg. The patient was then placed in the 70 degree head upright tilt position for the requisite 20 minutes. Continuous EKG monitoring was obtained as well as heart rate monitoring. Patient maintained adequate heart rate and blood pressure without any significant changes. She did complain of mild lightheadedness towards the end of the test was put flat and vitals checked. Patient was then administered 0.4 mg of sublingual nitroglycerin. Patient was then put back in the 70 degree head upright tilt position. There was transient drop in the blood pressure from 122 to 94 mmHg and 88 mmHg with patient complain ing of mild dizziness. Heart rate increased to 88 bpm from 79 bpm. After 10 minutes the test was completed patient laid flat and recovered. No significant symptomatology was noted to suggest diagnosis. Summary: No significant cardiac symptomatology or hemodynamic abnormalities noted to suggest vasodepressive or POTS
[2023-11-09 18:24] VITALS: BP 108/98; BP 133/69; BP 88/55
== END 2023-11-09 20:00 | disposition home or self-care (01) ==
PROVIDERS: PCP Nurse Practitioner Family; Referring Provider Psychiatry & Neurology Sleep Medicine; Visit Provider Psychiatry & Neurology Sleep Medicine
DX: I50.32 Chronic diastolic (congestive) heart failure (principal); R29.6 Repeated falls; R42 Dizziness and giddiness; I95.1 Orthostatic hypotension; G90.A Postural orthostatic tachycardia syndrome [POTS]
CPT/HCPCS: 36415; 80048; 85025; 93660; A4216